=== PATIENT | female | born 1940 | race American Indian/Alaskan Native ===

== ENCOUNTER 2022-09-19 21:41 | Emergency (ER) | payer MEDICARE, OTHER, SELFPAY ==
[2022-09-19] VITALS (9 sets, daily range): BP systolic 105–130; BP diastolic 51–91; PULSE 83–100; RESP 26; O2SAT 94–99; BMI 24.4
--- NOTE | 2022-09-19 22:14 | ED_ITS ---
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 Patient notes that she was treated for pneumonia in July of 2022 well in [place] caring for family members. She has lost a son, a daughter and a son in law in the past year. She has now moved back to [facility]. She notes that she did have a drive from [facility] to [place] all the way through. She denies calf tenderness or history of DVT. Approximately 2 weeks ago she started coughing with minimal production. She states that has markedly worsened and now she coughs so hard that she vomits. She has not had fever or chills. She denies diarrhea. She has no past history of emphysema or COPD. She did try to of albuterol inhaler prior to coming here and it did not help. She notes that she cannot lay flat because when she does she starts coughing. She states that as a child she did have rheumatic fever and sometimes her heart has extra beats. She is not a smoker and has no history of emphysema or COPD. She does not think that she becomes more short of breath with activity. She states that she is only short of breath when she is coughing. Related Data Home Medications Medication Instructions Recorded Confirmed albuterol sulfate 2.5 mg/3 mL mg 09/19/22 (0.083 %) solution for nebulization omeprazole 40 mg capsule,delayed mg 09/19/22 release Previous Rx's Medication Instructions Recorded ipratropium 0.5 mg-albuterol 3 mg 3 ml inhalation QID #90 mL 09/20/22 (2.5 mg base)/3 mL nebulization soln potassium chloride 20 mEq 20 meq PO DAILY #7 tabs 09/20/22 tablet,extended release Allergies Allergy/AdvReac Type Severity Reaction Status Date / Time No Known Drug Allergies Allergy Verified 09/19/22 22:06 Review of Systems Status of ROS: Reports: 10 or more systems reviewed and unremarkable except as noted in History and below Const: Reports: fatigue (From difficulty sleeping.); Denies: fever or chills Eyes: Denies: change in vision ENMT: Denies: throat pain, neck pain, throat swelling or difficulty swallowing Cardio: Reports: shortness of breath with exertion (With coughing); Denies: chest pain, palpitations, edema or swelling of feet/ankles Resp: Reports: shortness of breath (With coughing) and cough; Denies: stridor, coughing up blood or chest congestion GI: Reports: vomiting; Denies: abdominal pain, nausea, diarrhea or difficulty swallowing : Denies: painful urination or urinary frequency Musculo: Denies: neck pain, extremity pain or extremity swelling Integ/Breast: Denies: rash or itching Neuro: Denies: headache or numbness in extremities Endo: Reports: fatigue (From difficulty sleeping.) Allergy/Immuno: Denies: throat swelling PFSH PFSH Social History Smoking Status: Never smoker Do you use any of these nicotine containing products: None Second hand tobacco smoke exposure: No How often do you have a drink containing alcohol: never AUDIT-C Alcohol total score: 0 Non-prescribed substance use: denies use Exam Narrative: Exam Narrative: Alert and oriented. Speaking clearly. Episodes of bronchospasm with coughing without production. Eyes are clear. Oral cavity with moist mucous membranes. Neck is supple. Heart with an irregular rhythm. Auscultatory findings sound like additional systole. Abdomen soft. Lungs are with wheezing expiratory with squeaks on especially on the right. Calves without tenderness. No edema of lower extremities. Negative Homans sign. Const: Vital Signs, click to edit/add: Vital Signs - 24 hr 09/19/22 21:55 09/20/22 00:06 09/19/22 22:37 Pulse Rate 93 Pulse Rate [Right Pulse Oximeter] 83 Respiratory Rate 26 H Blood Pressure Blood Pressure [Le ft Upper Arm] 130/91 H Pulse Oximetry 94 94 97 Oxygen Delivery Me thod Room Air Room Air 09/19/22 22:45 09/19/22 23:00 09/19/22 23:02 Pulse Rate 89 92 Pulse Rate [Right Pulse Oximeter] Respiratory Rate Blood Pressure 105/65 Blood Pressure [Le ft Upper Arm] Pulse Oximetry 99 95 97 Oxygen Delivery Me thod 09/19/22 23:15 09/19/22 23:30 09/19/22 23:32 Pulse Rate 93 94 93 Pulse Rate [Right Pulse Oximeter] Respiratory Rate Blood Pressure 130/51 L Blood Pressure [Le ft Upper Arm] Pulse Oximetry 97 94 94 Oxygen Delivery Me thod 09/19/22 23:45 09/20/22 00:00 09/20/22 00:02 Pulse Rate 100 87 Pulse Rate [Right Pulse Oximeter] Respiratory Rate Blood Pressure 141/76 H Blood Pressure [Le ft Upper Arm] Pulse Oximetry 98 94 95 Oxygen Delivery Me thod Documenting provider has reviewed patient's vital signs: yes Course Course Hospital Course: Patient has had 2 weeks of increasing cough without significant production or fever. Differential diagnosis does include PE secondary to recent travel, reactive airway, bronchitis, pneumonia, bronchospasm. In addition she has in ir regular heartbeat. She has agreed to chest x-ray, COVID swab and EKG to start with. If we do knots leak clear source of etiology on x-ray I do suggest CT of the chest and blood work. She is in agreement. We will also start with a DuoNeb. Reevaluation(s) Reevaluation #1: Patient noted to have a small pleural effusion on chest x-ray. Otherwise no large infiltrates. I have spoken with her about proceeding with blood work and CT given these findings. Patient requesting cough medicine and I written for Tessalon Perles. Reevaluation #2: Patient does not think she is markedly better with Tessalon Perles and therefore will use 5 mils Robitussin. After this patient feels much better. She states that she was almost even able to fall asleep. Vital Signs Vital signs: Initial Vital Signs Pulse Rate 83 09/19/22 21:55 Respiratory Rate 26 H 09/19/22 21:55 Blood Pressure 130/91 H 09/19/22 21:55 Blood Pressure Mean 104 09/19/22 21:55 Blood Pressure Position Supine 09/19/22 21:55 Pulse Oximetry 94 09/19/22 21:55 Oxygen Delivery Method 09/19/22 21:55 Vital Signs Pulse Rate 83 09/19/22 21:55 Respiratory Rate 26 H 09/19/22 21:55 Blood Pressure 130/91 H 09/19/22 21:55 Pulse Oximetry 94 09/19/22 21:55 Oxygen Delivery Method 09/19/22 21:55 Pulse Rate 87 09/20/22 00:02 Respiratory Rate 26 H 09/19/22 21:55 Blood Pressure 141/76 H 09/20/22 00:02 Pulse Oximetry 94 09/20/22 00:06 Oxygen Delivery Method 09/19/22 22:37 Medical Decision Making MDM Narrative Medical decision making narrative: 1. Bronchitis-fortunately no evidence of PE or other abnormality on CT. At this time recommend Zithromax his cough is been ongoing greater than 2 weeks. 500 mg today followed by 250 mg daily for 4 days. Will also do prednisone 20 mg p.o. b.i.d. x5 days. Patient does think that the DuoNeb here in the emergency room was superior to her albuterol at home and therefore I have sent DuoNeb prescription to [facility] pharmacy [facility] to be use q.i.d.. Patient may use Mucinex DM or Tessalon Perles as needed for cough at home. I did warn her that she may have continued cough tonight but she should have improvement over the next 24 hours. She should follow up with primary MD for recheck. 2. Irregular heart rate-I believe this is likely secondary to hypokalemia. Patient received 50 mEq of p.o. potassium and really the irritability and PVCs that were frequently noted have resolved. Magnesium within normal limits at 1.9. Potassium 20 mEq p.o. daily prescription for 7 days sent to [facility] pharmacy. 3. Hypokalemia-see above 4.. Disposition-patient is discharged home. During her time here she her sister seemed to be fairly frustrated with us and felt that things were not moving very fast. At patient has been calm cooperative and understanding. She certainly has been through significant heart break in the past year. She will follow-up with her primary MD Dr. Lara from the [facility]. She will return to the emergency room for worsening symptoms. During her time here we ruled out any possibility of PE, acute coronary disease, congestive heart failure. Medical Records Medical records reviewed: Yes I reviewed the patient's medical records Lab Data Lab results reviewed: Yes I reviewed the patient's lab results Labs: Lab Results 09/19/22 09/20/22 09/20/22 Range/Units 22:12 00:05 00:17 WBC 7.97 (4.50-11.00) K/uL RBC 4.20 (4.00-5.20) m/uL Hgb 11.5 L (12.0-16.0) gm/dL Hct 36.6 (33.0-51.0) % MCV 87 (80-100) fL MCH 27 (26-34) pg MCHC 31 L (32-36) gm/dL RDW Coeff of Blayne 13.5 (11.5-15.5) % Plt Count 291 (140-440) K/uL Neut % (Auto) 49.4 (42.0-72.0) % Lymph % (Auto) 24.2 (20-44) % [place] % (Auto) 11.7 H (0.0-11.0) % Eos % (Auto) 13.6 H (0.0-7.0) % Baso % (Auto) 0.8 (0.0-3.0) % Neut # (Auto) 3.95 (1.7-7.0) K/uL Lymph # (Auto) 1.93 (0.90-2.90) K/uL [place] # (Auto) 0.90 (0.00-0.90) K/UL Eos # (Auto) 1.10 H (0.00-0.50) K/uL Baso # (Auto) 0.06 (0.00-0.30) K/uL Sodium (135-149) mmol/L Potassium (3.6-5.1) mmol/L Chloride (96-114) mmol/L Carbon Dioxide (20-32) mmol/L BUN (7-30) mg/dL Creatinine (0.5-1.5) mg/dL Estimated Creat Clear Estimated GFR ml/min Glucose (60-115) mg/dL Calcium (8.4-10.6) mg/dL Magnesium (1.5-2.6) mg/dL Total Bilirubin (0.1-1.5) mg/dL AST (12-35) U/L ALT (4-35) U/L Alkaline Phosphatase (40-150) U/L C-Reactive Protein (0.5-1.0) mg/dL NT-Pro-B Natriuret Pep pg/mL Total Protein (6.0-8.3) g/dL Albumin (3.3-5.0) g/dL SARS-CoV-2 (PCR) Negative SARS-CoV-2 (Negative) Influenza Type A (PCR) Negative PCR FLU A (Negative) Influenza Type B (PCR) Negative PCR FLU B (Negative) RSV (PCR) Negative PCR RSV (Negative) POC Troponin I 0.01 (0.01-0.04) ng/ml 09/20/22 Range/Units 00:17 WBC (4.50-11.00) K/uL RBC (4.00-5.20) m/uL Hgb (12.0-16.0) gm/dL Hct (33.0-51.0) % MCV (80-100) fL MCH (26-34) pg MCHC (32-36) gm/dL RDW Coeff of Blayne (11.5-15.5) % Plt Count (140-440) K/uL Neut % (Auto) (42.0-72.0) % Lymph % (Auto) (20-44) % [place] % (Auto) (0.0-11.0) % Eos % (Auto) (0.0-7.0) % Baso % (Auto) (0.0-3.0) % Neut # (Auto) (1.7-7.0) K/uL Lymph # (Auto) (0.90-2.90) K/uL [place] # (Auto) (0.00-0.90) K/UL Eos # (Auto) (0.00-0.50) K/uL Baso # (Auto) (0.00-0.30) K/uL Sodium 143 (135-149) mmol/L Potassium 2.8 L* (3.6-5.1) mmol/L Chloride 112 (96-114) mmol/L Carbon Dioxide 26 (20-32) mmol/L BUN 15 (7-30) mg/dL Creatinine 1.0 (0.5-1.5) mg/dL Estimated Creat Clear 44.36 Estimated GFR 57 ml/min Glucose 112 (60-115) mg/dL Calcium 8.4 (8.4-10.6) mg/dL Magnesium 1.9 (1.5-2.6) mg/dL Total Bilirubin 0.4 (0.1-1.5) mg/dL AST 29 (12-35) U/L ALT 28 (4-35) U/L Alkaline Phosphatase 129 (40-150) U/L C-Reactive Protein 0.5 (0.5-1.0) mg/dL NT-Pro-B Natriuret Pep 888 pg/mL Total Protein 6.4 (6.0-8.3) g/dL Albumin 3.7 (3.3-5.0) g/dL SARS-CoV-2 (PCR) (Negative) Influenza Type A (PCR) (Negative) Influenza Type B (PCR) (Negative) RSV (PCR) (Negative) POC Troponin I (0.01-0.04) ng/ml Imaging Data Chest x-ray: Attestation: I have reviewed the pertinent imaging results. My impression: no infiltrate noted Radiologist's impression: Small left pleural effusion with left basilar atelectasis. The right lung is clear. No pneumothorax. Heart size upper limits of normal. Normal pulmonary vascularity. Mild elevation of the right hemidiaphragm. Degenerative changes of the acromioclavicular joints. IMPRESSION: Small left pleural effusion with left basilar atelectasis. CT scan - chest: Attestation: I have reviewed the pertinent imaging results. Radiologist's impression: No pulmonary embolism. Scattered areas of mucous plugging within the distal airways throughout the lung bases. Mild diffuse bronchial wall thickening. Findings can be seen in setting of bronchitis. Prominent, but not pathologically enlarged bihilar mediastinal lymph nodes, likely reactive. ECG Data Attestation: I personally reviewed and interpreted this ECG as follows: Interpretation: EKG 1. By my read shows sinus rhythm with frequent PVC. 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 No other acute ST or T-wave changes. 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 Prior to discharge however monitor shows consistent sinus rhythm. Discharge Plan Discharge Clinical Impression: Cough, Bronchitis, Hypokalemia Additional Instructions: Start Zithromax and prednisone tonight. I will send potassium prescription and DuoNeb prescription to your pharmacy. Robitussin may be used for cough. Return to the emergency room for worsening symptoms and as needed. Prescriptions: New ipratropium-albuterol 0.5 mg-3 mg(2.5 mg base)/3 mL solution for nebulization 3 ml inhalation QID Qty: 90 2RF potassium chloride 20 mEq tablet extended release 20 meq PO DAILY Qty: 7 0RF No Action albuterol sulfate 2.5 mg /3 mL (0.083 %) solution for nebulization Label Comments: INHALE 3ML PER NEBULIZER EVERY 4 HOURS omeprazole 40 mg capsule,delayed release(DR/EC) Label Comments: TAKE ONE CAPSULE BY MOUTH DAILY 30 MINUTES BEFORE MORNING MEAL Follow Up/Referrals: Virginia Lara MD [Primary Care Provider] -
--- NOTE | 2022-09-19 22:37 | CRLHL7_ITS ---
For Patients: As a result of the Century Cures Act, medical imaging exams and procedure reports are released immediately into your electronic medical record. You may view this report before your referring provider. If you have questions, please contact your health care provider. INDICATION: Persistent cough. TECHNIQUE: Chest 1 view. COMPARISON: Chest radiograph 08/16/2018. FINDINGS: Small left pleural effusion with left basilar atelectasis. The right lung is clear. No pneumothorax. Heart size upper limits of normal. Normal pulmonary vascularity. Mild elevation of the right hemidiaphragm. Degenerative changes of the acromioclavicular joints. IMPRESSION: Small left pleural effusion with left basilar atelectasis. Dictated by Madina Edmonds MD @ 09/19/2022 11:51:54 PM (Electronically Signed)
[2022-09-19] MEDS: IPRAT-ALBUT 0.5-2.5 MG/3 ML NEB 1 NEB IH (22:43)
[2022-09-19 23:03] LABS: PCR FLU A Negative PCR FLU A (Negative); PCR FLU B Negative PCR FLU B (Negative); PCR RSV Negative PCR RSV (Negative)
[2022-09-19 23:33] LABS: SARS PCR* Negative SARS-CoV-2 (Negative)
[2022-09-19] MEDS: BENZONATATE 100 MG CAPSULE 200 MG PO (23:37)
[2022-09-20] VITALS (8 sets, daily range): BP systolic 127–141; BP diastolic 62–91; PULSE 83–102; RESP 18–20; TEMP 36.8; O2SAT 93–95
--- NOTE | 2022-09-20 00:05 | CRLHL7_ITS ---
For Patients: As a result of the Century Cures Act, medical imaging exams and procedure reports are released immediately into your electronic medical record. You may view this report before your referring provider. If you have questions, please contact your health care provider. INDICATION: . TECHNIQUE: CT chest PE was acquired with 100 cc Omnipaque 350 IV contrast. COMPARISON: None. FINDINGS: Heart and vasculature: Contrast opacification of the pulmonary arterial tree is adequate. No sign of pulmonary embolism. Heart size is normal. Thoracic aorta and pulmonary artery are normal in caliber. Lungs and pleura: The central airways are clear; however, there are scattered areas of mucous plugging within the distal airways throughout the lung bases. Mild diffuse bronchial wall thickening. No consolidation, significant atelectasis, suspicious nodule, or pneumothorax. Calcified right middle lobe granuloma.1 Lymph nodes/mediastinum: Prominent, but not pathologically enlarged bihilar and mediastinal lymph nodes. No axillary lymphadenopathy. Chest wall: No masses. Upper abdomen: Status post cholecystectomy. No abnormal biliary ductal dilatation. Bones: Unremarkable for age. IMPRESSION: No pulmonary embolism. Scattered areas of mucous plugging within the distal airways throughout the lung bases. Mild diffuse bronchial wall thickening. Findings can be seen in setting of bronchitis. Prominent, but not pathologically enlarged bihilar mediastinal lymph nodes, likely reactive. Please note that all CT scans at this facility use dose modulation, iterative reconstruction, and/or weight-based dosing when appropriate to reduce radiation dose to as low as reasonably achievable. Dictated by Juan Duarte MD @ 09/20/2022 1:27:47 AM (Electronically Signed)
[2022-09-20] MEDS: guaiFENesin 100 MG/ML CUP PO ×2 (00:14→02:20)
[2022-09-20 00:23] LABS: Basophils Absolute Auto 0.06 K/uL (0.00-0.30); Basophils Percent Auto 0.8 % (0.0-3.0); Eosinophils Percent Auto 13.6 % (0.0-7.0); Hematocrit 36.6 % (33.0-51.0); Hemoglobin* 11.5 gm/dL (12.0-16.0); Immature Granulocytes Abs Auto 0.02 K/uL (0.00-0.30); Immature Granulocytes Pct Auto 0.3 %; Lymphocytes Absolute Auto 1.93 K/uL (0.90-2.90); Lymphocytes Percent Auto 24.2 % (20-44); Mean Corpuscular HGB Conc 31 gm/dL (32-36); Mean Corpuscular Hemoglobin 27 pg (26-34); Mean Corpuscular Volume 87 fL (80-100); Monocytes Percent Auto 11.7 % (0.0-11.0); Neutrophils Absolute Auto 3.95 K/uL (1.7-7.0); Neutrophils Percent Auto 49.4 % (42.0-72.0); Platelet Count* 291 K/uL (140-440); RDW Coefficient of Variation % 13.5 % (11.5-15.5); White Blood Count* 7.97 K/uL (4.50-11.00)
[2022-09-20 00:29] LABS: Slide Review Reflex No
[2022-09-20 00:35] LABS: Albumin* 3.7 g/dL (3.3-5.0); Chloride* 112 mmol/L (96-114); Sodium* 143 mmol/L (135-149)
[2022-09-20 00:37] LABS: Est. Creatinine Clearance* 44.36; Estimated Glomerular Filt Rate 57 ml/min
[2022-09-20 00:38] LABS: Alanine Aminotransferase* 28 U/L (4-35); Alkaline Phosphatase* 129 U/L (40-150); Aspartate Amino Transferase* 29 U/L (12-35); Bilirubin Total* 0.4 mg/dL (0.1-1.5); Blood Urea Nitrogen* 15 mg/dL (7-30); Carbon Dioxide* 26 mmol/L (20-32); Glucose* 112 mg/dL (60-115); Total Protein* 6.4 g/dL (6.0-8.3)
[2022-09-20 00:39] LABS: Calcium* 8.4 mg/dL (8.4-10.6); Potassium* 2.8 mmol/L (3.6-5.1)
[2022-09-20 00:41] LABS: C Reactive Protein* 0.5 mg/dL (0.5-1.0)
[2022-09-20 00:50] LABS: NT Pro B Type NatriureticPept* 888 pg/mL
[2022-09-20] MEDS: POTASSIUM BICARB 25 MEQ EFFERVESCENT TAB 50 MEQ PO (00:51)
[2022-09-20 00:52] LABS: Troponin, Point-of-Care* 0.01 ng/ml (0.01-0.04)
[2022-09-20 01:03] LABS: Magnesium* 1.9 mg/dL (1.5-2.6)
== END 2022-09-20 02:25 | disposition home or self-care (01) ==
LOC: ED 23:04
PROVIDERS: Emergency Provider Family Medicine; PCP Family Medicine
DX: J40 Bronchitis, not specified as acute or chronic (principal); R00.9 Unspecified abnormalities of heart beat; E87.6 Hypokalemia
CPT/HCPCS: 36415; 71045; 71260; 80053; 83735; 83880; 84484; 85025; 86140; 87502; 87634; 87635; 93005; 94640; 94761; 99284; 99285; A9270; Q9967

== ENCOUNTER 2022-11-06 22:19 | Emergency (ER) | payer MEDICARE, MEDICAID, SELFPAY ==
[2022-11-06 22:36] VITALS: BP 149/94; PULSE 83; RESP 22; TEMP 36.7; O2SAT 95; BMI 24.9
--- OUTSIDE RECORDS SUMMARY | 2022-11-06 23:19 | XMS_ITS | Continuity of Care Document ---
Author Name Unknown Organization Wilmarelli Rees [facility] Address [id number] [place] [address] Phone Care Team Providers Care Factory Engineer Name Role Phone Unavailable Unavailable Unavailable Procedures Procedure Date Extraction, Erupted Tooth Or Exposed Janeth t (Elevati Extraction, Erupted Tooth Or Exposed [facility]posed [facility], Erupted Tooth Or Exposed Janeth t (Elevati Extraction, Erupted Tooth Or Exposed Janeth t (Elevati Extraction, Erupted Tooth Or Exposed Janeth t (Elevati Extraction, Erupted Tooth Or Exposed Janeth t (Elevati Limited Oral Evaluation ??? Problem Focu sed Office[facility]outpatient visit,[facility] [place] Urinalysis, non-automated, w/scope Antibody, helicobacter pylori 8 Automated hemogram (CBC) Metabolic panel, comprehensive 08 Hepatic function panel Lipid profile Advance Directives Directive Yes / No Effective Date File Name No Information Encounters Encounter Description Practice Location Reason(s) For Visit Diagnoses Date Provider Providers Copied on Encounter [facility], [address] [place] [address] [id number] , [place], [place], [id number], [place] tel:[phone] [place] DENTAL EXAMINATION Nov- 3-201 5 No Information [facility], [address] [place] [address] [id number] , [place], [place], [id number], [place] tel:[phone] [place] DENTAL EXAMINATION 5 No Information Office/outpat ient visit,[facility] Wilmar Sen [facility], [id number] , [place], [place], [id number], [place] tel:[phone] [place] No Information 6200 8 No Information Family History Family Member Type Diagnosis Age At Onset No Information Payers Payer name Insurance type Covered alliance party ID Authorpana renard(s) D Z Slide Discount Schedule A CI Social History Type Description Quantity Date Captured Comments Sex Female Smoking Status No Information Chief Complaint And Reason For Visit No Information Reason For Referral Reason For Referral No Information Plan Of Treatment Date Type Action Status No Information History Of Present Illness Encounter Date Complaint History Of Prese nt Illness No Information Functional Status Date Functional Assessmen t No Information Instructions Date Instruction Additional Infor mation No Information Assessments Type Assessment Date No Information Patient Care Teams Name Effective Dates (start - stop) Status Members No Information
--- OUTSIDE RECORDS SUMMARY | 2022-11-06 23:20 | XMS_ITS | Continuity of Care Document ---
Author Name Unknown Organization [facility] Address [address] [facility] [id number] [place] [address] Phone Care Team Providers Care Clinical Abstractor Name Role Phone Unavailable Unavailable Unavailable Procedures Procedure Date Extraction, Erupted Tooth Or Exposed Janeth t (Elevati Extraction, Erupted Tooth Or Exposed Janeth t (Elevpsychiatric Extraction, Erupted Tooth Or Exposed Janeth t (Elevpsychiatric Extraction, Erupted Tooth Or Exposed Janeth t (Elevati Extraction, Erupted Tooth Or Exposed Janeth t (Elevati Extraction, Erupted Tooth Or Exposed Janeth t (Elevati Extraction, Erupted Tooth Or Exposed Janeth t (Elevati Limited Oral Evaluation ??? Problem Focu sed Office/outpatient visit,[facility], [facility] 2007 Urinalysis, non-automated, w/scope Antibody, helicobacter pylori 8 Automated hemogram (CBC) Metabolic panel, comprehensive 08 Hepatic function panel Lipid profile Advance Directives Directive Yes / No Effective Date File Name No Information Encounters Encounter Description Practice Location Reason(s) For Visit Diagnoses Date Provider Providers Copied on Encounter [facility], [address] [place] [address] [id number] , [place], [place], [id number], [place] tel:[phone] [place] DENTAL EXAMINATION Nov- 3-201 5 No Information [facility], [address] [place] [address] [id number] , [place], [place], [id number], [place] tel:[phone] [place] DENTAL EXAMINATION 5 No Information Office/outpat ient visit,[facility], [id number] , [place], [place], [id number], [place] tel:[phone] [place] No Information 6200 8 No Information Family History Family Member Type Diagnosis Age At Onset No Information Payers Payer name Insurance type Covered constitution party ID Authorpana renard(s) D Z Slide [...]
--- NOTE | 2022-11-06 23:39 | ED_ITS ---
HPI - General Adult General Date Seen: 11/06/22 Chief complaint: Cough Stated complaint: cough hasn't gotten better since last in Time Seen by Provider: 11/06/22 22:30 Source: patient Mode of arrival: ambulatory Limitations: no limitations History of Present Illness HPI narrative: Patient is an 82-year-old female presents here with a friend, she has had a cough now for the last 3 months, it has been worse in the last week or so. Denies any fevers chills or sweats associated with this, she is using nebulize treatments of albuterol every 4 hours at home, and also using Mucinex, she has recently moved here from [place] and has not yet established with a primary care physician as she does not have insurance yet. 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 No history of COPD, no history of reactive airway disease, denies a history of cardiac issues. Denies leg swelling, denies syncope, sometimes she coughs so hard she throws up she says. Does not smoke, Treatments prior to arrival: none Related Data Home Medications Medication Instructions Recorded Confirmed albuterol sulfate 2.5 mg/3 mL mg 09/19/22 (0.083 %) solution for nebulization omeprazole 40 mg capsule,delayed mg 09/19/22 release Previous Rx's Medication Instructions Recorded ipratropium 0.5 mg-albuterol 3 mg 3 ml inhalation QID #90 mL 09/20/22 (2.5 mg base)/3 mL nebulization soln potassium chloride 20 mEq 20 meq PO DAILY #7 tabs 09/20/22 tablet,extended release Allergies Allergy/AdvReac Type Severity Reaction Status Date / Time No Known Drug Allergies Allergy Verified 09/19/22 22:06 Review of Systems Status of ROS: Reports: 10 or more systems reviewed and unremarkable except as noted in History and below PFSH PFS Social History Smoking Status: Never smoker Do you use any of these nicotine containing products: None Second hand tobacco smoke exposure: No How often do you have a drink containing alcohol: never AUDIT-C Alcohol total score: 0 Non-prescribed substance use: denies use Exam Narrative: Exam Narrative: She is seen in room 4 she is in no apparent distress speaking to me in full se ntences, she did not cough once when she was in the room. Her pupils are equal round reactive to light there is no scleral icterus redness or TMs are normal oropharynx is normal, she has musical wheezes in her lungs on expiration bilaterally, no signs of respiratory distress, no crackles noted heart sounds no clicks murmurs or gallops her abdomen is soft, there is no guarding no tenderness, no organomegaly, no swelling or pitting edema of her legs. Const: Vital Signs, click to edit/add: Vital Signs - 24 hr 11/06/22 22:36 Temperature 98.1 F Pulse Rate [Left P ulse Oximeter] 83 Respiratory Rate 22 Blood Pressure [Ri ght Upper Arm] 149/94 H Pulse Oximetry 95 Oxygen Delivery Me thod Room Air Documenting provider has reviewed patient's vital signs: yes Course Course Hospital Course: I discussed with her that she needs to follow up with primary care, this seems to be more of a chronic cough than anything, use of Mucinex probably is worsening the cough at this point, not helping. She can use some Robitussin DM only at night time, I did give her MDI of albuterol she can use in between, and we will give her a tapering dose of prednisone, her friend asked me about antibiotics but in this setting I do not think antibiotics are helpful. I do think she will end up needing probably inhaled steroids, but she has an appointment with [facility] coming up here shortly A things to worry about including reflux causing her issue in going up on her omeprazole to 60 mg daily would also be advantageous. It least for the next couple weeks, I would also suggest if this does not work consider postnasal drip as a cause. Vital Signs Vital signs: Initial Vital Signs Temperature 98.1 F 11/06/22 22:36 Temperature Source Temporal Artery Scan 11/06/22 22:36 Pulse Rate 83 11/06/22 22:36 Respiratory Rate 22 11/06/22 22:36 Blood Pressure 149/94 H 11/06/22 22:36 Blood Pressure Mean 112 11/06/22 22:36 Blood Pressure Position Sitting 11/06/22 22:36 Pulse Oximetry 95 11/06/22 22:36 Oxygen Delivery Method Room Air 11/06/22 22:36 Vital Signs Temperature 98.1 F 11/06/22 22:36 Pulse Rate 83 11/06/22 22:36 Respiratory Rate 22 11/06/22 22:36 Blood Pressure 149/94 H 11/06/22 22:36 Pulse Oximetry 95 11/06/22 22:36 Oxygen Delivery Method Room Air 11/06/22 22:36 Temperature 98.1 F 11/06/22 22:36 Pulse Rate 83 11/06/22 22:36 Respiratory Rate 22 11/06/22 22:36 Blood Pressure 149/94 H 11/06/22 22:36 Pulse Oximetry 95 11/06/22 22:36 Oxygen Delivery Method Room Air 11/06/22 22:36 Medical Decision Making MDM Narrative Medical decision making narrative: Differential diagnosis include a viral upper respiratory illness, histoplas mosis, tuberculosis, pneumonia, COPD exacerbation, emphysema, strep throat illness, bronchitis, asthma, reactive airway disease, chronic cough, medication side effects, allergic rhinitis with postnasal drip, foreign body aspiration, aspiration pneumonia, bronchiolitis, and gastroesophageal reflux disease as well as multiple other considerations. Medical Records Medical records reviewed: Yes I reviewed the patient's medical records Medical records narrative: Reviewed the medical records from the previous ER visit. Discharge Plan Discharge Clinical Impression: Cough Patient Disposition: Home w/ Parent or Adult Condition: Stable Instructions: Syncope (ED), Wheezing (ED) Additional Instructions: Home rest medications as directed, use the tapering prednisone, you may use the Robitussin DM, follow-up with primary care, return as needed. Prescriptions: No Action albuterol sulfate 2.5 mg /3 mL (0.083 %) solution for nebulization Patient Comments: INHALE 3ML PER NEBULIZER EVERY 4 HOURS omeprazole 40 mg capsule,delayed release(DR/EC) Patient Comments: TAKE ONE CAPSULE BY MOUTH DAILY 30 MINUTES BEFORE MORNING MEAL ipratropium-albuterol 0.5 mg-3 mg(2.5 mg base)/3 mL solution for nebulization 3 ml inhalation QID Qty: 90 2RF potassium chloride 20 mEq tablet extended release 20 meq PO DAILY Qty: 7 0RF Follow Up/Referrals: Virginia Lara MD [Primary Care Provider] - Stand Alone Forms: [employer] Info Instructions
[2022-11-06 23:40] VITALS: BP 135/84; PULSE 79; RESP 20; TEMP 36.7; O2SAT 95
== END 2022-11-06 23:40 | disposition home or self-care (01) ==
PROVIDERS: Emergency Provider Family Medicine; PCP Family Medicine
DX: R05.9 Cough, unspecified (principal)
CPT/HCPCS: 99282; 99283

== ENCOUNTER 2023-09-28 16:33 | Emergency (ER) | payer MEDICARE, OTHER, BC, SELFPAY ==
[2023-09-28 16:42] VITALS: BP 152/77; PULSE 71; RESP 16; TEMP 37.4; O2SAT 99; BMI 25.1
[2023-09-28 17:17] LABS: Appearance Urine Clear (Clear); Bilirubin Urine Negative (Negative); Blood Urine Trace-intact (Negative); Color Urine Yellow (Yellow); Glucose Urine Negative (Negative); Ketones Urine Trace (Negative); Leukocyte Esterase Urine Negative (Negative); Nitrite Urine Negative (Negative); Protein Urine Trace (Negative); Specific Gravity Urine >= 1.030 (1.000-1.030); Urobilinogen Urine 0.2 (0.2-1.0); pH Urine 5.5 (5.0-8.5)
--- NOTE | 2023-09-28 18:13 | ED_ITS ---
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 She had endoscopy last Monday, she says some biopsies were taken at that time, and then she had it sounds like a barium swallow with small-bowel follow-through on Monday. She says she felt fine after her endoscopy and Monday. On Monday after coming home from her barium study, she did have diarrhea for about 24 hours. At some point in there she started to get she says sharp pains shooting in her left upper abdomen. She says it felt like a muscle cramp but she could not find a spot on the outside that seemed tender to push on. Over the past couple of days she has noticed a rash which she thinks is related to the patches she had on for her procedure. She has not had vomiting, fevers, appetite has been normal. Normal bowel movements after that 24 hours of diarrhea. Related Data Home Medications Medication Instructions Recorded Confirmed omeprazole 40 mg capsule,delayed mg 09/19/22 07/19/23 release cholecalciferol (vitamin D3) 25 25 mcg PO QDAY 07/19/23 07/19/23 mcg (1,000 unit) capsule clotrimazole 10 mg frankie mg PO 07/19/23 07/19/23 doxycycline monohydrate 100 mg 100 mg PO BID 07/19/23 07/19/23 capsule hydroxychloroquine 200 mg tablet 200 mg PO BID 07/19/23 07/19/23 sucralfate 1 gram tablet 1 g PO QID 07/19/23 07/19/23 vitamin B complex (B 1 tab PO QDAY 07/19/23 07/19/23 Complex-Vitamin B12 tablet) Previous Rx's Medication Instructions Recorded prednisone 20 mg tablet See Rx Instructions .Route 09/28/23 .COMPLEX #18 tabs valacyclovir 1 gram tablet 1,000 mg PO TID 7 days #21 tabs 09/28/23 Allergies Allergy/AdvReac Type Severity Reaction Status Date / Time codeine Allergy Unknown Verified 09/28/23 16:50 prednisone Allergy Unknown increase Verified 09/28/23 16:50 blood pressure ibuprofen AdvReac Intermediate abdominal Verified 09/28/23 16:50 discomfort Review of Systems Status of ROS: Reports: 10 or more systems reviewed and unremarkable except as noted in History and below 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, left shoulder (ICD-10) Knee fracture, left Vulvar pain ?R10.2 - Pelvic and perineal pain (ICD-10) History of duodenal ulcer ?Z87.19 - Personal history of other diseases of the digestive system (ICD-10) Headache ?R51.9 - Headache, unspecified (ICD-10) Elevated blood pressure reading ?R03.0 - Elevated blood-pressure reading, without diagnosis of hypertension (ICD-10) Back pain ?M54.9 - Dorsalgia, unspecified (ICD-10) Atopic dermatitis ?L20.9 - Atopic dermatitis, unspecified (ICD-10) Surgical History (Updated 07/18/23 @ 08:26 by Elizabeth Crump) Status post laparoscopic cholecystectomy ?Z90.49 - Acquired absence of other specified parts of digestive tract (ICD- 10) History of tonsillectomy and adenoidectomy ?Z90.89 - Acquired absence of other organs (ICD-10) History of surgery on left wrist (07/28/15) ?Z98.890 - Other specified postprocedural states (ICD-10) History of sinus surgery ?Z98.890 - Other specified postprocedural states (ICD-10) History of hysterectomy ?Z90.710 - Acquired absence of both cervix and uterus (ICD-10) History of hammer toe correction ?Z98.890 - Other specified postprocedural states (ICD-10) ?Z87.39 - Personal history of other diseases of the musculoskeletal system and connective tissue (ICD-10) History of elbow surgery (2018) ?Z98.890 - Other specified postprocedural states (ICD-10) History of carpal tunnel surgery of left wrist (2019) ?Z98.890 - Other specified postprocedural states (ICD-10) History of bilateral cataract extraction (2014) ?Z98.41 - Cataract extraction status, right eye (ICD-10) ?Z98.42 - Cataract extraction status, left eye (ICD-10) History of arthroscopy of knee (1989) ?Z98.890 - Other specified postprocedural states (ICD-10) History of appendectomy ?Z90.49 - Acquired absence of other specified parts of digestive tract (ICD- 10) Social History Smoking Status: Never smoker Do you use any of these nicotine containing products: None Second hand tobacco smoke exposure: No How often do you have a drink containing alcohol: never AUDIT-C Alcohol total score: 0 Non-prescribed substance use: denies use Exam Narrative: Exam Narrative: Vital signs as noted above. In general, an alert, well-appearing patient. Looks comfortable. Head: Normocephalic, atraumatic. Eyes: Pupils are equal reactive. Extraocular movements are full. Conjunctivae are normal. ENT: Mucous membranes are moist. Neck: Supple without lymphadenopathy. Heart: Regular rate and rhythm. No murmur or rub. Lungs: Clear bilaterally. No increased work of breathing, crackles or wheezes. Abdomen: Soft and nontender. No organomegaly. Extremities: Well perfused. No edema. No calf tenderness. Pulses intact. Neurologic: Patient is alert and oriented to person and place. Speech is fluent. Face is symmetric. Moves all extremities equally. Affect: Normal. Skin: Warm and dry. Well perfused. Over her lower torso/upper abdomen on the left there is a dermatomal rash consistent with shingles. She has a few scattered lesions on her left arm which he says are related to her pemphigoid. Const: Vital Signs, click to edit/add: Vital Signs - 24 hr 09/28/23 16:42 Temperature 99.3 F Pulse Rate [Right Pulse Oximeter] 71 Respiratory Rate 16 Blood Pressure [Ri ght Upper Arm] 152/77 H Pulse Oximetry 99 Oxygen Delivery Me thod Room Air Course Course ED Course: Her abdominal exam is benign, she has been having pain now for several days, intermittently, and now has a rash consistent with shingles. I do think this is the cause of her pain. I do not have any reason to suspect complications related to her procedure almost a week ago. I have recommended course of prednisone and valacyclovir, Tylenol as needed for pain. Primary care follow-up for persistent or other concerns. Discussed the natural course of shingles. Return for acute worsening, new symptoms such as vomiting, fevers, etc.. Vital Signs Vital signs: Initial Vital Signs Temperature 99.3 F 09/28/23 16:42 Temperature Source Temporal Artery Scan 09/28/23 16:42 Pulse Rate 71 09/28/23 16:42 Pulse Rhythm Regular 09/28/23 16:42 Pulse Strength 3+ Normal 09/28/23 16:42 Respiratory Rate 16 09/28/23 16:42 Blood Pressure 152/77 H 09/28/23 16:42 Blood Pressure Mean 102 09/28/23 16:42 Blood Pressure Position Sitting 09/28/23 16:42 Pulse Oximetry 99 09/28/23 16:42 Oxygen Delivery Method Room Air 09/28/23 16:42 Vital Signs Temperature 99.3 F 09/28/23 16:42 Pulse Rate 71 09/28/23 16:42 Respiratory Rate 16 09/28/23 16:42 Blood Pressure 152/77 H 09/28/23 16:42 Pulse Oximetry 99 09/28/23 16:42 Oxygen Delivery Method Room Air 09/28/23 16:42 Temperature 99.3 F 09/28/23 16:42 Pulse Rate 71 09/28/23 16:42 Respiratory Rate 16 09/28/23 16:42 Blood Pressure 152/77 H 09/28/23 16:42 Pulse Oximetry 99 09/28/23 16:42 Oxygen Delivery Method Room Air 09/28/23 16:42 Discharge Plan Discharge Clinical Impression: Shingles Patient Disposition: Home, Self-Care Condition: Stable Instructions: Shingles (ED) Additional Instructions: Medications as prescribed. Rash generally resolves over 2-4 weeks, but you may continue to have pain and or itching for a couple of months. See her primary doctor if you have ongoing concerns. Prescriptions: New prednisone 20 mg tablet See Rx Instructions .ROUTE .COMPLEX Qty: 18 0RF Rx Instructions: 3 tabs daily for 3 days, then 2 tabs daily for 3 days, then 1 tab daily for 3 days. valacyclovir 1 gram tablet 1,000 mg PO TID 7 Days Qty: 21 0RF No Action doxycycline monohydrate 100 mg capsule 100 mg PO BID clotrimazole 10 mg frankie PO hydroxychloroquine 200 mg tablet 200 mg PO BID sucralfate 1 gram tablet 1 g PO QID vitamin B complex [B Complex-Vitamin B12] Tablet 1 tab PO QDAY cholecalciferol (vitamin D3) 25 mcg (1,000 unit) capsule 25 mcg PO QDAY omeprazole 40 mg capsule,delayed release(DR/EC) Patient Comments: TAKE ONE CAPSULE BY MOUTH DAILY 30 MINUTES BEFORE MORNING MEAL Follow Up/Referrals: Virginia Lara MD [Primary Care Provider] - Stand Alone Forms: [facility] Info Instructions
[2023-09-28 18:25] LABS: Bacteria Urine Few; Mucus Urine Moderate; RBC Urine 0-2 (0-2); WBC Urine 0-2 (0-5)
== END 2023-09-28 18:26 | disposition home or self-care (01) ==
LOC: ED 18:04
PROVIDERS: Emergency Provider Emergency Medicine; PCP Family Medicine
DX: B02.9 Zoster without complications (principal)
CPT/HCPCS: 81001; 87086; 99283

== ENCOUNTER 2023-12-01 09:44 | Outpatient (CLI) | payer MEDICARE, BC, SELFPAY ==
--- OUTSIDE RECORDS SUMMARY | 2023-12-01 09:47 | XMS_ITS | Clinical Summary ---
Author Name Unknown Organization [facility] Address [address] [place] [address] Care Team Providers Care Division Toll Wire Chief Name Role Phone Elsewhere, Pcp Primary Care Provider Unavailabl e Source Comments Patient records contain information from all sites at [facility]. For routine questions regarding patient records, call [phone] during business hours, M-F 8:00 AM - 5:00 PM Central Time. Record requests for emergency care only can be directed to [phone] at any time.[facility] Allergies Active Allergy Reactions Criticality Noted Date Comments Codeine Nausea Only 09/09/2016 Can do injection, but not oral. Does not seem to have a problem now. Ibuprofen GI intolerance,Other (see comments) High 12/23/2020 Ulcer problems so does not take. Prednisone Hypertension,Other ( see comments) High 07/18/2018 High blood pressure Medications Medication Sig Dispensed Refills Start Date End Date Status acetaminophen (TYLENOL) 500 mg tablet Take 500 mg by mouth as needed for pain. 9 Active lidocaine viscous (XYLOCAINE) 2 % mucosal solution Take 5 mL by mouth as needed. 0 Active sucralfate (CARAFATE) 1 gram tablet Take 1 g by mouth 3 (three) times a day before meals. 0 Active hydrOXYchloroQUI NE (PLAQUENIL) 200 mg tablet Take 200 mg by mouth daily. 1 Active omeprazole (PriLOSEC) [address] capsule Take 40 mg by mouth every morning before breakfast. 1 Active clotrimazole (MYCELEX) 10 mg trocheIndication s:Pemphigoid Mucous Membrane (HCC) Dissolve 1 Sandi (10 mg total) in the mouth 2 (two) times a day. 60 Sandi 11 3 Active dexAMETHasone (DECADRON) 0.5 mg/5 mL solutionIndicati ons:Pemphigoid Mucous Membrane (HCC) Take 5 mL (0.5 mg total) by mouth every 12 (twelve) hours. Swish for 5 minutes and then spit out. Do not eat/drink for 30 minutes after. 500 mL 3 3 Active Additional Information Patient taking differently:0.5 mg oralAs needed, Swish for 5 minutes and then spit out. Do not eat/drink for 30 minutes after., Reported on 09/15/2023 betamethasone dipropionate, augmented, (DIPROLENE) 0.05 % ointmentIndicati ons:Lichen Sclerosus Apply 1 Application topically daily. Apply to vulva. 45 g 1 3 Active Additional Information Patient taking differently:1 Application topicalAs needed, Apply to vulva., Reported on 09/15/2023 Ventolin HFA 90 mcg/actuation inhaler Inhale as needed for shortness of breath or wheezing. Active predniSONE (DELTASONE) 20 mg tablet 3 TABLETS DAILY FOR 3 DAYS, THEN 2 TABLETS DAILY FOR 3 DAYS THEN 1 TABLET DAILY FOR 3 DAYS 4 Active valACYclovir (VALTREX) 1000 mg tablet TAKE 1 TABLET BY MOUTH 3 TIMES A DAY FOR 7 DAYS 4 Active triamcinolone (KENALOG) 0.1 % creamIndications :Stasis Dermatitis Lower Extremity Left Apply 1 Application topically 2 (two) times a day as needed (Rash). Apply to left lower leg. 454 g 3 4 Active doxycycline monohydrate (MONODOX) 100 mg capsuleIndicatio ns:Pemphigoid Mucous Membrane (HCC) take 1 capsule by mouth twice a day 60 capsule 11 4 Active doxycycline monohydrate (MONODOX) 100 mg capsuleIndicatio ns:Pemphigoid Mucous Membrane (HCC) take 1 capsule by mouth twice a day 60 capsule 3 4 11/27/19 24 Discontinued triamcinolone (KENALOG) 0.1 % creamIndications :Stasis Dermatitis Lower Extremity Left Apply 1 Application topically 2 (two) times a day as needed (Rash). Apply to left lower leg. 240 g 3 4 11/07/19 24 Discontinued(Reo rder) Hospital, Clinic, or Other Facility Administered Medication Ordered Dose Route Frequency Start Date End Date Status BUPivacaine 0.25 % (2.5 mg/mL) injection 20 mL (MARCAINE)Indications:Mass Abdominal Right Upper Quadrant 20 mL inj Once 05/25/2023 Active Active Problems Problem Noted Date Diagnosed Date Mass Abdominal Right Upper Quadrant 05/08/2023 Lesion Oral 01/19/2021 Overview: Added automatically from request for surgery [id number] Encounters Date Type Department Care Team Description 11/26/2023 Refill Department of Dermatology in [address] [phone] Vinita Salas M.D. Med Refill 11/07/2023 Clinical Communication Department of Dermatology in [address] [phone] Virginia Wallace R.N. 10/31/2023 10:40 AM CDT Office Visit Department of Dermatology in [address] [address] Vinita Salas M.D. Pemphigoid Mucous Membrane (HCC) (Primary Dx); Lichen Sclerosus; Lipoma; Stasis Dermatitis Lower Extremity Left; Lymphadenopathy Discharge Disposition: Home or Self Care 10/30/2023 1:30 PM CDT Clinical Communication Virtual Review in [address] [phone] Pre-visit Intake 09/25/2023 9:27 AM RN RESIDENTIAL - 09/25/2023 11:59 PM RN RESIDENTIAL Hospital Encounter Department of Radiology, [facility], in [address] [address] Manuelito Jacobs M.D. Obstruction Intestinal (HCC) Discharge Disposition: Home or Self Care 09/22/2023 10:45 AM RN RESIDENTIAL Ancillary Procedure Department of Gastroenterology 09/22/2023 9:34 AM RN RESIDENTIAL - 09/22/2023 11:59 PM RN RESIDENTIAL Hospital Encounter Division of Gastroenterology in [place], [place] [address] [place] [phone] Manuelito Jacobs M.D. Obstruction Intestinal (HCC); Dyspepsia Discharge Disposition: Home or Self Care 09/19/2023 11:07 AM RN RESIDENTIAL - 09/19/2023 11:59 PM RN RESIDENTIAL Hospital Encounter Department of Laboratory Medicine and Pathology, [place], [place] [address] [place] [phone] Manuelito Jacobs M.D. Obstruction Intestinal (HCC); Dyspepsia Discharge Disposition: Home or Self Care 09/19/2023 11:07 AM RN RESIDENTIAL - 09/19/2023 11:59 PM RN RESIDENTIAL Hospital Encounter Department of Laboratory Medicine and Pathology, [address] [phone] Manuelito Jacobs M.D. Obstruction Intestinal (HCC); Dyspepsia Discharge Disposition: Home or Self Care 09/19/2023 10:00 AM RN RESIDENTIAL Comprehensive Visit Division of Gastroenterology in [address] [phone] Manuelito Jacobs M.D. Obstruction Intestinal (HCC) (Primary Dx); Dyspepsia 09/15/2023 9:30 AM [facility] Clinical Communication Virtual Review in [address] [phone] from Last 3 Months Family History Medical History Relation Name Comments Other cancer Daughter Elissa Stack liver ca ncer Migraines Mother Trudy Osteoporosis Mother Trudy Stroke Mother Trudy Relation Name Status Comments Daughter Elissa Stack Mother Trudy Social History Tobacco Use Types Packs/Day Years Used Date Smoking Tobacco: Former Cigarettes 0.3 20 Smokeless Tobacco: Never Tobacco Cessation:Counseling Given: Not Answered Comments:started when I was around 19yrs old, Quit in 1996 Alcohol Use Standard Drinks/Week Comments Yes 2 (1 standard drink = 0.6 oz pur e alcohol) Very rarely Humiliation, Afraid, Rape, and Kick questionnair e Answer Date Recorded Within the last year, have y ou been afraid of your partner or ex-partner? No 01/25/2023 Within the last year, have y ou been humiliated or emotionally abused in other ways by your partner or ex-partner? No Within the last year, have y ou been kicked, hit, slapped, or otherwise physically hurt by your partner or ex-partner? No 01/25/2023 Within the last year, have y ou been raped or forced to have any kind of sexual activity by your partner or ex-partner? No 01/25/2023 Social Connection and Isolat ion Panel [NHANES] Answer Date Recorded In a typical week, how many times do you talk on the phone with family, friends, or neighbors? More than three times a week 07/06/2021 How often do you get togethe r with friends or relatives? More than three times a week 07/06/2021 How often do you attend chur ch or faith services? More than 4 times per year 07/06/2021 Do you belong to any clubs o r organizations such as hinduism groups, unions, fraternal or athletic groups, or school groups? No 07/06/2021 How often do you attend meet ings of the clubs or organizations you belong to? Never 07/06/2021 Are you , , di vorced, , never , or living with a partner? 07/06/2021 AUDIT-C Answer Date Recorded Q1: How often do you have a drink containing alc ohol? Never 07/06/2021 Average Number of Drinks Not on file 021 Frequency of Binge Drinking Not on file 06/15 Overall Financial Resource Strain (CARDIA) Answe r Date Recorded How hard is it for you to pa y for the very basics like food, housing, medical care, and heating? Not hard at all 01/25/2023 [facility] of Occupat ional Health - Occupational Stress Questionnaire Answer Date Recorded Do you feel stress - tense, restless, nervous, or anxious, or unable to sleep at night because your mind is troubled all the time - these days? Not at all 07/06/2021 Exercise Vital Sign Answer Date Recorde d On average, how many days pe r week do you engage in moderate to strenuous exercise (like a brisk walk)? 3 days 01/25/2023 On average, how many minutes do you engage in exercise at this level? 110 min 01/25/2023 Hunger Vital Sign Answer Date Recorded Within the past 12 months, y ou worried that your food would run out before you got the money to buy more. Never true 01/26/20 Within the past 12 months, t he food you bought just didn't last and you didn't have money to get more. Never true 01/25/2023 PRAPARE - Transportation Answer Date Re corded In the past 12 months, has l ack of transportation kept you from medical appointments or from getting medications? No 01/12 In the past 12 months, has l ack of transportation kept you from meetings, work, or from getting things needed for daily living? No 01/25/2023 Nutrition Answer Date Recorded Nutrition: EVOO Fat Source No 01/25 On average, how many serving s of fruits and vegetables do you eat per day (serving size is equal to 1 cup or approximately the size of a tennis ball)? 3-5 01/25/2023 Dental Answer Date Recorded Dental: Regular Dentist No 01/26/20 Employment Answer Date Recorded Employment status Retired 01/25/2023 Housing Stability Answer Date Recorded What is your living situation today? I have a [employer] [facility] to live 01/25/2023 Education Answer Date Recorded What is the highest level of school you have completed or the highest degree you have received? 11th grade 07/06/2021 Sex and Gender Information Value Date Recorded Sex Assigned at Female 04/18/2021 12:58 AM CDT Gender Identity Female 04/18/2021 12:58 AM CDT Sexual Orientation Straight 04/18/2021 12 :58 AM CDT Last Filed Vital Signs Vital Sign Reading Time Taken Comments Blood Pressure 126/67 09/22/2023 11:46 AM RN RESIDENTIAL Pulse 65 09/22/2023 11:46 AM RN RESIDENTIAL Temperature 36.6 ??C (97.9 ??F) 09/22/2023 11:[address] Respiratory Rate 17 09/22/2023 11:46 AM RN RESIDENTIAL Oxygen Saturation 93% 09/22/2023 11:46 AM RN RESIDENTIAL Inhaled Oxygen Concentration - - Weight 74.2 kg (163 lb 9.3 oz) 09/22/2023 10:14 AM RN RESIDENTIAL Height 169.6 cm (5' 6.77) 09/22/2023 10:14 AM [place] Body Mass Index 25.8 09/22/2023 10:14 AM RN RESIDENTIAL Plan of Treatment Upcoming Encounters Date Type Department Care Team (Latest Contact Info) Description 12/15/2023 12:45 PM CDT Clinical Communication Virtual Review in [place], [place] [address] [place] [phone] 12/18/2023 2:20 PM CDT Office Visit Division of Gastroenterology in [place], [place] [address] [place] [phone] Manuelito Jacobs M.D. [address] [place] [phone] Health Maintenance Due Date Last Done Comments Zoster Vaccines (1 of 2) 1959 COVID-19 Vaccine (3 - Pfizer risk series) 10/15/2021 09/17/2021, 08/04/2021 Depression Screening (Annual PHQ-2) 08/14/2023 DTaP,Tdap,and Td Vaccines (2 - Td or Tdap) 03/06/2029 03/06/2019 Influenza Vaccine Completed 06/13/2023, , 08/01/2018 Pneumococcal vaccine (65+ years) Completed 06/13/20 Fall Risk Screen (Annual) Completed 09/22/2023 Procedures Procedure Name Priority Date/Time Associated Diagnosis Comments CT ABDOMEN PELVIS ENTEROGRAPHY WITH IV CONTRAST RAD - Routine (most inpatients and all outpatients) 09/25/2023 11:22 AM RN RESIDENTIAL Obstruction Intestinal (HCC) SURGICAL PATHOLOGY Routine 09/22/2023 11:06 AM RN RESIDENTIAL GASTROENTEROLOGY IMAGE EXAM Routine 09/22/2023 10:45 AM RN RESIDENTIAL UPPER GI ENDOSCOPY Routine 09/22/2023 10:42 AM RN RESIDENTIAL Obstruction Intestinal (HCC) Dyspepsia EGD (ESOPHAGEALGASTRODUODE NOSCOPY) Routine 09/22/2023 10:42 AM RN RESIDENTIAL Obstruction Intestinal (HCC) Dyspepsia DIPSTICK, U Routine 09/19/2023 11:22 AM RN RESIDENTIAL PH, U Routine 09/19/2023 11:22 AM RN RESIDENTIAL OSMOLALITY, U Routine 09/19/2023 11:22 AM RN RESIDENTIAL MICROSCOPIC AUTOMATED Routine 09/19/2023 11:22 AM RN RESIDENTIAL URINALYSIS WITH MICROSCOPIC Routine 09/19/2023 11:22 AM RN RESIDENTIAL Obstruction Intestinal (HCC) Dyspepsia LIPASE, S/P Routine 09/19/2023 11:17 AM RN RESIDENTIAL Obstruction Intestinal (HCC) Dyspepsia ALKALINE PHOSPHATASE, TOT AND ISOENZYMES, S Routine 09/19/2023 11:17 AM RN RESIDENTIAL Obstruction Intestinal (HCC) Dyspepsia BILIRUBIN DIRECT, S/P Routine 09/19/2023 11:17 AM RN RESIDENTIAL Obstruction Intestinal (HCC) Dyspepsia COMPREHENSIVE METABOLIC PANEL, S/P Routine 09/19/2023 11:17 AM RN RESIDENTIAL Obstruction Intestinal (HCC) Dyspepsia CBC WITH DIFFERENTIAL, B Routine 09/19/2023 11:17 AM RN RESIDENTIAL Obstruction Intestinal (HCC) Dyspepsia from Last 3 Months Results * CT Abdomen Pelvis Enterography with IV Contrast (09/25/2023 11:22 AM RN RESIDENTIAL) Anatomical Region Laterality Modality Abdomen, Pelvis, Abdominal R ST LOS, Abdominal ARZ LOS, Abdominal FLA LOS N/A Computed Tomograp hy, Computed Tomography 09/25/2023 11:2 2 AM RN RESIDENTIAL Impressions 09/25/2023 2:30 PM RN RESIDENTIAL 1. Normal small bowel exam. No CT evidence of obstruction or findings to explain patient's abdominal pain. 2. Colonic diverticulosis. No evidence diverticulitis. Narrative 09/25/2023 2:30 PM RN RESIDENTIAL EXAM: ??CT ABDOMEN PELVIS ENTEROGRAPHY WITH IV CONTRAST COMPARISON: ??CT abdomen and pelvis with IV contrast 620 11/01/2019 FINDINGS: ?? Normal caliber, wall thickness and enhancement of the small bowel. Normal jejunal and ileal fold pattern. Mild colonic diverticulosis. Mesenteric vasculature is patent. Mild aortoiliac calcifications. No inflammatory findings, fluid collections, lymphadenopathy in abdomen or pelvis. Normal appearance of the liver. Cholecystectomy. Dilation of extrahepatic bile duct is unchanged. There is no visible obstructing stone or mass; in the absence of any clinical or laboratory evidence of biliary obstruction this finding may be related to the cholecystectomy. The spleen, pancreas, and bilateral adrenal glands are unremarkable. Small scattered bilateral renal cysts. Normal symmetric enhancement of the kidneys. Hysterectomy. The visualized lung bases are clear. Degenerative changes of the thoracic and lumbar spine with chronic wedging of the T12 vertebral body. No concerning osseous lesions. Procedure Note Juan Marie M.D. - 09/25/2023 EXAM: CT ABDOMEN PELVIS ENTEROGRAPHY WITH IV CONTRAST COMPARISON: CT abdomen and pelvis with IV contrast 620 11/01/2019 FINDINGS: Normal caliber, wall thickness and enhancement of the small bowel. Normaljejunal and ileal fold pattern. Mild colonic diverticulosis. Mesenteric vasculature is patent. Mild aortoiliac calcifications. No inflammatory findings, fluid collections, lymphadenopathy in abdomen orpelvis. Normal appearance of the liver. Cholecystectomy. Dilation of extrahepaticbile duct is unchanged. There is no visible obstructing stone or mass; inthe absence of any clinical or laboratory evidence of biliary obstructionthis finding may be related to the cholecystectomy. The spleen, pancreas, and bilateral adrenal glandsare unremarkable. Small scattered bilateral renal cysts. Normal symmetricenhancement of the kidneys. Hysterectomy. The visualized lung bases are clear. Degenerative changes of the thoracicand lumbar spine with chronic wedging of the T12 vertebral body. Noconcerning osseous lesions. IMPRESSION: 1. Normal small bowel exam. No CT evidence of obstruction or findings toexplain patient's abdominal pain. 2. Colonic diverticulosis. No evidence diverticulitis. Manuelito FELICIANO CT PROCEDURES * Surgical Pathology (09/22/2023 11:06 AM RN RESIDENTIAL) 09/25/2023 1:31 PM RN RESIDENTIAL DTL Report electronically signed by Kevin Lo M.D., Ph.D. I verify that I have examined all relevant slides/materials for the specimen(s) and rendered or confirmed the diagnosis. 09/25/2023 1:31 PM RN RESIDENTIAL DTL Gross Description A: Received in formalin labeled with the patient's name, medical record number, and duodenum, second part duodenum, duodenal bulbare five pale [id number] irregular soft tissues, admixed with minute tissue fragments that may not survive processing, the tissues rangingfrom 0.3-0.4 cm in greatest dimension. ??The specimens are submitted en toto in cassette A1. Grossed by JTW. B: Received in formalin labeled with the patient's name, medical record number, and stomach, antrum, body of stomach, incisura are sixpale to-pink irregular soft tissues, ranging from 0.2-0.6 cm in greatest dimension. The specimens are submitted en toto in cassette B1.Grossed by JTW. C: Received in formalin labeled with the patient's name, medical record number, and esophagus, lower third esophagus, middle thirdesophagus are six translucent-red irregular soft tissues, ranging from 0.3-0.5 cm in greatest dimension. The specimens are submitted entoto in cassette C1. ??Grossed by JTW. 09/25/2023 1:31 PM RN RESIDENTIAL DTL Interpretation FINAL DIAGNOSIS A. Duodenum, 2nd part, Duodenal bulb, endoscopic biopsy: Small bowel mucosa without diagnostic abnormality. Villi and plasma cells are present. No evidence of Whipple's disease, celiac sprue, or Giardia. B. Stomach, Antrum, Body, Incisura, endoscopic biopsy: Antral and fundic mucosa with focal mild reactive gastropathy. ??No H pylori organism identified. ??No intestinal metaplasia C. Esophagus, Lower third, Middle third, endoscopic biopsy: Mildly reactive squamous esophageal mucosa without increased intraepithelial eosinophils. Digital imaging was used in the diagnostic assessment of this case. 09/25/2023 1:31 PM RN RESIDENTIAL DTL Biopsy (Duodenum) 09/22/2023 11:06 AM RN RESIDENTIAL Biopsy (Stomach) 09/22/2023 11:07 AM RN RESIDENTIAL Biopsy (Esophagus) 09/22/2023 11:07 AM RN RESIDENTIAL Rusty White M.D. LAB SURG PATH ORD ERABLES Performing Organization Address City/[facility]/ZIP Co de Phone Number [facility] [address] [place] [address], [facility] DTL [address] [place] [address] * Upper GI endoscopy-Gastroenterology Image Exam (09/22/2023 10:45 AM RN RESIDENTIAL) 09/22/2023 10:4 2 AM RN RESIDENTIAL Narrative [facility] - 09/22/2023 11:30 AM RN RESIDENTIAL This order has been created and auto-finalized to support the import of images acquired without order. The clinical documentation to support these images can be found on the encounter that produced images. Provider Not In System IMG NON RAD IMAGI NG PROCEDURES Performing Organization Address [facility] Co de Phone Number [facility] NA * Upper GI Endoscopy (09/22/2023 10:42 AM RN RESIDENTIAL) 09/22/2023 10:4 2 AM RN RESIDENTIAL [facility]ressions [facility] 09/22/[facility]23 11:24 AM RN RESIDENTIAL Post-op Diagnoses: ? - Duodenal erosions without bleeding in the bulb, otherwise normal ? duodenum. Biopsied. ? - Non-bleeding gastric ulcers with no stigmata of bleeding in the ? antrum. Biopsied. ? - A few gastric polyps consistent with fundic gland polyps. ? - 2 cm hiatal hernia. ? - Normal esophagus. Biopsied. Narrative [facility] - 09/22/2023 11:24 AM RN RESIDENTIAL Gonda 9 GI GI Patient Name: Elizabeth Vazquez Date of : 1940 Age: 82 Procedure Date: 09/22/2023 Procedure: ? Upper GI endoscopy Providers: ? Yvan White MD, Porsha Renee MD (Fellow) Referring Provider: ?Manuelito Jacobs MD Pre-op Diagnoses: ?Dyspepsia Recommendation: ? - Await pathology results. ? - Return to referring physician as previously scheduled. ? - Avoidance of aspirin, ibuprofen, naproxen, or other non-steroidal ? anti-inflammatory drugs if possible. Findings: ? A few localized erosions without bleeding were found in the duodenal ? bulb with normal appearance of the second portion of the duodenum. ? Biopsies for histology were taken with a cold forceps for evaluation of ? celiac disease taken from both the second portion and bulb. ? Few non-bleeding superficial gastric ulcers with no stigmata of bleeding ? were found in the gastric antrum with background erythematous mucosa in ? the antrum, but otherwise normal appearing stomach proximally. The ? largest ulcer was 3 mm in largest dimension. Biopsies were taken with a ? cold forceps for Helicobacter pylori testing. ? A few small sessile polyps were found in the gastric body consistent ? with benign fundic gland polyps. ? A 2 cm hiatal hernia was present with diaphragmatic pinch at 38 cm and ? GE junction at 36 cm. ? The examined esophagus was normal. Biopsies were taken with a cold ? forceps for histology. Procedural Details: ? The patient was seen, evaluated, history reviewed, airway and heart-lung ? exams were performed by licensed provider and were satisfactory for ? planned level of sedation care. The risks, benefits and alternatives for ? the procedure and sedation were discussed and informed consent was ? obtained. A procedural pause was conducted in the presence of assisting ? personnel to verify the correct patient identity and procedure to be ? performed. Throughout the procedure, the patient's blood pressure, ? pulse, and oxygen saturations were monitored continuously. The ? Gastroscope was introduced under direct vision through the mouth, and ? advanced to the second part of duodenum. The upper GI endoscopy was ? accomplished without difficulty. The patient tolerated the procedure ? fairly well. Estimated Blood Loss: ?Estimated blood loss: none. Complications: ? No immediate complications. Sedation: ? Moderate (conscious) sedation was administered by the nurse and ? supervised by the endoscopist. The patient's oxygen saturation, heart ? rate, blood pressure and response to care were monitored. Total ? physician intraservice time was 13 minutes. Attending Participation: I was present and participated during the entire ? procedure, including non-brooks portions. Yvan White MD 09/22/2023 11:24:09 AM This report has been signed electronically. Number of Addenda: 0 Manuelito Jacobs M.D. GI PROCEDURE ORDE RABLES Performing Organization Address City/[facility]/ZIP Co de Phone Number [facility] NA * Dipstick, Urine (09/19/2023 11:22 AM RN RESIDENTIAL) Hemoglobin, QL, U Negative Negative 09/19/2023 1:41 PM RN RESIDENTIAL DTL Leukocyte Esterase, U Negative Negative 09/19/2023 1:41 PM RN RESIDENTIAL DTL Nitrite, U Negative Negative 09/19/2023 1:41 PM RN RESIDENTIAL DTL Ketone, U Negative Negative mg/dL 09/19/2023 1:41 PM RN RESIDENTIAL DTL Glucose, U Negative Negative mg/dL 09/19/2023 1:41 PM RN RESIDENTIAL DTL Urine 09/19/2023 11:2 2 AM RN RESIDENTIAL 09/19/2023 12:58 PM RN RESIDENTIAL Manuelito Jacobs M.D. LAB URINE ORDERAB LES Performing Organization Address City/[facility]/ZIP Co de Phone Number [facility] [address] [place] [address], [facility] DTL [facility] [address] [place] [address] * Microscopic Automated (09/19/2023 11:22 AM RN RESIDENTIAL) Microscopy Normal 09/19/2023 1:41 PM RN RESIDENTIAL DTL RBC <3 <3 /hpf 09/19/2023 1:41 PM RN RESIDENTIAL DTL WBC 1-3 /hpf 09/19/2023 1:41 PM RN RESIDENTIAL DTL Comment: ----REFERENCE VALUE---- <4 ??(Males) <11 (Females) Urine 09/19/2023 11:2 2 AM RN RESIDENTIAL 09/19/2023 12:58 PM RN RESIDENTIAL Manuelito Jacobs M.D. LAB URINE ORDERAB LES [facility] [address] [place] [address], [facility] [address] [place] [address] * pH, Urine (09/19/2023 11:22 AM RN RESIDENTIAL) pH, U 5.2 4.5 - 8.0 09/19/2023 1:3 4 PM RN RESIDENTIAL DTL Urine 09/19/2023 11:2 2 AM RN RESIDENTIAL 09/19/2023 12:58 PM RN RESIDENTIAL Manuelito Jacobs M.D. LAB URINE ORDERAB LES Performing Organization Address City/[facility] Co de Phone Number [facility] [address] [place] [address], [facility] [address] [place] [address] * Osmolality, Urine (09/19/2023 11:22 AM RN RESIDENTIAL) Osmolality, U 464 150 - 1150 mOsm/kg 09/19/2023 1:34 PM RN RESIDENTIAL DTL Urine 09/19/2023 11:2 2 AM RN RESIDENTIAL 09/19/2023 12:58 PM RN RESIDENTIAL Manuelito Jacobs M.D. LAB URINE ORDERAB LES Performing Organization Address City/[facility]/ZIP Co de Phone Number [facility] [address] [place] [address], [facility] [address] [place] [address] * Urinalysis, with Microscopic: Urine, Midstream (09/19/2023 11:22 AM RN RESIDENTIAL) Source Urine, Urine, Midstream 09/19/2023 12:58 PM RN RESIDENTIAL DTL Color, U Yellow 09/19/2023 12:58 PM RN RESIDENTIAL DTL Clarity, U Clear 09/19/2023 12:58 PM RN RESIDENTIAL DTL Protein, U 8 <26 mg/dL 09/19/2023 1:46 PM RN RESIDENTIAL DTL Protein/Osmol ality 0.17 <0.42 ratio 09/19/2023 1:46 PM RN RESIDENTIAL DTL Predicted 24 HR Protein, U 136 <229 mg/24 h 09/19/2023 1:46 PM RN RESIDENTIAL DTL Predicted Range 33-549 mg/24 h 09/19/2023 1:46 PM RN RESIDENTIAL DTL Urine (Urine, Midstream) 09/19/2023 11:22 AM RN RESIDENTIAL 09/19/2023 12:58 PM RN RESIDENTIAL Manuelito Jacobs M.D. 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 Because renal clearance of macroALP is hindered by its higher molecular weight compared to ALP, its presence leads to increased plasma ALP activity. No specific clinical significance of macroALP has been reported (Macho HASTINGS et al. Clin Lupis Acta. 2015; 440: 169-71; Symone Jean. Case Rep Hematol. 2020; 2020: 2735724. doi: 10.[facility]5/2020/5704190). If indicated, consider sending another sample to repeat the analysis in 6-10 weeks. Blood (Blood, Venous) 09/19/2023 11:17 AM RN RESIDENTIAL 09/19/2023 12:38 PM RN RESIDENTIAL Narrative [facility] - 09/20/2023 10:54 AM RN RESIDENTIAL Specimen Information: Specimen ID: [id number] Specimen Type: Blood Specimen Collection Start Date: 09/19/2023 11:17 AM Specimen Received Date: 09/19/2023 12:38 PM Specimen ID: [id number] Specimen Type: Blood Specimen Collection Start Date: 09/19/2023 11:17 AM Specimen Received Date: 09/19/2023 11:49 AM Manuelito Jacobs M.D. LAB BLOOD NON ADD -ON [facility] [address] [facility] [address] [place] [address] [place] [address] * (ABNORMAL) CBC with Differential, Blood (09/19/2023 11:17 AM RN RESIDENTIAL) Pathologist [facility] Hemoglobin 12.5 11.6 - 15.0 g/dL 09/19/2023 11:52 AM RN RESIDENTIAL DTL Hematocrit 39.1 35.5 - 44.9 % 09/19/2023 11:52 AM RN RESIDENTIAL DTL Erythrocytes 4.53 3.92 - 5.13 x10(12)/L 09/19/2023 11:52 AM RN RESIDENTIAL DTL MCV 86.3 78.2 - 97.9 fL 09/19/2023 11:52 AM RN RESIDENTIAL DTL RBC Distrib Width 14.0 12.2 - 16.1 % 09/19/2023 11:52 AM RN RESIDENTIAL DTL Platelet Count 365 157 - 371 x10(9)/L 09/19/2023 11:52 AM RN RESIDENTIAL DTL Leukocytes 7.8 3.4 - 9.6 x10(9)/L 09/19/2023 11:52 AM RN RESIDENTIAL DTL Neutrophils 4.20 1.56 - 6.45 x10(9)/L 09/19/2023 11:52 AM RN RESIDENTIAL [facility] Lymphocytes 2.02 0.95 - 3.07 x10(9)/L 09/19/2023 11:52 AM RN RESIDENTIAL DTL Monocytes 0.71 0.26 - 0.81 x10(9)/L 09/19/2023 11:52 AM RN RESIDENTIAL DTL Eosinophils 0.74(H) 0.03 - 0.48 x10(9)/L 09/19/2023 11:52 AM RN RESIDENTIAL DTL Basophils 0.09(H) 0.01 - 0.08 x10(9)/L 09/19/2023 11:52 AM RN RESIDENTIAL DTL Blood (Blood, Venous) 09/19/2023 11:17 AM RN RESIDENTIAL 09/19/2023 11:42 AM RN RESIDENTIAL Manuelito Jacobs M.D. LAB BLOOD ADD-ON [facility] [address] [place] [address] * Lipase (09/19/2023 11:17 AM RN RESIDENTIAL) Pathologist [facility] Lipase, S 25 13 - 60 U/L 09/19/2023 12:06 PM RN RESIDENTIAL DTL Blood (Blood, Venous) 09/19/2023 11:17 AM RN RESIDENTIAL 09/19/2023 11:49 AM RN RESIDENTIAL Manuelito Jacobs M.D. LAB BLOOD ADD-ON [facility] [address] [facility] [address] [place] [address] * Bilirubin, Direct (09/19/2023 11:17 AM RN RESIDENTIAL) Bilirubin, Direct, S <0.2 0.0 - 0.3 mg/dL 09/19/2023 12:06 PM RN RESIDENTIAL DTL Blood (Blood, Venous) 09/19/2023 11:17 AM RN RESIDENTIAL 09/19/2023 11:49 AM RN RESIDENTIAL Manuelito Jacobs M.D. LAB BLOOD ADD-ON [facility] [address] [place] [address], [facility] [address] [place] [address] * (ABNORMAL) Comprehensive Metabolic Panel (09/19/2023 11:17 AM RN RESIDENTIAL) Pathologist [facility] Potassium, S 4.5 3.6 - 5.2 mmol/L 09/19/2023 12:06 PM RN RESIDENTIAL DTL Sodium, S 141 135 - 145 mmol/L 09/19/2023 12:06 PM RN RESIDENTIAL DTL Chloride, S 105 98 - 107 mmol/L 09/19/2023 12:06 PM RN RESIDENTIAL DTL Bicarbonate, S 28 22 - 29 mmol/L 09/19/2023 12:06 PM RN RESIDENTIAL DTL Anion Gap 8 7 - 15 09/19/2023 12:06 PM RN RESIDENTIAL DTL BUN (Blood Urea Nitrogen), S 16 6 - 21 mg/dL 09/19/2023 12:06 PM RN RESIDENTIAL DTL Creatinine 1.01 0.59 - 1.04 mg/dL 09/19/2023 12:06 PM RN RESIDENTIAL DTL Estimated GFR (eGFR) 56(L) >=60 mL/min/BS A 09/19/2023 12:06 PM RN RESIDENTIAL DTL Comment: Estimated GFR calculated using the 2020 CKD_EPI creatinine equation. Calcium, Total, S 9.5 8.8 - 10.2 mg/dL 09/19/2023 12:06 PM RN RESIDENTIAL DTL Glucose, S 105 70 - 140 mg/dL 09/19/2023 12:06 PM RN RESIDENTIAL DTL Protein, Total, S 6.5 6.3 - 7.9 g/dL 09/19/2023 12:06 PM RN RESIDENTIAL DTL Albumin, S 4.0 3.5 - 5.0 g/dL 09/19/2023 12:06 PM RN RESIDENTIAL DTL Aspartate Aminotransferase (AST), S 20 8 - 43 U/L 09/19/2023 12:06 PM RN RESIDENTIAL DTL Alkaline Phosphatase, S 133(H) 35 - 104 U/L 09/19/2023 12:06 PM RN RESIDENTIAL DTL Alanine Aminotransferase (ALT), S 19 7 - 45 U/L 09/19/2023 12:06 PM RN RESIDENTIAL DTL Bilirubin, Total, S 0.3 0.0 - 1.2 mg/dL 09/19/2023 12:06 PM RN RESIDENTIAL DTL Blood (Blood, Venous) 09/19/2023 11:17 AM RN RESIDENTIAL 09/19/2023 11:49 AM RN RESIDENTIAL Manuelito Jacobs M.D. 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
--- OUTSIDE RECORDS SUMMARY | 2023-12-01 09:47 | XMS_ITS | Continuity of Care Document ---
Author Name Unknown Organization Wilmarelli Rees [facility] Address [address] [facility] [id number] [place] [address] Phone Care Team Providers Care Bin Cleaner Name Role Phone Unavailable Unavailable Unavailable Procedures Procedure Date Extraction, Erupted Tooth Or Exposed Janeth t (Elevati Extraction, Erupted Tooth Or Exposed [facility], [facility]ed To[facility] Or Exposed [facility] Extraction, Erupted Tooth Or Exposed Janeth t (Elevati Extraction, Erupted Tooth Or Exposed Janeth t (Elevati Extraction, Erupted Tooth Or Exposed Janeth t (Elevati Extraction, Erupted Tooth Or Exposed Janeth t (Elevati Limited Oral Evaluation ??? Problem Focu sed Office/outpatient visit,[facility] 2007 Urinalysis, non-automated, w/scope Antibody, helicobacter pylori 8 Automated hemogram (CBC) Metabolic panel, comprehensive 08 Hepatic function panel Lipid profile Advance Directives Directive Yes / No Effective Date File Name No Information Encounters Encounter Description Practice Location Reason(s) For Visit Diagnoses Date Provider Providers Copied on Encounter [facility], [address] [place] [address] [id number] , [place], [place], [id number], [place] tel:[phone] Adin DENTAL EXAMINATION Nov- 3-201 5 No Information [facility], [address] [place] [address] [id number] , [place], [place], [id number], [place] tel:[phone] Adin DENTAL EXAMINATION 5 No Information Office/outpat [facility] visit,[facility], [id number] , [place], [place], [id number], [place] tel:[phone] Adin No Information 6200 8 No Information Family History Family Member Type Diagnosis Age At Onset No Information Payers Payer name Insurance type Covered green party ID Authorpana renard(s) D Z Slide Discount Schedule A CI Social History Type Description Quantity Date Captured Comments Sex Female Smoking Status No Information Chief Complaint And Reason For Visit No Information Reason For Referral Reason For Referral No Information History Of Present Illness Encounter Date Complaint History Of Prese nt Illness No Information Functional Status Date Functional Assessmen t No Information Instructions Date Instruction Additional Infor mation No Information Assessments Type Assessment Date No Information Patient Care Teams Name Effective Dates (start - stop) Status Members No Information
--- OUTSIDE RECORDS SUMMARY | 2023-12-01 09:47 | XMS_ITS | Clinical Summary ---
Author Name Unknown [facility] Address [address] [place] [address] Care Team Providers Care Hospice Superintendent Name Role Phone Unavailable Primary Care Provider Unavailabl e Source Comments You are receiving this document as you are listed as the primary care provider,follow-up provider, or the patient has been referred to you for consultation.This is in compliance with the Medicare andHigh[facility] Hospitalcaid EHR Incentive Program,which states Providers who transition their patient to another setting of careor provider of care or refers their patient to another provider of care shouldprovide summary care record for each transition of care or referral. [facility] Allergies Active Allergy Reactions Criticality Noted Date Comments Prednisone Hypertension High 03/29/2019 Medications Medication Sig Dispensed Refills Start Date End Date Status omeprazole (PRILOSEC) 40 MG capsule Take 40 mg by mouth daily. 2 01/08/2019 Active fluticasone (FLONASE) 50 MCG/ACT nasal solution INSTILL 1 SPRAY IN THE NOSTRIL(S) 2 TIMES DAILY. 6 12/29/2018 Active pantoprazole (PROTONIX) 40 MG tablet TAKE 1 TABLET BY MOUTH ONCE DAILY. TAKE 30-60 MINUTES BEFORE A MEAL/FOOD ONCE A DAY. 11 01/29/2019 Active B Complex Vitamins (B COMPLEX-B12 TR OR) Active acetaminophen (TYLENOL) 500 MG tablet Take 1 Tablet by mouth every 4 hours as needed for Pain (Mild Pain). Maximum acetaminophen dose is 4000 mg in 24 hours 100 Tablet 11 03/29/2019 Active ibuprofen (MOTRIN) 200 MG tablet Take 2 Tablets by mouth every 6 hours as needed for Pain (Mild Pain). This may be safely mixed with the prescription pain medications (oxycodone, hydrocodone or tramadol.)?? This may also be safely mixed with acetaminophen. 100 Tablet 03/29/2019 Active oxyCODONE (ROXICODONE) 5 MG immediate release tablet Take 1-2 Tablets by mouth every 4 hours as needed for Pain (Severe Pain). 20 Tablet 03/29/2019 Active Active Problems No known active problems Social History Tobacco Use Types Packs/Day Years Used Date Smoking Tobacco: Unknown Smokeless Tobacco: Never Alcohol Use Standard Drinks/Week Comments Never 0 (1 standard drink = 0.6 oz pur e alcohol) AUDIT-C Answer Date Recorded Frequency of Alcohol Consumption Never 03/26/2019 Average Number of Drinks Not on file 019 Frequency of Binge Drinking Not on file 03/14 Sex and Gender Information Value Date Recorded Sex Assigned at Not on file Gender Identity Not on file Sexual Orientation Not on file Last Filed Vital Signs Vital Sign Reading Time Taken Comments Blood Pressure 107/81 03/29/2019 12:40 PM CDT Pulse 72 03/29/2019 12:40 PM CDT Temperature 36.7 ??C (98 ??F) 03/29/2019 1:30 PM CDT Respiratory Rate 16 03/29/2019 12:40 PM CDT Oxygen Saturation 96% 03/29/2019 12:40 PM CDT Inhaled Oxygen Concentration - - Weight 87.1 kg (192 lb) 03/29/2019 7:29 AM CDT Height 170.2 cm (5' 7) 03/29/2019 7:29 AM CDT Body Mass Index 30.07 03/29/2019 7:29 AM CDT Plan of Treatment Health Maintenance Due Date Last Done Comments Adult Preventive Visit 1960 Zoster/Shingles (1 of 2) 1992 Dexa 11/07/2007 Pneumococcal 65+ Yrs (1 - PCV) 11/07/2007 COVID-19 Vaccine ( - 2022-2 4 season) 2023 Influenza (#1) 2023 05/23/2019, 08/01/2018 DTaP/Tdap/Td (2 - Tdap) 03/06/2029 03/06/2019 HepA Aged Out No longer eligi ble based on patient's age to complete this topic HepB Aged Out No longer eligi ble based on patient's age to complete this topic Hib Aged Out No longer eligi ble based on patient's age to complete this topic IPV (Polio) Aged Out No longer eligi ble based on patient's age to complete this topic MCV4 Aged Out No longer eligi ble based on patient's age to complete this topic
--- OUTSIDE RECORDS SUMMARY | 2023-12-01 09:47 | XMS_ITS | Clinical Summary ---
Author Name Unknown Organization [facility] Address [place], [place] [address] Care Team Providers Care Assistant Tennis Coach Name Role Phone Virginia Lara MD Primary Care Provider Allergies Active Allergy Reactions Criticality Noted Date Comments Codeine Nausea Only 09/09/2016 Can do injection, but not oral. Medications Medication Sig Dispensed Refills Start Date End Date Status dexAMETHasone (DECADRON) 0.5 mg/5 mL solutionIndications :Pemphigoid of gingival mucosa,Recurrent oral ulcers Take 0.5 mg/5 mL orally swish and spit out. 100 mL 11/08/2021 Active doxycycline monohydrate (MONODOX) 100 mg capsuleIndications: Pemphigoid of gingival mucosa,Recurrent oral ulcers Take 1 Capsule (100 mg) by mouth 2 times daily. 180 Capsule 11/08/2021 Active clotrimazole (MYCELEX UMM) 10 mg trocheIndications:P emphigoid of gingival mucosa Take 1 tab twice daily after each doxycycline dose to prevent oral thrush. 180 Tablet 11/08/2021 Active albuterol (PROVENTIL) 0.083 % neb solutionIndications :COPD with chronic bronchitis (HC) Inhale 3 mL (2.5 mg) via a nebulizer every 4 hours if needed for Shortness Of Breath or Wheezing. 180 mL 5 04/06/2023 Active albuterol-ipratropi um (DUONEB) (2.5-0.5 mg) in 3 mL NEBULIZATION solutionIndications :Moderate persistent asthma with acute exacerbation Inhale 3 mL via a nebulizer 4 times daily. 90 mL 3 05/30/2023 Active albuterol HFA (PRO-AIR; VENTOLIN; PROVENTIL) 90 mcg/actuation inhalerIndications: Moderate persistent asthma with acute exacerbation Inhale 1-2 Puffs by mouth every 4 hours if needed for Shortness Of Breath or Wheezing. 36 g 11 05/30/2023 Active cholecalciferol (Vitamin D) 1,000 unit capsule Take 1 Capsule (1,000 units) by mouth once daily. 0 07/04/2023 Active cyanocobalamin (Vitamin B-12) 1,000 mcg tablet Take 1 Tablet (1,000 mcg) by mouth once daily. 90 Tablet 3 07/04/2023 Active beclomethasone dipropionate (QVAR REDIHALER) 40 mcg/actuation HFA inhalerIndications: Moderate persistent asthma with acute exacerbation Inhale 2 Puffs by mouth two times daily. Start at onset of cold virus. Doesn't need a spacer or shaking. 1 Each 07/04/2023 Active Lidocaine Viscous 2 % liquidIndications:R marcela,Recurrent oral ulcers SWISH AND SPIT 5ML BY MOUTH THREE TIMES DAILY NEEDED 100 mL 09/12/2023 Active omeprazole (PRILOSEC) 40 mg Delayed-Release capsuleIndications: Gastritis, presence of bleeding unspecified, unspecified chronicity, unspecified gastritis type TAKE 1 CAPSULE BY MOUTH EVERY DAY BEFORE A MEAL 90 Capsule 2 09/12/2023 Active hydroxychloroquine (PLAQUENIL) 200 mg tabletIndications:C onnective tissue disease (HC),Positive PRATEEK (antinuclear antibody) Take 1 Tablet (200 mg) by mouth two times daily. 180 Tablet 1 09/20/2023 Active sucralfate (CARAFATE) 1 gram tabletIndications:H istory of duodenal ulcer Take 1 Tablet (1 g) by mouth four times daily before meals and at bedtime. 120 Tablet 10/17/2023 Active triamcinolone (ARISTOCORT; KENALOG) 0.1 % cream Apply 1 Application topically to affected area(s) 2 times daily if needed. 10/31/2023 Active betamethasone dipropionate 0.05% (DIPROLENE) 0.05 % ointment APPLY 1 APPLICATION TOPICALLY DAILY. APPLY TO VULVA. 09/25/2023 Active gabapentin (NEURONTIN) 100 mg capsuleIndications: Left-sided chest wall pain,Chronic midline thoracic back pain 100 mg at bedtime x 3 days. If tolerating, increase to 100 mg twice daily. 60 Capsule 11/01/2023 Active Active Problems Problem Noted Date Diagnosed Date COPD exacerbation 10/17/2023 Moderate persistent asthma with acute exacerbati on 05/30/2023 Lichen sclerosus of female genitalia 11/18/2020 Recurrent oral ulcers 11/18/2020 Acute gastric ulcer without hemorrhage or perfor ation 06/12/2020 Overview: EGD 05/2020 acute superficial gastric ulcer, 3 cm hiatal hernia with reflux Anosmia 01/21/2019 Gastritis 10/20/2017 Overview: EGD 10/2017 gastritis History of duodenal ulcer 09/20/2016 Mucous membrane pemphigoid Resolved Problems Problem Noted Date Diagnosed Date Resolved Date 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 07/04/2023 Encounters Date Type Department Care Team Description 11/21/2023 9:45 AM CDT Ancillary Procedure [facility] [address] [place] [address] 11/21/2023 9:00 AM CDT Ancillary Procedure [address] [address] 11/21/2023 Telephone [facility] [address] [place] [address] Virginia Lara MD Results 11/21/2023 Travel 11/02/[address] [facility] [address] [place] [address] Vinita Salas MD 11/01/2023 3:00 PM CDT Ancillary Procedure [address] [address] 11/01/2023 1:30 PM CDT Ancillary Procedure [facility] [address] [place] [address] 11/01/2023 12:45 PM CDT Office Visit [facility] [address] [place] [address] Virginia Lara MD Follow Up (Left side pain); Concerns (Swollen lymph nodes. Orders from Dermatology ) 11/01/2023 Travel 10/23/2023 Telephone [facility] [address] [place] [address] Virginia Lara MD Referral 10/20/2023 Telephone [facility] [address] [place] [address] Virginia Lara MD Follow Up (PAIN IN BACK STILL AFTER CT) 10/17/2023 4:00 PM WARDROBE MANAGER Ancillary Procedure [facility] [address] [place] [address] 10/17/2023 2:25 PM WARDROBE MANAGER Office Visit [address] [address] Virginia Lara MD Abdominal Pain (Left lower and around to back, 3 weeks) 10/17/2023 Travel 09/28/2023 Nurse Triage [facility] [address] [place] [address] Virginia Lara MD Abdominal Pain 09/20/2023 1:30 PM WARDROBE MANAGER Office Visit [facility] [address] [place] [address] Rob Garcia MBBS Follow Up (Follow up on her arthritis./She has a lot of things going on now./New rash on left arm, left leg rash and swelling/Joints are killing her. Rash on chest. /Pain level up to a 10/10 down to a 5/10. Fatty tumors all over and big ones.) 09/20/2023 Travel 09/12/2023 Refill [facility] [address] [place] [address] Virginia Lara MD Refill Request (Omeprazole) 09/11/2023 Refill [facility] [address] [place] [address] Virginia Lara MD Refill Request (Lidocaine Viscous) from Last 3 Months Immunizations Name Administration Dates Next Due COVID-19 vaccine ([employer] 30mcg/0.3mL) P F, MDV 09/17/2021,08/04/2021 Influenza, Inactivated AIIV4 (Age 65+ Years) Preserv Free 06/13/2023 Influenza, Inactivated IIV3 (Age 65+ Years) Preserv Free 05/23/2019,08/01/2018 Pneumococcal Conj 20-valent (Prevnar 20) 023 Tdap 03/06/2019 Family History Medical History Relation Name Comments Pneumonia Son Relation Name Status Comments Father Mother Son (Age 59) Social History Tobacco Use Types Packs/Day Years Used Date Smoking Tobacco: Former Cigarettes 0.5 20 0 08/14/1968 - 08/14/1988 Passive Smoke Exposure: Current Smokeless Tobacco: Never Tobacco Cessation:Counseling Given: No Alcohol Use Standard Drinks/Week Comments Not Currently 0 (1 standard drink = 0.6 oz pur e alcohol) occassionally PHQ-2 Answer Date Recorded PHQ-2 TOTAL SCORE 0 05/10/2023 Social Connections Answer Date Recorded Frequency of Communication with Friends and Fami ly 0 05/10/2023 Financial Resource Strain Answer Date R ecorded Difficulty of Paying Living Expenses 2 05/10/2023 Difficulty of Paying Living Expenses 1 05/10/2023 Food Insecurity Answer Date Recorded Worried About Running Out of Food in the Last Ye ar 1 05/10/2023 Transportation Needs Answer Date Record ed Lack of Transportation (Medical) 1 05/10/2023 Housing Stability Answer Date Recorded Unable to Pay for Housing in the Last Year 1 05/10/2023 Sex and Gender Information Value Date Recorded Sex Assigned at Not on file Gender Identity Not on file Sexual Orientation Not on file Obstetrics History Last Filed Vital Signs Vital Sign Reading Time Taken Comments Blood Pressure 130/79 11/01/2023 12:39 PM CDT Pulse 74 11/01/2023 12:39 PM CDT Temperature 36.7 ??C (98.1 ??F) 04/06/2023 2:53 PM CD T Respiratory Rate 8 12/06/2018 10:38 AM CDT Oxygen Saturation 98% 11/01/2023 12:39 PM CDT Inhaled Oxygen Concentration - - Weight 78.1 kg (172 lb 3.2 oz) 11/01/2023 12:39 PM CDT Height 168.5 cm (5' 6.34) 05/10/2023 2:15 PM CD T Body Mass Index 27.51 05/10/2023 2:15 PM CDT Plan of Treatment Upcoming Encounters Date Type Department Care Team (Late st Contact Info) Description 03/20/2024 1:00 PM CDT Office Visit [place] [id number] [place] [address] Rob Garcia MBBS [facility] [place] [address] Health Maintenance Due Date Last Done Comments Zoster (shingles) series for age 50+ (1 of 2) 1992 COVID-19 vaccine series (3 - season) 2023 09/17/2021, 08/04/2021 Influenza for age 65+ 04/14/2024 06/13/2023 , 05/23/2019, 08/01/2018 BMI (ht and wt on same day) for age 18+ 05/10/2024 05/10/2023, 04/06/2023, 12/17/2020, Additional history exists Medicare Wellness for age 65+ 05/10/2024 05/10/2023, 04/17/2018 Depression screening for age 12+ 09/20/2024 09/20/2023, 05/22/2023, 05/10/2023, Additional history exists Tetanus booster 03/06/2029 03/06/2019 DEXA/DXA scan for age 65+ Completed 04/19/2018 Tdap Completed 03/06/2019 Pneumococcal series for age 65+ Completed 3 Procedures Procedure Name Priority Date/Time Associated Diagnosis Comments US THYROID/PARATHYROID Routine 9:33 AM CDT Thyroid nodule US NECK OR HEAD SOFT TISSUE Routine 11/21/2023 9:[address] CHEST WO STAT 11/01/2023 2:08 PM CDT Left-sided chest wall pain Chronic midline thoracic back pain XR CHEST 2 VIEWS PA AND LATERAL Routine 11/01/2023 1:29 PM CDT Left-sided chest wall pain Chronic midline thoracic back pain CT ABDOMEN PELVIS W STAT 10/17/2023 3 :46 PM WARDROBE MANAGER Left sided abdominal pain CREATININE,ISTAT Routine 10/17/2023 3:23 PM WARDROBE MANAGER Left sided abdominal pain CBC WITH AUTO DIFFERENTIAL Routine 10/17/2023 3:17 PM WARDROBE MANAGER Left sided abdominal pain LIPASE Routine 10/17/2023 3:17 PM WARDROBE MANAGER Left sided abdominal pain COMP METABOLIC PANEL Routine 10/17/2023 3:17 PM WARDROBE MANAGER Left sided abdominal pain CBC WITH AUTO DIFFERENTIAL Routine 10/17/2023 3:17 PM WARDROBE MANAGER Left sided abdominal pain RA QUANTITATIVE Routine 09/20/2023 2:54 PM WARDROBE MANAGER Arthralgia, unspecified joint CYCLIC CITRULLINE PEPTIDE Routine 09/20/2023 2:54 PM WARDROBE MANAGER Arthralgia, unspecified joint SEDIMENTATION RATE Routine 09/20/2023 2: 54 PM WARDROBE MANAGER Connective tissue disease (HC) C-REACTIVE PROTEIN Routine 09/20/2023 2: 54 PM WARDROBE MANAGER Connective tissue disease (HC) XR DXA BONE DENSITY 2 SITES AXIAL Routine 04/19/2018 10:08 AM CDT Menopause from Last 3 Months or Most Recently Relevant to Health Maintenance Results * US THYROID/PARATHYROID (11/21/2023 9:33 AM CDT) Anatomical Region Laterality Modality THYROID Ultrasound 11/21/2023 1:53 PM CDT Impressions 11/21/2023 1:53 PM CDT 1.8 cm TR 4 nodule right thyroid lobe lower pole. FNA recommended. Dictated by Brien Bojorquez MD @ 11/21/2023 1:53:45 PM (Electronically Signed) Narrative 11/21/2023 1:53 PM CDT For Patients: ??As a result of the Cures Act, medical imaging exams and procedure reports are released immediately into your electronic medical record. ??You may view this report before your referring provider. ??If you have questions, please contact your health care provider. INDICATION: Thyroid nodule COMPARISON: none TECHNIQUE: Bagley scale and color Doppler images were acquired of the thyroid gland. FINDINGS: Isthmus measures 3 millimeters. Spongiform nodule upper pole right thyroid lobe measures 5 x 4 x 6 millimeters. Similar nodule midportion right thyroid lobe measuring 7 x 6 x 7 millimeters. Solid hypoechoic/hyperechoic nodule lower pole right thyroid lobe measuring 1.8 x 1.3 x 1.4 cm. The right lobe measures 4.7 x 1.7 x 1.4 cm and the left lobe measures 3.6 x 1.2 x 1.2 cm in size. The color Doppler images demonstrate normal vascularity. There is no evidence of cervical lymphadenopathy or parathyroid mass. Procedure Note Brien Bojorquez MD - 11/21/2023 For Patients: As a result of the Cures Act, medical imagingexams and procedure reports are released immediately into your electronicmedical record. You may view this report before your referring provider.If you have questions, please contact your health care provider. INDICATION: Thyroid nodule COMPARISON: none TECHNIQUE: Bagley scale and color Doppler images were acquired of the thyroid gland. FINDINGS: Isthmus measures 3 millimeters. Spongiform nodule upper pole right thyroidlobe measures 5 x 4 x 6 millimeters. Similar nodule midportion rightthyroid lobe measuring 7 x 6 x 7 millimeters. Solid hypoechoic/hyperechoicnodule lower pole right thyroid lobe measuring 1.8 x 1.3 x 1.4 cm. Theright lobe measures 4.7 x 1.7 x 1.4 cm and the left lobe measures 3.6 x1.2 x 1.2 cm in size. The color Doppler images demonstrate normalvascularity. There is no evidence of cervical lymphadenopathy orparathyroid mass. IMPRESSION: 1.8 cm TR 4 nodule right thyroid lobe lower pole. FNA recommended. Dictated by Brien Bojorquez MD @ 11/21/2023 1:53:45 PM (Electronically Signed) Virginia Lara MD US * US NECK OR HEAD SOFT TISSUE (11/21/2023 9:28 AM CDT) Anatomical Region Laterality Modality NECK Ultrasound 11/21/2023 1:51 PM CDT Narrative 11/21/2023 1:51 PM CDT For Patients: ??As a result of the Cures Act, medical imaging exams and procedure reports are released immediately into your electronic medical record. ??You may view this report before your referring provider. ??If you have questions, please contact your health care provider. Indication: Lymphadenopathy Technique: Grayscale and color Doppler ultrasound of the left side of the neck performed. Comparison: None Findings: Targeted sonogram to the left side of the neck in the area of concern performed. In this location, there is a lymph node within the subcutaneous fat measuring 8 x 3 x 6 millimeters. Normal central fatty hilum and normal internal vascularity. Impression: 8 x 3 x 6 millimeter left cervical lymph node. Dictated by Brien Bojorquez MD @ 11/21/2023 1:51:35 PM (Electronically Signed) Procedure Note Brien Bojorquez MD - 11/21/2023 For Patients: As a result of the Cures Act, medical imagingexams and procedure reports are released immediately into your electronicmedical record. You may view this report before your referring provider.If you have questions, please contact your health care provider. Indication: Lymphadenopathy Technique: Grayscale and color Doppler ultrasound of the left side of the neckperformed. Comparison: None Findings: Targeted sonogram to the left side of the neck in the area of concernperformed. In this location, there is a lymph node within the subcutaneousfat measuring 8 x 3 x 6 millimeters. Normal central fatty hilum and normalinternal vascularity. Impression: 8 x 3 x 6 millimeter left cervical lymph node. Dictated by Brien Bojorquez MD @ 11/21/2023 1:51:35 PM (Electronically Signed) Vinita Salas MD US * CT CHEST WO (11/01/2023 2:08 PM CDT) Anatomical Region Laterality Modality CHEST, THORAX, HEART Computed To mography 11/01/2023 2:46 PM CDT Impressions 11/01/2023 2:46 PM CDT 1. No acute intrathoracic abnormality. 2. Redemonstration of mild T12 superior endplate compression deformity. Please note that all CT scans at this facility use dose modulation, iterative reconstruction, and/or weight-based dosing when appropriate to reduce radiation dose to as low as reasonably achievable. Dictated by Americo Saunders MD @ 11/01/2023 2:46:01 PM (Electronically Signed) Narrative 11/01/2023 2:46 PM CDT For Patients: ??As a result of the Cures Act, medical imaging exams and procedure reports are released immediately into your electronic medical record. ??You may view this report before your referring provider. ??If you have questions, please contact your health care provider. INDICATION: Left-sided chest wall pain Chest wall pain, nontraumatic, infection or inflammation suspected, xray done TECHNIQUE: CT of the chest was performed without intravenous contrast. Please note that all CT scans at this facility use dose modulation, iterative reconstruction, and/or weight-based dosing when appropriate to reduce radiation dose to as low as reasonably achievable. COMPARISON: 04/19/2018 FINDINGS: Medical devices: None. Thyroid: 1.1 centimeter hypoattenuating right thyroid nodule (3/9). Lymph nodes: Limited evaluation without IV contrast. No supraclavicular, axillary, mediastinal, or hilar lymphadenopathy. Vasculature: Limited evaluation without IV contrast. Aorta and main pulmonary artery diameters are within normal range. Heart: No coronary artery calcification. No pericardial effusion. Other mediastinal structures: Small hiatal hernia. Lung parenchyma: Mild biapical pleural-parenchymal scarring. Scattered calcified granulomata. Airways: No significant abnormality. Pleura: No significant abnormality. Chest wall: No significant abnormality. Upper abdomen: Status post cholecystectomy. Musculoskeletal: Moderate multilevel degenerative changes of the visualized spine. Redemonstration of mild T12 superior endplate compression deformity. Osteopenia. Procedure Note Cristiano Saunders MD - 11/01/2023 For Patients: As a result of the 21st Century Cures Act, medical imagingexams and procedure reports are released immediately into your electronicmedical record. You may view this report before your referring provider.If you have questions, please contact your health care provider. INDICATION: Left-sided chest wall pain Chest wall pain, nontraumatic, infection or inflammation suspected, xraydone TECHNIQUE: CT of the chest was performed without intravenous contrast. Please note that all CT scans at this facility use dose modulation,iterative reconstruction, and/or weight-based dosing when appropriate toreduce radiation dose to as low as reasonably achievable. COMPARISON: 04/19/2018 FINDINGS: Medical devices: None. Thyroid: 1.1 centimeter hypoattenuating right thyroid nodule (/). Lymph nodes: Limited evaluation without IV contrast. No supraclavicular,axillary, mediastinal, or hilar lymphadenopathy. Vasculature: Limited evaluation without IV contrast. Aorta and mainpulmonary artery diameters are within normal range. Heart: No coronary artery calcification. No pericardial effusion. Other mediastinal structures: Small hiatal hernia. Lung parenchyma: Mild biapical pleural-parenchymal scarring. Scattered calcified granulomata. Airways: No significant abnormality. Pleura: No significant abnormality. Chest wall: No significant abnormality. Upper abdomen: Status post cholecystectomy. Musculoskeletal: Moderate multilevel degenerative changes of thevisualized spine. Redemonstration of mild T12 superior endplatecompression deformity. Osteopenia. IMPRESSION: 1. No acute intrathoracic abnormality. 2. Redemonstration of mild T12 superior endplate compression deformity. Please note that all CT scans at this facility use dose modulation,iterative reconstruction, and/or weight-based dosing when appropriate toreduce radiation dose to as low as reasonably achievable. Dictated by Americo Saunders MD @ 11/01/2023 2:46:01 PM (Electronically Signed) Virginia Lara MD CT * XR CHEST 2 VIEWS PA AND LATERAL (11/01/2023 1:29 PM CDT) Anatomical Region Laterality Modality CHEST, THORAX, Lung, HEART Compu jaime Radiography 11/01/2023 4:12 PM CDT Impressions 11/01/2023 4:12 PM CDT No acute findings. Dictated by Brien Bojorquez MD @ 11/01/2023 4:12:59 PM (Electronically Signed) Narrative 11/01/2023 4:12 PM CDT For Patients: ??As a result of the Cures Act, medical imaging exams and procedure reports are released immediately into your electronic medical record. ??You may view this report before your referring provider. ??If you have questions, please contact your health care provider. INDICATION: Chest wall pain TECHNIQUE: Chest 2 views COMPARISON: 12/17/2020 FINDINGS: Tortuosity of the descending thoracic aorta. Degenerative changes at the right acromioclavicular joint. No vertebral body compression fracture. Postop changes upper abdomen. No infiltrate or edema. No effusion or pneumothorax. Procedure Note Brien Bojorquez MD - 11/01/2023 For Patients: As a result of the Cures Act, medical imagingexams and procedure reports are released immediately into your electronicmedical record. You may view this report before your referring provider.If you have questions, please contact your health care provider. INDICATION: Chest wall pain TECHNIQUE: Chest 2 views COMPARISON: 12/17/2020 FINDINGS: Tortuosity of the descending thoracic aorta. Degenerative changes at theright acromioclavicular joint. No vertebral body compression fracture.Postop changes upper abdomen. No infiltrate or edema. No effusion orpneumothorax. IMPRESSION: No acute findings. Dictated by Brien Bojorquez MD @ 11/01/2023 4:12:59 PM (Electronically Signed) Virginia Lara MD GENERAL IMAGING * CT ABDOMEN PELVIS W (10/17/2023 3:46 PM WARDROBE MANAGER) Anatomical Region Laterality Modality Abdomen, Pelvis, AORTA, LIVER, SPLEEN Computed Tomography 10/17/2023 4:02 PM WARDROBE MANAGER Impressions 10/17/2023 4:02 PM WARDROBE MANAGER No acute intra-abdominal/pelvic abnormality, including obstructive uropathy as questioned. Mild colonic stool burden. Please note that all CT scans at this facility use dose modulation, iterative reconstruction, and/or weight-based dosing when appropriate to reduce radiation dose to as low as reasonably achievable. Dictated by Grayson De Oliveira MD @ 10/17/2023 4:02:37 PM (Electronically Signed) Narrative 10/17/2023 4:02 PM WARDROBE MANAGER For Patients: ??As a result of the Cures Act, medical imaging exams and procedure reports are released immediately into your electronic medical record. ??You may view this report before your referring provider. ??If you have questions, please contact your health care provider. INDICATION: Left-sided abdominal pain. TECHNIQUE: CT abdomen and pelvis acquired with 100 cc Omnipaque 350 IV contrast. COMPARISON: June 03, 2019. FINDINGS: Lower chest: Scattered atelectasis. Tiny hiatal hernia. Liver: Unremarkable. Normal in size and attenuation. No suspicious masses. Gallbladder and bile ducts: Cholecystectomy with reservoir effect. Pancreas: Unremarkable. No mass or inflammation. Spleen: Unremarkable. Normal in size. No masses. Adrenal glands: Unremarkable. No nodules. Kidneys: Tiny hypodensities in both kidneys, too small to characterize. No suspicious masses, stones, or hydronephrosis. GI tract: Colonic diverticulosis. Mild colonic stool burden. Mildly distended fluid-filled stomach. Normal in caliber. No sign of mass or inflammation. Normal appendix. Vasculature: Mild aortoiliac arterial calcifications. Abdominal aorta is normal in caliber. Mesenteric arteries are patent. Lymph nodes: No lymphadenopathy. Peritoneum/Abdominal Wall: Unremarkable. No sign of mass or infiltration. No free air or significant free fluid. Pelvis: Hysterectomy. Mildly distended bladder. Bones: Unremarkable for age. Procedure Note Grayson De Oliveira MD - 10/17/2023 For Patients: As a result of the Cures Act, medical imagingexams and procedure reports are released immediately into your electronicmedical record. You may view this report before your referring provider.If you have questions, please contact your health care provider. INDICATION: Left-sided abdominal pain. TECHNIQUE: CT abdomen and pelvis acquired with 100 cc Omnipaque 350 IV contrast. COMPARISON: June 03, 2019. FINDINGS: Lower chest: Scattered atelectasis. Tiny hiatal hernia. Liver: Unremarkable. Normal in size and attenuation. No suspicious masses. Gallbladder and bile ducts: Cholecystectomy with reservoir effect. Pancreas: Unremarkable. No mass or inflammation. Spleen: Unremarkable. Normal in size. No masses. Adrenal glands: Unremarkable. No nodules. Kidneys: Tiny hypodensities in both kidneys, too small to characterize. Nosuspicious masses, stones, or hydronephrosis. GI tract: Colonic diverticulosis. Mild colonic stool burden. Mildlydistended fluid-filled stomach. Normal in caliber. No sign of mass orinflammation. Normal appendix. Vasculature: Mild aortoiliac arterial calcifications. Abdominal aorta isnormal in caliber. Mesenteric arteries are patent. Lymph nodes: No lymphadenopathy. Peritoneum/Abdominal Wall: Unremarkable. No sign of mass or infiltration.No free air or significant free fluid. Pelvis: Hysterectomy. Mildly distended bladder. Bones: Unremarkable for age. IMPRESSION: No acute intra-abdominal/pelvic abnormality, including obstructiveuropathy as questioned. Mild colonic stool burden. Please note that all CT scans at this facility use dose modulation,iterative reconstruction, and/or weight-based dosing when appropriate toreduce radiation dose to as low as reasonably achievable. Dictated by Grayson De Oliveira MD @ 10/17/2023 4:02:37 PM (Electronically Signed) Virginia Lara MD CT * (ABNORMAL) CREATININE,ISTAT (10/17/2023 3:23 PM WARDROBE MANAGER) CREATININE, POCT 0.90 0.57 - 1.11 mg/dL 10/17/2023 3:25 PM WARDROBE MANAGER [facility] Comment:Caution: Patients ta carlitos Hydroxyurea have falsely increased iStat Creatinine results. Verify creatinine results ordering a Creatinine (02654.2) eGFR 65(L) >90 mL/min/1.7 3m2 10/17/2023 3:25 PM WARDROBE MANAGER [facility] Comment:As of 2021, eG FR is calculated by the CKD-EPI creatinine equation without race adjustment. eGFR can be influenced by muscle mass, exercise, and diet. The reported eGFR is an estimation only and is only applicable if the renal function is stable. Blood BLOOD SPECIMEN / Unknown 10/17/2023 3:23 PM WARDROBE MANAGER 10/17/2023 3:25 PM WARDROBE MANAGER Virginia Lara MD CHEMISTRY [facility] [address] [place] [address], [place] [phone] * (ABNORMAL) CBC WITH AUTO DIFFERENTIAL (10/17/2023 3:17 PM WARDROBE MANAGER) [facility] WHITE BLOOD COUNT 6.2 4.5 - 11.0 thou/cu mm 10/17/2023 3:26 PM WARDROBE MANAGER [facility] RED BLOOD COUNT 4.16 4.00 - 5.20 mil/cu mm 10/17/2023 3:26 PM [facility] HEMOGLOBIN 11.8(L) 12.0 - 16.0 g/dL 10/17/2023 3:26 PM [facility] HEMATOCRIT 37.1 33.0 - 51.0 % 10/17/2023 3:26 PM [facility] MCV 89 80 - 100 fL 10/17/2023 3:26 PM [facility] MCH 28.4 26.0 - 34.0 pg 10/17/2023 3:26 PM [facility] MCHC 31.8(L) 32.0 - 36.0 g/dL 10/17/2023 3:26 PM [facility] RDW 15.4 11.5 - 15.5 % 10/17/2023 3:26 PM [facility] PLATELET COUNT 286 140 - 440 thou/cu mm 10/17/2023 3:26 PM [facility] MPV 10.0 6.5 - 11.0 fL 10/17/2023 3:26 PM [facility] % NEUT 54.3 % 10/17/2023 3:26 PM [facility] % LYMPH 27.1 % 10/17/2023 3:26 PM [facility] % MONO 10.2 % 10/17/2023 3:26 PM [facility] % EOS 7.6 % 10/17/2023 3:26 PM [facility] % BASO 0.8 % 10/17/2023 3:26 PM [facility] ABSOLUTE NEUTROPHILS 3.4 1.7 - 7.0 thou/cu mm 10/17/2023 3:26 PM WARDROBE MANAGER [facility] ABSOLUTE LYMPHOCYTES 1.7 0.9 - 2.9 thou/cu mm 10/17/2023 3:26 PM WARDROBE MANAGER [facility] ABSOLUTE MONOCYTES 0.6 <0.9 thou/cu mm 10/17/2023 3:26 PM WARDROBE MANAGER [facility] ABSOLUTE EOSINOPHILS 0.5(H) <0.5 thou/cu mm 10/17/2023 3:26 PM WARDROBE MANAGER [facility] ABSOLUTE BASOPHILS 0.1 <0.3 thou/cu mm 10/17/2023 3:26 PM WARDROBE MANAGER [facility] Blood BLOOD SPECIMEN / Unknown Venipuncture / Unknown 10/17/2023 3:17 PM WARDROBE MANAGER 10/17/2023 3:19 PM WARDROBE MANAGER Virginia Lara MD HEMATOLOGY [facility] [address] [place] [address], * LIPASE (10/17/2023 3:17 PM WARDROBE MANAGER) LIPASE 32.7 13.0 - 60.0 IU/L 10/17/2023 10:34 PM WARDROBE MANAGER [facility] Blood BLOOD SPECIMEN / Unknown Venipuncture / Unknown 10/17/2023 3:17 PM WARDROBE MANAGER 10/17/2023 3:19 PM WARDROBE MANAGER Virginia Lara MD CHEMISTRY [facility] [address] [place] [address], * (ABNORMAL) COMP METABOLIC PANEL (10/17/2023 3:17 PM WARDROBE MANAGER) SODIUM 142 136 - 145 mmol/L 10/17/2023 10:34 PM WARDROBE MANAGER [facility] POTASSIUM 4.1 3.5 - 5.1 mmol/L 10/17/2023 10:34 PM [facility] CHLORIDE 107 98 - 107 mmol/L 10/17/2023 10:34 PM [facility] CO2,TOTAL 28 22 - 29 mmol/L 10/17/2023 10:34 PM [facility] ANION GAP 7 5 - 18 10/17/2023 10:34 PM [facility] GLUCOSE 85 70 - 99 mg/dL 10/17/2023 10:34 PM [facility] CALCIUM 9.5 8.8 - 10.2 mg/dL 10/17/2023 10:34 PM [facility] BUN 22 8 - 23 mg/dL 10/17/2023 10:34 PM [facility] CREATININE 0.87 0.50 - 0.90 mg/dL 10/17/2023 10:34 PM [facility] BUN/CREAT RATIO 25(H) 10 - 20 10:34 PM [facility] eGFR 67(L) >90 mL/min/1.7 3m2 10/17/2023 10:34 PM [facility] Comment:As of 2021, eG FR is calculated by the CKD-EPI creatinine equation without race adjustment. ??eGFR can be influenced by muscle mass, exercise, and diet. ??The reported eGFR is an estimation only and is only applicable if the renal function is stable. ALBUMIN 4.0 4.0 - 4.9 g/dL 10/17/2023 10:34 PM [facility] PROTEIN,TOTAL 5.9(L) 6.0 - 8.0 g/dL 10/17/2023 10:34 PM [facility] BILIRUBIN,TOTAL 0.2 0.0 - 1.2 mg/dL 10/17/2023 10:34 PM [facility] ALK PHOSPHATASE 105(H) 35 - 104 IU/L 10/17/2023 10:34 PM [facility] ALT (SGPT) 15 10 - 35 IU/L 10/17/2023 10:34 PM WARDROBE MANAGER [facility] AST (SGOT) 22 10 - 35 IU/L 10/17/2023 10:34 PM WARDROBE MANAGER [facility] Blood BLOOD SPECIMEN / Unknown Venipuncture / Unknown 10/17/2023 3:17 PM WARDROBE MANAGER 10/17/2023 3:19 PM WARDROBE MANAGER Virginia Lara MD CHEMISTRY Performing Organization Address [facility] Co de Phone Number [facility] [address] [place] [address], * SEDIMENTATION RATE (09/20/2023 2:54 PM WARDROBE MANAGER) Pathologist [facility] SEDIMENTATION RATE 6 <30 mm/hr 2023 4:06 PM WARDROBE MANAGER [facility] Blood BLOOD SPECIMEN / Unknown Venipuncture / Unknown 09/20/2023 2:54 PM WARDROBE MANAGER 09/20/2023 2:54 PM WARDROBE MANAGER Rob CONNER HEMATOLOGY Performing Organization Address [facility] Phone Number [facility] [address] * CYCLIC CITRULLINE PEPTIDE (09/20/2023 2:54 PM WARDROBE MANAGER) Pathologist [facility] CCP Antibody,IgG/I gA <4.6 <=19.9 CU 09/21/2023 2:15 PM WARDROBE MANAGER [facility] Blood BLOOD SPECIMEN / Unknown Venipuncture / Unknown 09/20/2023 2:54 PM WARDROBE MANAGER 09/20/2023 2:54 PM WARDROBE MANAGER Narrative [facility] - 09/21/2023 2:15 PM WARDROBE MANAGER Negative <20 Positive >=20 The following results were obtained with the [employer] QUANTA Flash CCP3 chemiluminescent immunoassay. Values obtained with different manufacturers' assay methods may not be used interchangeably. Rob SALAZAR SEND OUTS Performing Organization Address [facility] Co de Phone Number [facility] [address] [place] [phone], * RA QUANTITATIVE (09/20/2023 2:54 PM WARDROBE MANAGER) RHEUMATOID FACTOR,QUANT <10.00 <14.00 IU/mL 09/20/2023 7:53 PM WARDROBE MANAGER [facility] Blood BLOOD SPECIMEN / Unknown Venipuncture / Unknown 09/20/2023 2:54 PM WARDROBE MANAGER 09/20/2023 2:54 PM WARDROBE MANAGER Semi Radha MBBS SEND OUTS [facility] [address] [place] [address] * C-REACTIVE PROTEIN (09/20/2023 2:54 PM WARDROBE MANAGER) C-REACTIVE PROTEIN <0.3 <0.5 mg/dL 09/20/2023 5:46 PM WARDROBE MANAGER [facility] Blood BLOOD SPECIMEN / Unknown Venipuncture / Unknown 09/20/2023 2:54 PM WARDROBE MANAGER 09/20/2023 2:54 PM WARDROBE MANAGER Semi Radha MBBS CHEMISTRY [facility] [address] [place] [address] * (ABNORMAL) XR DXA BONE DENSITY 2 SITES AXIAL [55783.1] (04/19/2018 10:08 AM CDT) Anatomical Region Laterality Modality Spine, HIPS, HIPL, HIPR Other Narrative 05/01/2018 7:56 AM CDT Please see scanned document for results of this study. Virginia Lara MD DEXA from Last 3 Months or Most Recently Relevant to Health Maintenance Care Teams Assistant Tennis Coach Relationship Specialty Start Date End Date Virginia Lara MD [address] [place] [address] PCP - General Family Practice 12/21/16
--- OUTSIDE RECORDS SUMMARY | 2023-12-01 09:48 | XMS_ITS ---
Author Name Unknown Organization [facility] Address [address] [place] [address] Care Team Providers Care Cutter Apprentice Hand Name Role Phone Unavailable Unavailable Unavailable Surgery Details Not on file Complications Check Surgery Details section. Procedure Estimated Blood Loss Check Surgery Details section. Procedure Findings Check Surgery Details section. Procedure Specimens Taken Check Surgery Details section.
--- OUTSIDE RECORDS SUMMARY | 2023-12-01 09:48 | XMS_ITS | Encounter Summary ---
Author Name Unknown Organization [facility] Address [address] [place] [address] Care Team Providers Care Supervisor Process Testing Name Role Phone Elsewhere, Pcp Primary Care Provider Unavailabl e Reason for Referral * MRI/CAT/PET Scan (Routine) - Closed Specialty Diagnoses / Procedures Referred By Contac t Referred To Contact Radiology Diagnoses Obstruction Intestinal (HCC) Procedures CT Abdomen Pelvis Enterography with IV Contrast Manuelito Jacobs M.D. [address] [place] [phone] [facility] Referral ID Status Reason Start Date Expiration Date Visits Re quested Visits Authorized [id number] Closed 09/19/2023 09/18/2024 1 1 NDER GRINDER Reason for Visit * MRI/CAT/PET Scan (Routine) - Closed Specialty Diagnoses / Procedures Referred By Contac t Referred To Contact Radiology Diagnoses Obstruction Intestinal (HCC) Procedures CT Abdomen Pelvis Enterography with IV Contrast Manuelito Jacobs M.D. [address] [place] [phone] [facility] Referral ID Status Reason Start Date Expiration Date Visits Re quested Visits Authorized [id number] Closed 09/19/2023 09/18/2024 1 1 Encounter Details Date Type Department Care Team (Latest Contact Info) Description 09/25/2023 9:27 AM CYLINDER GRINDER - 09/25/2023 11:59 PM CYLINDER GRINDER Hospital Encounter Department of Radiology, [facility], in [place], [place] [address] [place] [phone] Manuelito Jacobs M.D. [address] [place] [phone] Obstruction Intestinal (HCC) Discharge Disposition: Home or Self Care Social History Tobacco Use Types Packs/Day Years Used Date Smoking Tobacco: Former Cigarettes 0.3 20 Smokeless Tobacco: Never Comments:started when I was around 19yrs old, [...] 07/06/2021 How often do you attend chur or sabianist services? More than 4 times per year 07/06/2021 Do you belong to any clubs o r organizations such as restorationism groups, unions, fraternal or athletic groups, or [...] and heating? Not hard at all 01/25/2023 [facility] Occupational Stress Questionnaire Answer Date Recorded [...] your living situation today? [facility] 01/25/2023 Education Answer Date Recorded What is the highest level of school you have completed or the highest degree you have received? 11th grade 07/06/2021 Sex and Gender Information Value Date Recorded Sex Assigned at Female 04/18/2021 12:58 AM CDT Gender Identity Female 04/18/2021 12:58 AM CDT Sexual Orientation Straight 04/18/2021 12 :58 AM CDT documented as of this encounter Medications at Time of Discharge Medication Sig Dispensed Refills Start Date End Date acetaminophen (TYLENOL) 500 mg tablet Take 500 mg by mouth as needed for pain. 03/29/2019 betamethasone dipropionate, augmented, (DIPROLENE) 0.05 % ointmentIndications:L ichen Sclerosus Apply 1 Application topically daily. Apply to vulva. 45 g 1 02/17/2023 clotrimazole (MYCELEX) 10 mg trocheIndications:Pem phigoid Mucous Membrane (HCC) Dissolve 1 Sandi (10 mg total) in the mouth 2 (two) times a day. 60 Sandi 11 02/01/2023 dexAMETHasone (DECADRON) 0.5 mg/5 mL solutionIndications:P emphigoid Mucous Membrane (HCC) Take 5 mL (0.5 mg total) by mouth every 12 (twelve) hours. Swish for 5 minutes and then spit out. Do not eat/drink for 30 minutes after. 500 mL 3 02/01/2023 hydrOXYchloroQUINE (PLAQUENIL) 200 mg tablet Take 200 mg by mouth daily. 07/06/2021 lidocaine viscous (XYLOCAINE) 2 % mucosal solution Take 5 mL by mouth as needed. 05/26/2020 omeprazole (PriLOSEC) [address] capsule Take 40 mg by mouth every morning before breakfast. 05/05/2021 sucralfate (CARAFATE) 1 gram tablet Take 1 g by mouth 3 (three) times a day before meals. 05/26/2020 Ventolin HFA 90 mcg/actuation inhaler Inhale as needed for shortness of breath or wheezing. doxycycline monohydrate (MONODOX) 100 mg capsuleIndications:Pe mphigoid Mucous Membrane (HCC) take 1 capsule by mouth twice a day 60 capsule 3 08/15/2023 11/27/2023 documented as of this encounter Nursing Notes * Brett Duvall R.N. - 09/25/2023 11:15 AM CST Enterography Screening Does patient have a confirmed or suspected gastrointestinal perforation or peritonitis? NO If no, continue. Does patient have an allergy to citrus fruit? NO If no, continue. Does patient have an allergy to any of the ingredients in Breeza: Filtered water, Sorbitol, Mannitol, Citric Acid, Sodium Hexametaphosphate (preservative), Xanthan Gum, Sodium Citrate, Sodium Benzoate, Potassium Sorbate (preservative), Sucralose, Malic Acid, Acesulfame Potassium, or Calcium Disodium EDTA? NO If no, continue. Does patient have an allergy to Benzocaine if patient requires a nasogastric tube inserted? NO If no, continue. Does patient have current issues with aspiration? NO If no, continue. For CT: Has patient had barium in last 72 hours? NO If no, continue. Does patient have an ileostomy or total colectomy? NO If yes, use appropriate section of medicationreference document. NOTE: Notify technologist as scan timing may need to be altered. Ask patient to notify nursing whenoral contrast starts coming through the ostomy as scan timing may need to be altered. Is patient scheduled for a MREN/perianal fistula study? NO if yes, use appropriate section of medication reference document. NOTE: Notify technologist as scan timing may need to be altered. Ask patient to notify nursing whenoral contrast starts coming through the ostomy as scan timing may need to be altered. Does patient currently have an NG tube or requests one to be inserted for contrast administration? NO If yes, use appropriate section of medication reference document. If yes, If one needs to be placed, submit an order for the NG tube (per protocol) and insert. For CT: Is the patient scheduled for a Puetz-Jeghers Enterography? NO If yes, continue. Does patient have an allergy to Barium sulfate? NO If yes, notify Radiologist. For MR: Initiate Glucagon screening as well. *Administer medications as ordered and as specified in medication reference document. NDER GRINDER documented in this encounter Miscellaneous Notes * Result Encounter Note - Manuelito Jacobs M.D. - 09/25/2023 2:51 PM CYLINDER GRINDER GI MOT NURSE: Please share that her CT enterography study shows postoperative changes of cholecystectomy and hysterectomy, and incidental findings of mild diverticulosis and mild vascular calcifications, but is otherwise normal. Overall, it is very reassuring. EXAM: CT ABDOMEN PELVIS ENTEROGRAPHY WITH IV [...] T12 vertebral body. No concerning osseous lesions. IMPRESSION: 1. Normal small bowel exam. No CT evidence of obstruction or findings to explain patient's abdominal pain. 2. Colonic diverticulosis. No evidence diverticulitis. NDER GRINDER documented in this encounter Plan of Treatment Upcoming Encounters Date Type Department Care Team (Latest Contact Info) Description 12/15/2023 12:45 PM CDT Clinical Communication Virtual Review in [place], [place] [address] [place] [phone] 12/18/2023 2:20 PM CDT Office Visit Division of Gastroenterology in [place], [place] [address] [place] [phone] Manuelito Jacobs M.D. [address] [place] [phone] documented as of this encounter Procedures Procedure Name Priority Date/Time Associated Diagnosis Comments CT ABDOMEN PELVIS ENTEROGRAPHY WITH IV CONTRAST RAD - Routine (most inpatients and all outpatients) 09/25/2023 11:22 AM CYLINDER GRINDER Obstruction Intestinal (HCC) documented in this encounter Results * CT Abdomen Pelvis Enterography with IV Contrast (09/25/2023 11:22 AM CYLINDER GRINDER) Anatomical Region Laterality Modality Abdomen, Pelvis, Abdominal R ST LOS, Abdominal ARZ LOS, Abdominal FLA LOS N/A Computed Tomograp hy, Computed Tomography 09/25/2023 11:2 2 AM CYLINDER GRINDER Impressions 09/25/2023 2:30 PM CYLINDER GRINDER 1. Normal small bowel exam. No CT evidence of obstruction or findings to explain patient's abdominal pain. 2. Colonic diverticulosis. No evidence diverticulitis. Narrative 09/25/2023 2:30 PM CYLINDER GRINDER EXAM: ??CT ABDOMEN PELVIS ENTEROGRAPHY WITH IV [...] No evidence diverticulitis. Manuelito FELICIANO CT PROCEDURES documented in this encounter Visit Diagnoses Diagnosis Obstruction Intestinal (HCC) documented in this encounter Administered Medications Inactive Administered Medications - up to 3 most recent administrations Medication Order MAR Action Action Date Dose Rate Site iohexoL 300 mg iodine/mL solution 1-200 mL (OMNIPAQUE) 1-200 mL, intravenous, Once in imaging, contrast, Starting on Mon09/25/23 at 1000, For 1 dose, Imaging Protocol Orders, Dose per Radiant Medication Guidelines Given 09/25/2023 11:14 AM CYLINDER GRINDER 140 mL sodium chloride (PF) 0.9 % injection 1-100 mL 1-100 mL, intravenous, Once, On Mon09/25/23 at 1030, For 1 dose, Imaging Protocol Orders, Dose per Radiant Medication Guidelines Given 09/25/2023 11:14 AM CYLINDER GRINDER 50 mL documented in this encounter Care Teams Supervisor Process Testing Relationship Specialty Start Date End Date Elsewhere, Pcp PCP - General Internal Medicine 01/27/23 documented as of this encounter
--- OUTSIDE RECORDS SUMMARY | 2023-12-01 09:48 | XMS_ITS | Encounter Summary ---
Author Name Unknown Organization [facility] Address [address] [place] [address] Care Team Providers Care Warehouse Puller Name Role Phone Elsewhere, Pcp Primary Care Provider Unavailabl e Encounter Details Date Type Department Care Team (Late st Contact Info) Description 11/07/2023 Clinical Communication Department of Dermatology in [place], [place] [address] [place] [phone] Virginia Wallace, R.N. Social History Tobacco Use Types Packs/Day Years [...] often do you attend chur ch or pentecostalism services? More than 4 times per year 07/06/2021 Do you belong to any clubs o r organizations such as nondenominational groups, unions, fraternal or athletic groups, or [...] Average Number of Drinks Not on file Frequency of Binge Drinking Not on file 06/15 Overall Financial Resource Strain (CARDIA) Answe r Date Recorded How hard is it for you to pa y for the very basics like food, housing, medical care, and heating? Not hard at all 01/25/2023 [facility] [place] [facility] ional [facility] - Occupational Stress [...] your living situation today? I have a [facility] place to live 01/25/2023 Education Answer Date Recorded What is the highest level of school you have completed or the highest degree you have received? 11th grade 07/06/2021 Sex and Gender Information Value Date Recorded Sex Assigned at Female 04/18/2021 12:58 AM CDT Gender Identity Female 04/18/2021 12:58 AM CDT Sexual Orientation Straight 04/18/2021 12 :58 AM CDT documented as of this encounter Miscellaneous Notes * Telephone Encounter - Virginia Wallace R.N. - 11/07/2023 3:16 PM CDT Harjinder calls from [facility] pharmacy. He states he prescription for Triamcinolone was sent on 10/31/23. There computer system has been down. He is requesting the prescription be re-sent. Triamcinolone prescription resent. documented in this encounter Plan of Treatment Upcoming Encounters Date Type Department Care Team (Latest Contact Info) Description 12/15/2023 12:45 PM CDT Clinical Communication Virtual Review in [place], [place] [address] [place] [phone] 12/18/2023 2:20 PM CDT Office Visit Division of Gastroenterology in [place], [place] [address] [place] [phone] Manuelito Jacobs M.D. 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
--- OUTSIDE RECORDS SUMMARY | 2023-12-01 09:48 | XMS_ITS | Referral Summary ---
Author Name Unknown Organization [facility] Address [address] [place] [id number] Care Team Providers Care Make Up Operator Helper Name Role Phone Elsewhere, Pcp Primary Care Provider Unavailabl e Source Comments Patient records contain information from all sites at [facility]. For routine questions regarding patient records, call [phone] during business hours, M-F 8:00 AM - 5:00 PM Central Time. Record requests for emergency care only can be directed to [phone] at any time.[facility] Encounters Date Type Department Care Team Description 11/26/2023 Refill Department of Dermatology in [place], [place] [address] [place] [phone] Vinita Salas M.D. Med Refill 11/07/2023 Clinical Communication Department of Dermatology in [address] [phone] Virginia Wallace, RNeil 10/31/2023 10:40 AM CDT Office Visit Department of Dermatology in [address] [phone] Vinita Salas M.D. Pemphigoid Mucous Membrane (HCC) (Primary Dx); Lichen Sclerosus; Lipoma; Stasis Dermatitis Lower Extremity Left; Lymphadenopathy Discharge Disposition: Home or Self Care 10/30/2023 1:30 PM CDT Clinical Communication Virtual Review in [place], [place] 200 [place] [address] Pre-visit Intake 09/25/2023 9:27 AM PROCESS AUTOMATION ENGINEER - 09/25/2023 11:59 PM PROCESS AUTOMATION ENGINEER Hospital Encounter Department of Radiology, [facility], in [place], [place] [address] [place] [phone] Manuelito Jacobs M.D. Obstruction Intestinal (HCC) Discharge Disposition: Home or Self Care 09/22/2023 10:45 AM PROCESS AUTOMATION ENGINEER Ancillary Procedure Department of Gastroenterology 09/22/2023 9:34 AM PROCESS AUTOMATION ENGINEER - 09/22/2023 11:59 PM PROCESS AUTOMATION ENGINEER Hospital Encounter Division of Gastroenterology in [place], [place] [address] [place] [phone] Manuelito Jacobs M.D. Obstruction Intestinal (HCC); Dyspepsia Discharge Disposition: Home or Self Care 09/19/2023 11:07 AM PROCESS AUTOMATION ENGINEER - 09/19/2023 11:59 PM PROCESS AUTOMATION ENGINEER Hospital Encounter Department of Laboratory Medicine and Pathology, [facility] in [address] [phone] Manuelito Jacobs M.D. Obstruction Intestinal (HCC); Dyspepsia Discharge Disposition: Home or Self Care 09/19/2023 11:07 AM PROCESS AUTOMATION ENGINEER - 09/19/2023 11:59 PM PROCESS AUTOMATION ENGINEER Hospital Encounter Department of Laboratory Medicine and Pathology, [facility] in [address] [phone] Manuelito Jacobs M.D. Obstruction Intestinal (HCC); Dyspepsia Discharge Disposition: Home or Self Care 09/19/2023 10:00 AM PROCESS AUTOMATION ENGINEER Comprehensive Visit Division of Gastroenterology in [address] [phone] Manuelito Jacobs M.D. Obstruction Intestinal (HCC) (Primary Dx); Dyspepsia 09/15/2023 9:30 AM PROCESS AUTOMATION ENGINEER Clinical Communication Virtual Review in [address] [phone] from Last 3 Months Allergies Active Allergy Reactions Criticality Noted Date [...] leg. 240 g 3 4 11/07/19 24 Discontinued(Norberto staley) Hospital, Clinic, or Other Facility Administered Medication Ordered Dose Route Frequency Start Date End Date Status BUPivacaine 0.25 % (2.5 mg/mL) injection 20 mL (MARCAINE)Indications:Mass Abdominal Right Upper Quadrant 20 mL inj Once 05/25/2023 Active Active Problems Problem Noted Date Diagnosed Date Mass Abdominal Right Upper Quadrant 05/08/2023 Lesion Oral 01/19/2021 Overview: Added automatically from request for surgery [id number] Social History Tobacco Use Types Packs/Day Years [...] often do you attend chur ch or orthodox services? More than 4 times per year 07/06/2021 Do you belong to any clubs o r organizations such as adventist groups, unions, fraternal or athletic groups, or [...] and heating? Not hard at all 01/25/2023 [facility] - Occupational Stress Questionnaire Answer Date [...] your living situation today? I [facility] a [facility] to live 01/25/2023 Education Answer Date [...] Comments Blood Pressure 126/67 09/22/2023 11:46 AM PROCESS AUTOMATION ENGINEER Pulse 65 09/22/2023 11:46 AM PROCESS AUTOMATION ENGINEER Temperature 36.6 ??C (97.9 ??F) 09/22/2023 11:[address] Respiratory Rate 17 09/22/2023 11:46 AM PROCESS AUTOMATION ENGINEER Oxygen Saturation 93% 09/22/2023 11:46 AM PROCESS AUTOMATION ENGINEER Inhaled Oxygen Concentration - - Weight 74.2 kg (163 lb 9.3 oz) 09/22/2023 10:14 AM PROCESS AUTOMATION ENGINEER Height 169.6 cm (5' 6.77) 09/22/2023 10:[address] Body Mass Index 25.8 09/22/2023 10:14 AM PROCESS AUTOMATION ENGINEER Plan of Treatment Upcoming Encounters Date Type Department Care Team (Latest Contact Info) Description 12/15/2023 12:45 PM CDT Clinical Communication Virtual Review in [place], [place] 200 [place] [phone] 12/18/2023 2:20 PM CDT Office Visit Division of Gastroenterology in [place], [place] [address] [place] [phone] Manuelito Jacobs M.D. [address] [place] [phone] Procedures Procedure Name Priority Date/Time Associated Diagnosis Comments CT ABDOMEN PELVIS ENTEROGRAPHY WITH IV CONTRAST RAD - Routine (most inpatients and all outpatients) 09/25/2023 11:22 AM PROCESS AUTOMATION ENGINEER Obstruction Intestinal (HCC) SURGICAL PATHOLOGY Routine 09/22/2023 11:06 AM PROCESS AUTOMATION ENGINEER GASTROENTEROLOGY IMAGE EXAM Routine 09/22/2023 10:45 AM PROCESS AUTOMATION ENGINEER UPPER GI ENDOSCOPY Routine 09/22/2023 10:42 AM PROCESS AUTOMATION ENGINEER Obstruction Intestinal (HCC) Dyspepsia EGD (ESOPHAGEALGASTRODUODE NOSCOPY) Routine 09/22/2023 10:42 AM PROCESS AUTOMATION ENGINEER Obstruction Intestinal (HCC) Dyspepsia DIPSTICK, U Routine 09/19/2023 11:22 AM PROCESS AUTOMATION ENGINEER PH, U Routine 09/19/2023 11:22 AM PROCESS AUTOMATION ENGINEER OSMOLALITY, U Routine 09/19/2023 11:22 AM PROCESS AUTOMATION ENGINEER MICROSCOPIC AUTOMATED Routine 09/19/2023 11:22 AM PROCESS AUTOMATION ENGINEER URINALYSIS WITH MICROSCOPIC Routine 09/19/2023 11:22 AM PROCESS AUTOMATION ENGINEER Obstruction Intestinal (HCC) Dyspepsia LIPASE, S/P Routine 09/19/2023 11:17 AM PROCESS AUTOMATION ENGINEER Obstruction Intestinal (HCC) Dyspepsia ALKALINE PHOSPHATASE, TOT AND ISOENZYMES, S Routine 09/19/2023 11:17 AM PROCESS AUTOMATION ENGINEER Obstruction Intestinal (HCC) Dyspepsia BILIRUBIN DIRECT, S/P Routine 09/19/2023 11:17 AM PROCESS AUTOMATION ENGINEER Obstruction Intestinal (HCC) Dyspepsia COMPREHENSIVE METABOLIC PANEL, S/P Routine 09/19/2023 11:17 AM PROCESS AUTOMATION ENGINEER Obstruction Intestinal (HCC) Dyspepsia CBC WITH DIFFERENTIAL, B Routine 09/19/2023 11:17 AM PROCESS AUTOMATION ENGINEER Obstruction Intestinal (HCC) Dyspepsia from Last 3 Months Results * CT Abdomen Pelvis Enterography with IV Contrast (09/25/2023 11:22 AM PROCESS AUTOMATION ENGINEER) Anatomical Region Laterality Modality Abdomen, Pelvis, Abdominal R ST LOS, Abdominal ARZ LOS, Abdominal FLA LOS N/A Computed Tomograp hy, Computed Tomography 09/25/2023 11:2 2 AM PROCESS AUTOMATION ENGINEER Impressions 09/25/2023 2:30 PM PROCESS AUTOMATION ENGINEER 1. Normal small bowel exam. No CT evidence of obstruction or findings to explain patient's abdominal pain. 2. Colonic diverticulosis. No evidence diverticulitis. Narrative 09/25/2023 2:30 PM PROCESS AUTOMATION ENGINEER EXAM: ??CT ABDOMEN PELVIS ENTEROGRAPHY WITH IV [...] 2. Colonic diverticulosis. No evidence diverticulitis. Manuelito Jacobs M.D. [facility] [place] PROCEDURES * Surgical Pathology (09/22/2023 11:06 AM PROCESS AUTOMATION ENGINEER) 09/25/2023 1:31 PM PROCESS AUTOMATION ENGINEER DTL Report electronically signed by Kevin Lo M.D., Ph.D. I verify that I have examined all relevant slides/materials for the specimen(s) and rendered or confirmed the diagnosis. 09/25/2023 1:31 PM PROCESS AUTOMATION ENGINEER DTL Gross Description A: Received in formalin labeled with the patient's name, medical record number, and duodenum, second part duodenum, duodenal bulbare five pale [id number] irregular soft tissues, admixed with minute tissue fragments that may not survive processing, the tissues rangingfrom 0.3-0.4 cm in greatest dimension. ??The specimens are submitted en toto in cassette A1. Grossed by JKarloW. B: Received in formalin labeled with the patient's name, medical record number, and stomach, antrum, body of stomach, incisura are sixpale to-pink irregular soft tissues, ranging from 0.2-0.6 cm in greatest dimension. The specimens are submitted en toto in cassette B1.Grossed by DEBORAH. C: Received in formalin labeled with the patient's name, medical record number, and esophagus, lower third esophagus, middle thirdesophagus are six translucent-red irregular soft tissues, ranging from 0.3-0.5 cm in greatest dimension. The specimens are submitted entoto in cassette C1. ??Grossed by DEBORAH. 09/25/2023 1:31 PM PROCESS AUTOMATION ENGINEER DTL Interpretation FINAL DIAGNOSIS A. Duodenum, 2nd [...] assessment of this case. 09/25/2023 1:31 PM PROCESS AUTOMATION ENGINEER DTL Biopsy (Duodenum) 09/22/2023 11:06 AM PROCESS AUTOMATION ENGINEER Biopsy (Stomach) 09/22/2023 11:07 AM PROCESS AUTOMATION ENGINEER Biopsy (Esophagus) 09/22/2023 11:07 AM PROCESS AUTOMATION ENGINEER Rusty White M.D. LAB SURG PATH ORD ERABLES [facility] [address] [place] [address], [facility] DT [address] [place] [address] * Upper GI endoscopy-Gastroenterology Image Exam (09/22/2023 10:45 AM PROCESS AUTOMATION ENGINEER) 09/22/2023 10:4 2 AM PROCESS AUTOMATION ENGINEER Narrative [facility] - 09/22/2023 11:30 AM PROCESS AUTOMATION ENGINEER This order has been created and auto-finalized to support the import of images acquired without order. The clinical documentation to support these images can be found on the encounter that produced images. Provider Not In System IMG NON RAD IMAGI NG PROCEDURES [facility] NA * Upper GI Endoscopy (09/22/2023 10:42 AM PROCESS AUTOMATION ENGINEER) 09/22/2023 10:4 2 AM PROCESS AUTOMATION ENGINEER Impressions [facility] - 09/22/2023 11:24 AM PROCESS AUTOMATION ENGINEER Post-op Diagnoses: ? - Duodenal erosions without bleeding in the bulb, otherwise normal ? duodenum. Biopsied. ? - Non-bleeding gastric ulcers with no stigmata of bleeding in the ? antrum. Biopsied. ? - A few gastric polyps consistent with fundic gland polyps. ? - 2 cm hiatal hernia. ? - Normal esophagus. Biopsied. Narrative [facility] - 09/22/2023 11:24 AM PROCESS AUTOMATION ENGINEER Gonda 9 GI GI Patient Name: Elizabeth [...] Addenda: 0 Manuelito Jacobs M.D. GI PROCEDURE JITENDRA RABLES Performing Organization Address City/[facility] Co de Phone Number BINGHAM ROLO NA * Dipstick, Urine (09/19/2023 11:22 AM PROCESS AUTOMATION ENGINEER) Hemoglobin, QL, U Negative Negative 09/19/2023 1:41 PM PROCESS AUTOMATION ENGINEER DTL Leukocyte Esterase, U Negative Negative 09/19/2023 1:41 PM PROCESS AUTOMATION ENGINEER DTL Nitrite, U Negative Negative 09/19/2023 1:41 PM PROCESS AUTOMATION ENGINEER DTL Ketone, U Negative Negative mg/dL 09/19/2023 1:41 PM PROCESS AUTOMATION ENGINEER DTL Glucose, U Negative Negative mg/dL 09/19/2023 1:41 PM PROCESS AUTOMATION ENGINEER DTL Urine 09/19/2023 11:2 2 AM PROCESS AUTOMATION ENGINEER 09/19/2023 12:58 PM PROCESS AUTOMATION ENGINEER Manuelito Jacobs M.D. LAB URINE ORDERAB LES Performing Organization Address [facility] Co de Phone Number [facility] [address] [facility] 200 [place] [address] * Microscopic Automated (09/19/2023 11:22 AM PROCESS AUTOMATION ENGINEER) Pathologist [facility] Microscopy Normal 09/19/2023 1:41 PM PROCESS AUTOMATION ENGINEER DTL RBC <3 <3 /hpf 09/19/2023 1:41 PM PROCESS AUTOMATION ENGINEER DTL WBC 1-3 /hpf 09/19/2023 1:41 PM PROCESS AUTOMATION ENGINEER DTL Comment: ----REFERENCE VALUE---- <4 ??(Males) <11 (Females) Urine 09/19/2023 11:2 2 AM PROCESS AUTOMATION ENGINEER 09/19/2023 12:58 PM PROCESS AUTOMATION ENGINEER Manuelito Jacobs M.D. LAB URINE ORDERAB LES Performing Organization Address City/[facility] Co de Phone Number [facility] [address] [facility] 200 [place] [address] * pH, Urine (09/19/2023 11:22 AM PROCESS AUTOMATION ENGINEER) Pathologist [facility] pH, U 5.2 4.5 - 8.0 09/19/2023 1:3 4 PM PROCESS AUTOMATION ENGINEER DTL Urine 09/19/2023 11:2 2 AM PROCESS AUTOMATION ENGINEER 09/19/2023 12:58 PM PROCESS AUTOMATION ENGINEER Manuelito Jacobs M.D. LAB URINE ORDERAB LES Performing Organization Address City/[facility]/ZIP Co de Phone Number [facility] 200 [place] [address], [facility] 200 [place] [address] * Osmolality, Urine (09/19/2023 11:22 AM PROCESS AUTOMATION ENGINEER) Pathologist [facility] Osmolality, U 464 150 - 1150 mOsm/kg 09/19/2023 1:34 PM PROCESS AUTOMATION ENGINEER DTL Urine 09/19/2023 11:2 2 AM PROCESS AUTOMATION ENGINEER 09/19/2023 12:58 PM PROCESS AUTOMATION ENGINEER Manuelito Jacobs M.D. LAB URINE ORDERAB LES Performing Organization Address City/[facility] Co de Phone Number [facility] 200 [place] [address], [facility] 200 [place] [address] * Urinalysis, with Microscopic: Urine, Midstream (09/19/2023 11:22 AM PROCESS AUTOMATION ENGINEER) Source Urine, Urine, Midstream 09/19/2023 12:58 PM PROCESS AUTOMATION ENGINEER DTL Color, U Yellow 09/19/2023 12:58 PM PROCESS AUTOMATION ENGINEER DTL Clarity, U Clear 09/19/2023 12:58 PM PROCESS AUTOMATION ENGINEER DTL Protein, U 8 <26 mg/dL 09/19/2023 1:46 PM PROCESS AUTOMATION ENGINEER DTL Protein/Osmol ality 0.17 <0.42 ratio 09/19/2023 1:46 PM PROCESS AUTOMATION ENGINEER DTL Predicted 24 HR Protein, U 136 <229 mg/24 h 09/19/2023 1:46 PM PROCESS AUTOMATION ENGINEER DTL Predicted Range 33-549 mg/24 h 09/19/2023 1:46 PM PROCESS AUTOMATION ENGINEER DTL Urine (Urine, Midstream) 09/19/2023 11:22 AM PROCESS AUTOMATION ENGINEER 09/19/2023 12:58 PM PROCESS AUTOMATION ENGINEER Manuelito Jacobs M.D. LAB URINE ORDERAB LES [facility] [address] [place] [address], [facility] [address] [place] [address] * (ABNORMAL) Alkaline Phosphatase, Total and Isoenzymes (09/19/2023 11:17 AM PROCESS AUTOMATION ENGINEER) Alkaline Phosphatase, S 133(H) 35 - 104 U/L 09/19/2023 12:06 PM PROCESS AUTOMATION ENGINEER DTL Alkaline Phosphatase Isoenzymes, S see below 09/20/2023 10:54 AM PROCESS AUTOMATION ENGINEER DTL Comment: In this sample, an unusual electrophoretic pattern was observed which may be due to the presence of a possible immunoglobulin-bound form of alkaline phosphatase (ALP), known as macroALP. Because renal clearance of macroALP is hindered by its higher molecular weight compared to ALP, its presence leads to increased plasma ALP activity. No specific clinical significance of macroALP has been reported (Macho MA et al. Clin Lupis Acta. 2015; 440: 169-71; Symone Jean. Case Rep Hematol. 2020; 2020: 9767078. doi: 10.1155/2020/8009772). If indicated, consider sending another sample to repeat the analysis in 6-10 weeks. Blood (Blood, Venous) 09/19/2023 11:17 AM PROCESS AUTOMATION ENGINEER 09/19/2023 12:38 PM PROCESS AUTOMATION ENGINEER Narrative [facility] - 09/20/2023 10:54 AM PROCESS AUTOMATION ENGINEER Specimen Information: Specimen ID: [id number] Specimen Type: Blood Specimen Collection Start Date: 09/19/2023 11:17 AM Specimen Received Date: 09/19/2023 12:38 PM Specimen ID: [id number] Specimen Type: Blood Specimen Collection Start Date: 09/19/2023 11:17 AM Specimen Received Date: 09/19/2023 11:49 AM Manuelito Jacobs M.D. LAB BLOOD NON ADD -ON [facility] 200 [place] [address], [facility] DTL [facility] 200 [place] [address] DTL 200 [facility] 200 [place] [address] * (ABNORMAL) CBC with Differential, Blood (09/19/2023 11:17 AM PROCESS AUTOMATION ENGINEER) Pathologist [facility] Hemoglobin 12.5 11.6 - 15.0 g/dL 09/19/2023 11:52 AM PROCESS AUTOMATION ENGINEER DTL Hematocrit 39.1 35.5 - 44.9 % 09/19/2023 11:52 AM PROCESS AUTOMATION ENGINEER DTL Erythrocytes 4.53 3.92 - 5.13 x10(12)/L 09/19/2023 11:52 AM PROCESS AUTOMATION ENGINEER DTL MCV 86.3 78.2 - 97.9 fL 09/19/2023 11:52 AM PROCESS AUTOMATION ENGINEER DTL RBC Distrib Width 14.0 12.2 - 16.1 % 09/19/2023 11:52 AM PROCESS AUTOMATION ENGINEER DTL Platelet Count 365 157 - 371 x10(9)/L 09/19/2023 11:52 AM PROCESS AUTOMATION ENGINEER DTL Leukocytes 7.8 3.4 - 9.6 x10(9)/L 09/19/2023 11:52 AM PROCESS AUTOMATION ENGINEER DTL Neutrophils 4.20 1.56 - 6.45 x10(9)/L 09/19/2023 11:52 AM PROCESS AUTOMATION ENGINEER DHPM Lymphocytes 2.02 0.95 - 3.07 x10(9)/L 09/19/2023 11:52 AM PROCESS AUTOMATION ENGINEER DTL Monocytes 0.71 0.26 - 0.81 x10(9)/L 09/19/2023 11:52 AM PROCESS AUTOMATION ENGINEER DTL Eosinophils 0.74(H) 0.03 - 0.48 x10(9)/L 09/19/2023 11:52 AM PROCESS AUTOMATION ENGINEER DTL Basophils 0.09(H) 0.01 - 0.08 x10(9)/L 09/19/2023 11:52 AM PROCESS AUTOMATION ENGINEER DTL Blood (Blood, Venous) 09/19/2023 11:17 AM PROCESS AUTOMATION ENGINEER 09/19/2023 11:42 AM PROCESS AUTOMATION ENGINEER Manuelito Jacobs M.D. LAB BLOOD ADD-ON [facility] ([facility] 200 [place], [place] [phone] [place] [address] 200 [place], [place] [phone] [place] [address] 200 [place] [address] * Lipase (09/19/2023 11:17 AM PROCESS AUTOMATION ENGINEER) Lipase, S 25 13 - 60 U/L 09/19/2023 12:06 PM PROCESS AUTOMATION ENGINEER DT Blood (Blood, Venous) 09/19/2023 11:17 AM PROCESS AUTOMATION ENGINEER 09/19/2023 11:49 AM PROCESS AUTOMATION ENGINEER Manuelito Jacobs M.D. LAB BLOOD ADD-ON Performing Organization Address City/[facility]/ZIP Co de Phone Number [facility] ([facility] 200 [place], [place] [phone] [place] [address] 200 [place] [address] * Bilirubin, Direct (09/19/2023 11:17 AM PROCESS AUTOMATION ENGINEER) Bilirubin, Direct, S <0.2 0.0 - 0.3 mg/dL 09/19/2023 12:06 PM PROCESS AUTOMATION ENGINEER DT Blood (Blood, Venous) 09/19/2023 11:17 AM PROCESS AUTOMATION ENGINEER 09/19/2023 11:49 AM PROCESS AUTOMATION ENGINEER Manuelito Jacobs M.D. LAB BLOOD ADD-ON [facility] [address] 200 [place] [address] * (ABNORMAL) Comprehensive Metabolic Panel (09/19/2023 11:17 AM PROCESS AUTOMATION ENGINEER) Potassium, S 4.5 3.6 - 5.2 mmol/L 09/19/2023 12:06 PM PROCESS AUTOMATION ENGINEER DTL Sodium, S 141 135 - 145 mmol/L 09/19/2023 12:06 PM PROCESS AUTOMATION ENGINEER DTL Chloride, S 105 98 - 107 mmol/L 09/19/2023 12:06 PM PROCESS AUTOMATION ENGINEER DTL Bicarbonate, S 28 22 - 29 mmol/L 09/19/2023 12:06 PM PROCESS AUTOMATION ENGINEER DTL Anion Gap 8 7 - 15 09/19/2023 12:06 PM PROCESS AUTOMATION ENGINEER DTL BUN (Blood Urea Nitrogen), S 16 6 - 21 mg/dL 09/19/2023 12:06 PM PROCESS AUTOMATION ENGINEER DTL Creatinine 1.01 0.59 - 1.04 mg/dL 09/19/2023 12:06 PM PROCESS AUTOMATION ENGINEER DTL Estimated GFR (eGFR) 56(L) >=60 mL/min/BS A 09/19/2023 12:06 PM PROCESS AUTOMATION ENGINEER DTL Comment: Estimated GFR calculated using the 2020 CKD_EPI creatinine equation. Calcium, Total, S 9.5 8.8 - 10.2 mg/dL 09/19/2023 12:06 PM PROCESS AUTOMATION ENGINEER DTL Glucose, S 105 70 - 140 mg/dL 09/19/2023 12:06 PM PROCESS AUTOMATION ENGINEER DTL Protein, Total, S 6.5 6.3 - 7.9 g/dL 09/19/2023 12:06 PM PROCESS AUTOMATION ENGINEER DTL Albumin, S 4.0 3.5 - 5.0 g/dL 09/19/2023 12:06 PM PROCESS AUTOMATION ENGINEER DTL Aspartate Aminotransferase (AST), S 20 8 - 43 U/L 09/19/2023 12:06 PM PROCESS AUTOMATION ENGINEER DTL Alkaline Phosphatase, S 133(H) 35 - 104 U/L 09/19/2023 12:06 PM PROCESS AUTOMATION ENGINEER DTL Alanine Aminotransferase (ALT), S 19 7 - 45 U/L 09/19/2023 12:06 PM PROCESS AUTOMATION ENGINEER DTL Bilirubin, Total, S 0.3 0.0 - 1.2 mg/dL 09/19/2023 12:06 PM PROCESS AUTOMATION ENGINEER DTL Blood (Blood, Venous) 09/19/2023 11:17 AM PROCESS AUTOMATION ENGINEER 09/19/2023 11:49 AM PROCESS AUTOMATION ENGINEER Manuelito Jacobs M.D. LAB BLOOD ADD-ON [facility] [address] [place] [address], [place] DTL [facility] [address] [place] [address] from Last 3 Months Advance Directives For more information, please contact: [phone] Documents on File Type Date Recorded Patient Lining Feller Expl anation Advance Directives 09/15/2021 6:54 PM BODY/ ORGAN DONATION Care Teams Make Up Operator Helper Relationship Specialty Start Date End Date Elsewhere, Pcp PCP - General Internal Medicine 01/27/23
--- OUTSIDE RECORDS SUMMARY | 2023-12-01 09:48 | XMS_ITS | Encounter Summary ---
Author Name Unknown Organization [facility] Address [address] [place] [address] Care Team Providers Care Director Of Public Health Name Role Phone Elsewhere, Pcp Primary Care Provider Unavailabl e Reason for Referral * Outpatient (Routine) - Closed Specialty Diagnoses / Procedures Referred By Kimberleyac t Referred To Contact Diagnoses Obstruction Intestinal (HCC) Dyspepsia Procedures EGD (EsophagealGastroDuodenoscopy ) Manuelito Jacobs M.D. 200 [place] [address] [facility] Referral ID Status Reason Start Date Expiration Date Visits Re quested Visits Authorized [id number] Closed 09/19/2023 09/18/2024 1 1 [employer] [place] Reason for Visit * Outpatient (Routine) - Closed Specialty Diagnoses / Procedures Referred By Contac t Referred To Contact Diagnoses Obstruction Intestinal (HCC) Dyspepsia Procedures EGD (EsophagealGastroDuodenoscopy ) Manuelito Jacobs M.D. 200 [place] [address] [facility] Referral ID Status Reason Start Date Expiration Date Visits Re quested Visits Authorized [id number] Closed 09/19/2023 09/18/2024 1 1 Encounter Details Date Type Department Care Team (Latest Contact Info) Description 09/22/2023 9:34 AM [employer] [place] - 09/22/2023 11:59 PM [employer] [place] Hospital Encounter Division of Gastroenterology in [place], [place] 200 [place] [phone] Manuelito Jacobs M.D. [address] [place] [address] Obstruction Intestinal (HCC); Dyspepsia Discharge Disposition: Home or Self Care Social [...] How often do you attend chur or buddhism services? More than 4 times per year 07/06/2021 Do you belong to any clubs o r organizations such as sikh groups, unions, fraternal or athletic groups, or [...] and heating? Not hard at all 01/25/2023 [facility] - Occupational Stress Questionnaire Answer [...] your living situation today? I have a [facility] place to live 01/25/2023 Education Answer [...] AM CDT documented as of this encounter Last Filed Vital Signs Vital Sign Reading Time Taken Comments Blood Pressure 126/67 09/22/2023 11:46 AM [employer] [place] Pulse 65 09/22/2023 11:46 AM [employer] [place] Temperature 36.6 ??C (97.9 ??F) 09/22/2023 11:[address] Respiratory Rate 17 09/22/2023 11:46 AM [employer] [place] Oxygen Saturation 93% 09/22/2023 11:46 AM [employer] [place] Inhaled Oxygen Concentration - - Weight 74.2 kg (163 lb 9.3 oz) 09/22/2023 10:14 AM [employer] [place] Height 169.6 cm (5' 6.77) 09/22/2023 10:[address] Body Mass Index 25.8 09/22/2023 10:14 AM [employer] [place] documented in this encounter Medications at Time of Discharge [...] 08/15/2023 11/27/2023 documented as of this encounter H&P Notes * Rusty White M.D. - 09/22/2023 10:30 AM CST ASSESSMENT / PLAN Patient Name: Elizabeth Vazquez Upper Endoscopy Procedure Department : DIVISION OF GASTROENTEROLOGY IN [place], [place] SUBJECTIVE Past Medical History: Diagnosis Date Asthma NOS Blood Transfusion No Diagnosis when i was 59 with ulser problem Cataract Had surgery 5 years ago Dysphagia Gallbladder Disorder removed last year Gastroesophageal Reflux Disease NOS at 59 yrs old Headache Unspecified Migraine Headache Have a lot of headaches Other Injury Of Unspecified Body Region wrist age 15 ankle age 61 Pneumonia Past Surgical History: Procedure Laterality Date APPENDECTOMY at age 15 BLADDER SURGERY 1974 DIRECT LARYNGOSCOPY BIOPSY N/A 01/28/2021 Procedure: DIRECT LARYNGOSCOPY BIOPSY.; Surgeon: Abrahan Bronson M.D.; Location: [facility] EXCISION SOFT TISSUE N/A 05/25/2023 Procedure: EXCISION MASS, X3, MIDLINE UPPER ABDOMEN, MIDLINE LOWER ABDOMEN, RIGHT FLANK.; Surgeon: Mellissa Chester M.D., D.D.S.; Location: [facility] GALLBLADDER SURGERY 2019 OOPHORECTOMY, PARTIAL OR TOTAL, UNILATERAL OR BILATERAL;.. one OTHER SURGICAL HISTORY hammer toe rt foot/left elbo/rt hand/rt knee SALPINGECTOMY both SINUS SURGERY 5 yrs ago TONSILLECTOMY once when I was 7/ then when I was 17 TOTAL HYSTERECTOMY TUBAL LIGATION age 33 Social History Socioeconomic History Marital status: Highest education level: 11th grade Tobacco Use Smoking status: Former Packs/day: 0.25 Years: 20.00 Additional pack years: 0.00 Total pack years: 5.00 Types: Cigarettes Smokeless tobacco: Never Tobacco comments: started when I was around 19yrs old, Quit in 1996 Vaping Use Vaping Use: never used Substance and Sexual Activity Alcohol use: Yes Alcohol/week: 2.0 standard drinks of alcohol Types: 2 Standard drinks or equivalent per week Comment: Very rarely Drug use: Never Sexual activity: Not Currently Partners: Male control/protection: None Comment: Not sexually acctive since 1999 OBJECTIVE Weight: 74.2 kg Pain Score: 3 Pain Location: Abdomen Pain Orientation: Mid, Upper Consents Obtained: written The benefits, risks and alternatives of sedation or anesthesia, as well as the names, roles, and responsibilities of the healthcare team members, were discussed with the patient and/or decision maker: yes Procedure / Reason for visit: Dyspepsia (verified with the patient and/or decision maker) The following portions of the patient's history were reviewed and updated as appropriate: allergies, current medications, family history, medical history, surgical history, social history and problemlist. yes Review of systems: pertinent ROS negative Mallampati: II - soft palate, uvula, fauces visible Heart: normal Lung: normal General / Constitutional: normal ASA physical exam: Class 2 - patient with mild systemic disease Patient seen, evaluated and approved for sedation Sedation plan: moderate sedation Baseline Behavior: Psychosocial (WDL): Within Defined Limits Abdominal Exam: Gastrointestinal (WDL): Within Defined Limits Abdomen Inspection: Soft, Nondistended [employer] [place] documented in this encounter Miscellaneous Notes * Result Encounter Note - Manuelito Jacobs M.D. - 09/25/2023 1:41 PM [employer] [place] [facility] MOT NURSE: Please share that biopsies from her duodenal were normal; and biopsies from her stomach and esophagus showed only mild reactive changes. No additional evaluation is indicated. Management recommendations are as per my Result Encounter Note dated September 22, 2023. She will return to the care of her usual physicians, but she can contact me through the patient portal if I could be of any further assistance from the gastrointestinal perspective. FINAL DIAGNOSIS A. Duodenum, 2nd part, Duodenal bulb, endoscopic biopsy: Small bowel mucosa without diagnostic abnormality. Villi and plasma cells are present. No evidence of Whipple's disease, celiac sprue, or Giardia. B. Stomach, Antrum, Body, Incisura, endoscopic biopsy: Antral and fundic mucosa with focal mild reactive gastropathy. No H pylori organism identified. No intestinal metaplasia C. Esophagus, Lower third, Middle third, endoscopic biopsy: Mildly reactive squamous esophageal mucosa without increased intraepithelial eosinophils. [employer] [place] * Result Encounter Note - Manuelito Jacobs M.D. - 09/22/2023 12:13 PM [employer] [place] [facility] MOT NURSE: Please share that her upper gastrointestinal endoscopy showed erosions and tiny superficial ulceration in her stomach and duodenal. Biopsies from all these areas are pending. In the interim, I recommend: 1) complete avoidance of nonsteroidal anti- inflammatory drugs, such asAleve; and 2) for the next month, she may increase the dose of omeprazole to 40 mg twice daily. Provide new Rx if needed. Patient Name: Elizabeth Vazquez Date of : 1940 Age: 82 Procedure Date: 09/22/2023 Procedure: Upper GI endoscopy Providers: Yvan White MD, Porsha Renee MD (Fellow) Referring Provider: Manuelito Jacobs MD Pre-op Diagnoses: Dyspepsia Recommendation: - Await pathology results. - Return to referring physician as previously scheduled. - Avoidance of aspirin, ibuprofen, naproxen, or other non-steroidal anti-inflammatory drugs if possible. Findings: A few localized erosions without bleeding were found in the duodenal bulb with normal appearance of the second portion of the duodenum. Biopsies for histology were taken with a cold forceps for evaluation of celiac disease taken from both the second portion and bulb. Few non-bleeding superficial gastric ulcers with no stigmata of bleeding were found in the gastric antrum with background erythematous mucosa in the antrum, but otherwise normal appearing stomach proximally. The largest ulcer was 3 mm in largest dimension. Biopsies were taken with a cold forceps for Helicobacter pylori testing. A few small sessile polyps were found in the gastric body consistent with benign fundic gland polyps. A 2 cm hiatal hernia was present with diaphragmatic pinch at 38 cm and GE junction at 36 cm. The examined esophagus was normal. Biopsies were taken with a cold forceps for histology. Procedural Details: The patient was seen, evaluated, history reviewed, airway and heart-lung exams were performed by licensed provider and were satisfactory for planned level of sedation care. The risks, benefits and alternatives for the procedure and sedation were discussed and informed consent was obtained. A procedural pause was conducted in the presence of assisting personnel to verify the correct patient identity and procedure to be performed. Throughout the procedure, the patient's blood pressure, pulse, and oxygen saturations were monitored continuously. The Gastroscope was introduced under direct vision through the mouth, and advanced to the second part of duodenum. The upper GI endoscopy was accomplished without difficulty. The patient tolerated the procedure fairly well. Estimated Blood Loss: Estimated blood loss: none. Complications: No immediate complications. Sedation: Moderate (conscious) sedation was administered by the nurse and supervised by the endoscopist. The patient's oxygen saturation, heart rate, blood pressure and response to care were monitored. Total physician intraservice time was 13 minutes. Attending Participation: I was present and participated during the entire procedure, including non-brooks portions. Yvan White MD 09/22/2023 11:24:09 AM This report has been signed electronically. Number of Addenda: 0 Impression Performed by: [employer] Post-op Diagnoses: - Duodenal erosions without bleeding in the bulb, otherwise normal duodenum. Biopsied. - Non-bleeding gastric ulcers with no stigmata of bleeding in the antrum. Biopsied. - A few gastric polyps consistent with fundic gland polyps. - 2 cm hiatal hernia. - Normal esophagus. Biopsied. [employer] [place] documented in this encounter Plan of Treatment Upcoming Encounters Date Type Department Care Team (Latest Contact Info) Description 12/15/2023 12:45 PM CDT Clinical Communication Virtual Review in [place], [place] 200 [place] [address] 12/18/2023 2:20 PM CDT Office Visit Division of Gastroenterology in [address] [phone] Manuelito Jacobs M.D. [address] [place] [phone] documented as of this encounter Procedures Procedure Name Priority Date/Time Associated Diagnosis Comments SURGICAL PATHOLOGY Routine 09/22/2023 11 :06 AM [employer] [place] UPPER GI ENDOSCOPY Routine 09/22/2023 10 :42 AM [employer] [place] Obstruction Intestinal (HCC) Dyspepsia EGD (ESOPHAGEALGASTRODU ODENOSCOPY) Routine 09/22/2023 10:42 AM [employer] [place] Obstruction Intestinal (HCC) Dyspepsia documented in this encounter Results * Surgical Pathology (09/22/2023 11:06 AM [employer] [place]) 09/25/2023 1:31 PM [employer] [place] DTL Report electronically signed by Kevin Lo M.D., Ph.D. I verify that I have examined all relevant slides/materials for the specimen(s) and rendered or confirmed the diagnosis. 09/25/2023 1:31 PM [employer] [place] DTL Gross Description A: Received in formalin labeled with the patient's name, medical record number, and duodenum, second part duodenum, duodenal bulbare five pale [id number] irregular soft tissues, admixed with minute tissue [...] C1. ??Grossed by JTW. 09/25/2023 1:31 PM [employer] [place] DTL Interpretation FINAL DIAGNOSIS A. Duodenum, 2nd [...] assessment of this case. 09/25/2023 1:31 PM [employer] [place] DTL Biopsy (Duodenum) 09/22/2023 11:06 AM [employer] [place] Biopsy (Stomach) 09/22/2023 11:07 AM [employer] [place] Biopsy (Esophagus) 09/22/2023 11:07 AM [employer] [place] Rusty White M.D. LAB SURG PATH ORD ERABLES Performing Organization Address City/State/[facility] Co de Phone Number [facility] [address] [place] [address], [facility] DTL [address] [place] [address] * Upper GI Endoscopy (09/22/2023 10:42 AM [employer] [place]) 09/22/2023 10:4 2 AM [employer] [place] Impressions [facility] - 09/22/2023 11:24 AM [employer] [place] Post-op Diagnoses: ? - Duodenal erosions without bleeding in the bulb, otherwise normal ? duodenum. Biopsied. ? - Non-bleeding gastric ulcers with no stigmata of bleeding in the ? antrum. Biopsied. ? - A few gastric polyps consistent with fundic gland polyps. ? - 2 cm hiatal hernia. ? - Normal esophagus. Biopsied. Narrative [facility] - 09/22/2023 11:24 AM [employer] [place] Gonda 9 GI GI Patient Name: Elizabeth [...] Addenda: 0 Manuelito Jacobs M.D. GI PROCEDURE STELLAE CORNE[facility] Organization Address City/State/[facility] Co ms Phone Number [facility] documented in this encounter Visit Diagnoses Diagnosis Obstruction Intestinal (HCC) Dyspepsia documented in this encounter Administered Medications Inactive Administered Medications - up to 3 most recent administrations Medication Order MAR Action Action Date Dose Rate Site fentaNYL injection (SUBLIMAZE) intravenous, As needed, Starting on Mon09/22/23 at 1058, Intra-Op Given 09/22/2023 10:58 AM [employer] [place] 25 mcg fentaNYL injection (SUBLIMAZE) intravenous, As needed, Starting on Mon09/22/23 at 1100, Intra-Op Given 09/22/2023 11:00 AM [employer] [place] 25 mcg fentaNYL injection (SUBLIMAZE) intravenous, As needed, Starting on Mon09/22/23 at 1103, Intra-Op Given 09/22/2023 11:03 AM [employer] [place] 25 mcg midazolam (PF) injection (VERSED) As needed, Starting on Mon09/22/23 at 1058, Intra-Op Given 09/22/2023 10:58 AM [employer] [place] 2 mg midazolam (PF) injection (VERSED) As needed, Starting on Mon09/22/23 at 1100, Intra-Op Given 09/22/2023 11:00 AM [employer] [place] 1 mg midazolam (PF) injection (VERSED) As needed, Starting on Mon09/22/23 at 1103, Intra-Op Given 09/22/2023 11:03 AM [employer] [place] 1 mg documented in this encounter Care Teams Director Of Public Health Relationship Specialty Start Date End Date Elsewhere, Pcp PCP - General Internal Medicine 01/27/23 documented as of this encounter
--- OUTSIDE RECORDS SUMMARY | 2023-12-01 09:48 | XMS_ITS | Encounter Summary ---
Author Name Unknown Organization [facility] Address [address] [place] [address] Care Team Providers Care Environmental Control Administrator Name Role Phone Elsewhere, Pcp Primary Care Provider Unavailabl e Encounter Details Date Type Department Care Team (Latest Contact Info) Description 09/19/2023 11:07 AM [facility] - 09/19/2023 11:59 PM [facility] Hospital Encounter Department of Laboratory Medicine and Pathology, [facility], in [place], [place] [address] [place] [address] Manuelito Jacobs M.D. [address] [place] [address] Obstruction Intestinal (HCC); Dyspepsia Discharge Disposition: Home [...] How often do you attend chur or uatsdin services? More than 4 times per year 07/06/2021 Do you belong to any clubs o r organizations such as cheondoism groups, unions, fraternal or athletic groups, or [...] and heating? Not hard at all 01/25/2023 [facility] - Occupational Stress [...] your living situation today? I have a [facility] place to live 01/25/2023 Education Answer [...] 08/15/2023 11/27/2023 documented as of this encounter Miscellaneous Notes * Result Encounter Note - Manuelito Jacobs M.D. - 09/19/2023 2:14 PM [facility] NURSE: Please share that her complete blood count, and her urine analysis are normal. Her comprehensive metabolic profile is remarkable only for mild elevation in alkaline phosphatase at 133 units/liter (was 140 units/liter previously). Alkaline phosphatase isoenzyme test is pending. Overall her lab tests look pretty good. [facility] documented in this encounter Plan of Treatment Upcoming Encounters Date Type Department Care Team (Latest Contact Info) Description 12/15/2023 12:45 PM CDT Clinical Communication Virtual Review in [place], [place] 200 [place] [phone] 12/18/2023 2:20 PM CDT Office Visit Division of Gastroenterology in [address] [phone] Manuelito Jacobs M.D. [address] [place] [phone] documented as of this encounter Procedures Procedure Name Priority Date/Time Associated Diagnosis Comments DIPSTICK, U Routine 09/19/2023 11:22 AM [facility] MICROSCOPIC AUTOMATED Routine 09/19/2023 11:22 AM [facility] PH, U Routine 09/19/2023 11:22 AM [facility] OSMOLALITY, U Routine 09/19/2023 11:22 AM [facility] URINALYSIS WITH MICROSCOPIC Routine 09/19/2023 11:22 AM [facility] Obstruction Intestinal (HCC) Dyspepsia documented in this encounter Results * Dipstick, Urine (09/19/2023 11:22 AM [facility]) Hemoglobin, QL, U Negative Negative 09/19/2023 1:41 PM [facility] DTL Leukocyte Esterase, U Negative Negative 09/19/2023 1:41 PM [facility] DTL Nitrite, U Negative Negative 09/19/2023 1:41 PM [facility] DTL Ketone, U Negative Negative mg/dL 09/19/2023 1:41 PM [facility] DTL Glucose, U Negative Negative mg/dL 09/19/2023 1:41 PM [facility] DTL Urine 09/19/2023 11:2 2 AM [facility] 09/19/2023 12:58 PM [facility] Manuelito Jacobs M.D. LAB URINE ORDERAB LES [facility] [address] [place] [address], [facility] [address] [place] [address] * pH, Urine (09/19/2023 11:22 AM [facility]) pH, U 5.2 4.5 - 8.0 09/19/2023 1:3 4 PM [facility] DTL Urine 09/19/2023 11:2 2 AM [facility] 09/19/2023 12:58 PM [facility] Manuelito Jacobs M.D. LAB URINE ORDERAB LES Performing Organization Address City/[facility] Co de Phone Number [facility] [address] [place] [address] * Osmolality, Urine (09/19/2023 11:22 AM [facility]) Osmolality, U 464 150 - 1150 mOsm/kg 09/19/2023 1:34 PM [facility] DTL Urine 09/19/2023 11:2 2 AM [facility] 09/19/2023 12:58 PM [facility] Manuelito Jacobs M.D. LAB URINE ORDERAB LES Performing Organization Address [facility] Co de Phone Number [facility] 200 [place], [place] [address] [place] [address] 200 [place] [address] * Microscopic Automated (09/19/2023 11:22 AM [facility]) Microscopy Normal 09/19/2023 1:41 PM [facility] DTL RBC <3 <3 /hpf 09/19/2023 1:41 PM [facility] DTL WBC 1-3 /hpf 09/19/2023 1:41 PM [facility] DTL Comment: ----REFERENCE VALUE---- <4 ??(Males) <11 (Females) Urine 09/19/2023 11:2 2 AM [facility] 09/19/2023 12:58 PM [facility] Manuelito Jacobs M.D. LAB URINE ORDERAB LES Performing Organization Address [facility] Co de Phone Number [facility] 200 [place] [address], [facility] 200 [place] [address] * Urinalysis, with Microscopic: Urine, Midstream (09/19/2023 11:22 AM [facility]) Source Urine, Urine, Midstream 09/19/2023 12:58 PM [facility] DTL Color, U Yellow 09/19/2023 12:58 PM [facility] DTL Clarity, U Clear 09/19/2023 12:58 PM [facility] DTL Protein, U 8 <26 mg/dL 09/19/2023 1:46 PM [facility] DTL Protein/Osmol ality 0.17 <0.42 ratio 09/19/2023 1:46 PM [facility] DTL Predicted 24 HR Protein, U 136 <229 mg/24 h 09/19/2023 1:46 PM [facility] DTL Predicted Range 33-549 mg/24 h 09/19/2023 1:46 PM [facility] DTL Urine (Urine, Midstream) 09/19/2023 11:22 AM [facility] 09/19/2023 12:58 PM [facility] Manuelito Jacobs M.D. LAB URINE ORDERAB LES [place] [address] [place] [address], [facility] DTL [facility] [address] [place] [address] documented in this encounter Visit Diagnoses Diagnosis Obstruction Intestinal (HCC) Dyspepsia documented in this encounter Care Teams Environmental Control Administrator Relationship Specialty Start Date End Date Elsewhere, Pcp PCP - General Internal Medicine 01/27/23 documented as of this encounter
--- OUTSIDE RECORDS SUMMARY | 2023-12-01 09:48 | XMS_ITS | Encounter Summary ---
Author Name Unknown Organization [facility] Address [address] [place] [phone] Care Team Providers Care Aeronautical Engineer Name Role Phone Elsewhere, Pcp Primary Care Provider Unavailabl e Reason for Visit * Reason Onset Date Comments Pre-visit Intake 10/30/2023 Encounter Details Date Type Department Care Team (Latest Contact Info) Description 10/30/2023 1:30 PM CDT Clinical Communication Virtual Review in [place], [place] [address] [place] [phone] Pre-visit Intake Social History Tobacco Use Types Packs/Day Years [...] often do you attend chur ch or amish services? More than 4 times per year 07/06/2021 Do you belong to any clubs o r organizations such as episcopalian groups, unions, fraternal or athletic groups, or [...] and heating? Not hard at all 01/25/2023 [facility] - Occupational Stress [...] living situation today? I have a [facility] place to live 01/25/2023 Education Answer Date Recorded What is the highest level of school you have completed or the highest degree you have received? 11th grade 07/06/2021 Sex and Gender Information Value Date Recorded Sex Assigned at Female 04/18/2021 12:58 AM CDT Gender Identity Female 04/18/2021 12:58 AM CDT Sexual Orientation Straight 04/18/2021 12 :58 AM CDT documented as of this encounter Plan of Treatment Upcoming Encounters Date Type Department Care Team (Latest Contact Info) Description 12/15/2023 12:45 PM CDT Clinical Communication Virtual Review in [place], [place] [address] [place] [phone] 12/18/2023 2:20 PM CDT Office Visit Division of Gastroenterology in [place], [place] [address] [place] [phone] Manuelito Jacobs M.D. [address] [place] [phone] documented as of this encounter Visit Diagnoses Not on filedocumented in this encounter Care Teams Aeronautical Engineer Relationship Specialty Start Date End Date Elsewhere, Pcp PCP - General Internal Medicine 01/27/23 documented as of this encounter
--- OUTSIDE RECORDS SUMMARY | 2023-12-01 09:48 | XMS_ITS | Encounter Summary ---
Author Name Unknown Organization [facility] Address [address] [place] [address] Care Team Providers Care Livestock Speculator Name Role Phone Elsewhere, Pcp Primary Care Provider Unavailabl e Reason for Visit * Reason Comments Med Refill Encounter Details Date Type Department Care Team ([facility] st Contact Info) Description 11/26/2023 Refill Department of Dermatology in [place], [place] [address] [place] [phone] Vinita Salas M.D. [address] [place] [address] Med Refill Social History Tobacco Use Types Packs/Day Years [...] often do you attend chur ch or yarsani services? More than 4 times per year 07/06/2021 Do you belong to any clubs o r organizations such as baptism groups, unions, fraternal or athletic groups, or [...] and heating? Not hard at all 01/25/2023 [facility] of Occupat ional Health - Occupational [...] your living situation today? I have a [facility] place to live 01/25/2023 Education Answer Date [...] PM CDT Clinical Communication Virtual Review in [place], [place] [address] [place] [phone] 12/18/2023 2:20 PM CDT Office Visit Division of Gastroenterology in [place], [place] [address] [place] [phone] Manuelito Jacobs M.D. 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
--- OUTSIDE RECORDS SUMMARY | 2023-12-01 09:48 | XMS_ITS | Encounter Summary ---
Author Name Unknown Organization [facility] Address [address] [place] [address] Care Team Providers Care Starch Crab Name Role Phone Elsewhere, Pcp Primary Care Provider Unavailabl e Encounter Details Date Type Department Care Team (Latest Contact Info) Description 09/22/2023 10:45 AM SCHOOL NURSE Ancillary Procedure Department of Gastroenterology Social History Tobacco Use Types Packs/Day Years [...] often do you attend chur ch or jewish services? More than 4 times per year 07/06/2021 Do you belong to any clubs o r organizations such as mu-ism groups, unions, fraternal or athletic groups, or [...] hard at all 01/25/[address]23 [facility] - Occupational Stress Questionnaire Answer Date [...] your living situation today? I have a [facility] place to live 01/25/2023 Education Answer [...] PM CDT Clinical Communication Virtual Review in [place], [place] [address] [place] [address] 12/18/2023 2:20 PM CDT Office Visit Division of Gastroenterology in [address] [phone] Manuelito Jacobs M.D. [address] [place] [phone] documented as of this encounter Procedures Procedure Name Priority Date/Time Associated Diagnosis Comments GASTROENTEROLOGY IMAGE EXAM Routine 09/22/2023 10:45 AM SCHOOL NURSE documented in this encounter Results * Upper GI endoscopy-Gastroenterology Image Exam (09/22/2023 10:45 AM SCHOOL NURSE) 09/22/2023 10:4 2 AM SCHOOL NURSE Narrative IIMS - 09/22/2023 11:30 AM SCHOOL NURSE This order has been created and auto-finalized to support the import of images acquired without order. The clinical documentation to support these images can be found on the encounter that produced images. Provider Not In System IMG NON RAD IMAGI NG PROCEDURES [facility] NA documented in this encounter Visit Diagnoses Not on filedocumented in this encounter Care Teams Starch Crab Relationship Specialty Start Date End Date Elsewhere, Pcp PCP - General Internal Medicine 01/27/23 documented as of this encounter
--- OUTSIDE RECORDS SUMMARY | 2023-12-01 09:48 | XMS_ITS | Encounter Summary ---
Author Name Unknown Organization [facility] Address [address] [place] [address] Care Team Providers Care Cellular Tower Climber Name Role Phone Elsewhere, Pcp Primary Care Provider Unavailabl e Reason for Referral * Outpatient (Routine) - Authorized Specialty Diagnoses / Procedures Referred By Contac t Referred To Contact Dermatology Diagnoses Pemphigoid Mucous Membrane (HCC) Vinita Salas M.D. 200 [place] [phone] [place] [facility] Referral ID Status Reason Start Date Expiration Date V isits Requested Visits Authorized [id number] Authorized 10/31/2023 05/01/2025 1 1 * Outpatient (Routine) - Authorized Specialty Diagnoses / Procedures Referred By Contac t Referred To Contact Diagnoses Lymphadenopathy Procedures US Head Neck Soft [place] [phone] [place] [facility] Referral ID Status Reason Start Date Expiration Date V isits Requested Visits Authorized [id number] Authorized 10/31/2023 10/30/2024 1 1 * Outpatient (Routine) - Authorized Specialty Diagnoses / Procedures Referred By Contac t Referred To Contact Dermatology Diagnoses Lichen Sclerosus [place] [phone] [place] [facility] Referral ID Status Reason Start Date Expiration Date V isits Requested Visits Authorized [id number] Authorized 10/31/2023 05/01/2025 1 1 * Outpatient (Routine) - Authorized Specialty Diagnoses / Procedures Referred By Contac t Referred To Contact Plastic Surgery Diagnoses Lipoma Vinita Salas M.D. [address] [place] [phone] Mellissa Chseter M.D., D.D.S. [address] [place] [phone] Referral ID Status Reason Start Date Expiration Date V isits Requested Visits Authorized [id number] Authorized 10/31/2023 05/01/2025 1 1 Reason for Visit * Outpatient (Routine) - Closed Specialty Diagnoses / Procedures Referred By Contac t Referred To Contact Dermatology Diagnoses Pemphigoid Mucous Membrane (HCC) Vinita Salas M.D. [address] [place] [phone] [place] [facility] Referral ID Status Reason Start Date Expiration Date Visits Re quested Visits Authorized [id number] Closed 02/01/2023 01/31/2026 1 1 Encounter Details Date Type Department Care Team (Late st Contact Info) Description 10/31/2023 10:40 AM CDT Office Visit Department of Dermatology in [place], [place] [address] [place] [phone] Vinita Salas M.D. [address] [place] [phone] Pemphigoid Mucous Membrane (HCC) (Primary Dx); Lichen Sclerosus; Lipoma; Stasis Dermatitis Lower Extremity Left; Lymphadenopathy Discharge Disposition: Home or Self Care Social [...] How often do you attend chur or jew services? More than 4 times per year 07/06/2021 Do you belong to any clubs o r organizations such as rastafarian groups, unions, fraternal or athletic groups, or [...] and heating? Not hard at all 01/25/2023 [facility] of Occupat ional Health - Occupational Stress [...] your living situation today? I have a [facility] place to live 01/25/2023 Education Answer [...] AM CDT documented as of this encounter Patient Instructions * Patient Instructions* Vinita Salas M.D. - 10/31/2023 10:40 AM CDT I felt a lymph node on the left posterior cervical area. I would recommend ultrasound. Start triamcinolone cream twice daily for left lower leg. 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 I referred you to [facility] at [facility]. documented in this encounter Progress Notes * Vinita Salas M.D. - 10/31/2023 10:40 AM CDT CHIEF COMPLAINT / REASON FOR VISIT Follow-up mucous membrane pemphigoid HISTORY OF PRESENT ILLNESS Ms. Elizabeth Vazquez is a 82 y.o. 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 My last visit with her was 02/01/23. At that time, there was significant erosive change on the palate. We restarted oral doxycycline 100 mg BID (she did not tolerate niacinamide due to side effects). She continued dexamethasone swish BID and clotrimazole troches BID for thrush prophylaxis. 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 she notes that her most recent eye examination was May 2023, and there was no evidence of Plaquenil toxicity. Today she reports that her mouth continues to wax and wane in severity. She notes worsening with spicy foods. She has upper dentures which tend to aggravate the upper palate and gingiva. She notes a rash on the left lower leg which is pruritic. She wonders if this is related to the mucous membrane pemphigoid. She also has a history of vulvar lichen sclerosus for which she uses augmented betamethasone ointment BID. She notes that this condition is longstanding. She is not sexually active. Since our last visit, she saw ENT and flexible laryngoscopy was performed. There was no evidence ofany pemphigoid. She was noted to have sinusitis and inflammation of the nasal passage and advised to use saline irrigations followed by Flonase. In the interim, she also had three angiolipomas on the abdomen and flank removed by Plastic surgeryin May 2023. Those areas have improved, but she notes pain on the left side where a lipoma seems to be situated. It is painful in this area after she is laying. She also notes tender lipomas on the left lateral abdomen and right lateral thigh as well as midline abdomen. She was also evaluated by Gastroenterology. She was found to have erosions and a tiny superficial ulceration in her stomach and duodenum, for which they recommended avoidance of NSAIDs and increasingomeprazole for a month. There were mild reactive changes of the stomach and esophagus on biopsy, and duodenum was normal. CT enterography was reassuring. Dermatologic History: She had a biopsy performed in April 2021 that was consistent with the diagnosis of mucous membrane pemphigoid. Indirect immunofluorescence was negative, but BP 180 was elevated at 66. We started topical clobetasol gel 3 times daily, as well as prophylactic clotrimazole troches. The patient alsohad an elevated PRATEEK, with negative SHELIA. I recommended following with her local [facility]. She was diagnosed with Connective Tissue Disease NOS and started on hydroxychloroquine 200 mg BID. The following portions of the patient's history were reviewed and updated as appropriate: problem list, medications, allergies. REVIEW OF SYSTEMS No additional skin concerns. PHYSICAL EXAM General: Awake, alert, in no acute distress. Eyes: No scleral injection or icterus. Skin: I have examined the oral mucosa, vulva, abdomen. Upper gingiva/palate note visualized as dentures in place and patient preferred not to remove them. Lower gingiva, buccal mucosa, and tongue areunremarkable. Involving the vulva, she has adhesion of the clitoral malagon and labia minora. There issubstantial sclerosis of the introitus with narrowing and erythema. Mucosal skin is thin and tears easily. On the left flank, there is a subcutaneous nodule. Also subcutaneous nodules palpable on theleft lateral abdomen, right lateral thigh, midline abdomen. Bilateral lower extremity edema, left greater than right, with pink plaques on the left lower leg. Lymph: Palpable left-sided cervical lymph node. ASSESSMENT / PLAN #1 Mucous Membrane Pemphigoid Today her oral mucosa looks very good, although I was not able to see the upper gingiva and palate due to dentures in place (patient preferred not to remove them). She does feel that the oral doxycycline 100 mg BID is helpful, so we will continue. She will also continue with dexamethasone swish BIDand clotrimazole troches BID. She is also on Plaquenil due to connective tissue disease NOS. She saw a local [employer] locally in May 2023, no concern for ocular involvement or Plaquenil toxicity. #2 Tender lipomas The patient previously saw Plastic surgery in May 2023, and had three angiolipomas on the abdomen and flank removed. She notes a tender lipoma on the left flank which is painful when she lies on her left side. She notes a few other lipomas as well (midline abdomen, right lateral thigh, left lateral abdomen). We will request follow-up with Plastic surgery to consider additional excisions. #3 Vulvar lichen sclerosis The patient had a prior outside biopsy in the past which was supportive of this diagnosis. Mucous membrane pemphigoid can involve the genital area, but the genital symptoms date back many years and do seem more consistent with vulvar lichen sclerosis. Her symptoms are relatively controlled but she has to apply augmented betamethasone topically BID on a regular basis. I am concerned with the degree of sclerosis with narrowing of the introitus, and the tissue tears very easily, so I would like her to see [facility]Gynecology clinic for a one time visit. #4 Stasis dermatitis, left lower leg This is a new-onset rash with the patient. Discussed association with swelling of the lower legs and interventions to mitigate edema. Prescribed triamcinolone 0.1% cream for use twice daily as needed. #5 Palpable left posterior cervical lymph node I palpated potentially enlarged posterior cervical lymph node on the left side. Recommended ultrasound of this lymph node. The patient notes that she has an upcoming appointment with her primary careprovider and will discuss. All questions answered. PATIENT EDUCATION Ready to learn. No apparent learning barriers were identified. Learning preferences include listening. Explained diagnosis and treatment plan; patient/guardian of patient expressed understanding of the content. documented in this encounter Plan of Treatment Upcoming Encounters Date Type Department Care Team (Latest Contact Info) Description 12/15/2023 12:45 PM CDT Clinical Communication Virtual Review in [place] [address] [place] [phone] 12/18/2023 2:20 PM CDT Office Visit Division of Gastroenterology in [place], [place] [address] [place] [phone] Manuelito Jacobs M.D. [address] [place] [phone] Scheduled Orders Name Type Priority Associated Diagnoses Orde r Schedule US Head Neck Soft Tissue Imaging RAD - Routine (most inpatients and all outpatients) Lymphadenopathy Expected: 10/31/2023, Expires: 01/30/2025 Scheduled Referrals Name Type Priority Associated Diagnoses Order Schedule Return to provider in another specialty Outpatient Referral Routine Lipoma Expected: 10/31/2023, Expires: 01/30/2025 Dermatology - [facility] gynecologic by [facility] consult (clinic) Outpatient Referral Routine Lichen Sclerosus Expected: 10/31/2023, Expires: 01/30/2025 Dermatology office visit (clinic) Outpatient Referral Routine Pemphigoid Mucous Membrane (HCC) Expected: 05/02/2024 (Approximate), Expires: 01/30/2025 documented as of this encounter Visit Diagnoses Diagnosis Pemphigoid Mucous Membrane (HCC)- Primary Lichen Sclerosus Lipoma Stasis Dermatitis Lower Extremity Left Lymphadenopathy documented in this encounter Care Teams Cellular Tower Climber Relationship Specialty Start Date End Date Elsewhere, Pcp PCP - General Internal Medicine 01/27/23 documented as of this encounter
--- OUTSIDE RECORDS SUMMARY | 2023-12-01 09:48 | XMS_ITS | Encounter Summary ---
Author Name Unknown Organization [facility] Address [address] [place] [id number] Care Team Providers Care Heel Cementer Name Role Phone Elsewhere, Pcp Primary Care Provider Unavailabl e Encounter Details Date Type Department Care Team (Latest Contact Info) Description 09/19/2023 11:07 AM CHILD AND ADOLESCENT THERAPIST - 09/19/2023 11:59 PM CHILD AND ADOLESCENT THERAPIST Hospital Encounter Department of Laboratory Medicine and Pathology, [facility], in [place], [place] [address] [place] [address] Manuelito Jacobs M.D. [address] [place] [address] Obstruction Intestinal (HCC); Dyspepsia Discharge Disposition: Home [...] How often do you attend chur or confucianism services? More than 4 times per year 07/06/2021 Do you belong to any clubs o r organizations such as restoration groups, unions, fraternal or athletic groups, or [...] and heating? Not hard at all 01/25/2023 [facility] - Occupational [...] your living situation today? I have a [facility] place to live 01/25/2023 Education Answer [...] Encounter Note - Manuelito Jacobs M.D. - 09/20/2023 12:56 PM CHILD AND ADOLESCENT THERAPIST [facility] NURSE: Please share the comment below regarding the additional testing I ordered for her mildly elevated alkaline phosphatase level. It seems that there is an entirely benign explanation for this finding and nothing further needs jolly done about this. Component Ref Range & Units1 d ago (09/19/23)1 d ago (09/19/23) Alkaline Phosphatase, S 35 - 104 U/L133 High 133 High Alkaline Phosphatase Isoenzymes, Ssee below Comment: In this sample, an unusual electrophoretic [...] Symone Jean. Case Rep Hematol. 2020; 2020: [id number]. doi: 10.1155/2020/8851034). If indicated, consider sending another sample to repeat the analysis in 6-10 weeks. D AND ADOLESCENT THERAPIST documented in this encounter Plan of Treatment Upcoming Encounters Date Type Department Care Team (Latest Contact Info) Description 12/15/2023 12:45 PM CDT Clinical Communication Virtual Review in [place], [place] [address] [place] [address] 12/18/2023 2:20 PM CDT Office Visit Division of Gastroenterology in [place], [place] [address] [place] [phone] Manuelito Jacobs M.D. [address] [place] [address] documented as of this encounter Procedures Procedure Name Priority Date/Time Associated Diagnosis Comments ALKALINE PHOSPHATASE, TOT AND ISOENZYMES, S Routine 09/19/2023 11:17 AM CHILD AND ADOLESCENT THERAPIST Obstruction Intestinal (HCC) Dyspepsia CBC WITH DIFFERENTIAL, B Routine 09/19/2023 11:17 AM CHILD AND ADOLESCENT THERAPIST Obstruction Intestinal (HCC) Dyspepsia LIPASE, S/P Routine 09/19/2023 11:17 AM CHILD AND ADOLESCENT THERAPIST Obstruction Intestinal (HCC) Dyspepsia BILIRUBIN DIRECT, S/P Routine 09/19/2023 11:17 AM CHILD AND ADOLESCENT THERAPIST Obstruction Intestinal (HCC) Dyspepsia COMPREHENSIVE METABOLIC PANEL, S/P Routine 09/19/2023 11:17 AM CHILD AND ADOLESCENT THERAPIST Obstruction Intestinal (HCC) Dyspepsia documented in this encounter Results * Lipase (09/19/2023 11:17 AM CHILD AND ADOLESCENT THERAPIST) Lipase, S 25 13 - 60 U/L 09/19/2023 12:06 PM CHILD AND ADOLESCENT THERAPIST DTL Blood (Blood, Venous) 09/19/2023 11:17 AM CHILD AND ADOLESCENT THERAPIST 09/19/2023 11:49 AM CHILD AND ADOLESCENT THERAPIST Manuelito Jacobs M.D. LAB BLOOD ADD-ON [facility] [address] [place] [address], [facility] [address] [place] [address] * (ABNORMAL) Alkaline Phosphatase, Total and Isoenzymes (09/19/2023 11:17 AM CHILD AND ADOLESCENT THERAPIST) Alkaline Phosphatase, S 133(H) 35 - 104 U/L 09/19/2023 12:06 PM CHILD AND ADOLESCENT THERAPIST DTL Alkaline Phosphatase Isoenzymes, S see below 09/20/2023 10:54 AM CHILD AND ADOLESCENT THERAPIST DTL Comment: In this sample, an unusual [...] Symone Jean. Case Rep Hematol. 2020; 2020: [id number]. doi: 10.1155/2020/7893626). If indicated, consider sending another sample to repeat the analysis in 6-10 weeks. Blood (Blood, Venous) 09/19/2023 11:17 AM CHILD AND ADOLESCENT THERAPIST 09/19/2023 12:38 PM CHILD AND ADOLESCENT THERAPIST Narrative [facility] - 09/20/2023 10:54 AM CHILD AND ADOLESCENT THERAPIST Specimen Information: Specimen ID: [id number] Specimen Type: Blood Specimen Collection Start Date: 09/19/2023 11:17 AM Specimen Received Date: 09/19/2023 12:38 PM Specimen ID: [id number] Specimen Type: Blood Specimen Collection Start Date: 09/19/2023 11:17 AM Specimen Received Date: 09/19/2023 11:49 AM Manuelito Jacobs M.D. LAB BLOOD NON ADD -ON [facility] [address] [place] [address], [facility] [address] [place] [address] [address] * Bilirubin, Direct (09/19/2023 11:17 AM CHILD AND ADOLESCENT THERAPIST) Pathologist [facility] Bilirubin, Direct, S <0.2 0.0 - 0.3 mg/dL 09/19/2023 12:06 PM CHILD AND ADOLESCENT THERAPIST DTL Blood (Blood, Venous) 09/19/2023 11:17 AM CHILD AND ADOLESCENT THERAPIST 09/19/2023 11:49 AM CHILD AND ADOLESCENT THERAPIST Manuelito Jacobs M.D. LAB BLOOD ADD-ON [address] [address], [facility] [address] [address] * (ABNORMAL) Comprehensive Metabolic Panel (09/19/2023 11:17 AM CHILD AND ADOLESCENT THERAPIST) [facility] Potassium, S 4.5 3.6 - 5.2 mmol/L 09/19/2023 12:06 PM CHILD AND ADOLESCENT THERAPIST DTL Sodium, S 141 135 - 145 mmol/L 09/19/2023 12:06 PM CHILD AND ADOLESCENT THERAPIST DTL Chloride, S 105 98 - 107 mmol/L 09/19/2023 12:06 PM CHILD AND ADOLESCENT THERAPIST DTL Bicarbonate, S 28 22 - 29 mmol/L 09/19/2023 12:06 PM CHILD AND ADOLESCENT THERAPIST DTL Anion Gap 8 7 - 15 09/19/2023 12:06 PM CHILD AND ADOLESCENT THERAPIST DTL BUN (Blood Urea Nitrogen), S 16 6 - 21 mg/dL 09/19/2023 12:06 PM CHILD AND ADOLESCENT THERAPIST DTL Creatinine 1.01 0.59 - 1.04 mg/dL 09/19/2023 12:06 PM CHILD AND ADOLESCENT THERAPIST DTL Estimated GFR (eGFR) 56(L) >=60 mL/min/BS A 09/19/2023 12:06 PM CHILD AND ADOLESCENT THERAPIST DTL Comment: Estimated GFR calculated using the 2020 CKD_EPI creatinine equation. Calcium, Total, S 9.5 8.8 - 10.2 mg/dL 09/19/2023 12:06 PM CHILD AND ADOLESCENT THERAPIST DTL Glucose, S 105 70 - 140 mg/dL 09/19/2023 12:06 PM CHILD AND ADOLESCENT THERAPIST DTL Protein, Total, S 6.5 6.3 - 7.9 g/dL 09/19/2023 12:06 PM CHILD AND ADOLESCENT THERAPIST DTL Albumin, S 4.0 3.5 - 5.0 g/dL 09/19/2023 12:06 PM CHILD AND ADOLESCENT THERAPIST DTL Aspartate Aminotransferase (AST), S 20 8 - 43 U/L 09/19/2023 12:06 PM CHILD AND ADOLESCENT THERAPIST DTL Alkaline Phosphatase, S 133(H) 35 - 104 U/L 09/19/2023 12:06 PM CHILD AND ADOLESCENT THERAPIST DTL Alanine Aminotransferase (ALT), S 19 7 - 45 U/L 09/19/2023 12:06 PM CHILD AND ADOLESCENT THERAPIST DTL Bilirubin, Total, S 0.3 0.0 - 1.2 mg/dL 09/19/2023 12:06 PM CHILD AND ADOLESCENT THERAPIST DTL Blood (Blood, Venous) 09/19/2023 11:17 AM CHILD AND ADOLESCENT THERAPIST 09/19/2023 11:49 AM CHILD AND ADOLESCENT THERAPIST Manuelito Jacobs M.D. LAB BLOOD ADD-ON [facility] [address] [place] [address], [facility] [address] [place] [address] * (ABNORMAL) CBC with Differential, Blood (09/19/2023 11:17 AM CHILD AND ADOLESCENT THERAPIST) Hemoglobin 12.5 11.6 - 15.0 g/dL 09/19/2023 11:52 AM CHILD AND ADOLESCENT THERAPIST DTL Hematocrit 39.1 35.5 - 44.9 % 09/19/2023 11:52 AM CHILD AND ADOLESCENT THERAPIST DTL Erythrocytes 4.53 3.92 - 5.13 x10(12)/L 09/19/2023 11:52 AM CHILD AND ADOLESCENT THERAPIST DTL MCV 86.3 78.2 - 97.9 fL 09/19/2023 11:52 AM CHILD AND ADOLESCENT THERAPIST DTL RBC Distrib Width 14.0 12.2 - 16.1 % 09/19/2023 11:52 AM CHILD AND ADOLESCENT THERAPIST DTL Platelet Count 365 157 - 371 x10(9)/L 09/19/2023 11:52 AM CHILD AND ADOLESCENT THERAPIST DTL Leukocytes 7.8 3.4 - 9.6 x10(9)/L 09/19/2023 11:52 AM CHILD AND ADOLESCENT THERAPIST DTL Neutrophils 4.20 1.56 - 6.45 x10(9)/L 09/19/2023 11:52 AM CHILD AND ADOLESCENT THERAPIST DHPM Lymphocytes 2.02 0.95 - 3.07 x10(9)/L 09/19/2023 11:52 AM CHILD AND ADOLESCENT THERAPIST DTL Monocytes 0.71 0.26 - 0.81 x10(9)/L 09/19/2023 11:52 AM CHILD AND ADOLESCENT THERAPIST DTL Eosinophils 0.74(H) 0.03 - 0.48 x10(9)/L 09/19/2023 11:52 AM CHILD AND ADOLESCENT THERAPIST DTL Basophils 0.09(H) 0.01 - 0.08 x10(9)/L 09/19/2023 11:52 AM CHILD AND ADOLESCENT THERAPIST DTL Blood (Blood, Venous) 09/19/2023 11:17 AM CHILD AND ADOLESCENT THERAPIST 09/19/2023 11:42 AM CHILD AND ADOLESCENT THERAPIST Manuelito Jacobs M.D. LAB BLOOD ADD-ON [facility] [address] [place] [address], [facility] DTL [facility] [address] [place] [address] DHPM [facility] [address] [place] [address] documented in this encounter Visit Diagnoses Diagnosis Obstruction Intestinal (HCC) Dyspepsia documented in this encounter Care Teams Heel Cementer Relationship Specialty Start Date End Date Elsewhere, Pcp PCP - General Internal Medicine 01/27/23 documented as of this encounter
--- OUTSIDE RECORDS SUMMARY | 2023-12-01 09:49 | XMS_ITS | Encounter Summary ---
Author Name Unknown Organization [facility] Address [address] [place] [address] Care Team Providers Care Glue Mounter Operator Name Role Phone Elsewhere, Pcp Primary Care Provider Unavailabl e Encounter Details Date Type Department Care Team (Latest Contact Info) Description 09/15/2023 9:30 AM DOOR HANGER Clinical Communication Virtual Review in [place], [place] [address] [place] [address] Social History Tobacco Use Types Packs/Day Years [...] often do you attend chur ch or moravian services? More than 4 times per year [...] and heating? Not hard at all 01/25/2023 [facility] [place] [facility] - [...] your living situation today? I have a [facility] place to live 01/25/2023 Education Answer [...] PM CDT Clinical Communication Virtual Review in [place], [place] [address] [place] [address] 12/18/2023 2:20 PM CDT Office Visit Division of Gastroenterology in [place], [place] [address] [place] [phone] Manuelito Jacobs M.D. [address] [place] [phone] documented as of this encounter Visit Diagnoses Not on filedocumented in this encounter Care Teams Glue Mounter Operator Relationship Specialty Start Date End Date Elsewhere, Pcp PCP - General Internal Medicine 01/27/23 documented as of this encounter
--- OUTSIDE RECORDS SUMMARY | 2023-12-01 09:49 | XMS_ITS | Encounter Summary ---
Author Name Unknown Organization [facility] Address [address] [place] [address] Care Team Providers Care Call Center Nurse Name Role Phone Elsewhere, Pcp Primary Care Provider Unavailabl e Reason for Referral * MRI/CAT/PET Scan (Routine) - Closed Specialty Diagnoses / Procedures Referred By Contac t Referred To Contact Radiology Diagnoses Obstruction Intestinal (HCC) Procedures CT Abdomen Pelvis Enterography with IV Contrast Manuelito Jacobs M.D. [address] [place] [address] [facility] Referral ID Status Reason Start Date Expiration Date Visits Re quested Visits Authorized [id number] Closed 09/19/2023 09/18/2024 1 1 [employer] * Outpatient (Routine) - Closed Specialty Diagnoses / Procedures Referred By Contac t Referred To Contact Diagnoses Obstruction Intestinal (HCC) Dyspepsia Procedures EGD (EsophagealGastroDuodenoscopy ) Manuelito Jacobs M.D. [address] [place] [address] [facility] Referral ID Status Reason Start Date Expiration Date Visits Re quested Visits Authorized [id number] Closed 09/19/2023 09/18/2024 1 1 [employer] Reason for Visit * Appointment Request (Routine) - Closed Specialty Diagnoses / Procedures Referred By Contact Referred To Contact Gastroenterology and Hepatology Diagnoses Pain Epigastric Chronic Cough Virginia Lara M.D. [address] [place] [address] Referral ID Status Reason Start Date Expiration Date Visits Re quested Visits Authorized [id number] Closed 05/12/2023 05/11/2024 1 1 Encounter Details Date Type Department Care Team (Latest Contact Info) Description 09/19/2023 10:00 AM [employer] Comprehensive Visit Division of Gastroenterology in [place], [place] [address] [place] [phone] Manuelito Jacobs M.D. [address] [place] [phone] Obstruction Intestinal (HCC) (Primary Dx); Dyspepsia Social History Tobacco Use Types Packs/Day Years [...] week 07/06/2021 How often do you attend [facility] or synagogue services? More than 4 times per year 07/06/2021 Do you belong to any clubs o r organizations such as adventism groups, unions, fraternal or athletic groups, or [...] and heating? Not hard at all 01/25/2023 [facility] - Occupational [...] Sign Reading Time Taken Comments Blood Pressure 161/74 09/19/2023 9:51 AM [employer] Pulse 84 09/19/2023 9:51 AM [employer] Temperature 36.6 ??C (97.9 ??F) 09/19/2023 9:51 AM CS T Respiratory Rate - - Oxygen Saturation - - Inhaled Oxygen Concentration - - Weight 74.2 kg (163 lb 9.3 oz) 09/19/2023 9:51 A M [employer] Height 169.6 cm (5' 6.77) 09/19/2023 9:51 AM CS T Body Mass Index 25.8 09/19/2023 9:51 AM [employer] documented in this encounter Consult Notes * Manuelito Jacobs M.D. - 09/19/2023 10:00 AM CST SUBJECTIVE REASON FOR CONSULT Stomach hurts. REFERRAL SOURCE Dr. 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 She also has personal history of peptic ulcer disease that was complicated by gastrointestinal bleeding attributed [facility] She also has known hiatal hernia and reflux disease with regurgitation, intermittent emesis of bile-stained fluid, burning discomfort in the upper abdomen and chest, and epigastric pain. Her current use of nonsteroidal anti-inflammatory drugs is limited to occasional use of Aleve that she takes for headaches and musculoskeletal pains. She does not report any signs or symptoms of gastrointest inal bleeding. She has had investigations in the past including a limited gastric emptying scan in 2018 that reported 73% emptying by 90 minutes and a calculated T-half of 41 minutes. Upper endoscopyperformed elsewhere in 2019 was remarkable for a 3 cm hiatal hernia and a 3 mm superficial gastric ulcer that was not bleeding. Biopsies from the stomach at that time demonstrated reactive gastropathy negative for Helicobacter pylori and normal esophageal squamous mucosa. She has been taking omeprazole 40 mg daily with some benefit. She has also been prescribed Carafate. She denies unintended weight loss. She says that her stools are relatively loose. Additional testing included CT scan of the a bdomen and pelvis with IV contrast in January 2023 for indication of abdominal pain. Postoperative changes of cholecystectomy and hysterectomy were noted, and the hiatal hernia was characterized as small. She also had a video swallow study with esophagram that was remarkable for a small axial hiatal hernia with moderate volume of radiographic reflux. Indication for that exam was dysphagia. She is now referred for additional evaluation and management. The following portions of the patient's history were reviewed and updated as appropriate: allergies, current medication, family history, medical history, surgical history, social history, problem list. SOCIAL HISTORY She has experienced substantial family loss with the of 2 children within the last year. OBJECTIVE PHYSICAL EXAMINATION General : An 82-year-old woman who is not in any acute distress. Her affect is pleasant. She is able to arise to and alight from the examining table without assistance. Body mass index is 25.8 kg/m2. Eyes: Sclerae anicteric. Conjunctivae clear. ENT: She is edentulous with upper dentures. Pharynx is remarkable for status post tonsillectomy. I do not appreciate any active oral lesions. Lungs: Clear to auscultation. Heart: Regular rate. Abdomen: Abdomen is remarkable for epigastric tenderness and right upper quadrant tenderness. I do not appreciate any organomegaly or masses. Bowel sounds are present. There are no vascular bruits. Musculoskeletal: She has some right CVA tenderness. Extremities: No digital clubbing, cyanosis, or edema. ASSESSMENT / PLAN #1 Unexplained upper gastrointestinal symptoms including abdominal pain, nausea, vomiting, and dysphagia #2 Personal history of mucous membrane pemphigoid I have recommended additional evaluation with basic laboratory tests, upper GI endoscopy with biopsy of esophagus, stomach, and small bowel, CT enterography study, and urinalysis (because of her costovertebral angle tenderness), while noting that esophageal involvement with mucus membrane pemphigoid is rare, and previous upper GI endoscopies have not shown her esophagus to be involved. I will contact Elizabeth Vazquez through the patient portal to share findings and management recommendations as indicated. Manuelito Jacobs M.D. CT CT Job ID: [id number] [employer] documented in this encounter Plan of Treatment Upcoming Encounters Date Type Department Care Team (Latest Contact Info) Description 12/15/2023 12:45 PM CDT Clinical Communication Virtual Review in [address] [phone] 12/18/2023 2:20 PM CDT Office Visit Division of Gastroenterology in [address] [phone] Manuelito Jacobs M.D. [address] [place] [phone] documented as of this encounter Results * CT Abdomen Pelvis Enterography with IV Contrast (09/25/2023 11:22 AM [employer]) Anatomical Region Laterality Modality Abdomen, Pelvis, Abdominal R ST LOS, Abdominal ARZ LOS, Abdominal FLA LOS N/A Computed Tomograp hy, Computed Tomography 09/25/2023 11:2 2 AM [employer] Impressions 09/25/2023 2:30 PM [employer] 1. Normal small bowel exam. No CT evidence of obstruction or findings to explain patient's abdominal pain. 2. Colonic diverticulosis. No evidence diverticulitis. Narrative 09/25/2023 2:30 PM [employer] EXAM: ??CT ABDOMEN PELVIS ENTEROGRAPHY WITH IV [...] diverticulosis. No evidence diverticulitis. Manuelito Jacobs M.D. [facility] [place] PROCEDURES * Urinalysis, with Microscopic: Urine, Midstream (09/19/2023 11:22 AM [employer]) Source Urine, Urine, Midstream 09/19/2023 12:58 PM [employer] [facility] Color, U Yellow 09/19/2023 12:58 PM [employer] [facility] Clarity, U Clear 09/19/2023 12:58 PM [employer] [facility] Protein, U 8 <26 mg/dL 09/19/2023 1:46 PM [employer] [facility] Protein/Osmol ality 0.17 <0.42 ratio 09/19/2023 1:46 PM [employer] [facility] Predicted 24 HR Protein, U 136 <229 mg/24 h 09/19/2023 1:46 PM [employer] [facility] Predicted Range 33-549 mg/24 h 09/19/2023 1:46 PM [employer] [facility] Urine (Urine, Midstream) 09/19/2023 11:22 AM [employer] 09/19/2023 12:58 PM [employer] Manuelito Jacobs M.D. LAB URINE ORDERAB LES Performing Organization Address City/[facility]/ZIP Co de Phone Number [facility] [address] [facility] [address] [place] [address] * Lipase (09/19/2023 11:17 AM [employer]) Lipase, S 25 13 - 60 U/L 09/19/2023 12:06 PM [employer] [facility] Blood (Blood, Venous) 09/19/2023 11:17 AM [employer] 09/19/2023 11:49 AM [employer] Manuelito Jacobs M.D. LAB BLOOD ADD-ON [facility] [address] DTL [facility] [address] [place] [address] * (ABNORMAL) Alkaline Phosphatase, Total and Isoenzymes (09/19/2023 11:17 AM [employer]) Alkaline Phosphatase, S 133(H) 35 - 104 U/L 09/19/2023 12:06 PM [employer] [facility] Alkaline Phosphatase Isoenzymes, S see below 09/20/2023 10:54 AM [employer] [facility] Comment: In this sample, an unusual [...] Symone Jean. Case Rep Hematol. 2020; 2020: [id number]. doi: 10.1155/2020/2787473). If indicated, consider sending another sample to repeat the analysis in 6-10 weeks. Blood (Blood, Venous) 09/19/2023 11:17 AM [employer] 09/19/2023 12:38 PM [employer] Narrative [facility] - 09/20/2023 10:54 AM [employer] Specimen Information: Specimen ID: [id number] Specimen Type: Blood Specimen Collection Start Date: 09/19/2023 11:17 AM Specimen Received Date: 09/19/2023 12:38 PM Specimen ID: [id number] Specimen Type: Blood Specimen Collection Start Date: 09/19/2023 11:17 AM Specimen Received Date: 09/19/2023 11:49 AM Manuelito Jacobs M.D. LAB BLOOD NON ADD -ON [facility] [address] [place] [address], [facility] [address] [place] [address] [place] [address] * Bilirubin, Direct (09/19/2023 11:17 AM [employer]) Bilirubin, Direct, S <0.2 0.0 - 0.3 mg/dL 09/19/2023 12:06 PM [employer] [facility] Blood (Blood, Venous) 09/19/2023 11:17 AM [employer] 09/19/2023 11:49 AM [employer] Manuelito Jacobs M.D. LAB BLOOD ADD-ON [facility] [address] [place] [address], [facility] DTL [facility] [address] [place] [address] * (ABNORMAL) Comprehensive Metabolic Panel (09/19/2023 11:17 AM [employer]) Pathologist [facility] Potassium, S 4.5 3.6 - 5.2 mmol/L 09/19/2023 12:06 PM [employer] [facility] Sodium, S 141 135 - 145 mmol/L 09/19/2023 12:06 PM [employer] [facility] Chloride, S 105 98 - 107 mmol/L 09/19/2023 12:06 PM [employer] [facility] Bicarbonate, S 28 22 - 29 mmol/L 09/19/2023 12:06 PM [employer] [facility] Anion Gap 8 7 - 15 09/19/2023 12:06 PM [employer] [facility] BUN (Blood Urea Nitrogen), S 16 6 - 21 mg/dL 09/19/2023 12:06 PM [employer] [facility] Creatinine 1.01 0.59 - 1.04 mg/dL 09/19/2023 12:06 PM [employer] [facility] Estimated GFR (eGFR) 56(L) >=60 mL/min/BS A 09/19/2023 12:06 PM [employer] [facility] Comment: Estimated GFR calculated using the 2020 CKD_EPI creatinine equation. Calcium, Total, S 9.5 8.8 - 10.2 mg/dL 09/19/2023 12:06 PM [employer] [facility] Glucose, S 105 70 - 140 mg/dL 09/19/2023 12:06 PM [employer] [facility] Protein, Total, S 6.5 6.3 - 7.9 g/dL 09/19/2023 12:06 PM [employer] [facility] Albumin, S 4.0 3.5 - 5.0 g/dL 09/19/2023 12:06 PM [employer] D[facility] Aspartate Aminotransferase (AST), S 20 8 - 43 U/L 09/19/2023 12:06 PM [employer] D[facility] Alkaline Phosphatase, S 133(H) 35 - 104 U/L 09/19/2023 12:06 PM [employer] [facility] Alanine Aminotransferase (ALT), S 19 7 - 45 U/L 09/19/2023 12:06 PM [employer] [facility] Bilirubin, Total, S 0.3 0.0 - 1.2 mg/dL 09/19/2023 12:06 PM [employer] D[facility] Blood (Blood, Venous) 09/19/2023 11:17 AM [employer] 09/19/2023 11:49 AM [employer] Manuelito Jacobs M.D. LAB BLOOD ADD-ON [facility] [address] [place] [address], [facility] DTL [facility] [address] [place] [address] * (ABNORMAL) CBC with Differential, Blood (09/19/2023 11:17 AM [employer]) Hemoglobin 12.5 11.6 - 15.0 g/dL 09/19/2023 11:52 AM [employer] DTL Hematocrit 39.1 35.5 - 44.9 % 09/19/2023 11:52 AM [employer] [facility] Erythrocytes 4.53 3.92 - 5.13 x10(12)/L 09/19/2023 11:52 AM [employer] [facility] MCV 86.3 78.2 - 97.9 fL 09/19/2023 11:52 AM [employer] [facility] RBC Distrib Width 14.0 12.2 - 16.1 % 09/19/2023 11:52 AM [employer] [facility] Platelet Count 365 157 - 371 x10(9)/L 09/19/2023 11:52 AM [employer] [facility] Leukocytes 7.8 3.4 - 9.6 x10(9)/L 09/19/2023 11:52 AM [employer] [facility] Neutrophils 4.20 1.56 - 6.45 x10(9)/L 09/19/2023 11:52 AM [employer] [facility] Lymphocytes 2.02 0.95 - 3.07 x10(9)/L 09/19/2023 11:52 AM [employer] D[facility] Monocytes 0.71 0.26 - 0.81 x10(9)/L 09/19/2023 11:52 AM [employer] D[facility] Eosinophils 0.74(H) 0.03 - 0.48 x10(9)/L 09/19/2023 11:52 AM [employer] D[facility] Basophils 0.09(H) 0.01 - 0.08 x10(9)/L 09/19/2023 11:52 AM [employer] D[facility] Blood (Blood, Venous) 09/19/2023 11:17 AM [employer] 09/19/2023 11:42 AM [employer] Manuelito Jacobs M.D. LAB BLOOD ADD-ON [facility] [address] [place] [address], [facility] DTL [facility] [address] [place] [address] [facility] [address] [place] [address] documented in this encounter Visit Diagnoses Diagnosis Obstruction Intestinal (HCC)- Primary Dyspepsia Obstruction Intestinal (HCC) Dyspepsia Obstruction Intestinal (HCC) documented in this encounter Care Teams Call Center Nurse Relationship Specialty Start Date End Date Elsewhere, Pcp PCP - General Internal Medicine 01/27/23 documented as of this encounter
--- NOTE | 2023-12-01 10:15 | US_ITS ---
Patient: MAKAYLA OLIVER Facility:?[facility] Patient ID:?[id number] Site Patient ID:?[id number]. Site :?[id number] Study:?US-Thyroid Procedure DR CELIS TO READ-12/01/2023 10:45:18 AM Ordering Physician:?DELISA MANUEL Final Report: INDICATION : Right thyroid lobe nodule TECHNIQUE : Ultrasound-guided fine needle aspiration of thyroid nodule. Comparison : 11/21/2023 FINDINGS : PROCEDURE: After the informed consent and time-out, multiple fine needle aspirations were obtained from the thyroid nodule. Fine needle performed. 25 gauge needles were used. Lidocaine was used for local anesthesia. The preliminary cytology was adequate for interpretation. Real-time imaging was used for guidance and needle placement. Post imaging ultrasound demonstrates no immediate complication. IMPRESSION : Successful fine needle aspiration of right thyroid nodule. Dictated by Brien Celis MD @ 12/01/2023 11:56:46 AM Signed by:?Brien Celis MD @12/01/2023 11:56:46 AM (Electronic Signature)
== END 2023-12-01 09:45 | disposition home or self-care (01) ==
PROVIDERS: PCP Family Medicine; Visit Provider Family Medicine
DX: E04.1 Nontoxic single thyroid nodule (principal)
CPT/HCPCS: 10005; 88173

== ENCOUNTER 2024-03-31 17:48 | Emergency (ER) | payer MEDICARE, BC, SELFPAY ==
[2024-03-31 17:55] VITALS: BP 126/70; PULSE 80; RESP 18; TEMP 36.4; O2SAT 94; BMI 25.1
--- NOTE | 2024-03-31 18:07 | CRLHL7_ITS ---
For Patients: As a result of the Cures Act, medical imaging exams and procedure reports are released immediately into your electronic medical record. You may view this report before your referring provider. If you have questions, please contact your health care provider. INDICATION: Cough. TECHNIQUE: Chest 2 views. COMPARISON: 09/19/2022. FINDINGS: No pneumothorax or pleural effusion. Lungs are clear. Cardiac and mediastinal contours are within normal limits. Upper abdomen and osseous structures as imaged show no acute abnormality. IMPRESSION: No evidence of acute cardiopulmonary disease. Dictated by Pancho Carvalho MD @ 03/31/2024 6:35:25 PM (Electronically Signed)
--- NOTE | 2024-03-31 18:12 | ED.GENADULT ---
HPI - General Adult General Chief complaint: Cough Stated complaint: bad cough, can't sleep, doesn't think cough covid Time Seen by Provider: 03/31/24 17:49 History of Present Illness HPI narrative: Patient is 83-year-old woman who comes in today with 10 days of nonproductive cough. He has had no COVID exposures. No fevers no chills no night sweats no orthopnea no PND no chest pain. Cough is nonproductive. She otherwise been in her usual state of health. Patient has asthma and has been using her albuterol inhaler more often than normal. Related Data Home Medications ?Medication ?Instructions ?Recorded ?Confirmed omeprazole 40 mg capsule,delayed 40 mg PO DAILY 09/19/22 03/31/24 release cholecalciferol (vitamin D3) 25 25 mcg PO QDAY 07/19/23 03/31/24 mcg (1,000 unit) capsule clotrimazole 10 mg frankie 10 mg PO BID 07/19/23 03/31/24 doxycycline monohydrate 100 mg 100 mg PO BID 07/19/23 03/31/24 capsule hydroxychloroquine 200 mg tablet 200 mg PO BID 07/19/23 03/31/24 albuterol sulfate 90 mcg/actuation 1 - 2 puff inhalation Q4H PRN 03/31/24 03/31/24 aerosol inhaler (Ventolin HFA) wheezing Allergies Allergy/AdvReac Type Severity Reaction Status Date / Time ibuprofen AdvReac Intermediate abdominal Verified 09/28/23 16:50 discomfort codeine AdvReac Unknown Gastrointestinal Verified 03/31/24 17:55 Upset Review of Systems Status of ROS: Reports: 10 or more systems reviewed and unremarkable except as noted in History and below [facility] Medical History Stomach ulcer ?K25.9 - Gastric ulcer, unspecified as acute or chronic, without hemorrhage or perforation (ICD-10) 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, left shoulder (ICD-10) Knee fracture, left Vulvar pain ?R10.2 - Pelvic and perineal pain (ICD-10) History of duodenal ulcer ?Z87.19 - Personal history of other diseases of the digestive system (ICD-10) Headache ?R51.9 - Headache, unspecified (ICD-10) Elevated blood pressure reading ?R03.0 - Elevated blood-pressure reading, without diagnosis of hypertension (ICD-10) Back pain ?M54.9 - Dorsalgia, unspecified (ICD-10) Atopic dermatitis ?L20.9 - Atopic dermatitis, unspecified (ICD-10) Surgical History Status post laparoscopic cholecystectomy ?Z90.49 - Acquired absence of other specified parts of digestive tract (ICD-10) History of tonsillectomy and adenoidectomy ?Z90.89 - Acquired absence of other organs (ICD-10) History of surgery on left wrist (07/28/15) ?Z98.890 - Other specified postprocedural states (ICD-10) History of sinus surgery ?Z98.890 - Other specified postprocedural states (ICD-10) History of hysterectomy ?Z90.710 - Acquired absence of both cervix and uterus (ICD-10) History of hammer toe correction ?Z98.890 - Other specified postprocedural states (ICD-10) ?Z87.39 - Personal history of other diseases of the musculoskeletal system and connective tissue (ICD-10) History of elbow surgery (2018) ?Z98.890 - Other specified postprocedural states (ICD-10) History of carpal tunnel surgery of left wrist (2018) ?Z98.890 - Other specified postprocedural states (ICD-10) History of bilateral cataract extraction (2014) ?Z98.41 - Cataract extraction status, right eye (ICD-10) ?Z98.42 - Cataract extraction status, left eye (ICD-10) History of arthroscopy of knee (1989) ?Z98.890 - Other specified postprocedural states (ICD-10) History of appendectomy ?Z90.49 - Acquired absence of other specified parts of digestive tract (ICD-10) Social History Smoking Status: Never smoker Do you use any of these nicotine containing products: None Second hand tobacco smoke exposure: No How often do you have a drink containing alcohol: never AUDIT-C Alcohol total score: 0 Non-prescribed substance use: denies use Exam Narrative: Exam Narrative: EXAM GENERAL: Patient appears comfortable and well. EYES: No scleral icterus. ENT: Tympanic membranes and oropharynx normal. THYROID: no thyroid nodules or thyromegaly. LYMPH: No supraclavicular or cervical lymphadenopathy. SKIN: Visible skin seen during exam normal or with benign process only. EXT: No dependent lower extremity pedal edema. HEART: Regular rate and rhythm with no murmurs, rubs, or gallops. LUNGS: Clear to auscultation bilaterally with no crackles or wheezes. ABD: Soft, non tender, non distended. PSYCH: Good eye contact, speech is not pressured. Const: Vital Signs, click to edit/add: Vital Signs - 24 hr 03/31/24 17:55 Temperature 97.5 F L Pulse Rate [Pulse Oximeter] 80 Respiratory Rate 18 Blood Pressure [Ri ght Upper Arm] 126/70 Pulse Oximetry 94 Oxygen Delivery Me thod Room Air Course Course ED Course: Patient seen and examined. Chest x-ray pending. Vital Signs Vital signs: Initial Vital Signs Temperature 97.5 F L 03/31/24 17:55 Temperature Source Temporal Artery Scan 03/31/24 17:55 Pulse Rate 80 03/31/24 17:55 Pulse Rhythm Regular 03/31/24 17:55 Respiratory Rate 18 03/31/24 17:55 Blood Pressure 126/70 03/31/24 17:55 Blood Pressure Mean 88 03/31/24 17:55 Blood Pressure Position Sitting 03/31/24 17:55 Pulse Oximetry 94 03/31/24 17:55 Oxygen Delivery Method Room Air 03/31/24 17:55 Vital Signs Temperature 97.5 F L 03/31/24 17:55 Pulse Rate 80 03/31/24 17:55 Respiratory Rate 18 03/31/24 17:55 Blood Pressure 126/70 03/31/24 17:55 Pulse Oximetry 94 03/31/24 17:55 Oxygen Delivery Method Room Air 03/31/24 17:55 Temperature 97.5 F L 03/31/24 17:55 Pulse Rate 80 03/31/24 17:55 Respiratory Rate 18 03/31/24 17:55 Blood Pressure 126/70 03/31/24 17:55 Pulse Oximetry 94 03/31/24 17:55 Oxygen Delivery Method Room Air 03/31/24 17:55 Medical Decision Making MDM Narrative Medical decision making narrative: Patient is 83-year-old woman with history of asthma comes in today with nonproductive cough. She is not smoking but is on chronic doxycycline for pemphigoid. Chest x-ray upon my review is unremarkable. She has no COVID exposures and has been sick for 10 days. I do think this is bronchitis exacerbating her asthma all differential diagnosis would include pneumonia congestive heart failure viral syndrome pleural effusion angina. I did place her on a 5 day course of prednisone after to continue doxycycline and albuterol and follow-up with her primary physician as needed. Discharge Plan Discharge Clinical Impression: Bronchitis Patient Disposition: Home, Self-Care Condition: Stable Instructions: Acute Bronchitis (ED) Additional Instructions: Prednisone as directed Continue current medications Follow-up with your doctor as needed. Activity Level: No Restrictions Discharge Diet: Regular Prescriptions: No Action doxycycline monohydrate 100 mg capsule 100 mg PO BID clotrimazole 10 mg frankie 10 mg PO BID hydroxychloroquine 200 mg tablet 200 mg PO BID cholecalciferol (vitamin D3) 25 mcg (1,000 unit) capsule 25 mcg PO QDAY albuterol sulfate [Ventolin HFA] 90 mcg/actuation HFA aerosol inhaler 1 - 2 puff INHALATION Q4H PRN (Reason: wheezing) omeprazole 40 mg capsule,delayed release(DR/EC) 40 mg PO DAILY Patient Comments: TAKE ONE CAPSULE BY MOUTH DAILY 30 MINUTES BEFORE MORNING MEAL Follow Up/Referrals: Virginia Lara MD [Primary Care Provider] - Stand Alone Forms: [employer] Info Instructions
--- OUTSIDE RECORDS SUMMARY | 2024-03-31 18:16 | XMS_ITS | Clinical Summary ---
Author Organization [facility] Address [address] [place] [address] Care Team Providers Care Tobacco Feeder Catcher Name Role Phone Elsewhere, Pcp Primary Care Provider Unavailabl e Source Comments Patient records contain information from all sites at [facility]. For routine questions regarding patient records, call [phone] during business hours, M-F 8:00 AM - 5:00 PM Central Time. Record requests for emergency care only can be directed to [phone] at any time.[facility] Allergies Active Allergy Reactions Criticality Noted Date [...] by mouth as needed for pain. 03/29/2019 Active lidocaine viscous (XYLOCAINE) 2 % mucosal solution Take 5 mL by mouth as needed. 05/26/2020 Active sucralfate (CARAFATE) 1 gram tablet Take 1 g by mouth 3 (three) times a day as needed. 05/26/2020 Active hydrOXYchloroQUINE (PLAQUENIL) 200 mg tablet Take 200 mg by mouth daily. 07/06/2021 Active omeprazole (PriLOSEC) [address] capsule Take 40 mg by mouth every morning before breakfast. 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 Swish for 5 minutes and then spit out. Do not eat/drink for 30 minutes after. 500 mL 3 02/01/2023 Active Additional Information Patient taking differently:0.5 mg oralAs needed, Swish for 5 minutes and then spit out. Do not eat/drink for 30 minutes after., Reported on 09/15/2023 Ventolin HFA 90 mcg/actuation inhaler Inhale 1 puff as needed for shortness of breath or wheezing. Active triamcinolone (KENALOG) 0.1 % creamIndications:St asis Dermatitis Lower Extremity Left Apply 1 Application topically 2 (two) times a day as needed (Rash). Apply to left lower leg. 454 g 3 11/07/2023 Active doxycycline monohydrate (MONODOX) 100 mg capsuleIndications: Pemphigoid Mucous Membrane (HCC) take 1 capsule by mouth twice a day 60 capsule 11 11/27/2023 Active betamethasone dipropionate, augmented, (DIPROLENE) 0.05 % ointmentIndications :Lichen Sclerosus Apply 1 Application topically as needed (pain/inflammation vulva). Apply to vulva. 45 g 1 12/11/2023 Active clotrimazole (Mycelex) 10 mg trocheIndications:P emphigoid Mucous Membrane (HCC) DISSOLVE 1 UMM (10 MG TOTAL) IN THE MOUTH 2 (TWO) TIMES A DAY. 60 Umm 11 02/27/2024 Active Hospital, Clinic, or Other Facility Administered Medication Ordered Dose Route Frequency Start Date End Date Status BUPivacaine 0.25 % (2.5 mg/mL) injection 20 mL (MARCAINE)Indications:Mass Abdominal Right Upper Quadrant 20 mL inj Once 05/25/2023 Active Active Problems Problem Noted Date Diagnosed Date Mass Abdominal Right Upper Quadrant 05/08/2023 Lesion Oral 01/19/2021 Overview (01/19/2021): Added automatically from request for surgery [id number] Encounters Date Type Department Care Team Description 02/27/2024 Refill Department of Dermatology in [place], [place] [address] [place] [address] Vinita Salas M.D. Med Refill 01/02/2024 Documentation Department of Dermatology in [place], [place] [address] [place] [address] Vinita Salas M.D. from Last 3 Months Immunizations Name Administration Dates Next Due Influenza TIV (IM) 05/23/2019,08/01/2018 Influenza, Quadrivalent, Adjuvanted, Preservativ e Free 06/13/2023 PCV20 06/13/2023 Tdap 03/06/2019 Family History Medical History Relation Name Comments Other cancer Daughter Elissa Stack liver ca ncer Migraines Mother Trudy Osteoporosis Mother Trudy Stroke Mother Trudy Relation Name Status Comments Daughter Elissa Stack Mother Trudy Social History Tobacco Use Types Packs/Day Years Used Date Smoking Tobacco: Former Cigarettes 0.3 20 Q uit: 1989 Passive Smoke Exposure: Past Smokeless Tobacco: Never Tobacco Cessation:Counseling Given: Yes Comments:started when I was around 19yrs old, Quit in 1996 Passive Exposure Comments:A long time ago Alcohol Use Standard Drinks/Week Comments Yes 0 (1 standard drink = 0.6 oz [...] week 07/06/2021 [facility]? More than 4 times per year 07/06/2021 Do you belong to any clubs o r organizations such as islam groups, unions, fraternal or athletic groups, or [...] and heating? Not hard at all 01/25/2023 [facility] - Occupational [...] living? No 01/25/2023 Nutrition Answer Date Recorded On average, how many serving s of [...] Comments Blood Pressure 126/67 09/22/2023 11:46 AM DOGGER Pulse 65 09/22/2023 11:46 AM DOGGER Temperature 36.6 ??C (97.9 ??F) 09/22/2023 11:[address] Respiratory Rate 17 09/22/2023 11:46 AM DOGGER Oxygen Saturation 93% 09/22/2023 11:46 AM DOGGER Inhaled Oxygen Concentration - - Weight 74.2 kg (163 lb 9.3 oz) 09/22/2023 10:14 AM DOGGER Height 169.6 cm (5' 6.77) 09/22/2023 10:[address] Body Mass Index 25.8 09/22/2023 10:14 AM DOGGER Plan of Treatment Health Maintenance Due Date Last Done Comments Zoster Vaccines (1 of 2) 1959 COVID-19 Vaccine (3 - Pfizer risk series) 10/15/2021 09/17/2021, 08/04/2021 Depression Screening (Annual PHQ-2) 08/14/2023 Influenza Vaccine (#1) 2024 , 05/23/2019, 08/01/2018 DTaP,Tdap,and Td Vaccines (2 - Td or Tdap) 03/06/2029 03/06/2019 Pneumococcal vaccine (65+ years) Completed 06/13/20 Fall Risk Screen (Annual) Completed 09/22/2023 Advance Directives For more information, please contact: [phone] Documents on File Type Date Recorded Patient Lay Up Operator Expl anation Advance Directives 09/15/2021 6:54 PM BODY/ ORGAN DONATION Care Teams Tobacco Feeder Catcher Relationship Specialty Start Date End Date Elsewhere, Pcp PCP - General Internal Medicine 01/27/23
--- OUTSIDE RECORDS SUMMARY | 2024-03-31 18:16 | XMS_ITS | Continuity of Care Document ---
Author Organization [facility] Address [address] [facility] [id number] [place] [address] Phone Care Team Providers Care Cold Strip Roller Name Role Phone Unavailable Unavailable Unavailable Procedures Procedure Date Extraction, Erupted Tooth Or Exposed Janeth t (Elevati Extraction, Erupted Tooth Or Exposed Janeth t (Elevati Extraction, Erupted Tooth Or Exposed [facility] ([facility] Ext[facility], Erupted Tooth Or Exposed Janeth t (Elevati Extraction, Erupted Tooth Or Exposed Janeth t (Elevati Extraction, Erupted Tooth Or Exposed Janeth t (Elevati Extraction, Erupted Tooth Or Exposed Janeth t (Elevati Limited Oral Evaluation ??? Problem Focu sed Office/outpatient visit,[place], [facility] [place] Urinalysis, non-automated, w/scope Antibody, helicobacter pylori 8 Automated hemogram (CBC) Metabolic panel, comprehensive 08 Hepatic function panel Lipid profile Advance Directives Directive Yes / No Effective Date File Name No Information Encounters Encounter Description Practice Location Reason(s) For Visit Diagnoses Date Provider Providers Copied on Encounter [facility], [address] [place] [address] [id number], [id number], [place] tel:[phone] [facility] DENTAL EXAMINATION Nov-2 3-201 5 No Information [facility], [address] [place] [address] [id number] , [place], [place], [id number], [place] tel:[phone] [place] DENTAL EXAMINATION 5 No Information Office/[facility]pat ient visit,[facility], [id number] , [place], [place], [id number], [place] tel:[phone] [place] No Information 200 8 No Information Family History Family Member Type Diagnosis Age At Onset No Information Payers Payer name Insurance type Covered green party ID Matthias glynn(s) D Z Slide Discount [...]
--- OUTSIDE RECORDS SUMMARY | 2024-03-31 18:16 | XMS_ITS | Clinical Summary ---
Author Organization [facility] Address [place], [place] [address] Care Team Providers Care Edge Stripper Name Role Phone Virginia Lara MD Primary Care Provider [phone] RadhaRob denise MBBS Unavailable Allergies Active Allergy Reactions Criticality Noted Date [...] times daily. 180 Tablet 1 09/20/2023 Active triamcinolone (ARISTOCORT; KENALOG) 0.1 % cream [...] mg twice daily. 60 Capsule 11/01/2023 Active sucralfate (CARAFATE) 1 gram tabletIndications:H istory of duodenal ulcer TAKE 1 TABLET (1 G) BY MOUTH FOUR TIMES DAILY BEFORE MEALS AND AT BEDTIME. 360 Tablet 12/09/2023 Active Active Problems Problem Noted Date Diagnosed [...] Encounters Date Type Department Care Team Description 03/19/[address] [address] Virginia Lara MD Liver Problem 03/15/2024 1:10 PM CDT Office Visit [facility] [address] [place] [address] Virginia Lara MD Dizziness (Off and on for 1 year); Derm Problem (Dry skin); Urinary Problem (Lower abdominal pressure, no pain or burning with urination) 03/15/2024 Travel 03/15/[address] [address] Virginia Lara MD Appointment 02/20/2024 Nurse Triage [facility] [address] [place] [address] Virginia Lara MD Vertigo from Last 3 Months Immunizations Name Administration Dates Next Due COVID-19 vaccine (Ziptr 30mcg/0.3mL) SHELDON Benítez 09/17/2021,08/04/2021 Influenza, Inactivated AIIV4 (Age 65+ Years) [...] Given: No Alcohol Use Standard Drinks/Week Comments Yes 0 [...] Sign Reading Time Taken Comments Blood Pressure 124/75 03/15/2024 1:11 PM CDT Pulse 73 03/15/2024 1:11 PM CDT Temperature 36.7 ??C (98.1 ??F) 04/06/2023 2:53 PM CD T Respiratory Rate 8 12/06/2018 10:3 8 AM CDT Oxygen Saturation 97% 03/15/2024 1:11 PM CDT Inhaled Oxygen Concentration - - Weight 76.1 kg (167 lb 12.8 oz) 03/15/2024 1:11 PM CDT Height 168.5 cm (5' 6.34) 05/10/2023 2:15 PM CD T Body Mass Index 26.81 05/10/2023 2:15 PM CDT Plan of Treatment Upcoming Encounters Date Type Department Care Team (Late st Contact Info) Description 05/30/2024 1:30 PM CDT Office Visit [facility] [address] [place] [address] Sergey Olea MD [address] [place] [address] 06/13/2024 2:00 PM CDT Office Visit [place] [id number] [place] [address] Rob Garcia MBBS [address] [place] [address] Health Maintenance Due Date Last Done Comments Zoster (shingles) series for age 50+ (1 of 2) 1992 COVID-19 vaccine series ( season) 2023 09/17/2021, 08/04/2021 Influenza for age [...] Procedure Name Priority Date/Time Associated Diagnosis Comments CBC WITH AUTO DIFFERENTIAL Routine 03/15/2024 2:08 PM CDT Vertigo CBC WITH AUTO DIFFERENTIAL Routine 03/15/2024 2:08 PM CDT Vertigo COMP METABOLIC PANEL Routine 03/15/2024 2:08 PM CDT Vertigo VITAMIN B12 Routine 03/15/2024 2:08 PM CDT Dry skin dermatitis VITAMIN D 25 (DEFICIENCY) Routine 03/15/2024 2:08 PM CDT Dry skin dermatitis [employer]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 TSH WITH REFLEX Routine 03/15/2024 2:08 PM CDT Thyroid nodule URINALYSIS MICROSCOPIC Routine 03/15/2024 1:48 PM CDT Urinary tract infection symptoms URINE CULTURE Routine 03/15/2024 1:48 PM CDT Urinary tract infection symptoms UA W/ SEDIMENT EXAM REFLEXED PER CRITERIA Routine 03/15/2024 1:48 PM CDT Urinary tract infection symptoms WA DIANA POST-VOIDING RESIDUAL URINE&/BLADDER CAP Routine 03/15/2024 12:00 AM CDT Urinary tract infection symptoms XR DXA BONE DENSITY 2 SITES AXIAL Routine 04/19/2018 10:08 AM CDT Menopause from Last 3 Months or Most Recently Relevant to Health Maintenance Results * (ABNORMAL) CBC WITH AUTO DIFFERENTIAL (03/15/2024 2:08 PM CDT) Pathologist [facility] WHITE BLOOD COUNT 7.9 4.5 - 11.0 thou/cu mm 03/15/2024 2:23 PM CDT [facility] RED BLOOD COUNT 4.27 4.00 - 5.20 mil/cu mm 03/15/2024 2:23 PM CDT [facility] HEMOGLOBIN 11.9(L) 12.0 - 16.0 g/dL 03/15/2024 2:23 PM CDT [facility] HEMATOCRIT 37.5 33.0 - 51.0 % 03/15/2024 2:23 PM CDT [facility] MCV 88 80 - 100 fL 03/15/2024 2:23 PM CDT [facility] MCH 27.9 26.0 - 34.0 pg 03/15/2024 2:23 PM CDT [facility] MCHC 31.7(L) 32.0 - 36.0 g/dL 03/15/2024 2:23 PM CDT [facility] RDW 15.0 11.5 - 15.5 % 03/15/2024 2:23 PM CDT [facility] PLATELET COUNT 352 140 - 440 thou/cu mm 03/15/2024 2:23 PM CDT [facility] MPV 9.7 6.5 - 11.0 fL 03/15/2024 2:23 PM CDT [facility] % NEUT 56.9 % 03/15/2024 2:23 PM CDT [facility] % LYMPH 24.3 % 03/15/2024 2:23 PM CDT [facility] % MONO 11.6 % 03/15/2024 2:23 PM CDT [facility] % EOS 6.4 % 03/15/2024 2:23 PM CDT [facility] % BASO 0.8 % 03/15/2024 2:23 PM CDT [facility] ABSOLUTE NEUTROPHILS 4.5 1.7 - 7.0 thou/cu mm 03/15/2024 2:23 PM CDT [facility] ABSOLUTE LYMPHOCYTES 1.9 0.9 - 2.9 thou/cu mm 03/15/2024 2:23 PM CDT [facility] ABSOLUTE MONOCYTES 0.9(H) <0.9 thou/cu mm 03/15/2024 2:23 PM CDT [facility] ABSOLUTE EOSINOPHILS 0.5(H) <0.5 thou/cu mm 03/15/2024 2:23 PM CDT [facility] ABSOLUTE BASOPHILS 0.1 <0.3 thou/cu mm 03/15/2024 2:23 PM CDT [facility] Blood BLOOD SPECIMEN / Unknown Venipuncture / Unknown 03/15/2024 2:08 PM CDT 03/15/2024 2:09 PM CDT Virginia Lara MD HEMATOLOGY [facility] [address] [place] [address], * TSH WITH REFLEX (03/15/2024 2:08 PM CDT) TSH 1.68 0.27 - 4.20 uIU/mL 03/16/2024 1:36 AM CDT [facility] Blood BLOOD SPECIMEN / Unknown Venipuncture / Unknown 03/15/2024 2:08 PM CDT 03/15/2024 2:09 PM CDT Narrative [facility] - 03/16/2024 1:36 AM CDT In Adults, TSH values between 5.00 and 10.00 uIU/ml do not necessarily indicate the presence of Hypothyroidism. Correlation with clinical findings such as presence of goiter and/or Thyroperoxidase (TPO) Antibody may be helpful. For more information please refer to MARCUS 2004; 291: 228-238. Virginia Lara MD CHEMISTRY [facility] [address] [place] [id number], * VITAMIN D 25 (DEFICIENCY) (03/15/2024 2:08 PM CDT) VITAMIN D TOTAL 23.0 20.0 - 80.0 ng/mL 03/16/2024 1:36 AM CDT [facility] Blood BLOOD SPECIMEN / Unknown Venipuncture / Unknown 03/15/2024 2:08 PM CDT 03/15/2024 2:09 PM CDT Narrative [facility] - 03/16/2024 1:36 AM CDT ? Vitamin D Status Deficiency: ? <20 ng/mL Insufficiency: ?20-29 ng/mL Sufficiency: ?30-80 ng/mL Possible Toxicity: ??>80 ng/mL Based on [place] of Medicine recommendations Biotin supplements may cause clinically significant interference for this test assay. ??If interference is suspected, it is strongly recommended that biotin is discontinued for at least one week prior to retesting. Virginia Lara MD SEND OUTS Performing Organization Address [facility] Co de Phone Number [facility] [address] [place] [address], * VITAMIN B12 (03/15/2024 2:08 PM CDT) VITAMIN B12 706 232 - 1,245 pg/mL 03/16/2024 1:36 AM CDT [facility] Blood BLOOD SPECIMEN / Unknown Venipuncture / Unknown 03/15/2024 2:08 PM CDT 03/15/2024 2:09 PM CDT [facility] - 03/16/2024 1:36 AM CDT Biotin supplements may cause clinically significant interference for this test assay. ??If interference is suspected, it is strongly recommended that biotin is discontinued for at least one week prior to retesting. Virginia Lara MD CHEMISTRY Performing Organization Address [facility] de Phone Number [facility] [address] [place] [address], * (ABNORMAL) COMP METABOLIC PANEL (03/15/2024 2:08 PM CDT) SODIUM 144 136 - 145 mmol/L 03/16/2024 1:36 AM CDT [facility] POTASSIUM 4.3 3.5 - 5.1 mmol/L 03/16/2024 1:36 AM CDT [facility] CHLORIDE 107 98 - 107 mmol/L 03/16/2024 1:36 AM CDT [facility] CO2,TOTAL 27 22 - 29 mmol/L 03/16/2024 1:36 AM CDT [facility] ANION GAP 10 5 - 18 03/16/2024 1:36 AM CDT [facility] GLUCOSE 98 70 - 99 mg/dL 03/16/2024 1:36 AM [facility] CALCIUM 9.3 8.8 - 10.2 mg/dL 03/16/2024 1:36 AM [facility] BUN 21 8 - 23 mg/dL 03/16/2024 1:36 AM [facility] CREATININE 0.96(H) 0.50 - 0.90 mg/dL 03/16/2024 1:36 AM [facility] BUN/CREAT RATIO 22(H) 10 - 20 1:36 AM [facility] eGFR 60(L) >90 mL/min/1.7 3m2 03/16/2024 1:36 AM [facility] Comment:As of 2021, eG FR is calculated by the CKD-EPI creatinine equation without race adjustment. ??eGFR can be influenced by muscle mass, exercise, and diet. ??The reported eGFR is an estimation only and is only applicable if the renal function is stable. ALBUMIN 4.0 4.0 - 4.9 g/dL 03/16/2024 1:36 AM [facility] PROTEIN,TOTAL 6.4 6.0 - 8.0 g/dL 03/16/2024 1:36 AM [facility] BILIRUBIN,TOTAL 0.2 0.0 - 1.2 mg/dL 03/16/2024 1:36 AM [facility] ALK PHOSPHATASE 119(H) 35 - 104 IU/L 03/16/2024 1:36 AM [facility] ALT (SGPT) 15 10 - 35 IU/L 03/16/2024 1:36 AM [facility] AST (SGOT) 22 10 - 35 IU/L 03/16/2024 1:36 AM [facility] Blood BLOOD SPECIMEN / Unknown Venipuncture / Unknown 03/15/2024 2:08 PM CDT 03/15/2024 2:09 PM CDT Vigrinia Lara MD CHEMISTRY Performing Organization Address City/[facility]/ZIP Co de Phone Number [facility] [address] [place] [address], [place] * URINALYSIS MICROSCOPIC (03/15/2024 1:48 PM CDT) RBC 0-2 0-2, None Seen /HPF 03/15/2024 2:16 PM CDT [facility] WBC 3-5 0-2, 3-5, None Seen /HPF 03/15/2024 2:16 PM CDT [facility] BACTERIA Few None Seen, Rare, Few Bacteria/H PF 03/15/2024 2:16 PM CDT [facility] EPITHELIAL CELLS Few None Seen, Few Epi/HPF 03/15/2024 2:16 PM CDT [facility] Mucus Present 03/15/2024 2:16 PM CDT [facility] Urine URINE SPECIMEN / Unknown Non-Blood / Unknown 03/15/2024 1:48 PM CDT 03/15/2024 2:07 PM CDT Virginia Lara MD URINE Performing Organization Address [facility] Co de Phone Number [facility] [address] [place] [address], [place] [phone] * URINE CULTURE (03/15/2024 1:48 PM CDT) CULTURE No growth (<1,000 CFU/mL) 03/17/2024 1:16 PM CDT [facility] Urine URINE SPECIMEN / Unknown Non-Blood / Unknown 03/15/2024 1:48 PM CDT 03/15/2024 2:07 PM CDT Virginia Lara MD MICROBIOLOGY Performing Organization Address City/[facility]/ZIP Co de Phone Number [facility] [address] [place] [address], [place] * (ABNORMAL) UA W/ SEDIMENT EXAM REFLEXED PER CRITERIA (03/15/2024 1:48 PM CDT) COLOR Yellow Yellow Color 03/15/2024 2:11 PM CDT [facility] CLARITY Clear Clear Clarity 03/15/2024 2:11 PM CDT [facility] SPECIFIC GRAVITY,URINE >=1.030(A) 1.010, 1.015, 1.020, 1.025 03/15/2024 2:11 PM CDT [facility] PH,URINE 5.0(A) 6.0, 7.0, 8.0, 5.5, 6.5, 7.5, 8.5 03/15/2024 2:11 PM CDT [facility] UROBILINOGEN, QUALITATIVE Normal Normal EU/dl 03/15/2024 2:11 PM CDT [facility] PROTEIN, URINE 30(A) Negative mg/dL 03/15/2024 2:11 PM CDT [facility] GLUCOSE, URINE Negative Negative mg/dL 03/15/2024 2:11 PM CDT [facility] KETONES,URINE Trace(A) Negative mg/dL 03/15/2024 2:11 PM CDT [facility] BILIRUBIN,URI NE Negative Negative 03/15/2024 2:11 PM CDT [facility] OCCULT BLOOD,URINE Trace(A) Negative 03/15/2024 2:11 PM CDT [facility] NITRITE Negative Negative 03/15/2024 2:11 PM CDT [facility] LEUKOCYTE ESTERASE Negative Negative 03/15/2024 2:11 PM CDT [facility] Urine URINE SPECIMEN / Unknown Non-Blood / Unknown 03/15/2024 1:48 PM CDT 03/15/2024 2:07 PM CDT Virginia Lara MD URINE [facility] [address] [place] [address], * [place] DIANA POST-VOIDING RESIDUAL URINE&/BLADDER CAP (03/15/2024 12:00 AM CDT) Virginia Lara MD [facility] - URINARY SYSTEM SERVICES * (ABNORMAL) XR DXA BONE DENSITY 2 SITES AXIAL [85486.1] (04/19/2018 10:08 AM CDT) Anatomical Region Laterality Modality Spine, HIPS, HIPL, HIPR Other Narrative 05/01/2018 7:56 AM CDT Please see scanned document for results of this study. Virginia Lara MD DEXA from Last 3 Months or Most Recently Relevant to Health Maintenance Care Teams Edge Stripper Relationship Specialty Start Date End Date Virginia Lara MD [address] [place] [address] PCP - General Family Practice 12/21/16 Rob Garcia MBBS [facility] [place] [address] Consulting Physician Rheumatology 03/12/24
--- OUTSIDE RECORDS SUMMARY | 2024-03-31 18:16 | XMS_ITS | Clinical Summary ---
Author Organization [employer] Address [address], [place] [address] Care Team Providers Care Clinical Appeals Specialist Name Role Phone Unavailable Primary Care Provider Unavailabl e Source Comments You are receiving this document as you are listed as the primary care provider,follow-up provider, or the patient has been referred to you for consultation.This is in compliance with the Medicare and[facility] EHR Incentive Program,which states Providers who transition their patient to another setting of careor provider of care or refers their patient to another provider of care shouldprovide summary care record for each transition of care or referral. [employer] Allergies Active Allergy Reactions Criticality Noted Date [...] - 2022-2 4 season) 2023 Influenza (#1) 2024 05/23/2019, 08/01/2018 DTaP/Tdap/Td (2 - Tdap) 03/06/2029 [...]
--- OUTSIDE RECORDS SUMMARY | 2024-03-31 18:17 | XMS_ITS ---
Author Organization [facility] Address [address] [place] [address] Care Team Providers Care Truck Packer Name Role Phone Unavailable Unavailable Unavailable Surgery Details Not on file Complications Check Surgery Details section. Procedure Estimated Blood Loss Check Surgery Details section. Procedure Findings Check Surgery Details section. Procedure Specimens Taken Check Surgery Details section.
--- OUTSIDE RECORDS SUMMARY | 2024-03-31 18:17 | XMS_ITS | Encounter Summary ---
Author Organization [facility] Address [address] [place] [address] Care Team Providers Care Licensed Mortician Name Role Phone Elsewhere, Pcp Primary Care Provider Unavailabl e Encounter Details Date Type Department Care Team (Late st Contact Info) Description 01/02/2024 Documentation Department of Dermatology in [place], [place] [address] [place] [phone] Vinita Salas M.D. [address] [place] [address] Social History Tobacco Use Types Packs/Day Years Used Date Smoking Tobacco: Former Cigarettes 0.3 20 Q uit: 1989 Passive Smoke Exposure: Past Smokeless Tobacco: Never Comments:started when I was [...] often do you attend chur ch or bahai services? More than 4 times per year 07/06/2021 Do you belong to any clubs o r organizations such as shinto groups, unions, fraternal or athletic groups, or [...] and heating? Not hard at all 01/25/2023 [facility] - Occupational [...] your living situation today? I have a [facility] place to live 01/25/2023 Education Answer [...] AM CDT documented as of this encounter Progress Notes * Vinita Salas M.D. - 01/02/2024 9:12 AM CDT The outside records indicating that the patient had a cervical ultrasound on 11/21/23 showing an 8mm x 3mm x 6 mm left cervical lymph node with normal features (normal central fatty hilum and normal internal vascularity). documented in this encounter Plan of Treatment Not on file documented as of this encounter Visit Diagnoses Not on filedocumented in this encounter Care Teams Licensed Mortician Relationship Specialty Start Date End Date Elsewhere, Pcp PCP - General Internal Medicine 01/27/23 documented as of this encounter
--- OUTSIDE RECORDS SUMMARY | 2024-03-31 18:17 | XMS_ITS | Referral Summary ---
Author Organization [facility] Address [address] [place] [address] Care Team Providers Care Loom Overhauler Name Role Phone Elsewhere, Pcp Primary Care Provider Unavailabl e Source Comments Patient records contain information from all sites at [facility]. For routine questions regarding patient records, call [phone] during business hours, M-F 8:00 AM - 5:00 PM Central Time. Record requests for emergency care only can be directed to [phone] at any time.[facility] Encounters Date Type Department Care Team Description 02/27/2024 Refill Department of Dermatology in [place], [place] [address] [place] [address] Vinita Salas M.D. Med Refill 01/02/2024 Documentation Department of Dermatology in [place], [place] [address] [place] [address] Vinita Salas M.D. from Last 3 Months Allergies Active Allergy [...] trocheIndications:P emphigoid Mucous Membrane (HCC) DISSOLVE 1 SANDI (10 MG TOTAL) IN THE MOUTH 2 (TWO) TIMES A DAY. 60 Sandi 11 02/27/2024 Active Hospital, Clinic, or Other Facility Administered Medication Ordered Dose Route Frequency Start Date End Date Status BUPivacaine 0.25 % (2.5 mg/mL) injection 20 mL (MARCAINE)Indications:Mass Abdominal Right Upper Quadrant 20 mL inj Once 05/25/2023 Active Active Problems Problem Noted Date Diagnosed Date Mass Abdominal Right Upper Quadrant 05/08/2023 Lesion Oral 01/19/2021 Overview (01/19/2021): Added automatically from request for surgery [id number] Immunizations Name Administration Dates Next Due Influenza TIV (IM) 05/23/2019,08/01/2018 Influenza, Quadrivalent, Adjuvanted, Preservativ e Free 06/13/2023 PCV20 06/13/2023 Tdap 03/06/2019 Social History Tobacco Use Types Packs/Day Years [...] How often do you attend chur or jehovah's witness services? More than 4 times per year 07/06/2021 Do you belong to any clubs o r organizations such as scientology groups, unions, fraternal or athletic groups, or [...] and heating? Not hard at all 01/25/2023 [facility] - [...] living situation today? I have a [facility] place to live 01/25/2023 Education Answer Date [...] Comments Blood Pressure 126/67 09/22/2023 11:46 AM SUPERVISORY LIFEGUARD Pulse 65 09/22/2023 11:46 AM SUPERVISORY LIFEGUARD Temperature 36.6 ??C (97.9 ??F) 09/22/2023 11:[address] Respiratory Rate 17 09/22/2023 11:46 AM SUPERVISORY LIFEGUARD Oxygen Saturation 93% 09/22/2023 11:46 AM SUPERVISORY LIFEGUARD Inhaled Oxygen Concentration - - Weight 74.2 kg (163 lb 9.3 oz) 09/22/2023 10:14 AM SUPERVISORY LIFEGUARD Height 169.6 cm (5' 6.77) 09/22/2023 10:[address] Body Mass Index 25.8 09/22/2023 10:14 AM SUPERVISORY LIFEGUARD Plan of Treatment Not on file Advance Directives For more information, please contact: [phone] Documents on File Type Date Recorded Patient Solutions Development Analyst Expl anation Advance Directives 09/15/2021 6:54 PM BODY/ ORGAN DONATION Care Teams Loom Overhauler Relationship Specialty Start Date End Date Elsewhere, Pcp PCP - General Internal Medicine 01/27/23
--- OUTSIDE RECORDS SUMMARY | 2024-03-31 18:17 | XMS_ITS | Encounter Summary ---
Author Organization [facility] Address [address] [place] [id number] Care Team Providers Care Staff Development Nurse Name Role Phone Elsewhere, Pcp Primary Care Provider Unavailabl e Reason for Visit * Reason Comments Med Refill Encounter Details Date Type Department Care Team (Late st Contact Info) Description 02/27/2024 Refill Department of Dermatology in [place], [place] [address] [place] [phone] Vinita Salas M.D. [address] [place] [address] Med Refill Social History Tobacco Use Types [...] How often do you attend chur or yarsani services? More than 4 times per year 07/06/2021 Do you belong to any clubs o r organizations such as anabaptism groups, unions, fraternal or athletic groups, or [...] your living situation today? I have a [facility] place to live 01/25/2023 Education Answer [...] as of this encounter Plan of Treatment Not on file documented as of this encounter Visit Diagnoses Diagnosis Pemphigoid Mucous Membrane (HCC) documented in this encounter Care Teams Staff Development Nurse Relationship Specialty Start Date End Date Elsewhere, Pcp PCP - General Internal Medicine 01/27/23 documented as of this encounter
== END 2024-03-31 18:30 | disposition home or self-care (01) ==
PROVIDERS: Emergency Provider Internal Medicine; PCP Family Medicine
DX: J40 Bronchitis, not specified as acute or chronic (principal)
CPT/HCPCS: 71046; 99283; 99284

== ENCOUNTER 2024-04-03 19:25 | Emergency (ER) | payer MEDICARE, BC, SELFPAY ==
[2024-04-03 19:30] VITALS: BP 153/72; PULSE 84; RESP 18; TEMP 36.4; O2SAT 96; BMI 24.7
--- NOTE | 2024-04-03 19:56 | ED.WOUNDLAC ---
HPI - Wound/Laceration General Time Seen by Provider: 19:56 Date Seen: 04/03/24 Chief Complaint: Laceration/Wound Stated Complaint: Mauri nail thru R index finger Time Seen by Provider: 04/03/24 19:51 Source: patient and RN notes reviewed Mode of arrival: ambulatory Limitations: no limitations History of Present Illness HPI narrative: This 83-year-old female was helping her brother fix a fence in the backyard. He went to grab a board and did not realize there was a resting nail protruding, when he pulled the board back the nail went through the pad of her right index finger. She stated the finger bled a lot initially, she is not on any blood thinners. She washed the finger and put Neosporin and a bandage on it, bleeding was controlled. Her last tetanus was in 2019. 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 Related Data Home Medications ?Medication ?Instructions ?Recorded ?Confirmed omeprazole 40 mg capsule,delayed 40 mg PO DAILY 09/19/22 03/31/24 release cholecalciferol (vitamin D3) 25 25 mcg PO QDAY 07/19/23 03/31/24 mcg (1,000 unit) capsule clotrimazole 10 mg frankie 10 mg PO BID 07/19/23 03/31/24 doxycycline monohydrate 100 mg 100 mg PO BID 07/19/23 03/31/24 capsule hydroxychloroquine 200 mg tablet 200 mg PO BID 07/19/23 03/31/24 albuterol sulfate 90 mcg/actuation 1 - 2 puff inhalation Q4H PRN 03/31/24 03/31/24 aerosol inhaler (Ventolin HFA) wheezing Allergies Allergy/AdvReac Type Severity Reaction Status Date / Time ibuprofen AdvReac Intermediate abdominal Verified 09/28/23 16:50 discomfort codeine AdvReac Unknown Gastrointestinal Verified 03/31/24 17:55 Upset Review of Systems Narrative: As per HPI. 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) Knee fracture, left Vulvar pain ?R10.2 - Pelvic and perineal pain (ICD-10) History of duodenal ulcer ?Z87.19 - Personal history of other diseases of the digestive system (ICD-10) Headache ?R51.9 - Headache, unspecified (ICD-10) Elevated blood pressure reading ?R03.0 - Elevated blood-pressure reading, without diagnosis of hypertension (ICD-10) Back pain ?M54.9 - Dorsalgia, unspecified (ICD-10) Atopic dermatitis ?L20.9 - Atopic dermatitis, unspecified (ICD-10) Surgical History Status post laparoscopic cholecystectomy ?Z90.49 - Acquired absence of other specified parts of digestive tract (ICD-10) History of tonsillectomy and adenoidectomy ?Z90.89 - Acquired absence of other organs (ICD-10) History of surgery on left wrist (07/28/15) ?Z98.890 - Other specified postprocedural states (ICD-10) History of sinus surgery ?Z98.890 - Other specified postprocedural states (ICD-10) History of hysterectomy ?Z90.710 - Acquired absence of both cervix and uterus (ICD-10) History of hammer toe correction ?Z98.890 - Other specified postprocedural states (ICD-10) ?Z87.39 - Personal history of other diseases of the musculoskeletal system and connective tissue (ICD-10) History of elbow surgery (2018) ?Z98.890 - Other specified postprocedural states (ICD-10) History of carpal tunnel surgery of left wrist (2019) ?Z98.890 - Other specified postprocedural states (ICD-10) History of bilateral cataract extraction (2014) ?Z98.41 - Cataract extraction status, right eye (ICD-10) ?Z98.42 - Cataract extraction status, left eye (ICD-10) History of arthroscopy of knee (1989) ?Z98.890 - Other specified postprocedural states (ICD-10) History of appendectomy ?Z90.49 - Acquired absence of other specified parts of digestive tract (ICD-10) Social History Smoking Status: Never smoker Do you use any of these nicotine containing products: None Second hand tobacco smoke exposure: No How often do you have a drink containing alcohol: never AUDIT-C Alcohol total score: 0 Non-prescribed substance use: denies use Exam Const: Vital Signs, click to edit/add: Vital Signs - 24 hr 04/03/24 19:30 Temperature 97.5 F L Pulse Rate [Right Pulse Oximeter] 84 Respiratory Rate 18 Blood Pressure [Ri ght Upper Arm] 153/72 H Pulse Oximetry 96 Oxygen Delivery Me thod Room Air Patient's right index finger was bandage, this is removed. She has a little swelling in the pad of the right index finger, can see an entrance and exit wound where the nail was in the pad of the finger. The wound edges are sealed, maybe just slight oozing along her lateral wound and the pad of the finger, no significant bleeding. There is full range of motion of the finger, the nail bed appears normal. There is some dried blood of the skin under the Band-Aid but no active bleeding. This is obviously through the superficial tissues, she has retain sensation in full strength and range of motion in this digit distally. No apparent underlying injury, nail came out at the scene easily per report. Documenting provider has reviewed patient's vital signs: yes Course Course ED Course: This 83yo female has a puncture wound, reviewed increased risk of infection and rationale for no primary closure. Would recommend updating tetanus as it is at a five year interval. She is already on antibiotics and this was not an injury through rubber (pseudomonas risk). Vital Signs Vital signs: Initial Vital Signs Temperature 97.5 F L 04/03/24 19:30 Temperature Source Temporal Artery Scan 04/03/24 19:30 Pulse Rate 84 04/03/24 19:30 Respiratory Rate 18 04/03/24 19:30 Blood Pressure 153/72 H 04/03/24 19:30 Blood Pressure Mean 99 04/03/24 19:30 Blood Pressure Position Sitting 04/03/24 19:30 Pulse Oximetry 96 04/03/24 19:30 Oxygen Delivery Method Room Air 04/03/24 19:30 Vital Signs Temperature 97.5 F L 04/03/24 19:30 Pulse Rate 84 04/03/24 19:30 Respiratory Rate 18 04/03/24 19:30 Blood Pressure 153/72 H 04/03/24 19:30 Pulse Oximetry 96 04/03/24 19:30 Oxygen Delivery Method Room Air 04/03/24 19:30 Temperature 97.5 F L 04/03/24 19:30 Pulse Rate 84 04/03/24 19:30 Respiratory Rate 18 04/03/24 19:30 Blood Pressure 153/72 H 04/03/24 19:30 Pulse Oximetry 96 04/03/24 19:30 Oxygen Delivery Method Room Air 04/03/24 19:30 Discharge Plan Discharge Clinical Impression: Puncture wound of finger of right hand Qualifiers: Encounter type: initial encounter Qualified Code(s): S61.239A - Puncture wound without foreign body of unspecified finger without damage to nail, initial encounter Patient Disposition: Home, Self-Care Condition: Stable Instructions: Puncture Wound (ED) Additional Instructions: Tetanus with a Tdap was updated today. Continue on your current medications which does include an antibiotic in the form of doxycycline. If you notice that this finger is becoming increasingly swollen, red, purulent drainage or associated fever, do need to seek re-evaluation. Use bacitracin and bandages to keep this finger clean and dry. You may shower and wash her hands but do not put this finger in any summer urged water and tell the wound is healed. We typically do not close puncture wounds, can increase the risk of infection. For the next couple days, ice and elevation can help decrease pain and swelling. Activity Level: Activity as Tolerated Prescriptions: No Action doxycycline monohydrate 100 mg capsule 100 mg PO BID clotrimazole 10 mg frankie 10 mg PO BID hydroxychloroquine 200 mg tablet 200 mg PO BID cholecalciferol (vitamin D3) 25 mcg (1,000 unit) capsule 25 mcg PO QDAY albuterol sulfate [Ventolin HFA] 90 mcg/actuation HFA aerosol inhaler 1 - 2 puff INHALATION Q4H PRN (Reason: wheezing) omeprazole 40 mg capsule,delayed release(DR/EC) 40 mg PO DAILY Patient Comments: TAKE ONE CAPSULE BY MOUTH DAILY 30 MINUTES BEFORE MORNING MEAL Follow Up/Referrals: Virginia Lara MD [Primary Care Provider] - Stand Alone Forms: [email or web address] Info Instructions
--- OUTSIDE RECORDS SUMMARY | 2024-04-03 20:15 | XMS_ITS | Referral Summary ---
Author Organization [facility] Address [address] [place] [address] Care Team Providers Care Optical Goods Drill Operator Name Role Phone Elsewhere, Pcp Primary Care Provider Unavailabl e Source Comments Patient records contain information from all sites at [facility]. For routine questions regarding patient records, call [phone] during business hours, M-F 8:00 AM - 5:00 PM Central Time. Record requests for emergency care only can be directed to [phone] at any time.[facility] Encounters Date Type Department Care Team Description 02/27/2024 Refill Department of Dermatology in [place], [place] [address] [place] [address] Vinita Salas M.D. Med Refill 01/02/2024 Documentation Department of Dermatology in [place], [place] [address] [place] [address] Vinita Salas M.D. from Last 3 Months [...] (01/19/2021): Added automatically from request for surgery [id number] Immunizations Name Administration Dates Next Due Influenza [...] How often do you attend chur or synagogue services? More than 4 times per year 07/06/2021 Do you belong to any clubs o r organizations such as pentecostal groups, unions, fraternal or athletic groups, or [...] and heating? Not hard at all 01/25/2023 [facility] - [...] Comments Blood Pressure 126/67 09/22/2023 11:46 AM MOTEL MANAGER Pulse 65 09/22/2023 11:46 AM MOTEL MANAGER Temperature 36.6 ??C (97.9 ??F) 09/22/2023 11:[address] Respiratory Rate 17 09/22/2023 11:46 AM MOTEL MANAGER Oxygen Saturation 93% 09/22/2023 11:46 AM MOTEL MANAGER Inhaled Oxygen Concentration - - Weight 74.2 kg (163 lb 9.3 oz) 09/22/2023 10:14 AM MOTEL MANAGER Height 169.6 cm (5' 6.77) 09/22/2023 10:[address] Body Mass Index 25.8 09/22/2023 10:14 AM MOTEL MANAGER Plan of Treatment Not on file Advance Directives For more information, please contact: [phone] Documents on File Type Date Recorded Patient Lead Section Supervisor Expl anation Advance Directives 09/15/2021 6:54 PM BODY/ ORGAN DONATION Care Teams Optical Goods Drill Operator Relationship Specialty Start Date End Date Elsewhere, Pcp PCP - General Internal Medicine 01/27/23
--- OUTSIDE RECORDS SUMMARY | 2024-04-03 20:15 | XMS_ITS | Clinical Summary ---
Author Organization [facility] Address [address] [place] [address] Care Team Providers Care Director Water And Waste Services Name Role Phone Elsewhere, Pcp Primary Care Provider Unavailabl e Source Comments Patient records contain information from all sites at [facility]. For routine questions regarding patient records, call [phone] during business hours, M-F 8:00 AM - 5:00 PM Central Time. Record requests for emergency care only can be directed to [phone] at any time.[facility] Allergies Active Allergy Reactions Criticality Noted Date [...] (01/19/2021): Added automatically from request for surgery [id number] Encounters Date Type Department Care Team Description 02/27/2024 Refill Department of Dermatology in [place], [place] [address] [place] [address] Vinita Salas M.D. Med Refill 01/02/2024 Documentation Department of Dermatology in [place], [place] [address] [place] [address] Vinita Salas M.D. from Last 3 Months [...] week 07/06/2021 How often do you attend [facility] or [facility] services? More than 4 times per year 07/06/2021 Do you belong to any clubs o r organizations such as jainism groups, unions, fraternal or athletic groups, or [...] and heating? Not hard at all 01/25/2023 [facility] - Occupational [...] Comments Blood Pressure 126/67 09/22/2023 11:46 AM SOFTWARE BUSINESS ANALYST Pulse 65 09/22/2023 11:46 AM SOFTWARE BUSINESS ANALYST Temperature 36.6 ??C (97.9 ??F) 09/22/2023 11:[address] Respiratory Rate 17 09/22/2023 11:46 AM SOFTWARE BUSINESS ANALYST Oxygen Saturation 93% 09/22/2023 11:46 AM SOFTWARE BUSINESS ANALYST Inhaled Oxygen Concentration - - Weight 74.2 kg (163 lb 9.3 oz) 09/22/2023 10:14 AM SOFTWARE BUSINESS ANALYST Height 169.6 cm (5' 6.77) 09/22/2023 10:[address] Body Mass Index 25.8 09/22/2023 10:14 AM SOFTWARE BUSINESS ANALYST Plan of Treatment Health Maintenance Due Date [...] Advance Directives For more information, please contact: [phone] Documents on File Type Date Recorded Patient Gag Writer Expl anation Advance Directives 09/15/2021 6:54 PM BODY/ ORGAN DONATION Care Teams Director Water And Waste Services Relationship Specialty Start Date End Date Elsewhere, Pcp PCP - General Internal Medicine 01/27/23
--- OUTSIDE RECORDS SUMMARY | 2024-04-03 20:15 | XMS_ITS | Clinical Summary ---
Author Organization [facility] Address [place], [place] [address] Care Team Providers Care Educational Psychologist Name Role Phone Virginia Lara MD Primary Care Provider [phone] RadhaRob denise MBBS Unavailable Allergies Active Allergy [...] Encounters Date Type Department Care Team Description 03/31/2024 Orders Only [facility] Scanner 1 scan: (1-Ord) [facility], CHEST 2V, 03/31/2024 03/19/2024 Telephone [facility] [address] [place] [address] Virginia Lara MD Liver Problem 03/15/2024 1:10 PM CDT Office Visit [facility] [address] [place] [address] Virginia Lara MD Dizziness (Off and on for 1 year); Derm Problem (Dry skin); Urinary Problem (Lower abdominal pressure, no pain or burning with urination) 03/15/2024 Travel 03/15/2024 Telephone [facility] [address] [facility] [place] [address] Virginia Lara MD Appointment 02/20/2024 Nurse Triage [facility] [address] [place] [address] Virginia Lara MD Vertigo from Last 3 Months Immunizations Name Administration Dates Next Due COVID-19 vaccine (Tacatì 30mcg/0.3mL) P F, MDV 09/17/2021,08/04/2021 Influenza, Inactivated [...] Description 05/30/2024 1:30 PM CDT Office Visit [facility] [address] [place] [address] Sergey Olea MD [address] [place] [address] 06/13/2024 2:00 PM CDT Office Visit [address] [place] [address] Rob Garcia MBBS [facility] [place], [place] [address] Health Maintenance Due Date Last Done Comments [...] Procedure Name Priority Date/Time Associated Diagnosis Comments SCAN-RADIOLOGY REPORT 03/31/2024 12:00 AM CDT CBC WITH AUTO DIFFERENTIAL Routine 03/15/2024 2:08 PM CDT Vertigo CBC WITH AUTO DIFFERENTIAL Routine 03/15/2024 2:08 PM CDT Vertigo COMP METABOLIC PANEL Routine 03/15/2024 2:08 PM CDT Vertigo VITAMIN B12 Routine 03/15/2024 2:08 PM CDT Dry skin dermatitis VITAMIN D 25 (DEFICIENCY) Routine 03/15/2024 2:08 PM CDT Dry skin dermatitis USP (current) use of inhaled steroids TSH WITH REFLEX Routine 03/15/2024 2:08 PM CDT Thyroid nodule URINALYSIS MICROSCOPIC Routine 03/15/2024 1:48 PM CDT Urinary tract infection symptoms URINE CULTURE Routine 03/15/2024 1:48 PM CDT Urinary tract infection symptoms UA W/ SEDIMENT EXAM REFLEXED PER CRITERIA Routine 03/15/2024 1:48 PM CDT Urinary tract infection symptoms ND DIANA POST-VOIDING RESIDUAL URINE&/BLADDER CAP Routine 03/15/2024 12:00 AM CDT Urinary tract infection symptoms XR DXA BONE DENSITY 2 SITES AXIAL Routine 04/19/2018 10:08 AM CDT Menopause from Last 3 Months or Most Recently Relevant to Health Maintenance Results * SCAN-RADIOLOGY REPORT (03/31/2024 12:00 AM CDT) Anatomical Region Laterality Modality Other Scanner OTHER * (ABNORMAL) CBC WITH AUTO DIFFERENTIAL (03/15/2024 2:08 PM CDT) [facility] WHITE BLOOD COUNT 7.9 4.5 - 11.0 thou/cu mm 03/15/2024 2:23 PM CDT [facility] RED BLOOD COUNT 4.27 4.00 - 5.20 mil/cu mm 03/15/2024 2:23 PM CDT [facility] HEMOGLOBIN 11.9(L) 12.0 - 16.0 g/dL 03/15/2024 2:23 PM CDT [facility] HEMATOCRIT 37.5 33.0 - 51.0 % 03/15/2024 2:23 PM CDT [facility] MCV 88 80 - 100 fL 03/15/2024 2:23 PM CDT [facility] MCH 27.9 26.0 - 34.0 pg 03/15/2024 2:23 PM CDT [facility] MCHC 31.7(L) 32.0 - 36.0 g/dL 03/15/2024 2:23 PM CDT [facility] RDW 15.0 11.5 - 15.5 % 03/15/2024 2:23 PM CDT [facility] PLATELET COUNT 352 140 - 440 thou/cu mm 03/15/2024 2:23 PM CDT [facility] MPV 9.7 6.5 - 11.0 fL 03/15/2024 2:23 PM CDT [facility] % NEUT 56.9 % 03/15/2024 2:23 PM CDT [facility] % LYMPH 24.3 % 03/15/2024 2:23 PM CDT [facility] % MONO 11.6 % 03/15/2024 2:23 PM CDT [facility] % EOS 6.4 % 03/15/2024 2:23 PM CDT [facility] % BASO 0.8 % 03/15/2024 2:23 PM CDT [facility] ABSOLUTE NEUTROPHILS 4.5 1.7 - 7.0 thou/cu mm 03/15/2024 2:23 PM CDT [facility] ABSOLUTE LYMPHOCYTES 1.9 0.9 - 2.9 thou/cu mm 03/15/2024 2:23 PM CDT [facility] ABSOLUTE MONOCYTES 0.9(H) <0.9 thou/cu mm 03/15/2024 2:23 PM CDT [facility] ABSOLUTE EOSINOPHILS 0.5(H) <0.5 thou/cu mm 03/15/2024 2:23 PM CDT [facility] ABSOLUTE BASOPHILS 0.1 <0.3 thou/cu mm 03/15/2024 2:23 PM CDT [facility] Blood BLOOD SPECIMEN / Unknown Venipuncture / Unknown 03/15/2024 2:08 PM CDT 03/15/2024 2:09 PM CDT Virginia Lara MD HEMATOLOGY [facility] [address] [place] [address], * TSH WITH REFLEX (03/15/2024 2:08 PM CDT) TSH 1.68 0.27 - 4.20 uIU/mL 03/16/2024 1:36 AM CDT [facility] Blood BLOOD SPECIMEN / Unknown Venipuncture / Unknown 03/15/2024 2:08 PM CDT 03/15/2024 2:09 PM CDT Narrative [facility] - 03/16/2024 1:36 AM CDT In Adults, TSH values between 5.00 and 10.00 uIU/ml do not necessarily indicate the presence of Hypothyroidism. Correlation with clinical findings such as presence of goiter and/or Thyroperoxidase (TPO) Antibody may be helpful. For more information please refer to MARCUS 2004; 291: 228-238. Virginia Lara MD CHEMISTRY [facility] [address] [place] [address], * VITAMIN D 25 (DEFICIENCY) (03/15/2024 2:08 PM CDT) VITAMIN D TOTAL 23.0 20.0 - 80.0 ng/mL 03/16/2024 1:36 AM CDT [facility] Blood BLOOD SPECIMEN / Unknown Venipuncture / Unknown 03/15/2024 2:08 PM CDT 03/15/2024 2:09 PM CDT Narrative [facility] - 03/16/2024 1:36 AM CDT ? Vitamin D Status Deficiency: ? <20 ng/mL Insufficiency: ?20-29 ng/mL Sufficiency: ?30-80 ng/mL Possible Toxicity: ??>80 ng/mL Based on Grahn of Medicine recommendations Biotin supplements may cause clinically significant interference for this test assay. ??If interference is suspected, it is strongly recommended that biotin is discontinued for at least one week prior to retesting. Virginia Lara MD SEND OUTS Performing Organization Address City/[facility]/ZIP Co de Phone Number [facility] [address] [place] [address], * VITAMIN B12 (03/15/2024 2:08 PM CDT) VITAMIN B12 706 232 - 1,245 pg/mL 03/16/2024 1:36 AM CDT [facility] Blood BLOOD SPECIMEN / Unknown Venipuncture / Unknown 03/15/2024 2:08 PM CDT 03/15/2024 2:09 PM CDT Narrative [facility] - 03/16/2024 1:36 AM CDT Biotin supplements may cause clinically significant interference for this test assay. ??If interference is suspected, it is strongly recommended that biotin is discontinued for at least one week prior to retesting. Virginia Lara MD CHEMISTRY Performing Organization Address City/[facility]/ZIP Co de Phone Number [facility] [address] [place] [address], * (ABNORMAL) COMP METABOLIC PANEL (03/15/2024 2:08 PM CDT) SODIUM 144 136 - 145 mmol/L 03/16/2024 1:36 AM CDT [facility] POTASSIUM 4.3 3.5 - 5.1 mmol/L 03/16/2024 1:36 AM [facility] CHLORIDE 107 98 - 107 mmol/L 03/16/2024 1:36 AM [facility] CO2,TOTAL 27 22 - 29 mmol/L 03/16/2024 1:36 AM [facility] ANION GAP 10 5 - 18 03/16/2024 1:36 AM [facility] GLUCOSE 98 70 - 99 mg/dL 03/16/2024 1:36 AM [facility] CALCIUM 9.3 8.8 - 10.2 mg/dL 03/16/2024 1:36 AM [facility] BUN 21 8 - 23 mg/dL 03/16/2024 1:36 AM [facility] CREATININE 0.96(H) 0.50 - 0.90 mg/dL 03/16/2024 1:36 AM [facility] BUN/CREAT RATIO 22(H) 10 - 20 1:36 AM [facility] eGFR 60(L) >90 mL/min/1.7 3m2 03/16/2024 1:36 AM [facility] Comment:As of 2021, eG FR is calculated by the CKD-EPI creatinine equation without race adjustment. ??eGFR can be influenced by muscle mass, exercise, and diet. ??The reported eGFR is an estimation only and is only applicable if the renal function is stable. ALBUMIN 4.0 4.0 - 4.9 g/dL 03/16/2024 1:36 AM [facility] PROTEIN,TOTAL 6.4 6.0 - 8.0 g/dL 03/16/2024 1:36 AM [facility] BILIRUBIN,TOTAL 0.2 0.0 - 1.2 mg/dL 03/16/2024 1:36 AM [facility] ALK PHOSPHATASE 119(H) 35 - 104 IU/L 03/16/2024 1:36 AM CDT [facility] ALT (SGPT) 15 10 - 35 IU/L 03/16/2024 1:36 AM CDT [facility] AST (SGOT) 22 10 - 35 IU/L 03/16/2024 1:36 AM CDT [facility] Blood BLOOD SPECIMEN / Unknown Venipuncture / Unknown 03/15/2024 2:08 PM CDT 03/15/2024 2:09 PM CDT Virginia Lara MD CHEMISTRY [facility] [address] [place] [address], * URINALYSIS MICROSCOPIC (03/15/2024 1:48 PM CDT) RBC 0-2 0-2, None Seen /HPF 03/15/2024 2:16 PM CDT [facility] WBC 3-5 0-2, 3-5, None Seen /HPF 03/15/2024 2:16 PM CDT [facility] BACTERIA Few None Seen, Rare, Few Bacteria/H PF 03/15/2024 2:16 PM CDT [facility] EPITHELIAL CELLS Few None Seen, Few Epi/HPF 03/15/2024 2:16 PM CDT [facility] Mucus Present 03/15/2024 2:16 PM CDT [facility] Urine URINE SPECIMEN / Unknown Non-Blood / Unknown 03/15/2024 1:48 PM CDT 03/15/2024 2:07 PM CDT Virginia Lara MD URINE [facility] [address] [place] [address], [place] [phone] * URINE CULTURE (03/15/2024 1:48 PM CDT) CULTURE No growth (<1,000 CFU/mL) 03/17/2024 1:16 PM CDT [facility] Urine URINE SPECIMEN / Unknown Non-Blood / Unknown 03/15/2024 1:48 PM CDT 03/15/2024 2:07 PM CDT Virginia Lara MD MICROBIOLOGY [facility] [address] [place] [address], [place] * (ABNORMAL) UA W/ SEDIMENT EXAM REFLEXED PER CRITERIA (03/15/2024 1:48 PM CDT) COLOR Yellow Yellow Color 03/15/2024 2:11 PM CDT [facility] CLARITY Clear Clear Clarity 03/15/2024 2:11 PM CDT [facility] SPECIFIC GRAVITY,URINE >=1.030(A) 1.010, 1.015, 1.020, 1.025 03/15/2024 2:11 PM CDT [facility] PH,URINE 5.0(A) 6.0, 7.0, 8.0, 5.5, 6.5, 7.5, 8.5 03/15/2024 2:11 PM CDT [facility] UROBILINOGEN, QUALITATIVE Normal Normal EU/dl 03/15/2024 2:11 PM CDT [facility] PROTEIN, URINE 30(A) Negative mg/dL 03/15/2024 2:11 PM CDT [facility] GLUCOSE, URINE Negative Negative mg/dL 03/15/2024 2:11 PM CDT [facility] KETONES,URINE Trace(A) Negative mg/dL 03/15/2024 2:11 PM CDT [facility] BILIRUBIN,URI NE Negative Negative 03/15/2024 2:11 PM CDT [facility] OCCULT BLOOD,URINE Trace(A) Negative 03/15/2024 2:11 PM CDT [facility] NITRITE Negative Negative 03/15/2024 2:11 PM CDT [facility] LEUKOCYTE ESTERASE Negative Negative 03/15/2024 2:11 PM CDT [facility] Urine URINE SPECIMEN / Unknown Non-Blood / Unknown 03/15/2024 1:48 PM CDT 03/15/2024 2:07 PM CDT Virginia Lara MD URINE [facility] [address] [place] [address], * ND DIANA POST-VOIDING RESIDUAL URINE&/BLADDER CAP (03/15/2024 12:00 AM CDT) Virginia Lara MD [facility] * (ABNORMAL) XR DXA BONE DENSITY 2 SITES AXIAL [46589.1] (04/19/2018 10:08 AM CDT) Anatomical Region Laterality Modality Spine, HIPS, HIPL, HIPR Other Narrative 05/01/2018 7:56 AM CDT Please see scanned document for results of this study. Virginia Lara MD DEXA from Last 3 Months or Most Recently Relevant to Health Maintenance Care Teams Educational Psychologist Relationship Specialty Start Date End Date Virginia Lara MD [address] [place] [address] PCP - General Family Practice 12/21/16 Rob Garcia MBBS [facility] [place] [address] Consulting Physician Rheumatology 03/12/24
--- OUTSIDE RECORDS SUMMARY | 2024-04-03 20:15 | XMS_ITS | Clinical Summary ---
Author Organization [email or web address] Address [address], [place] [address] Care Team Providers Care Complex Care Nurse Name Role Phone Unavailable Primary Care Provider Unavailabl e Source Comments You are receiving this document as you are listed as the primary care provider,follow-up provider, or the patient has been referred to you for consultation.This is in compliance with the Medicare and[employer] Health[employer] EHR Incentive Program,which states Providers who transition their patient to another setting of careor provider of care or refers their patient to another provider of care shouldprovide summary care record for each transition of care or referral. [employer] Allergies Active Allergy Reactions Criticality Noted Date [...]
--- OUTSIDE RECORDS SUMMARY | 2024-04-03 20:15 | XMS_ITS | Continuity of Care Document ---
Author Organization [facility] Address [address] [facility] [id number] [place] [address] Phone Care Team Providers Care Submarine Operator Name Role Phone Unavailable Unavailable Unavailable Procedures Procedure Date Extraction, Erupted Tooth Or Exposed Janeth t (Elevati Extraction, Erupted Tooth Or Exposed Janeth t (Elevati Extraction, Erupted Tooth Or Exposed [facility] ([facility], Erupted Tooth Or Exposed Janeth t (Elevati Extraction, Erupted Tooth Or Exposed Janeth t (Elevati Extraction, Erupted Tooth Or Exposed Janeth t (Elevati Extraction, Erupted Tooth Or Exposed Janeth t (Elevati Limited Oral Evaluation ??? Problem Focu sed Office/outpatient visit,[place] 2007 Urinalysis, non-automated, w/scope Antibody, helicobacter pylori 8 Automated hemogram (CBC) Metabolic panel, comprehensive 08 Hepatic function panel Lipid profile Advance Directives Directive Yes / No Effective Date File Name No Information Encounters Encounter Description Practice Location Reason(s) For Visit Diagnoses Date Provider Providers Copied on Encounter [facility], [address] [place] [address] [id number] [id number], [place] tel:[phone] [facility] DENTAL EXAMINATION Nov-2 3-201 5 No Information [facility], [address] [place] [address] [id number] , [place], [place], [id number], [place] tel:[phone] [place] DENTAL EXAMINATION 5 No Information Office/outpat ient visit,[facility], [id number] , [place], [place], [id number], [place] tel:[phone] [place] No Information 200 8 No Information Family History Family Member Type Diagnosis Age At Onset No Information Payers Payer name Insurance type Covered constitution party ID Matthias glynn(s) D Z Slide [...]
--- OUTSIDE RECORDS SUMMARY | 2024-04-03 20:16 | XMS_ITS ---
Author Organization [facility] Address [address] [place] [address] Care Team Providers Care Supervisor Spinning Name Role Phone Unavailable Unavailable Unavailable Surgery Details Not on file Complications Check Surgery Details section. Procedure Estimated Blood Loss Check Surgery Details section. Procedure Findings Check Surgery Details section. Procedure Specimens Taken Check Surgery Details section.
--- OUTSIDE RECORDS SUMMARY | 2024-04-03 20:16 | XMS_ITS | Encounter Summary ---
Author Organization [facility] Address [address] [place] [address] Care Team Providers Care Board Certified Family Physician Name Role Phone Elsewhere, Pcp Primary Care Provider Unavailabl e Encounter Details Date Type Department Care Team (Late st Contact Info) Description 01/02/2024 Documentation Department of Dermatology in [place], [place] [address] [place] [phone] Vinita Salas M.D. [address] [place] [address] Social History Tobacco Use Types Packs/Day Years [...] any clubs o r organizations such as christian groups, unions, fraternal or athletic groups, or [...] heating? Not hard at all 01/25/2023 [facility] - Occupational [...] your living situation today? I have a [facility] place to live 01/25/2023 Education Answer [...] on filedocumented in this encounter Care Teams Board Certified Family Physician Relationship Specialty Start Date End Date Elsewhere, Pcp PCP - General Internal Medicine 01/27/23 documented as of this encounter
--- OUTSIDE RECORDS SUMMARY | 2024-04-03 20:16 | XMS_ITS | Encounter Summary ---
Author Organization [facility] Address [address] [place] [address] Care Team Providers Care Automobile Designer Name Role Phone Elsewhere, Pcp Primary Care Provider Unavailabl e Reason for Visit * Reason Comments Med Refill Encounter Details Date Type Department Care Team (Late st Contact Info) Description 02/27/2024 Refill Department of Dermatology in [place], [place] [address] [place] [phone] Vinita Salas M.D. [address] [place] [address] Med Refill Social History Tobacco Use Types [...] How often do you attend chur or hindu services? More than 4 times per year 07/06/2021 Do you belong to any clubs o r organizations such as yazdanism groups, unions, fraternal or athletic groups, or [...] and heating? Not hard at all 01/25/2023 [facility] - Occupational [...] your living situation today? I have a [facility] place to live 01/25/2023 Education Answer Date [...] (HCC) documented in this encounter Care Teams Automobile Designer Relationship Specialty Start Date End Date Elsewhere, Pcp PCP - General Internal Medicine 01/27/23 documented as of this encounter
[2024-04-03] MEDS: TETANUS/DIPHTH/PERTUSSIS 0.5 ML SYRINGE IM (20:18)
[2024-04-03 20:44] VITALS: BP 150/74; PULSE 80; RESP 16; O2SAT 98
== END 2024-04-03 20:45 | disposition home or self-care (01) ==
PROVIDERS: Emergency Provider Family Medicine; PCP Family Medicine
DX: S61.240A Puncture wound with foreign body of right index finger without damage to nail, initial encounter (principal); W45.0XXA Nail entering through skin, initial encounter
CPT/HCPCS: 90471; 90715; 99282; 99283

== ENCOUNTER 2024-04-27 06:54 | Emergency (ER) | payer MEDICARE, BC, SELFPAY ==
[2024-04-27 07:13] VITALS: BP 152/67; PULSE 80; RESP 18; TEMP 36.9; BMI 25.1
--- NOTE | 2024-04-27 07:51 | CRLHL7_ITS ---
For Patients: As a result of the Cures Act, medical imaging exams and procedure reports are released immediately into your electronic medical record. You may view this report before your referring provider. If you have questions, please contact your health care provider. INDICATION: Cough. TECHNIQUE: PA and lateral chest x-ray. COMPARISON: March 31, 2024. FINDINGS: Clear lungs. Normal heart size and pulmonary vascularity. Degenerative change of the AC joints. Surgical clips in the right upper quadrant. IMPRESSION: No acute cardiopulmonary process identified. No significant change. Dictated by Rohit Aguilar MD @ 04/27/2024 8:39:29 AM (Electronically Signed)
--- NOTE | 2024-04-27 07:52 | ED_ITS ---
HPI - General Adult General Date Seen: 04/27/24 Chief complaint: Cough Stated complaint: coughing Time Seen by Provider: 04/27/24 07:52 History of Present Illness HPI narrative: 83-year-old female with a past medical history of asthma, GERD, stomach ulcers, back pain, presenting to the ER this morning with cough. She recalls that she has a history of asthma but she is not sure if it is flaring up lately or not. She started having a cough about a month ago. She recalls that she was here in the ER within the 1st week or to her cough. She was diagnosed with bronchitis and put on a 5 day course of prednisone. While on the prednisone her cough did improve quite a bit for couple of days but it has been flaring up since then. She has had a cough for the past couple of weeks. It is mostly nonproductive, but occasionally is productive of productive of cl ear phlegm. She is not having any fevers or chills. No headache. No body aches. She has a history of COVID (in 2019) with loss of sense of taste and smell but has not had that problem lately. No vomiting. No chest pain. Her cough gotten worse for the past couple of days. In particular her cough is worse when she tries to lay down. She has been using her Ventolin inhaler but feels like it does not help. She also has a nebulizer. She says when she uses the neb her cough gets better for about an hour or so. She is not sure she can use her nebulizer that off and so her pattern lately is that she will turn her neb on and use about half of of [place]. When her cough gets better she stops the neb. She will then use the other half of the vial later, when her cough comes back. She has no known sick exposures or exposure to anyone with COVID. Related Data Home Medications ?Medication ?Instructions ?Recorded ?Confirmed omeprazole 40 mg capsule,delayed 40 mg PO DAILY 09/19/22 04/27/24 release cholecalciferol (vitamin D3) 25 25 mcg PO QDAY 07/19/23 04/27/24 mcg (1,000 unit) capsule clotrimazole 10 mg frankie 10 mg PO BID 07/19/23 04/27/24 doxycycline monohydrate 100 mg 100 mg PO BID 07/19/23 04/27/24 capsule hydroxychloroquine 200 mg tablet 200 mg PO BID 07/19/23 04/27/24 albuterol sulfate 90 mcg/actuation 1 - 2 puff inhalation Q4H PRN 03/31/24 04/27/24 aerosol inhaler (Ventolin HFA) wheezing Previous Rx's ?Medication ?Instructions ?Recorded doxycycline hyclate 100 mg capsule 100 mg PO BID #14 caps 04/27/24 ipratropium 0.5 mg-albuterol 3 mg 3 ml inhalation Q4H PRN #90 mL 04/27/24 (2.5 mg base)/3 mL nebulization soln prednisone 10 mg tablet See Rx Instructions .Route 04/27/24 .COMPLEX #42 tabs Allergies Allergy/AdvReac Type Severity Reaction Status Date / Time ibuprofen AdvReac Intermediate abdominal Verified 09/28/23 16:50 discomfort codeine AdvReac Unknown Gastrointestinal Verified 03/31/24 17:55 Upset [facility] Medical History Stomach ulcer ?K25.9 - Gastric ulcer, unspecified as acute or chronic, without hemorrhage or perforation (ICD-10) 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, left shoulder (ICD-10) Knee fracture, left Vulvar pain ?R10.2 - Pelvic and perineal pain (ICD-10) History of duodenal ulcer ?Z87.19 - Personal history of other diseases of the digestive system (ICD-10) Headache ?R51.9 - Headache, unspecified (ICD-10) Elevated blood pressure reading ?R03.0 - Elevated blood-pressure reading, without diagnosis of hypertension (ICD-10) Back pain ?M54.9 - Dorsalgia, unspecified (ICD-10) Atopic dermatitis ?L20.9 - Atopic dermatitis, unspecified (ICD-10) Surgical History Status post laparoscopic cholecystectomy ?Z90.49 - Acquired absence of other specified parts of digestive tract (ICD- 10) History of tonsillectomy and adenoidectomy ?Z90.89 - Acquired absence of other organs (ICD-10) History of surgery on left wrist (07/28/15) ?Z98.890 - Other specified postprocedural states (ICD-10) History of sinus surgery ?Z98.890 - Other specified postprocedural states (ICD-10) History of hysterectomy ?Z90.710 - Acquired absence of both cervix and uterus (ICD-10) History of hammer toe correction ?Z98.890 - Other specified postprocedural states (ICD-10) ?Z87.39 - Personal history of other diseases of the musculoskeletal system and connective tissue (ICD-10) History of elbow surgery (2019) ?Z98.890 - Other specified postprocedural states (ICD-10) History of carpal tunnel surgery of left wrist (2018) ?Z98.890 - Other specified postprocedural states (ICD-10) History of bilateral cataract extraction (2014) ?Z98.41 - Cataract extraction status, right eye (ICD-10) ?Z98.42 - Cataract extraction status, left eye (ICD-10) History of arthroscopy of knee (1989) ?Z98.890 - Other specified postprocedural states (ICD-10) History of appendectomy ?Z90.49 - Acquired absence of other specified parts of digestive tract (ICD- 10) Social History Smoking Status: Former smoker Do you use any of these nicotine containing products: None Second hand tobacco smoke exposure: No How often do you have a drink containing alcohol: never AUDIT-C Alcohol total score: 0 Non-prescribed substance use: denies use Exam Narrative: Exam Narrative: Constitutional: Appears well-developed and well-nourished. Alert. Conversant and able to speak full sentences but has quite a few jags of coughing that are difficult for her to control. Non toxic. HENT: Head: Atraumatic. Nose: Nose normal. Mouth/Throat: Oral mucosa is clear and moist. no trismus. Pharynx normal. Tonsils symmetric. No tonsillar enlargement, erythema, or exudate. Eyes: Conjunctivae normal. EOM normal. Pupils equal, round, and reactive to l ight. No scleral icterus. Neck: Normal range of motion. Neck supple. No tracheal deviation present. No JVD Cardiovascular: Normal rate, regular rhythm. No gallop. No friction rub. No murmur heard. Symmetric radial artery pulses Pulmonary/Chest: Effort normal. Very frequent dry, hacking cough. No stridor. No respiratory distress. Fairly good aeration. No wheezes when she is breathing and now but definitely wheezy when she is coughing. No rales. No rhonchi . No chest wall tenderness. RUE: Normal range of motion. No tenderness. No deformity LUE: Normal range of motion. No tenderness. No deformity RLE: Normal range of motion. No edema. No tenderness. No deformity LLE: Normal range of motion. No edema. No tenderness. No deformity Neurological: Alert and oriented to person, place, and time. Normal strength. CN II-VII intact. No sensory deficit. GCS eye subscore is 4. GCS verbal subscore is 5. GCS motor subscore is 6. Normal coordination Skin: Skin is warm and dry. No rash noted. No pallor. Normal capillary refill. Psychiatric: Normal mood. Normal affect. Const: Vital Signs, click to edit/add: Vital Signs - 24 hr 04/27/24 07:13 Temperature 98.4 F Pulse Rate [Pulse Oximeter] 80 Respiratory Rate 18 Blood Pressure [Ri t Upper Arm] 152/67 H Course Vital Signs Vital signs: Initial Vital Signs Temperature 98.4 F 04/27/24 07:13 Temperature Source Temporal Artery Scan 04/27/24 07:13 Pulse Rate 80 04/27/24 07:13 Respiratory Rate 18 04/27/24 07:13 Blood Pressure 152/67 H 04/27/24 07:13 Blood Pressure Mean 95 04/27/24 07:13 Blood Pressure Position Sitting 04/27/24 07:13 Vital Signs Temperature 98.4 F 04/27/24 07:13 Pulse Rate 80 04/27/24 07:13 Respiratory Rate 18 04/27/24 07:13 Blood Pressure 152/67 H 04/27/24 07:13 Temperature 98.4 F 04/27/24 07:13 Pulse Rate 80 04/27/24 07:13 Respiratory Rate 18 04/27/24 07:13 Blood Pressure 152/67 H 04/27/24 07:13 Medications Administered Medications: Discontinued Medications Generic Name Dose Route Start Last Admin Trade Name Freq PRN Reason Stop Dose Admin Albuterol/Ipratropium 1 neb 04/27/24 07:51 04/27/24 07:58 Iprat-Albut 0.5-2.5 Mg/3 Ml Neb 04/27/24 07:52 1 neb ONCE ONE Administration Prednisone 40 mg 04/27/24 07:51 04/27/24 07:58 Prednisone 20 Mg Tablet PO 04/27/24 07:52 40 mg ONCE ONE Administration Medical Decision Making MDM Narrative Medical decision making narrative: This patient presents for evaluation of coughing. She has had a cough for the past couple of weeks that it has been getting worse, especially over nights, it is very difficult for her to control. She has a history of asthma. On her exam she is not having a lot of wheezing with shallow inspiration but is definitely wheezing when she breathes deep or when she coughs. Signs and symptoms are consistent with asthma exacerbation. A broad differential was considered including asthma, pneumonia, bronchitis, pneumothorax, viral induced wheezing, allergic phenomena, among others. Chest x-ray is negative for pneumonia by my read. . COVID/influenza/RSV PCR is negative. Patient feels much better after receiving DuoNeb here in the ER. Cough is almost completely resolved. She is comfortable discharging to home. Will put her on a longer tapering dose of prednisone this time because the 5 day burst was not very effective for her a few weeks ago. Refill for her DuoNebs. She will use them every 4 hours as needed. She will follow-up with her regular doctor for recheck. There are no signs at this point of any serious etiologies including those mentioned above. The patient feels and sounds improved after interventions here in ED. No indication for hospitalization at this time including no hypoxia, no marked increase in respiratory rate, and there are minimal to no retractions. Supportive outpatient management is indicated, medications for discharge noted above. Close followup with primary care physician. Return if increased wheezing, progressive shortness of breath, develops fever greater than 102. Questions answered and patient comfortable with plan. Lab Data Labs: Lab Results 04/27/24 Range/Units 07:21 SARS-CoV-2 (PCR) Negative SARS-CoV-2 (Negative) Influenza Type A (PCR) Negative PCR FLU A (Negative) Influenza Type B (PCR) Negative PCR FLU B (Negative) RSV (PCR) Negative PCR RSV (Negative) Imaging Data Chest x-ray: Attestation: I have reviewed the pertinent imaging results. My impression: No acute infiltrate. No pulmonary edema. No pneumothorax. Dr. Flood Discharge Plan Discharge Clinical Impression: Asthma attack, Cough Patient Disposition: Home, Self-Care Condition: Stable Instructions: Asthma (DC), Acute Bronchitis (ED) Additional Instructions: To help treat your cough we will you back on prednisone. Will do a longer course with a tapering dose of prednisone to try to keep your cough from coming back again this time. To help treat your cough use your nebulizer. It is safe to use her neb every 4 hours if needed. If your finding that you need to use her nebs more often than that, please see your doctor or come back to the ER to be rechecked. Your chest x-ray looks good, we do not see any sign of pneumonia today. You should continue on your chronic doxycycline for your skin. If you get worse, especially if you have worsening trouble breathing, high fever, weakness, please come back to the ER right away. Prescriptions: New prednisone 10 mg tablet See Rx Instructions .ROUTE .COMPLEX Qty: 42 0RF Rx Instructions: 60mg PO daily for 2 days, then 50mg PO daily for 2 days, then 40mg PO daily for 2 days, then 30mg PO daily for 2 days, then 20 mg PO daily for 2 days, then 10mg PO daily for 2 days, then stop. ipratropium-albuterol 0.5 mg-3 mg(2.5 mg base)/3 mL solution for nebulization 3 ml inhalation Q4H PRNQty: 90 0RF Rx Instructions: until breathing returns to target peak flow/parameters doxycycline hyclate 100 mg capsule 100 mg PO BID Qty: 14 0RF No Action doxycycline monohydrate 100 mg capsule 100 mg PO BID clotrimazole 10 mg frankie 10 mg PO BID hydroxychloroquine 200 mg tablet 200 mg PO BID cholecalciferol (vitamin D3) 25 mcg (1,000 unit) capsule 25 mcg PO QDAY albuterol sulfate [Ventolin HFA] 90 mcg/actuation HFA aerosol inhaler 1 - 2 puff INHALATION Q4H PRN (Reason: wheezing) omeprazole 40 mg capsule,delayed release(DR/EC) 40 mg PO DAILY Patient Comments: TAKE ONE CAPSULE BY MOUTH DAILY 30 MINUTES BEFORE MORNING MEAL Follow Up/Referrals: Virginia Lara MD [Primary Care Provider] - Stand Alone Forms: [employer] [facility] Info Instructions
[2024-04-27] MEDS: predniSONE 20 MG TABLET 40 MG PO (07:58)
[2024-04-27] MEDS: IPRAT-ALBUT 0.5-2.5 MG/3 ML NEB 1 NEB IH (07:58)
[2024-04-27 08:04] LABS: PCR FLU A Negative PCR FLU A (Negative); PCR FLU B Negative PCR FLU B (Negative); PCR RSV Negative PCR RSV (Negative); SARS PCR* Negative SARS-CoV-2 (Negative)
--- OUTSIDE RECORDS SUMMARY | 2024-04-27 08:21 | XMS_ITS | Continuity of Care Document ---
Author Organization [facility] Address [address] [id number] [place] [address] Phone Care Team Providers Care Ore Tester Name Role Phone Unavailable Unavailable Unavailable Procedures Procedure Date Extraction, Erupted Tooth Or Exposed Janeth t (Elevati Extraction, Erupted Tooth Or Exposed Jaenth t (Elev Extraction, Erupted Tooth Or Exposed Janeth t (Elev Extraction, Erupted Tooth Or Exposed Janeth t (Elev Extraction, Erupted Tooth Or Exposed Janeth t (Elevati Extraction, Erupted Tooth Or Exposed Janeth t (Elevati Extraction, Erupted Tooth Or Exposed Janeth t (Elevati Limited Oral Evaluation ??? Problem Focu sed Office/outpatient visit,new, [facility] [place] 2007 Urinalysis, non-automated, w/scope Antibody, helicobacter pylori 8 Automated hemogram (CBC) Metabolic panel, comprehensive 08 Hepatic function panel Lipid profile Advance Directives Directive Yes / No Effective Date File Name No Information Encounters Encounter Description Practice Location Reason(s) For Visit Diagnoses Date Provider Providers Copied on Encounter [facility], [address] [place] [address] [id number], [id number], [place] tel:[phone] [facility] DENTAL EXAMINATION Nov-2 3-201 5 No Information [facility], [address] [place] [address] [id number] , [place], [place], [id number], [place] tel:[phone] Page DENTAL EXAMINATION 5 No Information Office/outpat ient visit,[facility], [id number] , [place], [place], [id number], [place] tel:[phone] Page No Information 200 8 No Information Family History Family Member Type Diagnosis Age At Onset No Information Payers Payer name Insurance type Covered libertarian ID Matthias glynn(s) D [id number] Slide Discount [...]
--- OUTSIDE RECORDS SUMMARY | 2024-04-27 08:21 | XMS_ITS | Referral Summary ---
Author Organization [facility] Address [address] [place] [address] Care Team Providers Care Field Map Technician Name Role Phone Elsewhere, Pcp Primary Care Provider Unavailabl e Source Comments Patient records contain information from all sites at [facility]. For routine questions regarding patient records, call [phone] during business hours, M-F 8:00 AM - 5:00 PM Central Time. Record requests for emergency care only can be directed to [phone] at any time.[facility] Encounters Date Type Department Care Team Description 02/27/2024 Refill Department of Dermatology in [place], [place] [address] [place] [address] Vinita Salas M.D. Med Refill from Last 3 Months Allergies Active Allergy [...] (01/19/2021): Added automatically from request for surgery [id number] Immunizations Name Administration Dates Next Due Influenza [...] and heating? Not hard at all 01/25/2023 [facility] - Occupational Stress Questionnaire Answer Date Recorded [...] Comments Blood Pressure 126/67 09/22/2023 11:46 AM CLAIMS AUDITOR Pulse 65 09/22/2023 11:46 AM CLAIMS AUDITOR Temperature 36.6 ??C (97.9 ??F) 09/22/2023 11:[address] Respiratory Rate 17 09/22/2023 11:46 AM CLAIMS AUDITOR Oxygen Saturation 93% 09/22/2023 11:46 AM CLAIMS AUDITOR Inhaled Oxygen Concentration - - Weight 74.2 kg (163 lb 9.3 oz) 09/22/2023 10:14 AM CLAIMS AUDITOR Height 169.6 cm (5' 6.77) 09/22/2023 10:[address] Body Mass Index 25.8 09/22/2023 10:14 AM CLAIMS AUDITOR Plan of Treatment Not on file Advance Directives For more information, please contact: [phone] Documents on File Type Date Recorded Patient Nitrocellulose Maker Expl anation Advance Directives 09/15/2021 6:54 PM BODY/ ORGAN DONATION Care Teams Field Map Technician Relationship Specialty Start Date End Date Elsewhere, Pcp PCP - General Internal Medicine 01/27/23
--- OUTSIDE RECORDS SUMMARY | 2024-04-27 08:21 | XMS_ITS | Clinical Summary ---
Author Organization [facility] Address [place], [place] [address] Care Team Providers Care Store Mgr Name Role Phone Virginia Lara MD Primary Care Provider RadhaRob denise MBBS Unavailable Allergies Active Allergy [...] ulcer without hemorrhage or perfor ation 06/12/2020 Overview (06/12/2020): EGD 05/2020 acute superficial gastric ulcer, 3 cm hiatal hernia with reflux Anosmia 01/21/2019 Gastritis 10/20/2017 Overview (10/20/2017): EGD 10/2017 gastritis History of duodenal ulcer 09/20/2016 Mucous membrane pemphigoid Resolved Problems Problem Noted Date Diagnosed Date Resolved Date 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 07/04/2023 Encounters Date Type Department Care Team Description 03/31/2024 Orders Only [facility] Scanner 1 scan: (1-Ord) [facility], CHEST 2V, 03/31/2024 03/19/2024 Telephone [facility] [place] [address] Virginia Lara MD Liver Problem 03/15/2024 1:10 PM CDT Office Visit [facility] [address] [place] [address] Virginia Lara MD Dizziness (Off and on for 1 year); Derm Problem (Dry skin); Urinary Problem (Lower abdominal pressure, no pain or burning with urination) 03/15/2024 Travel 03/15/2024 Telephone [facility] [address] [place] [address] Virginia Lara MD Appointment 02/20/2024 Nurse Triage [facility] [address] [place] [address] Virginia Lara MD Vertigo from Last 3 Months Immunizations Name Administration Dates Next Due COVID-19 vaccine ([employer] 30mcg/0.3mL) P F, MDV 09/17/2021,08/04/2021 Influenza, Inactivated [...] Description 05/30/2024 1:30 PM CDT Office Visit [facility] [address] [place] [address] Sergey Olea MD [address] [place] [address] 06/13/2024 2:00 PM CDT Office Visit [address] [place] [address] Rob Gracia MBBS [address] [place], [place] [address] Health Maintenance Due Date Last Done Comments Zoster (shingles) series for age 50+ (1 of 2) 1961 RSV vaccine for adults or (1 - 1-dose 60+ series) 2002 COVID-19 vaccine series (3 - Pfizer risk series) 10/15/2021 09/17/2021, 08/04/2021 Influenza for age 65+ 04/14/2024 [...] 03/15/2024 2:08 PM CDT Dry skin dermatitis [facility] (current) use of inhaled steroids TSH WITH [...] WITH AUTO DIFFERENTIAL (03/15/2024 2:08 PM CDT) WHITE BLOOD COUNT 7.9 4.5 - 11.0 thou/cu mm 03/15/2024 2:23 PM CDT [facility] RED BLOOD COUNT 4.27 4.00 - 5.20 mil/cu mm 03/15/2024 2:23 PM CDT [facility] HEMOGLOBIN 11.9(L) 12.0 - 16.0 g/dL 03/15/2024 2:23 PM CDT [facility] HEMATOCRIT 37.5 33.0 - 51.0 % 03/15/2024 2:23 PM CDT [facility] MCV 88 80 - 100 fL 03/15/2024 2:23 PM CDT [facility] MCH 27.9 26.0 - 34.0 pg 03/15/2024 2:23 PM CDT [facility] MCHC 31.7(L) 32.0 - 36.0 g/dL 03/15/2024 2:23 PM CDT [facility] RDW 15.0 11.5 - 15.5 % 03/15/2024 2:23 PM CDT [facility] PLATELET COUNT 352 140 - 440 thou/cu mm 03/15/2024 2:23 PM CDT [facility] MPV 9.7 6.5 - 11.0 fL 03/15/2024 2:23 PM CDT [facility] % NEUT 56.9 % 03/15/2024 2:23 PM CDT [facility] % LYMPH 24.3 % 03/15/2024 2:23 PM CDT [facility] % MONO 11.6 % 03/15/2024 2:23 PM CDT [facility] % EOS 6.4 % 03/15/2024 2:23 PM CDT [facility] % BASO 0.8 % 03/15/2024 2:23 PM CDT [facility] ABSOLUTE NEUTROPHILS 4.5 1.7 - 7.0 thou/cu mm 03/15/2024 2:23 PM CDT [facility] ABSOLUTE LYMPHOCYTES 1.9 0.9 - 2.9 thou/cu mm 03/15/2024 2:23 PM CDT [facility] ABSOLUTE MONOCYTES 0.9(H) <0.9 thou/cu mm 03/15/2024 2:23 PM CDT [facility] ABSOLUTE EOSINOPHILS 0.5(H) <0.5 thou/cu mm 03/15/2024 2:23 PM CDT [facility] ABSOLUTE BASOPHILS 0.1 <0.3 thou/cu mm 03/15/2024 2:23 PM CDT [facility] Blood BLOOD SPECIMEN / Unknown Venipuncture / Unknown 03/15/2024 2:08 PM CDT 03/15/2024 2:09 PM CDT Virginia Lara MD HEMATOLOGY [facility] [address] [place] [address], * TSH WITH REFLEX (03/15/2024 2:08 PM CDT) TSH 1.68 0.27 - 4.20 uIU/mL 03/16/2024 1:36 AM CDT [facility] Blood BLOOD SPECIMEN / Unknown Venipuncture / Unknown 03/15/2024 2:08 PM CDT 03/15/2024 2:09 PM CDT Narrative [facility] - 03/16/2024 1:36 AM CDT In Adults, TSH values between 5.00 and 10.00 uIU/ml do not necessarily indicate the presence of Hypothyroidism. Correlation with clinical findings such as presence of goiter and/or Thyroperoxidase (TPO) Antibody may be helpful. For more information please refer to MARCUS 2004; 291: 228-238. Virginia Lara MD CHEMISTRY [facility] [address] [place] [address], * VITAMIN D 25 (DEFICIENCY) (03/15/2024 2:08 PM CDT) VITAMIN D TOTAL 23.0 20.0 - 80.0 ng/mL 03/16/2024 1:36 AM CDT [facility] Blood BLOOD SPECIMEN / Unknown Venipuncture / Unknown 03/15/2024 2:08 PM CDT 03/15/2024 2:09 PM CDT [facility] - 03/16/2024 1:36 AM CDT ? Vitamin D Status Deficiency: ? <20 ng/mL Insufficiency: ?20-29 ng/mL Sufficiency: ?30-80 ng/mL Possible Toxicity: ??>80 ng/mL Based on [place] [employer] recommendations Biotin supplements may cause clinically significant interference for this test assay. ??If interference is suspected, it is strongly recommended that biotin is discontinued for at least one week prior to retesting. Virginia Lara MD SEND OUTS Performing Organization Address [facility] Co de Phone Number [facility] [address] [place] [address], * VITAMIN B12 (03/15/2024 2:08 PM CDT) VITAMIN B12 706 232 - 1,245 pg/mL 03/16/2024 1:36 AM CDT [facility] Blood BLOOD SPECIMEN / Unknown Venipuncture / Unknown 03/15/2024 2:08 PM CDT 03/15/2024 2:09 PM CDT Narrative [facility] - 03/16/2024 1:36 AM CDT Biotin supplements may cause clinically significant interference for this test assay. ??If interference is suspected, it is strongly recommended that biotin is discontinued for at least one week prior to retesting. Virginia Lara MD CHEMISTRY Performing Organization Address [facility] Co de Phone Number [facility] [address] [place] [id number], * (ABNORMAL) COMP METABOLIC PANEL (03/15/2024 2:08 PM CDT) SODIUM 144 136 - 145 mmol/L 03/16/2024 1:36 AM [facility] POTASSIUM 4.3 3.5 - 5.1 mmol/L 03/16/2024 1:36 AM [facility] CHLORIDE 107 98 - 107 mmol/L 03/16/2024 1:36 AM [facility] CO2,TOTAL 27 22 - 29 mmol/L 03/16/2024 1:36 AM [facility] ANION GAP 10 5 - 18 03/16/2024 1:36 AM [facility] GLUCOSE 98 70 - 99 mg/dL 03/16/2024 1:36 AM [facility] CALCIUM 9.3 8.8 - 10.2 mg/dL 03/16/2024 1:36 AM [facility] BUN 21 8 - 23 mg/dL 03/16/2024 1:36 AM [facility] CREATININE 0.96(H) 0.50 - 0.90 mg/dL 03/16/2024 1:36 AM [facility] BUN/CREAT RATIO 22(H) 10 - 20 1:36 AM [facility] eGFR 60(L) >90 mL/min/1.7 3m2 03/16/2024 1:36 AM [facility] Comment:As of 2021, eG FR is calculated by the CKD-EPI creatinine equation without race adjustment. ??eGFR can be influenced by muscle mass, exercise, and diet. ??The reported eGFR is an estimation only and is only applicable if the renal function is stable. ALBUMIN 4.0 4.0 - 4.9 g/dL 03/16/2024 1:36 AM [facility] PROTEIN,TOTAL 6.4 6.0 - 8.0 g/dL 03/16/2024 1:36 AM [facility] BILIRUBIN,TOTAL 0.2 0.0 - 1.2 mg/dL 03/16/2024 1:36 AM CDT [facility] ALK PHOSPHATASE 119(H) 35 - 104 IU/L 03/16/2024 1:36 AM CDT [facility] ALT (SGPT) 15 10 - 35 IU/L 03/16/2024 1:36 AM CDT [facility] AST (SGOT) 22 10 - 35 IU/L 03/16/2024 1:36 AM CDT [facility] Blood BLOOD SPECIMEN / Unknown Venipuncture / Unknown 03/15/2024 2:08 PM CDT 03/15/2024 2:09 PM CDT Virginia Lara MD CHEMISTRY Performing Organization Address City/[facility]/ZIP Co de Phone Number [facility] [address] [place] [address], [place] * URINALYSIS MICROSCOPIC (03/15/2024 1:48 PM CDT) RBC 0-2 0-2, None Seen /HPF 03/15/2024 2:16 PM CDT [facility] WBC 3-5 0-2, 3-5, None Seen /HPF 03/15/2024 2:16 PM CDT [facility] BACTERIA Few None Seen, Rare, Few Bacteria/H PF 03/15/2024 2:16 PM CDT [facility] EPITHELIAL CELLS Few None Seen, Few Epi/HPF 03/15/2024 2:16 PM CDT [facility] Mucus Present 03/15/2024 2:16 PM CDT [facility] Urine URINE SPECIMEN / Unknown Non-Blood / Unknown 03/15/2024 1:48 PM CDT 03/15/2024 2:07 PM CDT Virginia Lara MD URINE [facility] [address] [place] [address], [place] [phone] * URINE CULTURE (03/15/2024 1:48 PM CDT) CULTURE No growth (<1,000 CFU/mL) 03/17/2024 1:16 PM CDT [facility] Urine URINE SPECIMEN / Unknown Non-Blood / Unknown 03/15/2024 1:48 PM CDT 03/15/2024 2:07 PM CDT Virginia Lara MD MICROBIOLOGY [facility] [address] [place] [address], [place] * (ABNORMAL) UA W/ SEDIMENT EXAM REFLEXED PER CRITERIA (03/15/2024 1:48 PM CDT) COLOR Yellow Yellow Color 03/15/2024 2:11 PM CDT [facility] CLARITY Clear Clear Clarity 03/15/2024 2:11 PM CDT [facility] SPECIFIC GRAVITY,URINE >=1.030(A) 1.010, 1.015, 1.020, 1.025 03/15/2024 2:11 PM CDT [facility] PH,URINE 5.0(A) 6.0, 7.0, 8.0, 5.5, 6.5, 7.5, 8.5 03/15/2024 2:11 PM CDT [facility] UROBILINOGEN, QUALITATIVE Normal Normal EU/dl 03/15/2024 2:11 PM CDT [facility] PROTEIN, URINE 30(A) Negative mg/dL 03/15/2024 2:11 PM CDT [facility] GLUCOSE, URINE Negative Negative mg/dL 03/15/2024 2:11 PM CDT [facility] KETONES,URINE Trace(A) Negative mg/dL 03/15/2024 2:11 PM CDT [facility] BILIRUBIN,URI NE Negative Negative 03/15/2024 2:11 PM CDT [facility] OCCULT BLOOD,URINE Trace(A) Negative 03/15/2024 2:11 PM CDT [facility] NITRITE Negative Negative 03/15/2024 2:11 PM CDT [facility] LEUKOCYTE ESTERASE Negative Negative 03/15/2024 2:11 PM CDT [facility] Urine URINE SPECIMEN / Unknown Non-Blood / Unknown 03/15/2024 1:48 PM CDT 03/15/2024 2:07 PM CDT Virginia Lara MD URINE [facility] [address] [place] [address], * [place] DIANA POST-VOIDING RESIDUAL URINE&/BLADDER CAP (03/15/2024 12:00 AM CDT) Virginia Lara MD [facility] - URINARY SYSTEM SERVICES * (ABNORMAL) XR DXA BONE DENSITY 2 SITES AXIAL [91733.1] (04/19/2018 10:08 AM CDT) Anatomical Region Laterality Modality Spine, HIPS, HIPL, HIPR Other Narrative 05/01/2018 7:56 AM CDT Please see scanned document for results of this study. Virginia Lara MD DEXA from Last 3 Months or Most Recently Relevant to Health Maintenance Care Teams Store Mgr Relationship Specialty Start Date End Date Virginia Lara MD [address] [place] [address] PCP - General Family Practice 12/21/16 Rob Garcia MBBS [facility] [place] [address] Consulting Physician Rheumatology 03/12/24
--- OUTSIDE RECORDS SUMMARY | 2024-04-27 08:21 | XMS_ITS | Encounter Summary ---
Author Organization [facility] Address [address] [place] [address] Care Team Providers Care Asphalt Spreader Name Role Phone Elsewhere, Pcp Primary Care Provider Unavailabl e Reason for Visit * Reason Comments Med Refill Encounter Details Date Type Department Care Team (Late st Contact Info) Description 02/27/2024 Refill Department of Dermatology in [place], [place] [address] [place] [phone] Vinita Salas M.D. [address] [place] [address] Med Refill Social History Tobacco Use Types [...] How often do you attend chur or latter-day services? More than 4 times per year 07/06/2021 Do you belong to any clubs o r organizations such as denominational groups, unions, fraternal or athletic groups, or [...] heating? Not hard at all 01/25/2023 [facility] - [...] your living situation today? I have a [facility] place to live 01/25/2023 Education [...] (HCC) documented in this encounter Care Teams Asphalt Spreader Relationship Specialty Start Date End Date Elsewhere, Pcp PCP - General Internal Medicine 01/27/23 documented as of this encounter
--- OUTSIDE RECORDS SUMMARY | 2024-04-27 08:21 | XMS_ITS ---
Author Organization [facility] Address [address] [place] [address] Care Team Providers Care Screed Operator Name Role Phone Unavailable Unavailable Unavailable Surgery Details Not on file Complications Check Surgery Details section. Procedure Estimated Blood Loss Check Surgery Details section. Procedure Findings Check Surgery Details section. Procedure Specimens Taken Check Surgery Details section.
--- OUTSIDE RECORDS SUMMARY | 2024-04-27 08:21 | XMS_ITS | Clinical Summary ---
Author Organization [employer] Address [address], [place] [address] Care Team Providers Care Area Sales Manager Name Role Phone Unavailable Primary Care Provider Unavailabl e Source Comments You are receiving this document as you are listed as the primary care provider,follow-up provider, or the patient has been referred to you for consultation.This is in compliance with the Medicare and[facility] EHR Incentive Program,which states Providers who transition their patient to another setting of careor provider of care or refers their patient to another provider of care shouldprovide summary care record for each transition of care or referral. [employer] Allergies Active Allergy Reactions Criticality Noted Date [...] COVID-19 Vaccine ( - 2022-2 4 season) 2024 Influenza (#1) 2024 05/23/2019, 08/01/2018 DTaP/Tdap/Td (2 [...]
--- OUTSIDE RECORDS SUMMARY | 2024-04-27 08:21 | XMS_ITS | Clinical Summary ---
Author Organization [facility] Address [address] [place] [address] Care Team Providers Care Online Project Manager Name Role Phone Elsewhere, Pcp Primary Care Provider Unavailabl e Source Comments Patient records contain information from all sites at [facility]. For routine questions regarding patient records, call [phone] during business hours, M-F 8:00 AM - 5:00 PM Central Time. Record requests for emergency care only can be directed to [phone] at any time.[facility] Allergies Active Allergy Reactions Criticality Noted Date [...] (01/19/2021): Added automatically from request for surgery [id number] Encounters Date Type Department Care Team Description 02/27/2024 Refill Department of Dermatology in [place], [place] [address] [place] [address] Vinita Salas M.D. Med Refill from Last 3 Months Immunizations Name Administration [...] often do you attend chur ch or hoahaoism services? More than 4 times per year 07/06/2021 Do you belong to any clubs o r organizations such as alevism groups, unions, fraternal or athletic groups, or [...] and heating? Not hard at all 01/25/2023 [facility] Answer Date [...] Comments Blood Pressure 126/67 09/22/2023 11:46 AM LIVE SOURCE OPERATOR Pulse 65 09/22/2023 11:46 AM LIVE SOURCE OPERATOR Temperature 36.6 ??C (97.9 ??F) 09/22/2023 11:[address] Respiratory Rate 17 09/22/2023 11:46 AM LIVE SOURCE OPERATOR Oxygen Saturation 93% 09/22/2023 11:46 AM LIVE SOURCE OPERATOR Inhaled Oxygen Concentration - - Weight 74.2 kg (163 lb 9.3 oz) 09/22/2023 10:14 AM LIVE SOURCE OPERATOR Height 169.6 cm (5' 6.77) 09/22/2023 10:[address] Body Mass Index 25.8 09/22/2023 10:14 AM LIVE SOURCE OPERATOR Plan of Treatment Health Maintenance Due Date Last Done Comments Zoster Vaccines (1 of 2) 1959 COVID-19 Vaccine (3 - Pfizer risk series) 10/15/2021 09/17/2021, 08/04/2021 Depression Screening (Annual PHQ-2) 08/14/2023 Influenza Vaccine (#1) 2024 , 05/23/2019, 08/01/2018 DTaP,Tdap,and Td Vaccines (3 - Td or Tdap) 04/03/2034 04/03/2024, 03/06/2019 Pneumococcal vaccine (65+ years) Completed 06/13/20 Fall Risk Screen (Annual) Completed 09/22/2023 Advance Directives For more information, please contact: [phone] Documents on File Type Date Recorded Patient Show Host/Hostess Expl anation Advance Directives 09/15/2021 6:54 PM BODY/ ORGAN DONATION Care Teams Online Project Manager Relationship Specialty Start Date End Date Elsewhere, Pcp PCP - General Internal Medicine 01/27/23
== END 2024-04-27 08:49 | disposition home or self-care (01) ==
PROVIDERS: Emergency Provider Emergency Medicine; PCP Family Medicine
DX: J45.901 Unspecified asthma with (acute) exacerbation (principal); R05.9 Cough, unspecified
CPT/HCPCS: 71046; 87631; 99283; 99284; J7512

== ENCOUNTER 2024-06-01 17:30 | Emergency (ER) | payer MEDICARE, BC, SELFPAY ==
[2024-06-01 17:50] VITALS: BP 155/87; PULSE 82; RESP 18; TEMP 37.5; O2SAT 95; BMI 25.8
--- NOTE | 2024-06-01 17:58 | CRLHL7_ITS ---
For Patients: As a result of the Cures Act, medical imaging exams and procedure reports are released immediately into your electronic medical record. You may view this report before your referring provider. If you have questions, please contact your health care provider. INDICATION: Injury TECHNIQUE: Three views right foot FINDINGS/IMPRESSION: Normal alignment. No acute fracture or acute osseous abnormalities are visualized. Plantar calcifications calcaneal spur. No radiopaque foreign body degenerative change of the 1st MTP joint. Dictated by Ansley Fung MD @ 06/01/2024 7:19:33 PM (Electronically Signed)
--- NOTE | 2024-06-01 20:03 | ED_ITS ---
HPI - General Adult General Chief complaint: Extremity Pain/Injury, Lower Stated complaint: R foot laceration Time Seen by Provider: 06/01/24 19:20 Source: patient Mode of arrival: ambulatory Limitations: no limitations History of Present Illness HPI narrative: 83-year-old female coming in today complaining of a laceration to her foot. Patient dropped a candle on her foot just prior coming to the ER. She denies any other complaints. Tetanus shot was updated the summer. Related Data Home Medications ?Medication ?Instructions ?Recorded ?Confirmed omeprazole 40 mg capsule,delayed 40 mg PO DAILY 09/19/22 04/27/24 release cholecalciferol (vitamin D3) 25 25 mcg PO QDAY 07/19/23 04/27/24 mcg (1,000 unit) capsule clotrimazole 10 mg frankie 10 mg PO BID 07/19/23 04/27/24 doxycycline monohydrate 100 mg 100 mg PO BID 07/19/23 04/27/24 capsule hydroxychloroquine 200 mg tablet 200 mg PO BID 07/19/23 04/27/24 albuterol sulfate 90 mcg/actuation 1 - 2 puff inhalation Q4H PRN 03/31/24 04/27/24 aerosol inhaler (Ventolin HFA) wheezing Previous Rx's ?Medication ?Instructions ?Recorded doxycycline hyclate 100 mg capsule 100 mg PO BID #14 caps 04/27/24 ipratropium 0.5 mg-albuterol 3 mg 3 ml inhalation Q4H PRN #90 mL 04/27/24 (2.5 mg base)/3 mL nebulization soln prednisone 10 mg tablet See Rx Instructions .Route 04/27/24 .COMPLEX #42 tabs Allergies Allergy/AdvReac Type Severity Reaction Status Date / Time ibuprofen AdvReac Intermediate abdominal Verified 09/28/23 16:50 discomfort codeine AdvReac Unknown Gastrointestinal Verified 03/31/24 17:55 Upset Review of Systems Status of ROS: Reports: 6 or more systems reviewed and unremarkable except as noted in History and below [facility] Medical History Stomach ulcer ?K25.9 - Gastric ulcer, unspecified as acute or chronic, without hemorrhage or perforation (ICD-10) 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, left shoulder (ICD-10) Knee fracture, left Vulvar pain ?R10.2 - Pelvic and perineal pain (ICD-10) History of duodenal ulcer ?Z87.19 - Personal history of other diseases of the digestive system (ICD-10) Headache ?R51.9 - Headache, unspecified (ICD-10) Elevated blood pressure reading ?R03.0 - Elevated blood-pressure reading, without diagnosis of hypertension (ICD-10) Back pain ?M54.9 - Dorsalgia, unspecified (ICD-10) Atopic dermatitis ?L20.9 - Atopic dermatitis, unspecified (ICD-10) Surgical History Status post laparoscopic cholecystectomy ?Z90.49 - Acquired absence of other specified parts of digestive tract (ICD- 10) History of tonsillectomy and adenoidectomy ?Z90.89 - Acquired absence of other organs (ICD-10) History of surgery on left wrist (07/28/15) ?Z98.890 - Other specified postprocedural states (ICD-10) History of sinus surgery ?Z98.890 - Other specified postprocedural states (ICD-10) History of hysterectomy ?Z90.710 - Acquired absence of both cervix and uterus (ICD-10) History of hammer toe correction ?Z98.890 - Other specified postprocedural states (ICD-10) ?Z87.39 - Personal history of other diseases of the musculoskeletal system and connective tissue (ICD-10) History of elbow surgery (2018) ?Z98.890 - Other specified postprocedural states (ICD-10) History of carpal tunnel surgery of left wrist (2019) ?Z98.890 - Other specified postprocedural states (ICD-10) History of bilateral cataract extraction (2014) ?Z98.41 - Cataract extraction status, right eye (ICD-10) ?Z98.42 - Cataract extraction status, left eye (ICD-10) History of arthroscopy of knee (1989) ?Z98.890 - Other specified postprocedural states (ICD-10) History of appendectomy ?Z90.49 - Acquired absence of other specified parts of digestive tract (ICD- 10) Social History Smoking Status: Former smoker Do you use any of these nicotine containing products: None Second hand tobacco smoke exposure: No How often do you have a drink containing alcohol: never AUDIT-C Alcohol total score: 0 Non-prescribed substance use: denies use service: No Exam Narrative: Exam Narrative: Well-nourished well-developed patient in no acute distress. Alert and oriented. Answers questions appropriately. Mood and affect are appropriate. Thoughts are goal oriented and rational. No tangential or magical thinking noted. Patient speaks in full sentences without needing to catch her breath. HEENT: Normocephalic atraumatic. Extraocular muscles are intact. Conjunctivae are moist without any icterus noted. Moist mucous membranes. Extremities: Patient has a 1/2 inch laceration at the base of the big toe on the right. Laceration cuts through the skin and into the subcutaneous tissue, does not penetrate through the subcutaneous tissue. She has some surrounding ecchymosis. Const: Vital Signs, click to edit/add: Vital Signs - 24 hr 06/01/24 17:50 Temperature 99.5 F Pulse Rate [Pulse Oximeter] 82 Respiratory Rate 18 Blood Pressure [Ri t Upper Arm] 155/87 H Pulse Oximetry 95 Oxygen Delivery Me thod Room Air Course Course ED Course: X-ray of the foot was done, read by me, does not show any acute fractures. Laceration was clean and anesthetized with 2% lidocaine. Four sutures with 4-0 Ethilon were placed. Vital Signs Vital signs: Initial Vital Signs Temperature 99.5 F 06/01/24 17:50 Temperature Source Temporal Artery Scan 06/01/24 17:50 Pulse Rate 82 06/01/24 17:50 Pulse Rhythm Regular 06/01/24 17:50 Respiratory Rate 18 06/01/24 17:50 Blood Pressure 155/87 H 06/01/24 17:50 Blood Pressure Mean 109 H 06/01/24 17:50 Blood Pressure Position Sitting 06/01/24 17:50 Pulse Oximetry 95 06/01/24 17:50 Oxygen Delivery Method Room Air 06/01/24 17:50 Vital Signs Temperature 99.5 F 06/01/24 17:50 Pulse Rate 82 06/01/24 17:50 Respiratory Rate 18 06/01/24 17:50 Blood Pressure 155/87 H 06/01/24 17:50 Pulse Oximetry 95 06/01/24 17:50 Oxygen Delivery Method Room Air 06/01/24 17:50 Temperature 99.5 F 06/01/24 17:50 Pulse Rate 82 06/01/24 17:50 Respiratory Rate 18 06/01/24 17:50 Blood Pressure 155/87 H 06/01/24 17:50 Pulse Oximetry 95 06/01/24 17:50 Oxygen Delivery Method Room Air 06/01/24 17:50 Medical Decision Making MDM Narrative Medical decision making narrative: Trauma to the foot with resulting laceration. Treated per above. Imaging Data Foot x-ray: Attestation: I have reviewed the pertinent imaging results. Radiologist's impression: INDICATION: Injury TECHNIQUE: Three views right foot FINDINGS/IMPRESSION: Normal alignment. No acute fracture or acute osseous abnormalities are visualized. Plantar calcifications calcaneal spur. No radiopaque foreign body degenerative change of the 1st MTP joint. Discharge Plan Discharge Clinical Impression: Laceration, Contusion Patient Disposition: Home, Self-Care Condition: Stable Additional Instructions: Keep wound clean and dry. Do not soak such as taking baths, swimming. Follow- up in approximately 7-10 days for suture removal with your primary care provider. Watch for signs and symptoms of infection including increasing redness of the area, purulent drainage, or fever. If this occurs follow-up right away with your doctor or return to the ER. Okay to take Tylenol as needed/as prescribed for pain. Elevate foot as much as possible. Okay to ice if it begins to swell. Do not ice more than 20 minutes at a time, 4 times per day. Do not apply ice directly to the skin. Prescriptions: No Action doxycycline monohydrate 100 mg capsule 100 mg PO BID clotrimazole 10 mg frankie 10 mg PO BID hydroxychloroquine 200 mg tablet 200 mg PO BID cholecalciferol (vitamin D3) 25 mcg (1,000 unit) capsule 25 mcg PO QDAY albuterol sulfate [Ventolin HFA] 90 mcg/actuation HFA aerosol inhaler 1 - 2 puff INHALATION Q4H PRN (Reason: wheezing) omeprazole 40 mg capsule,delayed release(DR/EC) 40 mg PO DAILY Patient Comments: TAKE ONE CAPSULE BY MOUTH DAILY 30 MINUTES BEFORE MORNING MEAL prednisone 10 mg tablet See Rx Instructions .ROUTE .COMPLEX Qty: 42 0RF Rx Instructions: 60mg PO daily for 2 days, then 50mg PO daily for 2 days, then 40mg PO daily for 2 days, then 30mg PO daily for 2 days, then 20 mg PO daily for 2 days, then 10mg PO daily for 2 days, then stop. ipratropium-albuterol 0.5 mg-3 mg(2.5 mg base)/3 mL solution for nebulization 3 ml inhalation Q4H PRNQty: 90 0RF Rx Instructions: until breathing returns to target peak flow/parameters doxycycline hyclate 100 mg capsule 100 mg PO BID Qty: 14 0RF Follow Up/Referrals: Virginia Lara MD [Primary Care Provider] - Stand Alone Forms: [employer] Info Instructions
--- OUTSIDE RECORDS SUMMARY | 2024-06-01 20:07 | XMS_ITS | Continuity of Care Document ---
Author Organization Wilmar Rees [facility] Address [id number] [place] [address] Phone Care Team Providers Care Automatic Pattern Edger Name Role Phone Unavailable Unavailable Unavailable Procedures [...] Evaluation ??? Problem Focu sed [place] [facility] [place]inalysis, non-automated, w/scope Antibody, helicobacter pylori 8 Automated hemogram (CBC) Metabolic panel, comprehensive 08 Hepatic function panel Lipid profile Advance Directives Directive Yes / No Effective Date File Name No Information Encounters Encounter Description Practice Location Reason(s) For Visit Diagnoses Date Provider Providers Copied on Encounter [facility], [address] [place] [address] [id number], [id number], [place] tel:[phone] [facility] DENTAL EXAMINATION Nov-2 3-201 5 No Information [facility], [address] [place] [id number] , [place], [place], [id number], [place] tel:[phone] [place] DENTAL EXAMINATION 5 No Information Office[facility] Wilmar Sen [facility], [id number] , [place], [place], [id number], [place] tel:[phone] [place] No Information 200 8 No Information Family [...]
--- OUTSIDE RECORDS SUMMARY | 2024-06-01 20:07 | XMS_ITS | Clinical Summary ---
Author Organization [facility] Address [address] [address] Care Team Providers Care Licensed Mental Health Professional Name Role Phone Unavailable Primary Care Provider Unavailabl e Source Comments You are receiving this document as you are listed as the primary care provider,follow-up provider, or the patient has been referred to you for consultation.This is in compliance with the Medicare and[facility] E[facility] Incentive Program,which states Providers who transition their patient to another setting of careor provider of care or refers their patient to another provider of care shouldprovide summary care record for each transition of care or referral. [employer] Allergies Active Allergy Reactions Criticality Noted Date [...] Pneumococcal 65+ Yrs (1 - PCV) 11/07/2007 RSV (1 - 1-dose 75+ series) 2017 COVID-19 Vaccine ( - 2023-2 5 season) 2024 Influenza (#1) 2024 05/23/2019, 08/01/2018 [...] on patient's age to complete this topic Infant RSV Aged Out No longer eligi ble based on patient's age to complete this topic MCV4 Aged Out No longer eligi ble based on patient's age to complete this topic
--- OUTSIDE RECORDS SUMMARY | 2024-06-01 20:08 | XMS_ITS | Referral Summary ---
Author Organization [facility] Address [address] [place] [address] Care Team Providers Care Studio Coordinator Name Role Phone Elsewhere, Pcp Primary Care Provider Unavailabl e Source Comments Patient records contain information from all sites at [facility]. For routine questions regarding patient records, call [phone] during business hours, M-F 8:00 AM - 5:00 PM Central Time. Record requests for emergency care only can be directed to [phone] at any time.[facility] Allergies Active Allergy Reactions Criticality Noted Date Comments Codeine Nausea Only 09/09/2016 Can do injection, but not oral. Does not seem to have a problem now. Ibuprofen GI intolerance,Other (see comments) High 12/23/2020 Ulcer problems so does not take. Prednisone Hypertension,Other ( see comments) High 07/18/2018 High blood pressure Medications * This document contains information received from the source organization and may not represent a complete record from that organization. acetaminophen (TYLENOL) 500 mg tablet Take 500 mg by mouth as needed for pain. 9 Active lidocaine viscous (XYLOCAINE) 2 % mucosal solution Take 5 mL by mouth as needed. 0 Active sucralfate (CARAFATE) 1 gram tablet Take 1 g by mouth 3 (three) times a day as needed. 0 Active hydrOXYchloroQUI NE (PLAQUENIL) 200 mg tablet Take 200 mg by mouth daily. 1 Active omeprazole (PriLOSEC) [address] capsule Take 40 mg by mouth every morning before breakfast. 1 Active dexAMETHasone (DECADRON) 0.5 mg/5 mL solutionIndicati [...] or wheezing. Active triamcinolone (KENALOG) 0.1 % creamIndications :Stasis Dermatitis Lower Extremity Left Apply 1 Application topically 2 (two) times a day as needed (Rash). Apply to left lower leg. 454 g 3 4 Active doxycycline monohydrate (MONODOX) 100 mg capsuleIndicatio ns:Pemphigoid Mucous Membrane (HCC) take 1 capsule by mouth twice a day 60 capsule 11 4 Active betamethasone dipropionate, augmented, (DIPROLENE) 0.05 % ointmentIndicati ons:Lichen Sclerosus Apply 1 Application topically as needed (pain/inflammat ion vulva). Apply to vulva. 45 g 1 4 Active clotrimazole (Mycelex) 10 mg trocheIndication s:Pemphigoid Mucous Membrane (HCC) DISSOLVE 1 UMM (10 MG TOTAL) IN THE MOUTH 2 (TWO) TIMES A DAY. 60 Umm 11 4 Active Hospital, Clinic, or Other Facility Administered Medication Ordered Dose Route Frequency Start Date End Date Status BUPivacaine 0.25 % (2.5 mg/mL) injection 20 mL (MARCAINE)Indications:Mass Abdominal Right Upper Quadrant 20 mL inj Once 05/25/2023 Active Active Problems Problem Noted Date Diagnosed Date Mass Abdominal Right Upper Quadrant 05/08/2023 Lesion Oral 01/19/2021 Overview (01/19/2021): Added automatically from request for surgery [id number] Immunizations Name Administration Dates Next Due Influenza [...] week 07/06/2021 How often do you attend up health system or baptist services? More than 4 times per year [...] and heating? Not hard at all 01/25/2023 [facility] - Occupational Stress [...] degree you have received? 11th grade 07/06/2021 Comments No Sex and Gender Information Value Date Recorded Sex Assigned at Female 04/18/2021 12:58 AM CDT Legal Sex Female 12:30 PM SUPERVISOR WEAVING Gender Identity Female 04/18/2021 12:58 AM CDT Sexual Orientation Straight 04/18/2021 12 :58 AM CDT Last Filed Vital Signs Vital Sign Reading Time Taken Comments Blood Pressure 126/67 09/22/2023 11:46 AM SUPERVISOR WEAVING Pulse 65 09/22/2023 11:46 AM SUPERVISOR WEAVING Temperature 36.6 ??C (97.9 ??F) 09/22/2023 11:[address] Respiratory Rate 17 09/22/2023 11:46 AM SUPERVISOR WEAVING Oxygen Saturation 93% 09/22/2023 11:46 AM SUPERVISOR WEAVING Inhaled Oxygen Concentration - - Weight 74.2 kg (163 lb 9.3 oz) 09/22/2023 10:14 AM SUPERVISOR WEAVING Height 169.6 cm (5' 6.77) 09/22/2023 10:[address] Body Mass Index 25.8 09/22/2023 10:14 AM SUPERVISOR WEAVING Plan of Treatment Not on file Insurance MEDICARE [facility] Advance Directives For more information, please contact: [phone] Documents on File Type Date Recorded Patient Residence Counselor Expl anation Advance Directives 09/15/2021 6:54 PM BODY/ ORGAN DONATION Care Teams Studio Coordinator Relationship Specialty Start Date End Date Elsewhere, Pcp PCP - General Internal Medicine 01/27/23
--- OUTSIDE RECORDS SUMMARY | 2024-06-01 20:08 | XMS_ITS ---
Author Organization [facility] Address [address] [place] [address] Care Team Providers Care Cupola Repairer Name Role Phone Unavailable Unavailable Unavailable Surgery Details Not on file Complications Check Surgery Details section. Procedure Estimated Blood Loss Check Surgery Details section. Procedure Findings Check Surgery Details section. Procedure Specimens Taken Check Surgery Details section.
--- OUTSIDE RECORDS SUMMARY | 2024-06-01 20:08 | XMS_ITS | Clinical Summary ---
Author Organization [facility] Address [address] [place] [address] Care Team Providers Care Casting Tester Name Role Phone Elsewhere, Pcp Primary Care Provider Unavailabl e Source Comments Patient records contain information from all sites at [facility]. For routine questions regarding patient records, call [phone] during business hours, M-F 8:00 AM - 5:00 PM Central Time. Record requests for emergency care only can be directed to [phone] at any time.[facility] Allergies Active Allergy Reactions Criticality Noted Date [...] (01/19/2021): Added automatically from request for surgery [id number] Immunizations Name Administration Dates Next Due Influenza [...] often do you attend chur ch or latter day services? More than 4 times per year 07/06/2021 Do you belong to any clubs o r organizations such as jain groups, unions, fraternal or athletic groups, or [...] and heating? Not hard at all 01/25/2023 [facility] ional Health - Occupational [...] your living situation today? I have a [facility] place to live 01/25/2023 Education Answer Date Recorded What is the highest level of school you have completed or the highest degree you have received? 11th grade 07/06/2021 Comments No Sex and Gender Information Value Date Recorded Sex Assigned at Female 04/18/2021 12:58 AM CDT Legal Sex Female 12:30 PM FORENSIC PSYCHOLOGIST Gender Identity Female 04/18/2021 12:58 AM CDT Sexual Orientation Straight 04/18/2021 12 :58 AM CDT Last Filed Vital Signs Vital Sign Reading Time Taken Comments Blood Pressure 126/67 09/22/2023 11:46 AM FORENSIC PSYCHOLOGIST Pulse 65 09/22/2023 11:46 AM FORENSIC PSYCHOLOGIST Temperature 36.6 ??C (97.9 ??F) 09/22/2023 11:[address] Respiratory Rate 17 09/22/2023 11:46 AM FORENSIC PSYCHOLOGIST Oxygen Saturation 93% 09/22/2023 11:46 AM FORENSIC PSYCHOLOGIST Inhaled Oxygen Concentration - - Weight 74.2 kg (163 lb 9.3 oz) 09/22/2023 10:14 AM FORENSIC PSYCHOLOGIST Height 169.6 cm (5' 6.77) 09/22/2023 10:[address] Body Mass Index 25.8 09/22/2023 10:14 AM FORENSIC PSYCHOLOGIST Plan of Treatment Health Maintenance Due Date Last Done Comments Zoster Vaccines (1 of 2) 1961 RSV vaccine - (32-3 6 weeks) or 60+ years (1 - 1-dose 75+ series) 2017 COVID-19 Vaccine (3 - Pfizer risk series) 10/15/2021 09/17/2021, 08/04/2021 Depression Screening (Annual PHQ-2) 08/14/2023 Influenza Vaccine (#1) 2024 , 05/23/2019, 08/01/2018 DTaP,Tdap,and Td Vaccines (3 - Td or Tdap) 04/03/2034 04/03/2024, 03/06/2019 Pneumococcal vaccine (65+ years) Completed 06/13/20 Fall Risk Screen (Annual) Completed 09/22/2023 Insurance MEDICARE [facility] Advance Directives For more information, please contact: [phone] Documents on File Type Date Recorded Patient Bench Worker Helper Expl anation Advance Directives 09/15/2021 6:54 PM BODY/ ORGAN DONATION Care Teams Casting Tester Relationship Specialty Start Date End Date Elsewhere, Pcp PCP - General Internal Medicine 01/27/23
--- OUTSIDE RECORDS SUMMARY | 2024-06-01 20:08 | XMS_ITS | Encounter Summary ---
Author Organization [facility] Address [address] [place] [id number] Care Team Providers Care Hide Salter Name Role Phone Elsewhere, Pcp Primary Care Provider Unavailabl e Reason for Visit * Reason Comments Med Refill Encounter Details Date Type Department Care Team (Late st Contact Info) Description 02/27/2024 Refill Department of Dermatology in [place], [place] [address] [place] [phone] Vinita Salas M.D. [address] [place] [address] Med Refill Social History Tobacco Use Types [...] How often do you attend chur or shinto services? More than 4 times per year 07/06/2021 Do you belong to any clubs o r organizations such as buddhism groups, unions, fraternal or athletic groups, or [...] hard at all 01/25/2023 [facility] of Occupat ional Health - Occupational [...] your living situation today? I have a [facility] place to live 01/25/2023 Education Answer Date Recorded What is the highest level of school you have completed or the highest degree you have received? 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
--- OUTSIDE RECORDS SUMMARY | 2024-06-01 20:08 | XMS_ITS | Clinical Summary ---
Author Organization [employer] [facility] Address [place], [place] [address] Care Team Providers Care Equipment Processer Storage Name Role Phone Virginia Lara MD Primary Care Provider Rob Garcia Unavailable Allergies Active Allergy Reactions Criticality Noted Date Comments Codeine Nausea Only 09/09/2016 Can do injection, but not oral. Medications Medication Sig Dispensed Refills Start Date End Date Status dexAMETHasone (DECADRON) 0.5 mg/5 mL solutionIndicatio ns:Pemphigoid of gingival mucosa,Recurrent oral ulcers Take 0.5 mg/5 mL orally swish and spit out. 100 mL 2 Active doxycycline monohydrate (MONODOX) 100 mg capsuleIndication s:Pemphigoid of gingival mucosa,Recurrent oral ulcers Take 1 Capsule (100 mg) by mouth 2 times daily. 180 Capsule 2 Active clotrimazole (MYCELEX UMM) 10 mg trocheIndications :Pemphigoid of gingival mucosa Take 1 tab twice daily after each doxycycline dose to prevent oral thrush. 180 Tablet 2 Active albuterol (PROVENTIL) 0.083 % neb solutionIndicatio ns:COPD with chronic bronchitis (HC) Inhale 3 mL (2.5 mg) via a nebulizer every 4 hours if needed for Shortness Of Breath or Wheezing. 180 mL 5 3 Active albuterol-ipratro pium (DUONEB) (2.5-0.5 mg) in 3 mL NEBULIZATION solutionIndicatio ns:Moderate persistent asthma with acute exacerbation Inhale 3 mL via a nebulizer 4 times daily. 90 mL 3 3 Active albuterol HFA (PRO-AIR; VENTOLIN; PROVENTIL) 90 mcg/actuation inhalerIndication s:Moderate persistent asthma with acute exacerbation Inhale 1-2 Puffs by mouth every 4 hours if needed for Shortness Of Breath or Wheezing. 36 g 11 3 Active cholecalciferol (Vitamin D) 1,000 unit capsule Take 1 Capsule (1,000 units) by mouth once daily. 0 3 Active cyanocobalamin (Vitamin B-12) 1,000 mcg tablet Take 1 Tablet (1,000 mcg) by mouth once daily. 90 Tablet 3 3 Active beclomethasone dipropionate (QVAR REDIHALER) 40 mcg/actuation HFA inhalerIndication s:Moderate persistent asthma with acute exacerbation Inhale 2 Puffs by mouth two times daily. Start at onset of cold virus. Doesn't need a spacer or shaking. 1 Each 3 Active Lidocaine Viscous 2 % liquidIndications :Rash,Recurrent oral ulcers SWISH AND SPIT 5ML BY MOUTH THREE TIMES DAILY NEEDED 100 mL 4 Active omeprazole (PRILOSEC) 40 mg Delayed-Release capsuleIndication s:Gastritis, presence of bleeding unspecified, unspecified chronicity, unspecified gastritis type TAKE 1 CAPSULE BY MOUTH EVERY DAY BEFORE A MEAL 90 Capsule 2 4 Active triamcinolone (ARISTOCORT; KENALOG) 0.1 % cream Apply 1 Application topically to affected area(s) 2 times daily if needed. 4 Active betamethasone dipropionate 0.05% (DIPROLENE) 0.05 % ointment APPLY 1 APPLICATION TOPICALLY DAILY. APPLY TO VULVA. 4 Active gabapentin (NEURONTIN) 100 mg capsuleIndication s:Left-sided chest wall pain,Chronic midline thoracic back pain 100 mg at bedtime x 3 days. If tolerating, increase to 100 mg twice daily. 60 Capsule 4 Active sucralfate (CARAFATE) 1 gram tabletIndications :History of duodenal ulcer TAKE 1 TABLET (1 G) BY MOUTH FOUR TIMES DAILY BEFORE MEALS AND AT BEDTIME. 360 Tablet 2 4 Active hydroxychloroquin e (PLAQUENIL) 200 mg tabletIndications :Connective tissue disease (HC),Positive PRATEEK (antinuclear antibody) TAKE 1 TABLET BY MOUTH TWO TIMES DAILY. 60 Tablet 4 Active hydroxychloroquin e (PLAQUENIL) 200 mg tabletIndications :Connective tissue disease (HC),Positive PRATEEK (antinuclear antibody) Take 1 Tablet (200 mg) by mouth two times daily. 180 Tablet 1 4 05/07/20 24 Discontinued sucralfate (CARAFATE) 1 gram tabletIndications :History of duodenal ulcer TAKE 1 TABLET (1 G) BY MOUTH FOUR TIMES DAILY BEFORE MEALS AND AT BEDTIME. 360 Tablet 4 05/08/20 24 Discontinued Active Problems Problem Noted Date Diagnosed Date [...] Encounters Date Type Department Care Team Description 05/30/2024 1:30 PM CDT Office Visit [facility] [address] [facility] [address] Sergey Olea MD Consult (Referred by Dr. Lara, elevated alkaline phos) 05/30/2024 Travel 05/26/2024 Travel 05/07/2024 Refill [facility] [address] [place] [id number] Rob Garcia MBBS Refill Request (Hydroxychloroquine) 05/05/2024 Refill [facility] [address] [place] [address] Virginia Lara MD Refill Request (Sucralfate) 04/27/2024 Orders Only [facility] Scanner 1 scan: (1-Ord) [place], CHEST 2V, 04/27/2024 03/31/2024 Orders Only [facility] Scanner 1 scan: (1-Ord) [facility], CHEST 2V, 03/31/2024 03/19/2024 Telephone [facility] [address] [place] [address] Virginia Lara MD Liver Problem 03/15/2024 1:10 PM CDT Office Visit [facility] [address] [place] [address] Virginia Lara MD Dizziness (Off and on for 1 year); Derm Problem (Dry skin); Urinary Problem (Lower abdominal pressure, no pain or burning with urination) 03/15/2024 Travel 03/15/2024 Telephone [facility] [address] [place] [address] Virginia Lara MD Appointment from Last 3 Months Immunizations Name Administration Dates Next Due COVID-19 vaccine ([employer] 30mcg/0.3mL) Mehul Murillo MDV 09/17/2021,08/04/2021 Influenza, Inactivated AIIV4 (Age 65+ [...] Sign Reading Time Taken Comments Blood Pressure 136/62 05/30/2024 1:34 PM CDT Pulse 77 05/30/2024 1:34 PM CDT Temperature 36.7 ??C (98.1 ??F) 04/06/2023 2:53 PM CD T Respiratory Rate 8 12/06/2018 10:38 AM CDT Oxygen Saturation 97% 05/30/2024 1:34 PM CDT Inhaled Oxygen Concentration - - Weight 76.7 kg (169 lb 3.2 oz) 05/30/2024 1:34 P M CDT Height 168.5 cm (5' 6.34) 05/10/2023 2:15 PM CD T Body Mass Index 27.03 05/10/2023 2:15 PM CDT Plan of Treatment Health Maintenance Due Date Last Done Comments Zoster (shingles) series for age 50+ (1 of 2) 1961 RSV vaccine for adults or (1 - 1-dose 75+ series) 2017 COVID-19 vaccine series (3 - Pfizer risk [...] Procedure Name Priority Date/Time Associated Diagnosis Comments SCAN-DIAGNOSTIC REPORT 04/27/2024 12:00 AM CDT SCAN-RADIOLOGY REPORT 03/31/2024 12:00 AM CDT CBC WITH AUTO DIFFERENTIAL Routine 03/15/2024 2:08 PM CDT Vertigo CBC WITH AUTO DIFFERENTIAL Routine 03/15/2024 2:08 PM CDT Vertigo COMP METABOLIC PANEL Routine 03/15/2024 2:08 PM CDT Vertigo VITAMIN B12 Routine 03/15/2024 2:08 PM CDT Dry skin dermatitis VITAMIN D 25 (DEFICIENCY) Routine 03/15/2024 2:08 PM CDT Dry skin dermatitis 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 TSH WITH REFLEX Routine 03/15/2024 2:08 PM CDT Thyroid nodule URINALYSIS MICROSCOPIC Routine 03/15/2024 1:48 PM CDT Urinary tract infection symptoms URINE CULTURE Routine 03/15/2024 1:48 PM CDT Urinary tract infection symptoms UA W/ SEDIMENT EXAM REFLEXED PER CRITERIA Routine 03/15/2024 1:48 PM CDT Urinary tract infection symptoms [place] DIANA POST-VOIDING RESIDUAL URINE&/BLADDER CAP Routine 03/15/2024 12:00 AM CDT Urinary tract infection symptoms XR DXA BONE DENSITY 2 SITES AXIAL Routine 04/19/2018 10:08 AM CDT Menopause from Last 3 Months or Most Recently Relevant to Health Maintenance Results * SCAN-DIAGNOSTIC REPORT (04/27/2024 12:00 AM CDT) Scanner OTHER * SCAN-RADIOLOGY REPORT (03/31/2024 12:00 AM CDT) Anatomical Region Laterality Modality Other Scanner OTHER * (ABNORMAL) CBC WITH AUTO DIFFERENTIAL (03/15/2024 2:08 PM CDT) WHITE BLOOD COUNT 7.9 4.5 - 11.0 thou/cu mm 03/15/2024 2:23 PM CDT [facility] RED BLOOD COUNT 4.27 4.00 - 5.20 mil/cu mm 03/15/2024 2:23 PM CDT [facility] HEMOGLOBIN 11.9(L) 12.0 - 16.0 g/dL 03/15/2024 2:23 PM CDT [facility] HEMATOCRIT 37.5 33.0 - 51.0 % 03/15/2024 2:23 PM CDT [facility] MCV 88 80 - 100 fL 03/15/2024 2:23 PM CDT [facility] MCH 27.9 26.0 - 34.0 pg 03/15/2024 2:23 PM CDT [facility] MCHC 31.7(L) 32.0 - 36.0 g/dL 03/15/2024 2:23 PM CDT [facility] RDW 15.0 11.5 - 15.5 % 03/15/2024 2:23 PM CDT [facility] PLATELET COUNT 352 140 - 440 thou/cu mm 03/15/2024 2:23 PM CDT [facility] MPV 9.7 6.5 - 11.0 fL 03/15/2024 2:23 PM CDT [facility] % NEUT 56.9 % 03/15/2024 2:23 PM CDT [facility] % LYMPH 24.3 % 03/15/2024 2:23 PM CDT [facility] % MONO 11.6 % 03/15/2024 2:23 PM CDT [facility] % EOS 6.4 % 03/15/2024 2:23 PM CDT [facility] % BASO 0.8 % 03/15/2024 2:23 PM CDT [facility] ABSOLUTE NEUTROPHILS 4.5 1.7 - 7.0 thou/cu mm 03/15/2024 2:23 PM CDT [facility] ABSOLUTE LYMPHOCYTES 1.9 0.9 - 2.9 thou/cu mm 03/15/2024 2:23 PM CDT [facility] ABSOLUTE MONOCYTES 0.9(H) <0.9 thou/cu mm 03/15/2024 2:23 PM CDT [facility] ABSOLUTE EOSINOPHILS 0.5(H) <0.5 thou/cu mm 03/15/2024 2:23 PM CDT [facility] ABSOLUTE BASOPHILS 0.1 <0.3 thou/cu mm 03/15/2024 2:23 PM CDT [facility] Blood BLOOD SPECIMEN / Unknown Venipuncture / Unknown 03/15/2024 2:08 PM CDT 03/15/2024 2:09 PM CDT Virginia Lara MD HEMATOLOGY [facility] [address] [place] [address], * TSH WITH REFLEX (03/15/2024 2:08 PM CDT) TSH 1.68 0.27 - 4.20 uIU/mL 03/16/2024 1:36 AM CDT [facility] Blood BLOOD SPECIMEN / Unknown Venipuncture / Unknown 03/15/2024 2:08 PM CDT 03/15/2024 2:09 PM CDT Narrative [facility] - 03/16/2024 1:36 AM CDT In Adults, TSH values between 5.00 and 10.00 uIU/ml do not necessarily indicate the presence of Hypothyroidism. Correlation with clinical findings such as presence of goiter and/or Thyroperoxidase (TPO) Antibody may be helpful. For more information please refer to MARCUS 2004; 291: 228-238. Virginia Lara MD CHEMISTRY Performing Organization Address [facility] Co de Phone Number [facility] [address] [place] [address], * VITAMIN D 25 (DEFICIENCY) (03/15/2024 2:08 PM CDT) VITAMIN D TOTAL 23.0 20.0 - 80.0 ng/mL 03/16/2024 1:36 AM CDT [facility] Blood BLOOD SPECIMEN / Unknown Venipuncture / Unknown 03/15/2024 2:08 PM CDT 03/15/2024 2:09 PM CDT Narrative [facility] - 03/16/2024 1:36 AM CDT ? Vitamin D Status Deficiency: ? <20 ng/mL Insufficiency: ?20-29 ng/mL Sufficiency: ?30-80 ng/mL Possible Toxicity: ??>80 ng/mL Based on [facility] recommendations Biotin supplements may cause clinically significant interference for this test assay. ??If interference is suspected, it is strongly recommended that biotin is discontinued for at least one week prior to retesting. Virginia Lara MD SEND OUTS Performing Organization Address [facility] Co de Phone Number [facility] [address] [place] [address], * VITAMIN B12 (03/15/2024 2:08 PM CDT) VITAMIN B12 706 232 - 1,245 pg/mL 03/16/2024 1:36 AM CDT [facility] Blood BLOOD SPECIMEN / Unknown Venipuncture / Unknown 03/15/2024 2:08 PM CDT 03/15/2024 2:09 PM CDT [facility] - 03/16/2024 1:36 AM CDT Biotin supplements may cause clinically significant interference for this test assay. ??If interference is suspected, it is strongly recommended that biotin is discontinued for at least one week prior to retesting. Virginia Lara MD CHEMISTRY [facility] [address] [place] [address], * (ABNORMAL) COMP METABOLIC PANEL (03/15/2024 2:08 PM CDT) SODIUM 144 136 - 145 mmol/L 03/16/2024 1:36 AM [facility] POTASSIUM 4.3 3.5 - 5.1 mmol/L 03/16/2024 1:36 AM [facility] CHLORIDE 107 98 - 107 mmol/L 03/16/2024 1:36 AM [facility] CO2,TOTAL 27 22 - 29 mmol/L 03/16/2024 1:36 AM [facility] ANION GAP 10 5 - 18 03/16/2024 1:36 AM [facility] GLUCOSE 98 70 - 99 mg/dL 03/16/2024 1:36 AM [facility] CALCIUM 9.3 8.8 - 10.2 mg/dL 03/16/2024 1:36 AM [facility] BUN 21 8 - 23 mg/dL 03/16/2024 1:36 AM [facility] CREATININE 0.96(H) 0.50 - 0.90 mg/dL 03/16/2024 1:36 AM [facility] BUN/CREAT RATIO 22(H) 10 - 20 1:36 AM [facility] eGFR 60(L) >90 mL/min/1.7 3m2 03/16/2024 1:36 AM CDT [facility] Comment:As of 2021, eG FR is calculated by the CKD-EPI creatinine equation without race adjustment. ??eGFR can be influenced by muscle mass, exercise, and diet. ??The reported eGFR is an estimation only and is only applicable if the renal function is stable. ALBUMIN 4.0 4.0 - 4.9 g/dL 03/16/2024 1:36 AM CDT [facility] PROTEIN,TOTAL 6.4 6.0 - 8.0 g/dL 03/16/2024 1:36 AM CDT [facility] BILIRUBIN,TOTAL 0.2 0.0 - 1.2 mg/dL 03/16/2024 1:36 AM CDT [facility] ALK PHOSPHATASE 119(H) 35 - 104 IU/L 03/16/2024 1:36 AM CDT [facility] ALT (SGPT) 15 10 - 35 IU/L 03/16/2024 1:36 AM CDT [facility] AST (SGOT) 22 10 - 35 IU/L 03/16/2024 1:36 AM CDT [facility] Blood BLOOD SPECIMEN / Unknown Venipuncture / Unknown 03/15/2024 2:08 PM CDT 03/15/2024 2:09 PM CDT Virginia Lara MD CHEMISTRY [facility] [address] [place] [address], * URINALYSIS MICROSCOPIC (03/15/2024 1:48 PM CDT) RBC 0-2 0-2, None Seen /HPF 03/15/2024 2:16 PM CDT [facility] WBC 3-5 0-2, 3-5, None Seen /HPF 03/15/2024 2:16 PM CDT [facility] BACTERIA Few None Seen, Rare, Few Bacteria/H PF 03/15/2024 2:16 PM CDT [facility] EPITHELIAL CELLS Few None Seen, Few Epi/HPF 03/15/2024 2:16 PM CDT [facility] Mucus Present 03/15/2024 2:16 PM CDT [facility] Urine URINE SPECIMEN / Unknown Non-Blood / Unknown 03/15/2024 1:48 PM CDT 03/15/2024 2:07 PM CDT Virginia Lara MD URINE [facility] [address] [place] [address], * URINE CULTURE (03/15/2024 1:48 PM CDT) CULTURE No growth (<1,000 CFU/mL) 03/17/2024 1:16 PM CDT [facility] Urine URINE SPECIMEN / Unknown Non-Blood / Unknown 03/15/2024 1:48 PM CDT 03/15/2024 2:07 PM CDT Virginia Lara MD MICROBIOLOGY [facility] [address] [place] [address], [place] * (ABNORMAL) UA W/ SEDIMENT EXAM REFLEXED PER CRITERIA (03/15/2024 1:48 PM CDT) COLOR Yellow Yellow Color 03/15/2024 2:11 PM CDT [facility] CLARITY Clear Clear Clarity 03/15/2024 2:11 PM CDT [facility] SPECIFIC GRAVITY,URINE >=1.030(A) 1.010, 1.015, 1.020, 1.025 03/15/2024 2:11 PM CDT [facility] PH,URINE 5.0(A) 6.0, 7.0, 8.0, 5.5, 6.5, 7.5, 8.5 03/15/2024 2:11 PM CDT [facility] UROBILINOGEN, QUALITATIVE Normal Normal EU/dl 03/15/2024 2:11 PM CDT [facility] PROTEIN, URINE 30(A) Negative mg/dL 03/15/2024 2:11 PM CDT [facility] GLUCOSE, URINE Negative Negative mg/dL 03/15/2024 2:11 PM CDT [facility] KETONES,URINE Trace(A) Negative mg/dL 03/15/2024 2:11 PM CDT [facility] BILIRUBIN,URI NE Negative Negative 03/15/2024 2:11 PM CDT [facility] OCCULT BLOOD,URINE Trace(A) Negative 03/15/2024 2:11 PM CDT [facility] NITRITE Negative Negative 03/15/2024 2:11 PM CDT [facility] LEUKOCYTE ESTERASE Negative Negative 03/15/2024 2:11 PM CDT [facility] Urine URINE SPECIMEN / Unknown Non-Blood / Unknown 03/15/2024 1:48 PM CDT 03/15/2024 2:07 PM CDT Virginia Lara MD URINE [facility] [address] [place] [address], * [place] DIANA POST-VOIDING RESIDUAL URINE&/BLADDER CAP (03/15/2024 12:00 AM CDT) Virginia Lara MD [facility] * (ABNORMAL) XR DXA BONE DENSITY 2 SITES AXIAL [41792.1] (04/19/2018 10:08 AM CDT) Anatomical Region Laterality Modality Spine, HIPS, HIPL, HIPR Other Narrative 05/01/2018 7:56 AM CDT Please see scanned document for results of this study. Virginia Lara MD DEXA from Last 3 Months or Most Recently Relevant to Health Maintenance Care Teams Equipment Processer Storage Relationship Specialty Start Date End Date Virginia Lara MD [address] [place] [address] PCP - General Family Practice 12/21/16 Rob Garcia MBBS [facility] [place] [address] Consulting Physician Rheumatology 03/12/24
== END 2024-06-01 20:19 | disposition home or self-care (01) ==
PROVIDERS: Emergency Provider Family Medicine; PCP Family Medicine
DX: S91.311A Laceration without foreign body, right foot, initial encounter (principal); W20.8XXA Other cause of strike by thrown, projected or falling object, initial encounter
CPT/HCPCS: 12001; 73630; 99283; 99284

== ENCOUNTER 2024-06-06 14:12 | Outpatient (CLI) | payer MEDICARE, BC, SELFPAY ==
--- OUTSIDE RECORDS SUMMARY | 2024-06-06 14:14 | XMS_ITS | Encounter Summary ---
Author Organization [facility] Address [address] [place] [address] Care Team Providers Care Clinical Fellow Name Role Phone Elsewhere, Pcp Primary Care Provider Unavailabl e Reason for Visit * Reason Comments Med Refill Encounter Details Date Type Department Care Team (Late st Contact Info) Description 02/27/2024 Refill Department of Dermatology in [place], [place] [address] [place] [phone] Vinita Salas M.D. [address] [place] [address] Med Refill Social History Tobacco Use Types [...] How often do you attend chur or baptist services? More than 4 times per year 07/06/2021 Do you belong to any clubs o r organizations such as spiritism groups, unions, fraternal or athletic groups, or [...] and heating? Not hard at all 01/25/2023 [facility] - [...] your living situation today? I have a [facility] place to live 01/25/2023 Education Answer Date Recorded What is the highest level of school you have completed or the highest degree you have received? 11th grade 07/06/2021 Comments No Sex and Gender Information Value Date Recorded Sex Assigned at Female 04/18/2021 12:58 AM CDT Legal Sex Female 12:30 PM [employer] Gender Identity Female 04/18/2021 12:58 AM CDT Sexual Orientation Straight 04/18/2021 12 :58 AM CDT documented as of this encounter Plan of Treatment Not on file documented as of this encounter Visit Diagnoses Diagnosis Pemphigoid Mucous Membrane (HCC) documented in this encounter Care Teams Clinical Fellow Relationship Specialty Start Date End Date Elsewhere, Pcp PCP - General Internal Medicine 01/27/23 documented as of this encounter
--- OUTSIDE RECORDS SUMMARY | 2024-06-06 14:14 | XMS_ITS | Continuity of Care Document ---
Author Organization [facility] Address [address] [facility] [id number] [place] [address] Phone Care Team Providers Care Priming Mixture Carrier Name Role Phone Unavailable Unavailable Unavailable Procedures Procedure Date Extraction, Erupted Tooth Or Exposed Janeth t (Elevati Extraction, Erupted Tooth Or Exposed Janeth t (Elevati Extraction, Erupted Tooth Or Exposed [facility], Erupted Tooth Or Exposed Janeth t (Elevati Extraction, Erupted Tooth Or Exposed Janeth t (Elevati Extraction, Erupted Tooth Or Exposed Janeth t (Elevati Extraction, Erupted Tooth Or Exposed Janeth t (Elevati Limited Oral Evaluation ??? Problem Focu sed [place] [facility] [place] Urinalysis, non-automated, w/scope Antibody, helicobacter pylori 8 Automated hemogram (CBC) Metabolic panel, comprehensive 08 Hepatic function panel Lipid profile Advance Directives Directive Yes / No Effective Date File Name No Information Encounters Encounter Description Practice Location Reason(s) For Visit Diagnoses Date Provider Providers Copied on Encounter [facility], [address] [place] [address] [id number] [id number], [place] tel:[phone] [facility] DENTAL EXAMINATION Nov-2 3-201 5 No Information [facility], [address] [place] [address] [id number] , [place], [place], [id number], [place] tel:[phone] [place] DENTAL EXAMINATION 5 No Information Office/outpat ient visit,[facility], [id number] , [place], [place], [id number], [place] tel:[phone] [place] No Information 200 8 No Information Family [...]
--- OUTSIDE RECORDS SUMMARY | 2024-06-06 14:14 | XMS_ITS | Clinical Summary ---
Author Organization [facility] [employer] [facility] [facility] Address [place], [place] [address] Care Team Providers Care Jigsaw Operator Name Role Phone Virginia Lara MD Primary Care Provider [phone] Rob Garcia Unavailable Allergies Active Allergy Reactions [...] TWO TIMES DAILY. 60 Tablet 4 Active sucralfate (CARAFATE) 1 gram tabletIndications [...] Encounters Date Type Department Care Team Description 06/01/2024 Orders Only [facility] Scanner 1 scan: (1-Ord) [facility], XR FOOT RT, 06/01/2024 05/30/2024 1:30 PM CDT Office Visit [facility] [address] [place] [address] Sergey Olea MD Consult (Referred by Dr. Lara, elevated alkaline phos) 05/30/2024 Travel 05/26/2024 Travel 05/07/2024 Refill [facility] [address] [place] [id number] Rob Garcia MBBS Refill Request (Hydroxychloroquine) 05/05/2024 Refill [facility] [address] [place] [address] Virginia Lara MD Refill Request (Sucralfate) 04/27/2024 Orders Only [facility] Scanner 1 scan: (1-Ord) [place], CHEST 2V, 04/27/2024 03/31/2024 Orders Only [facility] Scanner 1 scan: (1-Ord) [facility], CHEST 2V, 03/31/2024 03/19/2024 Telephone [facility] [address] [place] [address] Virginia Lara MD Liver Problem 03/15/2024 1:10 PM CDT Office Visit [facility] [address] [place] [address] Virginia Lara MD Dizziness (Off and on for 1 year); Derm Problem (Dry skin); Urinary Problem (Lower abdominal pressure, no pain or burning with urination) 03/15/2024 Travel 03/15/2024 Telephone [facility] [address] [place] [address] Virginia Lara MD Appointment from Last 3 Months Immunizations Name Administration Dates Next Due COVID-19 vaccine (Beanup 30mcg/0.3mL) P F MDV 09/17/2021,08/04/2021 Influenza, Inactivated AIIV4 (Age 65+ [...] Priority Date/Time Associated Diagnosis Comments SCAN-RADIOLOGY REPORT 06/01/2024 12:00 AM CDT SCAN-DIAGNOSTIC REPORT 04/27/2024 12:00 AM CDT SCAN-RADIOLOGY REPORT 03/31/2024 12:00 AM CDT CBC WITH AUTO DIFFERENTIAL Routine 03/15/2024 2:08 PM CDT Vertigo CBC WITH AUTO DIFFERENTIAL Routine 03/15/2024 2:08 PM CDT Vertigo COMP METABOLIC PANEL Routine 03/15/2024 2:08 PM CDT Vertigo VITAMIN B12 Routine 03/15/2024 2:08 PM CDT Dry skin dermatitis VITAMIN D 25 (DEFICIENCY) Routine 03/15/2024 2:08 PM CDT Dry skin dermatitis 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 TSH WITH REFLEX Routine 03/15/2024 2:08 PM CDT Thyroid nodule URINALYSIS MICROSCOPIC Routine 03/15/2024 1:48 PM CDT Urinary tract infection symptoms URINE CULTURE Routine 03/15/2024 1:48 PM CDT Urinary tract infection symptoms UA W/ SEDIMENT EXAM REFLEXED PER CRITERIA Routine 03/15/2024 1:48 PM CDT Urinary tract infection symptoms [place] D[place]NA POST-VOIDING RESIDUAL URINE&/BLADDER CAP Routine 03/15/2024 12:00 AM CDT Urinary tract infection symptoms XR DXA BONE DENSITY 2 SITES AXIAL Routine 04/19/2018 10:08 AM CDT Menopause from Last 3 Months or Most Recently Relevant to Health Maintenance Results * SCAN-RADIOLOGY REPORT (06/01/2024 12:00 AM CDT) Only the most recent of2 resultswithin the time period is included. Anatomical Region Laterality Modality Other Scanner OTHER * SCAN-DIAGNOSTIC REPORT (04/27/2024 12:00 AM CDT) Scanner OTHER * (ABNORMAL) CBC WITH AUTO DIFFERENTIAL (03/15/2024 2:08 PM CDT) WHITE BLOOD COUNT 7.9 4.5 - 11.0 thou/cu mm 03/15/2024 2:23 PM CDT [facility] RED BLOOD COUNT 4.27 4.00 - 5.20 mil/cu mm 03/15/2024 2:23 PM CDT [facility] HEMOGLOBIN 11.9(L) 12.0 - 16.0 g/dL 03/15/2024 2:23 PM CDT [facility] HEMATOCRIT 37.5 33.0 - 51.0 % 03/15/2024 2:23 PM CDT [facility] MCV 88 80 - 100 fL 03/15/2024 2:23 PM CDT [facility] MCH 27.9 26.0 - 34.0 pg 03/15/2024 2:23 PM CDT [facility] MCHC 31.7(L) 32.0 - 36.0 g/dL 03/15/2024 2:23 PM CDT [facility] RDW 15.0 11.5 - 15.5 % 03/15/2024 2:23 PM CDT [facility] PLATELET COUNT 352 140 - 440 thou/cu mm 03/15/2024 2:23 PM CDT [facility] MPV 9.7 6.5 - 11.0 fL 03/15/2024 2:23 PM CDT [facility] % NEUT 56.9 % 03/15/2024 2:23 PM CDT [facility] % LYMPH 24.3 % 03/15/2024 2:23 PM CDT [facility] % MONO 11.6 % 03/15/2024 2:23 PM CDT [facility] % EOS 6.4 % 03/15/2024 2:23 PM CDT [facility] % BASO 0.8 % 03/15/2024 2:23 PM CDT [facility] ABSOLUTE NEUTROPHILS 4.5 1.7 - 7.0 thou/cu mm 03/15/2024 2:23 PM CDT [facility] ABSOLUTE LYMPHOCYTES 1.9 0.9 - 2.9 thou/cu mm 03/15/2024 2:23 PM CDT [facility] ABSOLUTE MONOCYTES 0.9(H) <0.9 thou/cu mm 03/15/2024 2:23 PM CDT [facility] ABSOLUTE EOSINOPHILS 0.5(H) <0.5 thou/cu mm 03/15/2024 2:23 PM CDT [facility] ABSOLUTE BASOPHILS 0.1 <0.3 thou/cu mm 03/15/2024 2:23 PM CDT [facility] Blood BLOOD SPECIMEN / Unknown Venipuncture / Unknown 03/15/2024 2:08 PM CDT 03/15/2024 2:09 PM CDT Virginia Lara MD HEMATOLOGY [facility] [address] [place] [address], * TSH WITH REFLEX (03/15/2024 2:08 PM CDT) TSH 1.68 0.27 - 4.20 uIU/mL 03/16/2024 1:36 AM CDT [facility] Blood BLOOD SPECIMEN / Unknown Venipuncture / Unknown 03/15/2024 2:08 PM CDT 03/15/2024 2:09 PM CDT Narrative [facility] - 03/16/2024 1:36 AM CDT In Adults, TSH values between 5.00 and 10.00 uIU/ml do not necessarily indicate the presence of Hypothyroidism. Correlation with clinical findings such as presence of goiter and/or Thyroperoxidase (TPO) Antibody may be helpful. For more information please refer to MARCUS 2004; 291: 228-238. Virginia Lara MD CHEMISTRY Performing Organization Address [facility] Co de Phone Number [facility] [address] [place] [address] * VITAMIN D 25 (DEFICIENCY) (03/15/2024 2:08 PM CDT) VITAMIN D TOTAL 23.0 20.0 - 80.0 ng/mL 03/16/2024 1:36 AM CDT [facility] Blood BLOOD SPECIMEN / Unknown Venipuncture / Unknown 03/15/2024 2:08 PM CDT 03/15/2024 2:09 PM CDT Narrative [facility] - 03/16/2024 1:36 AM CDT ? Vitamin D Status Deficiency: ? <20 ng/mL Insufficiency: ?20-29 ng/mL Sufficiency: ?30-80 ng/mL Possible Toxicity: ??>80 ng/mL Based on [place] of [employer] recommendations Biotin supplements may cause clinically significant interference for this test assay. ??If interference is suspected, it is strongly recommended that biotin is discontinued for at least one week prior to retesting. Virginia Lara MD SEND OUTS Performing Organization Address [facility] Co de Phone Number [facility] [address] [place] [address], * VITAMIN B12 (03/15/2024 2:08 PM CDT) VITAMIN B12 706 232 - 1,245 pg/mL 03/16/2024 1:36 AM CDT [facility] Blood BLOOD SPECIMEN / Unknown Venipuncture / Unknown 03/15/2024 2:08 PM CDT 03/15/2024 2:09 PM CDT [facility] - 03/16/2024 1:36 AM CDT Biotin supplements may cause clinically significant interference for this test assay. ??If interference is suspected, it is strongly recommended that biotin is discontinued for at least one week prior to retesting. Virginia Lara MD CHEMISTRY [facility] [address] [place] [address], * (ABNORMAL) COMP METABOLIC PANEL (03/15/2024 2:08 PM CDT) SODIUM 144 136 - 145 mmol/L 03/16/2024 1:36 AM [facility] POTASSIUM 4.3 3.5 - 5.1 mmol/L 03/16/2024 1:36 AM [facility] CHLORIDE 107 98 - 107 mmol/L 03/16/2024 1:36 AM [facility] CO2,TOTAL 27 22 - 29 mmol/L 03/16/2024 1:36 AM [facility] ANION GAP 10 5 - 18 03/16/2024 1:36 AM [facility] GLUCOSE 98 70 - 99 mg/dL 03/16/2024 1:36 AM [facility] CALCIUM 9.3 8.8 - 10.2 mg/dL 03/16/2024 1:36 AM [facility] BUN 21 8 - 23 mg/dL 03/16/2024 1:36 AM T [facility] CREATININE 0.96(H) 0.50 - 0.90 mg/dL 03/16/2024 1:36 AM [facility] BUN/CREAT RATIO 22(H) 10 - 20 1:36 AM CDT [facility] eGFR 60(L) >90 mL/min/1.7 3m2 03/16/2024 1:36 AM CDT [facility] Comment:As of 2021, eG FR is calculated by the CKD-EPI creatinine equation without race adjustment. ??eGFR can be influenced by muscle mass, exercise, and diet. ??The reported eGFR is an estimation only and is only applicable if the renal function is stable. ALBUMIN 4.0 4.0 - 4.9 g/dL 03/16/2024 1:36 AM CDT [facility] PROTEIN,TOTAL 6.4 6.0 - 8.0 g/dL 03/16/2024 1:36 AM CDT [facility] BILIRUBIN,TOTAL 0.2 0.0 - 1.2 mg/dL 03/16/2024 1:36 AM CDT [facility] ALK PHOSPHATASE 119(H) 35 - 104 IU/L 03/16/2024 1:36 AM CDT [facility] ALT (SGPT) 15 10 - 35 IU/L 03/16/2024 1:36 AM CDT [facility] AST (SGOT) 22 10 - 35 IU/L 03/16/2024 1:36 AM CDT [facility] Blood BLOOD SPECIMEN / Unknown Venipuncture / Unknown 03/15/2024 2:08 PM CDT 03/15/2024 2:09 PM CDT Virginia Lara MD CHEMISTRY [facility] [address] [place] [address], * URINALYSIS MICROSCOPIC (03/15/2024 1:48 PM CDT) RBC 0-2 0-2, None Seen /HPF 03/15/2024 2:16 PM CDT [facility] WBC 3-5 0-2, 3-5, None Seen /HPF 03/15/2024 2:16 PM CDT [facility] BACTERIA Few None Seen, Rare, Few Bacteria/H PF 03/15/2024 2:16 PM CDT [facility] EPITHELIAL CELLS Few None Seen, Few Epi/HPF 03/15/2024 2:16 PM CDT [facility] Mucus Present 03/15/2024 2:16 PM CDT [facility] Urine URINE SPECIMEN / Unknown Non-Blood / Unknown 03/15/2024 1:48 PM CDT 03/15/2024 2:07 PM CDT Virginia Lara MD URINE [facility] [address] [place] [address], * URINE CULTURE (03/15/2024 1:48 PM CDT) CULTURE No growth (<1,000 CFU/mL) 03/17/2024 1:16 PM CDT [facility] Urine URINE SPECIMEN / Unknown Non-Blood / Unknown 03/15/2024 1:48 PM CDT 03/15/2024 2:07 PM CDT Virginia Lara MD MICROBIOLOGY [facility] [address] [address], [place] * (ABNORMAL) UA W/ SEDIMENT EXAM REFLEXED PER CRITERIA (03/15/2024 1:48 PM CDT) COLOR Yellow Yellow Color 03/15/2024 2:11 PM CDT [facility] CLARITY Clear Clear Clarity 03/15/2024 2:11 PM CDT [facility] SPECIFIC GRAVITY,URINE >=1.030(A) 1.010, 1.015, 1.020, 1.025 03/15/2024 2:11 PM CDT [facility] PH,URINE 5.0(A) 6.0, 7.0, 8.0, 5.5, 6.5, 7.5, 8.5 03/15/2024 2:11 PM CDT [facility] UROBILINOGEN, QUALITATIVE Normal Normal EU/dl 03/15/2024 2:11 PM CDT [facility] PROTEIN, URINE 30(A) Negative mg/dL 03/15/2024 2:11 PM CDT [facility] GLUCOSE, URINE Negative Negative mg/dL 03/15/2024 2:11 PM CDT [facility] KETONES,URINE Trace(A) Negative mg/dL 03/15/2024 2:11 PM CDT [facility] BILIRUBIN,URI NE Negative Negative 03/15/2024 2:11 PM CDT [facility] OCCULT BLOOD,URINE Trace(A) Negative 03/15/2024 2:11 PM CDT [facility] NITRITE Negative Negative 03/15/2024 2:11 PM CDT [facility] LEUKOCYTE ESTERASE Negative Negative 03/15/2024 2:11 PM CDT [facility] Urine URINE SPECIMEN / Unknown Non-Blood / Unknown 03/15/2024 1:48 PM CDT 03/15/2024 2:07 PM CDT Virginia Lara MD URINE Performing Organization Address [facility]/State/ZIP Co de Phone Number [facility] [address] [place] [address], * [place] D[place]NA POST-VOIDING RESIDUAL URINE&/BLADDER CAP (03/15/2024 12:00 AM CDT) Virginia Lara MD [facility] - [facility] * (ABNORMAL) XR DXA BONE DENSITY 2 SITES AXIAL [33450.1] (04/19/2018 10:08 AM CDT) Anatomical Region Laterality Modality Spine, HIPS, HIPL, HIPR Other Narrative 05/01/2018 7:56 AM CDT Please see scanned document for results of this study. Virginia Lara MD DEXA from Last 3 Months or Most Recently Relevant to Health Maintenance Care Teams Jigsaw Operator Relationship Specialty Start Date End Date Virginia Lara MD [address] [place] [address] PCP - General Family Practice 12/21/16 Rob Garcia MBBS [facility] [place] [address] [place] [id number] Consulting Physician Rheumatology 03/12/24
--- OUTSIDE RECORDS SUMMARY | 2024-06-06 14:14 | XMS_ITS | Clinical Summary ---
Author Organization [facility] Address [address] [address] Care Team Providers Care Creative Assistant Name Role Phone Unavailable Primary Care Provider Unavailabl e Source Comments You are receiving this document as you are listed as the primary care provider,follow-up provider, or the patient has been referred to you for consultation.This is in compliance with the Medicare and[facility] Hospital[facility] EHR Incentive Program,which states Providers who transition their patient to another setting of careor provider of care or refers their patient to another provider of care shouldprovide summary care record for each transition of care or referral. [employer] Allergies Active Allergy Reactions Criticality Noted Date [...]
--- OUTSIDE RECORDS SUMMARY | 2024-06-06 14:14 | XMS_ITS | Referral Summary ---
Author Organization [facility] Address [address] [place] [address] Care Team Providers Care Lode Miner Name Role Phone Elsewhere, Pcp Primary Care Provider Unavailabl e Source Comments Patient records contain information from all sites at [facility]. For routine questions regarding patient records, call [phone] during business hours, M-F 8:00 AM - 5:00 PM Central Time. Record requests for emergency care only can be directed to [phone] at any time.[facility] Allergies Active Allergy Reactions Criticality Noted Date [...] (01/19/2021): Added automatically from request for surgery [id number] Immunizations Name Administration Dates Next Due Influenza [...] week 07/06/2021 How often do you attend [facility] or christianity services? More than 4 times per year 07/06/2021 Do you belong to any clubs o r organizations such as hindu groups, unions, fraternal or athletic groups, or [...] and heating? Not hard at all 01/25/2023 [facility] [place] of Occupat ional Health - Occupational Stress [...] AM CDT Legal Sex Female 12:30 PM MATERIALS AND PROCESSES MANAGER Gender Identity Female 04/18/2021 12:58 AM CDT Sexual Orientation Straight 04/18/2021 12 :58 AM CDT Last Filed Vital Signs Vital Sign Reading Time Taken Comments Blood Pressure 126/67 09/22/2023 11:46 AM MATERIALS AND PROCESSES MANAGER Pulse 65 09/22/2023 11:46 AM MATERIALS AND PROCESSES MANAGER Temperature 36.6 ??C (97.9 ??F) 09/22/2023 11:[address] Respiratory Rate 17 09/22/2023 11:46 AM MATERIALS AND PROCESSES MANAGER Oxygen Saturation 93% 09/22/2023 11:46 AM MATERIALS AND PROCESSES MANAGER Inhaled Oxygen Concentration - - Weight 74.2 kg (163 lb 9.3 oz) 09/22/2023 10:14 AM MATERIALS AND PROCESSES MANAGER Height 169.6 cm (5' 6.77) 09/22/2023 10:[address] Body Mass Index 25.8 09/22/2023 10:14 AM MATERIALS AND PROCESSES MANAGER Plan of Treatment Not on file Insurance MEDICARE [facility] Advance Directives For more information, please contact: [phone] Documents on File Type Date Recorded Patient Attractions Associate Expl anation Advance Directives 09/15/2021 6:54 PM BODY/ ORGAN DONATION Care Teams Lode Miner Relationship Specialty Start Date End Date Elsewhere, Pcp PCP - General Internal Medicine 01/27/23
--- OUTSIDE RECORDS SUMMARY | 2024-06-06 14:14 | XMS_ITS | Clinical Summary ---
Author Organization [facility] Address [address] [place] [address] Care Team Providers Care Hardware Manager Name Role Phone Elsewhere, Pcp Primary Care Provider Unavailabl e Source Comments Patient records contain information from all sites at [facility]. For routine questions regarding patient records, call [phone] during business hours, M-F 8:00 AM - 5:00 PM Central Time. Record requests for emergency care only can be directed to [phone] at any time.[facility] Allergies Active Allergy Reactions Criticality Noted Date [...] (01/19/2021): Added automatically from request for surgery [id number] Immunizations Name Administration Dates Next Due Influenza TIV (IM) 05/23/2019,08/01/2018 Influenza, Quadrivalent, Adjuvanted, Preservativ e Free 06/13/2023 PCV20 06/13/2023 Tdap 03/06/2019 Family History Medical History Relation Name Comments Other cancer Daughter Elissa Stack liver ca ncer Migraines Mother Trudy Osteoporosis Mother Trudy Stroke Mother rTudy Relation Name Status Comments Daughter Elissa Stack [...] often do you attend chur ch or judaism services? More than 4 times per year 07/06/2021 Do you belong to any clubs o r organizations such as yarsanism groups, unions, fraternal or athletic groups, or [...] and heating? Not hard at all 01/25/2023 [facility] of Occupat ional Health - Occupational Stress [...] your living situation today? I have a [facility] place to live 01/25/2023 Education Answer Date Recorded What is the highest level of school you have completed or the highest degree you have received? 11th grade 07/06/2021 Comments No Sex and Gender Information Value Date Recorded Sex Assigned at Female 04/18/2021 12:58 AM CDT Legal Sex Female 12:30 PM TOE LINING CLOSER Gender Identity Female 04/18/2021 12:58 AM CDT Sexual Orientation Straight 04/18/2021 12 :58 AM CDT Last Filed Vital Signs Vital Sign Reading Time Taken Comments Blood Pressure 126/67 09/22/2023 11:46 AM TOE LINING CLOSER Pulse 65 09/22/2023 11:46 AM TOE LINING CLOSER Temperature 36.6 ??C (97.9 ??F) 09/22/2023 11:[address] Respiratory Rate 17 09/22/2023 11:46 AM TOE LINING CLOSER Oxygen Saturation 93% 09/22/2023 11:46 AM TOE LINING CLOSER Inhaled Oxygen Concentration - - Weight 74.2 kg (163 lb 9.3 oz) 09/22/2023 10:14 AM TOE LINING CLOSER Height 169.6 cm (5' 6.77) 09/22/2023 10:[address] Body Mass Index 25.8 09/22/2023 10:14 AM TOE LINING CLOSER Plan of Treatment Health Maintenance Due Date [...] Screen (Annual) Completed 09/22/2023 Insurance MEDICARE [facility] Advance Directives For more information, please contact: [phone] Documents on File Type Date Recorded Patient Gun Club Manager Expl anation Advance Directives 09/15/2021 6:54 PM BODY/ ORGAN DONATION Care Teams Hardware Manager Relationship Specialty Start Date End Date Elsewhere, Pcp PCP - General Internal Medicine 01/27/23
--- OUTSIDE RECORDS SUMMARY | 2024-06-06 14:14 | XMS_ITS ---
Author Organization [facility] Address [address] [place] [address] Care Team Providers Care Phlebotomist Name Role Phone Unavailable Unavailable Unavailable Surgery Details Not on file Complications Check Surgery Details section. Procedure Estimated Blood Loss Check Surgery Details section. Procedure Findings Check Surgery Details section. Procedure Specimens Taken Check Surgery Details section.
--- NOTE | 2024-06-06 14:30 | CRLHL7_ITS ---
For Patients: As a result of the Century Cures Act, medical imaging exams and procedure reports are released immediately into your electronic medical record. You may view this report before your referring provider. If you have questions, please contact your health care provider. INDICATION: Elevated alkaline phosphatase. COMPARISON: CT chest with intravenous contrast 09/20/2022. TECHNIQUE: Precontrast T1 and T2 weighted imaging; T2 haste imaging; diffusion-weighted imaging; in and out of phase imaging; postcontrast imaging including subtraction; 20 cc of Dotarem contrast was injected. FINDINGS: No focal hepatic or splenic pathology. No pancreatic pathology. Normal caliber pancreatic duct. No peripancreatic inflammatory changes. Status post cholecystectomy. Dilated intra as well as extrahepatic biliary duct system. The extrahepatic common bile duct measuring 11 mm in diameter. A 5.2 mm filling defect in the distal common duct indicating common bile duct stone. no adrenal pathology. Kidneys are unremarkable. IMPRESSION: 1. Status post cholecystectomy. 2. Choledocholithiasis. 3. Dilated intra as well as extrahepatic biliary duct system. Dictated by Thong Roberts MD @ 06/06/2024 3:59:41 PM (Electronically Signed)
== END 2024-06-06 14:13 | disposition home or self-care (01) ==
LOC: MRI 14:12
PROVIDERS: PCP Family Medicine; Visit Provider Internal Medicine Gastroenterology
DX: R74.8 Abnormal levels of other serum enzymes (principal); K80.50 Calculus of bile duct without cholangitis or cholecystitis without obstruction; R10.11 Right upper quadrant pain; Z80.0 Family history of malignant neoplasm of digestive organs
CPT/HCPCS: 74183; A9575

== ENCOUNTER 2024-09-16 12:15 | Emergency (ER) | payer MEDICARE, BC, SELFPAY ==
[2024-09-16] VITALS (7 sets, daily range): BP systolic 116–143; BP diastolic 59–80; PULSE 82–90; RESP 18; TEMP 36.8; O2SAT 91–97; BMI 25.1
--- OUTSIDE RECORDS SUMMARY | 2024-09-16 12:18 | XMS_ITS | Clinical Summary ---
Author Organization [facility] Address [place], [place] [address] Care Team Providers Care Tech Writer Name Role Phone Virginia Lara MD Primary Care Provider Rob Garcia Unavailable Allergies Active Allergy Reactions Criticality Noted Date Comments Codeine Nausea Only 09/09/2016 Can do injection, but not oral. Medications dexAMETHasone (DECADRON) 0.5 mg/5 mL solutionIndicati ons:Pemphigoid of gingival mucosa,Recurrent oral ulcers Take 0.5 mg/5 mL orally swish and spit out. 100 mL 2 Active doxycycline monohydrate (MONODOX) 100 mg capsuleIndicatio ns:Pemphigoid of gingival mucosa,Recurrent oral ulcers Take 1 Capsule (100 mg) by mouth 2 times daily. 180 Capsule 2 Active clotrimazole (MYCELEX UMM) 10 mg trocheIndication s:Pemphigoid of gingival mucosa Take 1 tab twice daily after each doxycycline dose to prevent oral thrush. 180 Tablet 2 Active albuterol (PROVENTIL) 0.083 % neb solutionIndicati ons:COPD with chronic bronchitis (HC) Inhale 3 mL (2.5 mg) via a nebulizer every 4 hours if needed for Shortness Of Breath or Wheezing. 180 mL 5 3 Active cholecalciferol (Vitamin D) 1,000 unit capsule Take 1 Capsule (1,000 units) by mouth once daily. 0 3 Active cyanocobalamin (Vitamin B-12) 1,000 mcg tablet Take 1 Tablet (1,000 mcg) by mouth once daily. 90 Tablet 3 3 Active beclomethasone dipropionate (QVAR REDIHALER) 40 mcg/actuation HFA inhalerIndicatio ns:Moderate persistent asthma with acute exacerbation Inhale 2 Puffs by mouth two times daily. Start at onset of cold virus. Doesn't need a spacer or shaking. 1 Each 3 Active Lidocaine Viscous 2 % liquidIndication s:Rash,Recurrent oral ulcers SWISH AND SPIT 5ML BY MOUTH THREE TIMES DAILY NEEDED 100 mL 4 Active triamcinolone (ARISTOCORT; KENALOG) 0.1 % cream Apply 1 Application topically to affected area(s) 2 times daily if needed. 4 Active betamethasone dipropionate 0.05% (DIPROLENE) 0.05 % ointment APPLY 1 APPLICATION TOPICALLY DAILY. APPLY TO VULVA. 4 Active sucralfate (CARAFATE) 1 gram tabletIndication s:History of duodenal ulcer TAKE 1 TABLET (1 G) BY MOUTH FOUR TIMES DAILY BEFORE MEALS AND AT BEDTIME. 360 Tablet 2 4 Active Ventolin HFA 90 mcg/actuation inhalerIndicatio ns:Moderate persistent asthma with acute exacerbation INHALE 1 TO 2 PUFFS BY MOUTH EVERY 4 HOURS NEEDED FOR SHORTNESS OF BREATH OR FOR WHEEZE 36 Each 11 4 Active albuterol-ipratr opium (DUONEB) (2.5-0.5 mg) in 3 mL NEBULIZATION solutionIndicati ons:Moderate persistent asthma with acute exacerbation Inhale 3 mL via a nebulizer 4 times daily. 90 mL 3 4 Active omeprazole (PRILOSEC) 40 mg Delayed-Release capsuleIndicatio ns:Gastritis, presence of bleeding unspecified, unspecified chronicity, unspecified gastritis type Take 1 Capsule (40 mg) by mouth once daily before a meal. 90 Capsule 1 4 Active predniSONE (DELTASONE) 20 mg tabletIndication s:COPD with chronic bronchitis (HC),COPD exacerbation (HC) Take 2 Tablets (40 mg) by mouth once daily with a meal. 10 Tablet Active Active Problems Problem Noted Date Diagnosed Date Prolonged QT interval 07/23/2024 Left anterior fascicular block 07/23/2024 Positive PRATEEK (antinuclear antibody) 07/23/2024 COPD exacerbation 10/17/2023 Moderate persistent asthma with [...] Encounters Date Type Department Care Team Description 09/15/2024 Refill [facility] [address] [place] [address] Virginia Lara MD Refill Request (Albuterol-ipratropi um) 08/01/2024 Orders Only [facility] [address] [place] [address] [address] Virginia Lara MD 1 scan: (1-Ord) NFLD-EKG-07/23/24 08/01/2024 [address]phone [facility] [address] [facility] [address] [place] [address] Cardiology, Anw Appointment 07/31/2024 Telephone [facility] [address] [place] [address] Rob Garcia MBBS Appointment (Pt will be calling back for appt to see Dr Garcia. Ask for Summer. Summer Gomez/MA.... 08/02/2024 ...... 11:51 AM/) 07/31/2024 Orders Only [facility] [address] [place] [id number] Rob Garcia MBBS <No scans attached> 07/23/2024 1:30 PM INSIDE SALES ADVISOR Ancillary Procedure [address] [address] 07/23/2024 12:45 PM INSIDE SALES ADVISOR Office Visit [address] [address] Virginia Lara MD Follow Up (cough) 07/23/2024 Travel 07/23/[address] [address] Virginia Lara MD Cough 07/22/[address] [address] Virginia Lara MD Refill Request (albuterol-ipratropi um (DUONEB) (2.5-0.5 mg) in 3 mL NEBULIZATION solution/omeprazole (PRILOSEC) 40 mg Delayed-Release capsule /) 07/21/[address] [address] Virginia Lara MD Refill Request (Albuterol-ipratropi um) 06/30/2024 Refill [facility] [address] [place] [address] Virginia Lara MD Refill Request (Omeprazole) 06/24/2024 Orders Only [facility] Scanner 1 scan: (1-Ord) [place] CHEST 2V, 06/24/2024 06/18/[address] [address] Virginia Lara MD Refill Request (Albuterol-ipratropi um) from Last 3 Months Immunizations Name Administration Dates Next Due COVID-19 vaccine ([employer] 30mcg/0.3mL) P F, MDV 09/17/2021,08/04/2021 Influenza, Inactivated [...] 0 05/10/2023 Social Connections Answer Date Recorded Do you often feel lonely or isolated from those around you? 0 07/23/2024 Financial Resource Strain Answer Date R ecorded Difficulty of Paying Living Expenses 3 07/23/2024 Difficulty of Paying Living Expenses Not on file 07/23/2024 Food Insecurity Answer Date Recorded Do you worry your food will run out before you are able to buy more? 1 07/23/2024 Transportation Needs Answer Date Record ed Does lack of transportation keep you from medica l appointments? 1 07/23/2024 Does lack of transportation keep you from work, meetings or getting things that you need? 1 07/23/2024 Housing Stability Answer Date Recorded What is your housing situation today? 1 07/23/2024 Utilities Answer Date Recorded Do you have trouble paying f or utilities (for example, heat, electricity, water, phone)? 1 07/23/2024 Comments No Sex and Gender Information Value Date Recorded Sex Assigned at Not on file Legal Sex Female 2:20 PM INSIDE SALES ADVISOR Gender Identity Not on file Sexual Orientation Not on file Obstetrics History Last Filed Vital Signs Vital Sign Reading Time Taken Comments Blood Pressure 148/75 07/23/2024 12:51 PM INSIDE SALES ADVISOR Pulse 78 07/23/2024 12:51 PM INSIDE SALES ADVISOR Temperature 36.8 C (98.3 F) 07/23/2024 12:51 PM INSIDE SALES ADVISOR Respiratory Rate 8 12/06/2018 10:38 AM CDT Oxygen Saturation 97% 07/23/2024 12:51 PM INSIDE SALES ADVISOR Inhaled Oxygen Concentration - - Weight 75.8 kg (167 lb) 07/23/2024 12:51 PM INSIDE SALES ADVISOR Height 168.5 cm (5' 6.34) 05/10/2023 2:15 PM CD T Body Mass Index 26.68 05/10/2023 2:15 PM CDT Plan of Treatment Health Maintenance Due Date Last Done Comments Zoster (shingles) series for age 50+ (1 of 2) 1992 RSV vaccine for adults or (1 - 1-dose 75+ series) 2017 COVID-19 vaccine series ( - season) 2024 09/17/2021, 08/04/2021 Influenza for age 65+ 04/14/2024 [...] Tdap Completed 03/06/2019 Pneumococcal series for age 50+ Completed 3 Procedures Procedure Name Priority Date/Time Associated Diagnosis Comments EKG 12 LEAD Routine 08/01/2024 10:48 AM INSIDE SALES ADVISOR Chest pain in adult OCHOA (dyspnea on exertion) CO READING EKG - NO CHARGE, COMP ONLY Routine 08/01/2024 10:47 AM INSIDE SALES ADVISOR Chest pain in adult OCHOA (dyspnea on exertion) CT CHEST PE STUDY STAT 07/23/2024 2:0 3 PM INSIDE SALES ADVISOR Cough, unspecified type Chest pain in adult OCHOA (dyspnea on exertion) CREATININE,ISTAT Routine 07/23/2024 1:19 PM INSIDE SALES ADVISOR Cough, unspecified type CBC WITH AUTO DIFFERENTIAL Routine 07/23/2024 1:18 PM INSIDE SALES ADVISOR Cough, unspecified type Night sweats COMP METABOLIC PANEL Routine 07/23/2024 1:18 PM INSIDE SALES ADVISOR Cough, unspecified type SCAN-RADIOLOGY REPORT 06/24/2024 12:00 AM INSIDE SALES ADVISOR XR DXA BONE DENSITY 2 SITES AXIAL Routine 04/19/2018 10:08 AM CDT Menopause from Last 3 Months or Most Recently Relevant to Health Maintenance Results * EKG 12 LEAD (08/01/2024 10:48 AM INSIDE SALES ADVISOR) us Virginia Lara MD EKG ORD Final Resul t * CO READING EKG - NO CHARGE, COMP ONLY (08/01/2024 10:47 AM INSIDE SALES ADVISOR) us Virginia Lara MD PB - PROVIDER READINGS Gaby l Result * CT CHEST PE STUDY (07/23/2024 2:03 PM INSIDE SALES ADVISOR) Anatomical Region Laterality Modality CHEST, THORAX, HEART Computed To mography 07/23/2024 2:24 PM INSIDE SALES ADVISOR Impressions 07/23/2024 2:24 PM INSIDE SALES ADVISOR No pulmonary embolism. Peribronchial thickening, likely infectious/inflammatory in etiology, including bronchitis. No focal consolidations. Please note that all CT scans at this facility use dose modulation, iterative reconstruction, and/or weight-based dosing when appropriate to reduce radiation dose to as low as reasonably achievable. Dictated by Grayson De Oliveira MD @ 07/23/2024 2:24:03 PM (Electronically Signed) Narrative 07/23/2024 2:24 PM INSIDE SALES ADVISOR For Patients: As a result of the Cures Act, medical imaging exams and procedure reports are released immediately into your electronic medical record. You may view this report before your referring provider. If you have questions, please contact your health care provider. INDICATION: Cough. TECHNIQUE: CT chest PE was acquired with 100 cc Omnipaque 350 IV contrast. COMPARISON: October 2023. FINDINGS: Heart and vasculature: Contrast opacification of the pulmonary arterial tree is adequate. No sign of pulmonary embolism. Cardiomegaly. Thoracic aorta and pulmonary artery are normal in caliber. Lungs and pleura: Peribronchial thickening. No suspicious nodules or infiltrates. Scattered atelectasis. No pleural effusions, pleural thickening, or pneumothorax. Lymph nodes/mediastinum: Tiny hiatal hernia. No mediastinal, hilar, or axillary adenopathy. Chest wall: No masses. Upper abdomen: No acute or significant findings. Bones: Unremarkable for age. Procedure Note Grayson De Oliveira MD - 07/23/2024 For Patients: As a result of the Cures Act, medical imagingexams and procedure reports are released immediately into your electronicmedical record. You may view this report before your referring provider.If you have questions, please contact your health care provider. INDICATION: Cough. TECHNIQUE: CT chest PE was acquired with 100 cc Omnipaque 350 IV contrast. COMPARISON: October 2023. FINDINGS: Heart and vasculature: Contrast opacification of the pulmonary arterialtree is adequate. No sign of pulmonary embolism. Cardiomegaly. Thoracicaorta and pulmonary artery are normal in caliber. Lungs and pleura: Peribronchial thickening. No suspicious nodules orinfiltrates. Scattered atelectasis. No pleural effusions, pleuralthickening, or pneumothorax. Lymph nodes/mediastinum: Tiny hiatal hernia. No mediastinal, hilar, oraxillary adenopathy. Chest wall: No masses. Upper abdomen: No acute or significant findings. Bones: Unremarkable for age. IMPRESSION: No pulmonary embolism. Peribronchial thickening, likely infectious/inflammatory in etiology,including bronchitis. No focal consolidations. Please note that all CT scans at this facility use dose modulation,iterative reconstruction, and/or weight-based dosing when appropriate toreduce radiation dose to as low as reasonably achievable. Dictated by Grayson De Oliveira MD @ 07/23/2024 2:24:03 PM (Electronically Signed) us Virginia Lara MD CT Final Resul t * POCT Creatinine (07/23/2024 1:19 PM INSIDE SALES ADVISOR) [facility] POCT,CREATININ E, ISTAT 0.9 0.6 - 1.3 mg/dL [facility] Blood BLOOD SPECIMEN / Unknown 07/23/2024 1:19 PM INSIDE SALES ADVISOR 07/23/2024 1:19 PM INSIDE SALES ADVISOR Virginia Lara MD CHEMISTRY Final Resul t [facility] [address] [place] [address], [facility] [address] [place] [address] * (ABNORMAL) CBC AND DIFFERENTIAL (07/23/2024 1:18 PM INSIDE SALES ADVISOR) [facility] WHITE BLOOD CELL COUNT 7.4 3.8 - 10.8 Thousand/u L [facility] RED BLOOD CELL COUNT 4.32 3.80 - 5.10 Million/uL [facility] HEMOGLOBIN 11.9 11.7 - 15.5 g/dL [facility] HEMATOCRIT 37.2 35.0 - 45.0 % [facility] MCV 86.1 80.0 - 100.0 fL [facility] MCH 27.5 27.0 - 33.0 pg [facility] MCHC 32.0 32.0 - 36.0 g/dL [facility] Comment: For adults, a slight decrease in the calculated MCHC value (in the range of 30 to 32 g/dL) is most likely not clinically significant; however, it should be interpreted with caution in correlation with other red cell parameters and the patient's clinical condition. RDW 13.1 11.0 - 15.0 % [facility] PLATELET COUNT 360 140 - 400 Thousand/u L [facility] MPV 10.8 7.5 - 12.5 fL [facility] ABSOLUTE NEUTROPHILS 3,012 1,500 - 7,800 cells/uL [facility] ABSOLUTE LYMPHOCYTES 1,850 850 - 3,900 cells/uL [facility] ABSOLUTE MONOCYTES 696 200 - 950 cells/uL [facility] ABSOLUTE EOSINOPHILS 1,724(H) 15 - 500 cells/uL [facility] ABSOLUTE BASOPHILS 118 0 - 200 cells/uL [facility] NEUTROPHILS 40.7 % [facility] LYMPHOCYTES 25.0 % [facility] MONOCYTES 9.4 % [facility] EOSINOPHILS 23.3 % [facility] BASOPHILS 1.6 % [facility] Blood BLOOD SPECIMEN / Unknown 07/23/2024 1:18 PM INSIDE SALES ADVISOR 07/23/2024 1:18 PM INSIDE SALES ADVISOR us Virginia Lara MD HEMATOLOGY Final Resul t [employer] [facility] [place] [address], [facility] [address] [place] [address] * (ABNORMAL) COMP METABOLIC PANEL (07/23/2024 1:18 PM INSIDE SALES ADVISOR) GLUCOSE 92 65 - 99 mg/dL [facility] Comment: Fasting reference interval UREA NITROGEN (BUN) 13 7 - 25 mg/dL [facility] CREATININE 0.91 0.60 - 0.95 mg/dL [facility] EGFR 63 > OR = 60 mL/min/1. 73m2 [facility] BUN/CREATININE RATIO SEE NOTE: 6 - 22 (calc) [facility] Comment: Not Reported: BUN and Creatinine are within reference range. SODIUM 142 135 - 146 mmol/L [facility] POTASSIUM 4.6 3.5 - 5.3 mmol/L [facility] CHLORIDE 108 98 - 110 mmol/L [facility] CARBON DIOXIDE 26 20 - 32 mmol/L [facility] CALCIUM 9.5 8.6 - 10.4 mg/dL [facility] PROTEIN, TOTAL 6.4 6.1 - 8.1 g/dL [facility] ALBUMIN 4.1 3.6 - 5.1 g/dL [facility] GLOBULIN 2.3 1.9 - 3.7 g/dL (calc) [facility] ALBUMIN/GLOBULIN RATIO 1.8 1.0 - 2.5 (calc) [facility] BILIRUBIN, TOTAL 0.3 0.2 - 1.2 mg/dL [facility] ALKALINE PHOSPHATASE 154(H) 37 - 153 U/L [facility] AST 26 10 - 35 U/L [facility] ALT 19 6 - 29 U/L [facility] Blood BLOOD SPECIMEN / Unknown 07/23/2024 1:18 PM INSIDE SALES ADVISOR 07/23/2024 1:18 PM INSIDE SALES ADVISOR Virginia Lara MD CHEMISTRY Final Resul t [employer] [address] [place] [address], [facility] [address] [place] [phone] * SCAN-RADIOLOGY REPORT (06/24/2024 12:00 AM INSIDE SALES ADVISOR) Anatomical Region Laterality Modality Other us Scanner OTHER Final Result * (ABNORMAL) XR DXA BONE DENSITY 2 SITES AXIAL [74251.1] (04/19/2018 10:08 AM CDT) Anatomical Region Laterality Modality Spine, HIPS, HIPL, HIPR Other Narrative 05/01/2018 7:56 AM CDT Please see scanned document for results of this study. Virginia Lara MD DEXA Final Resul t from Last 3 Months or Most Recently Relevant to Health Maintenance Insurance MEDICARE PB ONLY MEDICARE PART B HB ONLY MEDICARE PART A HB ONLY [facility] Care Teams Tech Writer Relationship Specialty Start Date End Date Virginia Lara MD [address] [place] [address] PCP - General Family Practice 12/21/16 Rob Garcia MBBS [facility] [address] Consulting Physician Rheumatology 03/12/24
--- OUTSIDE RECORDS SUMMARY | 2024-09-16 12:18 | XMS_ITS | Clinical Summary ---
Author Organization [employer] Address [address], [place] [address] Care Team Providers Care Go Cart Mechanic Name Role Phone Unavailable Primary Care Provider Unavailabl e Source Comments You are receiving this document as you are listed as the primary care provider,follow-up provider, or the patient has been referred to you for consultation.This is in compliance with the Medicare and[facility] EHR Incentive Program,which states Providers who transition their patient to another setting of careor provider of care or refers their patient to another provider of care shouldprovide summary care record for each transition of care or referral. [employer] Allergies Active Allergy Reactions Criticality Noted Date [...] the prescription pain medications (oxycodone, hydrocodone or tramadol.) This may also be safely mixed with [...] 72 03/29/2019 12:40 PM CDT Temperature 36.7 C (98 F) 03/29/2019 1:30 PM CDT Respiratory Rate 16 [...]
--- OUTSIDE RECORDS SUMMARY | 2024-09-16 12:18 | XMS_ITS | Clinical Summary ---
Author Organization [facility] Address [address] [place] [address] Care Team Providers Care Foster Care Social Worker Name Role Phone Elsewhere, Pcp Primary Care Provider Unavailabl e Source Comments Patient records contain information from all sites at [facility]. For routine questions regarding patient records, call [phone] during business hours, M-F 8:00 AM - 5:00 PM Central Time. Record requests for emergency care only can be directed to [phone] at any time.[facility] Allergies Active Allergy Reactions Criticality Noted Date [...] a day 60 capsule 11 4 Active clotrimazole (Mycelex) 10 mg trocheIndication s:Pemphigoid Mucous Membrane (HCC) DISSOLVE 1 UMM (10 MG TOTAL) IN THE MOUTH 2 (TWO) TIMES A DAY. 60 Umm 11 4 Active betamethasone dipropionate, augmented, (Diprolene) 0.05 % ointmentIndicati ons:Lichen Sclerosus APPLY 1 APPLICATION TOPICALLY NEEDED (PAIN/INFLAMMAT ION VULVA). APPLY TO VULVA. 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 Med Refill 07/04/2024 2:57 PM SAMPLE BOX MAKER Anesthesia Event Division of Gastroenterology in [address] [phone] Ekaterina Ovalle APRN, CRNA Charlebois, Jennifer D, APRN, CRNA, DNA 07/04/2024 11:45 AM SAMPLE BOX MAKER - 07/04/2024 11:59 PM S[employer] BOX [employer] Hospital Encounter Department of Radiology, [facility] in [address] [phone] Manuelito Jacobs M.D. Stone Common Duct Discharge Disposition: Home or Self Care 07/04/2024 11:23 AM SAMPLE BOX MAKER - 07/04/2024 5:17 PM SAMPLE BOX MAKER Hospital Encounter Division of Gastroenterology in [address] [phone] Manuelito Jacobs M.D. Lee, Elizabeth A, APRN, CRNA Stone Common Duct Discharge Disposition: Home or Self Care from Last 3 Months Immunizations Immunization Administration Dates Next Due Influenza TIV (IM) [...] time ago Alcohol Use Standard Drinks/Week Comments Not Currently [...] week 07/06/2021 How often do you attend [facility] or [facility] services? More than 4 times [...] and heating? Not hard at all 01/25/2023 [facility] of Occupat ional Health - Occupational Stress [...] living situation today? I have a [facility] place to live 01/25/2023 Education Answer Date Recorded What is the highest level of school you have completed or the highest degree you have received? 11th grade 07/06/2021 Comments No Sex and Gender Information Value Date Recorded Sex Assigned at Female 04/18/2021 12:58 AM CDT Legal Sex Female 12:30 PM S[employer]OX [employer] Gender Identity Female 04/18/2021 12:58 AM CDT Sexual Orientation Straight 04/18/2021 12 :58 AM CDT Last Filed Vital Signs Vital Sign Reading Time Taken Comments Blood Pressure 127/57 07/04/2024 4:40 PM SAMPLE BOX MAKER Pulse 84 07/04/2024 4:45 PM SAMPLE BOX MAKER Temperature 36.5 C (97.7 F) 07/04/2024 3:51 PM SAMPLE BOX MAKER Respiratory Rate 15 07/04/2024 4:45 PM SAMPLE BOX MAKER Oxygen Saturation 90% 07/04/2024 4:45 PM SAMPLE BOX MAKER Inhaled Oxygen Concentration - - Weight 74.2 kg (163 lb 9.3 oz) 09/22/2023 10:14 AM SAMPLE BOX MAKER Height 170.2 cm (5' 7) 07/04/2024 12:08 PM SAMPLE BOX MAKER Body Mass Index 25.8 09/22/2023 10:14 AM SAMPLE BOX MAKER Plan of Treatment Health Maintenance Due Date Last Done Comments Zoster Vaccines (1 of 2) 1961 RSV vaccine - (32-3 6 weeks) or 60+ years (1 - 1-dose 75+ series) 2017 COVID-19 Vaccine (3 - Pfizer risk series) 10/15/2021 09/17/2021, 08/04/2021 Influenza Vaccine (#1) 2024 , 05/23/2019, 08/01/2018 Depression Screening (Annual PHQ-2) 08/14/2024 Fall Risk Screen (Annual) 08/14/2024 DTaP,Tdap,and Td Vaccines (3 - Td or Tdap) 04/03/2034 04/03/2024, 03/06/2019 Pneumococcal vaccine (50+ years) Completed 06/13/2023 IPV Vaccines Aged Out No longer eligi ble based on patient's age to complete this topic Procedures Procedure Name Priority Date/Time Associated Diagnosis Comments FL FLUORO LESS THAN 1 HOUR RAD - Routine (most inpatients and all outpatients) 07/04/2024 3:41 PM SAMPLE BOX MAKER Stone Common Duct LDA ANE ENDOTRACHEAL AIRWAY Routine 07/04/2024 3:07 PM SAMPLE BOX MAKER ERCP Routine 07/04/2024 1:22 PM SAMPLE BOX MAKER Stone Common Duct ERCP Routine 07/04/2024 1:22 PM SAMPLE BOX MAKER Stone Common Duct from Last 3 Months Results * FL Fluoro Less Than 1 Hour (07/04/2024 3:41 PM SAMPLE BOX MAKER) Narrative ERCP LOS RST - 07/04/2024 3:41 PM SAMPLE BOX MAKER This exam does not require a radiologist review or interpretation. Please refer to the patient's medical record on this date for clinical details. Manuelito FELICIANO FLUOROSCOPY PROCEDURE S Final Result ERCP LOS RST * LDA ANE ENDOTRACHEAL AIRWAY (07/04/2024 3:07 PM SAMPLE BOX MAKER) Narrative Ekaterina Ovalle APRN, CRNA - 07/04/2024 3:07 PM SAMPLE BOX MAKER Ekaterina Ovalle APRN, CRNA 07/04/2024 3:13 PM Airway Date/Time: 07/04/2024 3:07 PM Performed by: Ekaterina Ovalle APRN, CRNA Authorized by: Ekaterina Ovalle APRN, CRNA Patient location during procedure: OR / Procedure Area PROCEDURE DETAILS: Mask difficulty assessment: easy mask Final airway type: video laryngoscope Laryngeal Manipulation: no Final best view of glottic structures - Cormack/Lehane Score: grade 1 ETT location: oral VL device: glide scope [place] scope blade size: 3 Tube size: 6.5 ETT distance at teeth/gum: 21 Oral tube type: standard ETT Cuffed: yes Leak Test Performed: no Number of attempt to successful placement: 1 Airway confirmation: bilateral breath sounds, positive ETCO2 and bilateral chest rise Other previous techniques attempted: none PRE PROCEDURE DETAILS: Urgency: elective Preop assessment of probable difficulty: no difficulty anticipated Preoxygenation: bag valve mask SEDATION / ANESTHESIA Anesthesia method: anesthesia POST PROCEDURE DETAILS: Procedure outcome: successful Notable Events: no complications Ekaterina Ovalle APRN, CRNA ANESTHESIA ORDERABLES Final Result * ERCP (07/04/2024 1:22 PM SAMPLE BOX MAKER) 07/04/2024 1:22 PM SAMPLE BOX MAKER Impressions [employer] - 07/04/2024 3:47 PM SAMPLE BOX MAKER Post-op Diagnoses: - The major papilla was located entirely within a diverticulum. - A filling defect consistent with a stone was seen on the cholangiogram. - The upper two thirds were dilated, acquired. - Choledocholithiasis was confirmed. Complete removal was accomplished by biliary sphincterotomy, balloon sphincteroplasty (dilation) and balloon extraction. - A biliary sphincterotomy was performed. - The biliary pancreatic junction was successfully dilated. Narrative [employer] - 07/04/2024 3:47 PM SAMPLE BOX MAKER João 6 GI GI Patient Name: Elizabeth Vazquez Date of : 1940 Age: 83 Procedure Date: 07/04/2024 Procedure: ERCP Providers: Griffin Fontenot MD Referring Provider: Manuelito Jacobs MD Pre-op Diagnoses: Common bile duct stone(s), Abdominal pain of suspected biliary origin, Abnormal abdominal CT, Bile duct stone on Computed Tomogram Scan, Abnormal MRCP, Abnormal abdominal MRI Recommendation: - Clear liquid diet for 1 day. - Observe patient's clinical course. Findings: A athletic scout film of the abdomen was obtained. Surgical clips, consistent with a previous cholecystectomy, were seen in the right upper quadrant of the abdomen. The duodenoscope was advanced to a normal major papilla in the descending duodenum. Examination of the pharynx, larynx and associated structures, and upper GI tract was normal. The major papilla was generous and located entirely within a narrow diverticulum. With intestinal motility the entire ampulla retracted and extended in and out of the diverticulum, yielding a good view of the papilla but a soft structure that readily retreats with catheter contact. A short angled hydrophilic (Navipro) guidewire was passed into the biliary tree. The short-nosed traction sphincterotome was passed over the guidewire and the bile duct was then deeply cannulated. Contrast was injected. I personally interpreted the bile duct images. Ductal flow of contrast was adequate. Image quality was adequate. The middle and upper thirds of the main bile duct were diffusely dilated as a consequence of stone disease. The largest diameter was 18 mm in the proximal half of the duct. There was evidence of a cholecystectomy. The middle third of the main bile duct contained a filling defect consisten wityh the stone noted on CT and MRCP imaging. A moderate length biliary sphincterotomy was made with a traction (standard) sphincterotome using ERBE electrocautery. There was no post-sphincterotomy bleeding. Balloon sphincteroplasty (Dilation) of the sphincterotomy site with an 8 mm balloon dilator yielded prompt effacement of the mid balloon waist. The biliary tree was then swept with a 15 mm balloon starting at the bifurcation. One black oval stone was removed. No stones remained. Procedural Details: The patient was seen, evaluated, [...] and oxygen saturations were monitored continuously. The Duodenoscope was introduced under direct vision through the mouth, and used to inject contrast into the bile duct. The ERCP was accomplished without difficulty. The patient tolerated the procedure well. Estimated Blood Loss: Estimated blood loss: none. Complications: No immediate complications. Sedation: General anatomy and physiology instructor Participation: I personally performed the entire procedure. Griffin Fontenot MD 07/04/2024 3:47:36 PM This report has been signed electronically. Number of Addenda: 0 Manuelito Jacobs M.D. GI PROCEDURE ORDERABLES F inal Result Performing Organization Address City/State/RUST Co de Phone Number [facility] from Last 3 Months Insurance MEDICARE [facility] Advance Directives For more information, please contact: [phone] Documents on File Type Date Recorded Patient Rn Transport Expl anation Advance Directives 09/15/2021 6:54 PM BODY/ [employer]GAN DONATION Care Teams Foster Care Social Worker Relationship Specialty Start Date End Date Elsewhere, Pcp PCP - General Internal Medicine 01/27/23
--- OUTSIDE RECORDS SUMMARY | 2024-09-16 12:18 | XMS_ITS | Encounter Summary ---
Author Organization [facility] Address [address] [place] [address] Care Team Providers Care Armoring Machine Operator Name Role Phone Elsewhere, Pcp Primary Care Provider Unavailabl e Reason for Visit * Reason Comments Med Refill Encounter Details Date Type Department Care Team (Late st Contact Info) Description 08/07/2024 Refill Department of Dermatology in [place], [place] [address] [place] [phone] Vinita Salas M.D. [address] [place] [address] Med Refill Social History Tobacco Use Types [...] How often do you attend chur or pentecostalism services? More than 4 times per year 07/06/2021 Do you belong to any clubs o r organizations such as amish groups, unions, fraternal or athletic groups, or [...] and heating? Not hard at all 01/25/2023 [facility]at ional Health [...] money to buy more. Never true 01/26/20 23 Within the past 12 months, t he [...] your living situation today? I have a [facility] place to live 01/25/2023 Education Answer Date Recorded What is the highest level of school you have completed or the highest degree you have received? 11th grade 07/06/2021 Comments No Sex and Gender Information Value Date Recorded Sex Assigned at Female 04/18/2021 12:58 AM CDT Legal Sex Female 12:30 PM M1A1 [employer] Gender Identity Female 04/18/2021 12:58 AM CDT Sexual Orientation Straight 04/18/2021 12 :58 AM CDT documented as of this encounter Plan of Treatment Not on file documented as of this encounter Visit Diagnoses Diagnosis Lichen Sclerosus documented in this encounter Care Teams Armoring Machine Operator Relationship Specialty Start Date End Date Elsewhere, Pcp PCP - General Internal Medicine 01/27/23 documented as of this encounter
--- NOTE | 2024-09-16 12:36 | CRLHL7_ITS ---
For Patients: As a result of the Century Cures Act, medical imaging exams and procedure reports are released immediately into your electronic medical record. You may view this report before your referring provider. If you have questions, please contact your health care provider. INDICATION: Cough ongoing, patient has asthma TECHNIQUE: Chest 2 views. COMPARISON: X-ray chest June 24, 2024 FINDINGS/ IMPRESSION: No focal consolidation, effusion or pneumothorax. Cardiac size is within normal limit without pulmonary edema. No acute osseous findings. Dictated by Bj Waite MD @ 09/16/2024 1:27:53 PM (Electronically Signed)
--- NOTE | 2024-09-16 12:38 | ED.GENADULT ---
HPI - General Adult General Chief complaint: Cough Stated complaint: chest discomfort/SOB Time Seen by Provider: 09/16/24 12:22 History of Present Illness HPI narrative: This 83-year-old female comes in reporting cough that is productive and began about a week ago. She states that she had COVID about a month ago but got over those symptoms. She states that sometimes she has felt short of breath related to coughing and seemed to be worse a couple days ago. She does report a history of asthma symptoms. She arrives here with normal vital signs. Related Data Home Medications ?Medication ?Instructions ?Recorded ?Confirmed omeprazole 40 mg capsule,delayed 40 mg PO DAILY 09/19/22 09/16/24 release cholecalciferol (vitamin D3) 25 25 mcg PO QDAY 07/19/23 08/18/24 mcg (1,000 unit) capsule clotrimazole 10 mg frankie 10 mg PO BID 07/19/23 09/16/24 albuterol sulfate 90 mcg/actuation 1 - 2 puff inhalation Q4H PRN 03/31/24 09/16/24 aerosol inhaler (Ventolin HFA) wheezing Previous Rx's ?Medication ?Instructions ?Recorded doxycycline hyclate 100 mg capsule 100 mg PO BID #14 caps 04/27/24 ipratropium 0.5 mg-albuterol 3 mg 3 ml inhalation Q4H PRN #90 mL 04/27/24 (2.5 mg base)/3 mL nebulization soln methylprednisolone 4 mg tablets in See Rx Instructions PO .COMPLEX 09/16/24 a dose pack (Medrol (Farrukh)) #21 ea Allergies Allergy/AdvReac Type Severity Reaction Status Date / Time ibuprofen AdvReac Intermediate abdominal Verified 08/18/24 10:09 discomfort codeine AdvReac Unknown Gastrointestinal Verified 08/18/24 10:09 Upset Review of Systems Status of ROS: Reports: 10 or more systems reviewed and unremarkable except as noted in History and below Narrative: Constitutional: No fevers, no weight gain or loss. Eyes: No discharge. No vision changes. HENT: No congestion, no sore throat, no ear pain. Cardiovascular: No chest pain, no palpitations. Respiratory: Cough with secondary shortness of breath. ugh. Gastrointestinal: No abdominal pain, no vomiting, no diarrhea. Genitourinary: No dysuria, no hematuria. Musculoskeletal: Normal range of motion. Skin: No rashes, no pruritis. Neurological: No dizziness, weakness, sensory change, speech change. Endo/Heme/Allergies: No bruising or bleeding. No polydipsia. Pysch: no suicidality, no anxiety, no insomnia. All other systems reviewed and are negative. 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) Knee fracture, left Vulvar pain ?R10.2 - Pelvic and perineal pain (ICD-10) History of duodenal ulcer ?Z87.19 - Personal history of other diseases of the digestive system (ICD-10) Headache ?R51.9 - Headache, unspecified (ICD-10) Elevated blood pressure reading ?R03.0 - Elevated blood-pressure reading, without diagnosis of hypertension (ICD-10) Back pain ?M54.9 - Dorsalgia, unspecified (ICD-10) Atopic dermatitis ?L20.9 - Atopic dermatitis, unspecified (ICD-10) Surgical History Status post laparoscopic cholecystectomy ?Z90.49 - Acquired absence of other specified parts of digestive tract (ICD-10) History of tonsillectomy and adenoidectomy ?Z90.89 - Acquired absence of other organs (ICD-10) History of surgery on left wrist (07/28/15) ?Z98.890 - Other specified postprocedural states (ICD-10) History of sinus surgery ?Z98.890 - Other specified postprocedural states (ICD-10) History of hysterectomy ?Z90.710 - Acquired absence of both cervix and uterus (ICD-10) History of hammer toe correction ?Z98.890 - Other specified postprocedural states (ICD-10) ?Z87.39 - Personal history of other diseases of the musculoskeletal system and connective tissue (ICD-10) History of elbow surgery (2019) ?Z98.890 - Other specified postprocedural states (ICD-10) History of carpal tunnel surgery of left wrist (2019) ?Z98.890 - Other specified postprocedural states (ICD-10) History of bilateral cataract extraction (2014) ?Z98.41 - Cataract extraction status, right eye (ICD-10) ?Z98.42 - Cataract extraction status, left eye (ICD-10) History of arthroscopy of knee (1989) ?Z98.890 - Other specified postprocedural states (ICD-10) History of appendectomy ?Z90.49 - Acquired absence of other specified parts of digestive tract (ICD-10) Social History Smoking Status: Former smoker Do you use any of these nicotine containing products: None Second hand tobacco smoke exposure: No How often do you have a drink containing alcohol: never AUDIT-C Alcohol total score: 0 Non-prescribed substance use: denies use service: No Exam Narrative: Exam Narrative: Constitutional: Well-developed, well-nourished, no acute distress. HEENT: Normocephalic, atraumatic. Neck: Normal range of motion. Nontender. Supple. Heart: Regular. No murmurs. Normal rate. Intact distal pulses. Lungs: Clear to auscultation. No chest discomfort. No wheezes, rhonchi, or rales. Abdomen: Normal bowel sounds. Nontender. No rebound tenderness. Genitalia: Deferred. Back: No midline tenderness. Normal range of motion. Extremities: Normal range of motion. No injury. No pedal edema. Skin: Intact. No rash. Warm. No erythema or pallor. Neurologic: No altered sensation. No weakness. Alert and oriented. Psychiatric: No suicidality. No anxiety or depression. No insomnia. Nursing notes and vitals signs are reviewed. Const: Vital Signs, click to edit/add: Vital Signs - 24 hr 09/16/24 12:21 Temperature 98.3 F Pulse Rate [Pulse Oximeter] 90 Respiratory Rate 18 Blood Pressure [Le ft Upper Arm] 143/80 H Pulse Oximetry 96 Oxygen Delivery Me thod Room Air Course Vital Signs Vital signs: Initial Vital Signs Respiratory Effort Normal 09/16/24 12:20 Respiratory Depth Normal 09/16/24 12:20 Respiratory Pattern Normal 09/16/24 12:20 Vital Signs Temperature 98.3 F 09/16/24 12:21 Pulse Rate 90 09/16/24 12:21 Respiratory Rate 18 09/16/24 12:21 Blood Pressure 143/80 H 09/16/24 12:21 Pulse Oximetry 96 09/16/24 12:21 Oxygen Delivery Method Room Air 09/16/24 12:21 Temperature 98.3 F 09/16/24 12:21 Pulse Rate 90 09/16/24 12:21 Respiratory Rate 18 09/16/24 12:21 Blood Pressure 143/80 H 09/16/24 12:21 Pulse Oximetry 96 09/16/24 12:21 Oxygen Delivery Method Room Air 09/16/24 12:21 Medications Administered Medications: Discontinued Medications Generic Name Dose Route Start Last Admin Trade Name Freq PRN Reason Stop Dose Admin Dexamethasone 10 mg 09/16/24 12:36 09/16/24 12:48 Dexamethasone 10 Mg/Ml Inj PO 09/16/24 12:37 10 mg ONCE ONE Administration Medical Decision Making MDM Narrative Medical decision making narrative: This patient comes in with cough and some associated shortness of breath report. Chest x-ray is obtained and returns without sign of any acute pulmonary disease. Nasal pharyngeal swab also is negative for viruses tested. She is maintaining sufficient oximetry and other vital signs. She is okay to return home. She does report asthma history and did receive an oral dose of dexamethasone 10 mg. I did also provide a Medrol Dosepak for symptomatic relief. Lab Data Labs: Lab Results 09/16/24 Range/Units 12:37 SARS-CoV-2 (PCR) Negative SARS-CoV-2 (Negative) Influenza Type A (PCR) Negative PCR FLU A (Negative) Influenza Type B (PCR) Negative PCR FLU B (Negative) RSV (PCR) Negative PCR RSV (Negative) Imaging Data Chest x-ray: Radiologist's impression: No focal consolidation, effusion or pneumothorax. Cardiac size is within normal limit without pulmonary edema. No acute osseous findings. Discharge Plan Discharge Clinical Impression: Acute upper respiratory infection Patient Disposition: Home, Self-Care Condition: Stable Additional Instructions: Take medication as prescribed. Use [id number] medicines also as needed and directed. Follow up with MD return if worsening. Prescriptions: New methylprednisolone [Medrol (Farrukh)] 4 mg tablets,dose pack See Rx Instructions .ROUTE .COMPLEX Qty: 21 0RF Rx Instructions: orally per package directions No Action clotrimazole 10 mg frankie 10 mg PO BID cholecalciferol (vitamin D3) 25 mcg (1,000 unit) capsule 25 mcg PO QDAY albuterol sulfate [Ventolin HFA] 90 mcg/actuation HFA aerosol inhaler 1 - 2 puff INHALATION Q4H PRN (Reason: wheezing) omeprazole 40 mg capsule,delayed release(DR/EC) 40 mg PO DAILY Patient Comments: TAKE ONE CAPSULE BY MOUTH DAILY 30 MINUTES BEFORE MORNING MEAL ipratropium-albuterol 0.5 mg-3 mg(2.5 mg base)/3 mL solution for nebulization 3 ml inhalation Q4H PRNQty: 90 0RF Rx Instructions: until breathing returns to target peak flow/parameters doxycycline hyclate 100 mg capsule 100 mg PO BID Qty: 14 0RF Follow Up/Referrals: Virginia Lara MD [Primary Care Provider] - Stand Alone Forms: [employer] Info Instructions
--- OUTSIDE RECORDS SUMMARY | 2024-09-16 12:45 | XMS_ITS | Clinical Summary ---
Author Organization [facility] Address [address], [place] [address] Care Team Providers Care Torch Solderer Name Role Phone Unavailable Primary Care Provider Unavailabl e Source Comments You are receiving this document as you are listed as the primary care provider,follow-up provider, or the patient has been referred to you for consultation.This is in compliance with the Medicare and[facility] Cent[facility]aid EHR Incentive Program,which states Providers who transition their patient to another setting of careor provider of care or refers their patient to another provider of care shouldprovide summary care record for each transition of care or referral. [employer] Allergies Active Allergy Reactions Criticality Noted Date [...]
--- OUTSIDE RECORDS SUMMARY | 2024-09-16 12:45 | XMS_ITS | Encounter Summary ---
Author Organization [facility] Address [address] [place] [address] Care Team Providers Care Supervisor Housecleaner Name Role Phone Elsewhere, Pcp Primary Care Provider Unavailabl e Reason for Visit * Reason Comments Med Refill Encounter Details Date Type Department Care Team (Late st Contact Info) Description 08/07/2024 Refill Department of Dermatology in [place], [place] [address] [place] [phone] Vinita Salas M.D. [address] [place] [address] Med Refill Social History Tobacco Use Types [...] any clubs o r organizations such as pentecostalism groups, unions, fraternal or athletic groups, or [...] and heating? Not hard at all 01/25/2023 [facility] of Occupat ional Health - Occupational [...] living situation today? I have a [facility] place to live 01/25/2023 Education Answer Date Recorded What is the highest level of school you have completed or the highest degree you have received? 11th grade 07/06/2021 Comments No Sex and Gender Information Value Date Recorded Sex Assigned at Female 04/18/2021 12:58 AM CDT Legal Sex Female 12:30 PM APPRAISER IRRIGATION TAX Gender Identity Female 04/18/2021 12:58 AM CDT Sexual Orientation Straight 04/18/2021 12 :58 AM CDT documented as of this encounter Plan of Treatment Not on file documented as of this encounter Visit Diagnoses Diagnosis Lichen Sclerosus documented in this encounter Care Teams Supervisor Housecleaner Relationship Specialty Start Date End Date Elsewhere, Pcp PCP - General Internal Medicine 01/27/23 documented as of this encounter
--- OUTSIDE RECORDS SUMMARY | 2024-09-16 12:46 | XMS_ITS | Continuity of Care Document ---
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 sta enoch ASA causes her ulcers to flare up [facility] codeine Assertion nausea Propensity to adverse reactions to drug Active [facility] Encounters Location Location Details Encounter Type Encounter Number Reason For Visit Attending Provider ADM Date DC Date Status Source [facility] [id number] 2 week follow up Kirill-Kumar Call Cancel Facial Plastic Surgery [facility] [id number] DAILY HEADACHES Edson Bollu Cancel [facility] [id number] L HAND PAIN/SWELL ING [facility] [id number] 2 month fu Edson Bollu Cancel [facility] [id number] 4 WK FU LT SCAPHOID FRACTURE [facility] Procedures Procedure Code Date Perfomer Comments Source Carpal tunnel surgery [facility] Partial hysterectomy [facility] Appendectomy [facility] Knee surgery [facility] Tonsillectomy [facility] Ad[facility] Sinus surgery 03/26/15 [facility] Toe surgery [facility]
--- OUTSIDE RECORDS SUMMARY | 2024-09-16 12:46 | XMS_ITS | Clinical Summary ---
Author Organization [facility] Address [place], [place] [address] Care Team Providers Care Raw Stock Machine Loader Name Role Phone Virginia Lara MD Primary [...] Type Department Care Team Description 09/15/2024 Refill [facility] [address] [place] [address] Virginia Lara MD Refill Request (Albuterol-ipratropi um) 08/01/2024 Orders Only [facility] [address] [place] [address] Virginia Lara MD 1 scan: (1-Ord) NFLD-EKG-07/23/24 08/01/2024 Telephone [facility] [address] [facility] [address] [place] [address] Cardiology, Anw Appointment 07/31/2024 Telephone [facility] [address] [place] [address] Rob Garcia MBBS Appointment (Pt will be calling back for appt to see Dr Garcia. Ask for Summer. Summer Gomez/MA.... 08/02/2024 ...... 11:51 AM/) 07/31/2024 Orders Only [facility] [address] [place] [phone] Rob Garcia MBBS <No scans attached> 07/23/2024 1:30 PM CARRIER OPERATOR Ancillary Procedure [address] [address] 07/23/2024 12:45 PM CARRIER OPERATOR Office Visit [address] [address] Virginia Lara MD Follow Up (cough) 07/23/2024 Travel 07/23/[address] [address] Virginia Lara MD Cough 07/22/[address] [address] Virginia Lara MD Refill Request (albuterol-ipratropi um (DUONEB) (2.5-0.5 mg) in 3 mL NEBULIZATION solution/omeprazole (PRILOSEC) 40 mg Delayed-Release capsule /) 07/21/[address] [address] Virginia Lara MD Refill Request (Albuterol-ipratropi um) 06/30/2024 Refill [facility] [address] [place] [address] Virginia Lara MD Refill Request (Omeprazole) 06/24/2024 Orders Only [facility] Scanner 1 scan: (1-Ord) [place] CHEST 2V, 06/24/2024 06/18/[address] [address] Virginia Lara MD Refill Request (Albuterol-ipratropi um) from Last 3 Months Immunizations Name Administration Dates Next Due COVID-19 vaccine ([employer] 30mcg/0.3mL) P F, MDV 09/17/2021,08/04/2021 Influenza, Inactivated [...] on file Legal Sex Female 2:20 PM CARRIER OPERATOR Gender Identity Not on file Sexual Orientation Not on file Obstetrics History Last Filed Vital Signs Vital Sign Reading Time Taken Comments Blood Pressure 148/75 07/23/2024 12:51 PM CARRIER OPERATOR Pulse 78 07/23/2024 12:51 PM CARRIER OPERATOR Temperature 36.8 C (98.3 F) 07/23/2024 12:51 PM CARRIER OPERATOR Respiratory Rate 8 12/06/2018 10:38 AM CDT Oxygen Saturation 97% 07/23/2024 12:51 PM CARRIER OPERATOR Inhaled Oxygen Concentration - - Weight 75.8 kg (167 lb) 07/23/2024 12:51 PM CARRIER OPERATOR Height 168.5 cm (5' 6.34) 05/10/2023 2:15 [...] EKG 12 LEAD Routine 08/01/2024 10:48 AM CARRIER OPERATOR Chest pain in adult OCHOA (dyspnea on exertion) AL READING EKG - NO CHARGE, COMP ONLY Routine 08/01/2024 10:47 AM CARRIER OPERATOR Chest pain in adult OCHOA (dyspnea on exertion) CT CHEST PE STUDY STAT 07/23/2024 2:0 3 PM CARRIER OPERATOR Cough, unspecified type Chest pain in adult OCHOA (dyspnea on exertion) CREATININE,ISTAT Routine 07/23/2024 1:19 PM CARRIER OPERATOR Cough, unspecified type CBC WITH AUTO DIFFERENTIAL Routine 07/23/2024 1:18 PM CARRIER OPERATOR Cough, unspecified type Night sweats COMP METABOLIC PANEL Routine 07/23/2024 1:18 PM CARRIER OPERATOR Cough, unspecified type SCAN-RADIOLOGY REPORT 06/24/2024 12:00 AM CARRIER OPERATOR XR DXA BONE DENSITY 2 SITES AXIAL Routine 04/19/2018 10:08 AM CDT Menopause from Last 3 Months or Most Recently Relevant to Health Maintenance Results * EKG 12 LEAD (08/01/2024 10:48 AM CARRIER OPERATOR) us Virginia Lara MD EKG ORD Final Resul t * AL READING EKG - NO CHARGE, COMP ONLY (08/01/2024 10:47 AM CARRIER OPERATOR) us Virginia Lara MD PB - PROVIDER READINGS Gaby l Result * CT CHEST PE STUDY (07/23/2024 2:03 PM CARRIER OPERATOR) Anatomical Region Laterality Modality CHEST, THORAX, HEART Computed To mography 07/23/2024 2:24 PM CARRIER OPERATOR Impressions 07/23/2024 2:24 PM CARRIER OPERATOR No pulmonary embolism. Peribronchial thickening, likely infectious/inflammatory in etiology, including bronchitis. No focal consolidations. Please note that all CT scans at this facility use dose modulation, iterative reconstruction, and/or weight-based dosing when appropriate to reduce radiation dose to as low as reasonably achievable. Dictated by Grayson De Oliveira MD @ 07/23/2024 2:24:03 PM (Electronically Signed) Narrative 07/23/2024 2:24 PM CARRIER OPERATOR For Patients: As a result of the [...] t * POCT Creatinine (07/23/2024 1:19 PM CARRIER OPERATOR) [facility] POCT,CREATININ E, ISTAT 0.9 0.6 - 1.3 mg/dL [facility] Blood BLOOD SPECIMEN / Unknown 07/23/2024 1:19 PM CARRIER OPERATOR 07/23/2024 1:19 PM CARRIER OPERATOR Virginia Lara MD CHEMISTRY Final Resul t [facility] [address] [place] [address], [facility] [address] [place] [address] * (ABNORMAL) CBC AND DIFFERENTIAL (07/23/2024 1:18 PM CARRIER OPERATOR) [facility] WHITE BLOOD CELL COUNT 7.4 3.8 - [...] Lorenzo LYMPHOCYTES 25.0 % [facility] MONOCYTES 9.4 % [facility] EOSINOPHILS 23.3 % [facility] BASOPHILS 1.6 % [facility] Blood BLOOD SPECIMEN / Unknown 07/23/2024 1:18 PM CARRIER OPERATOR 07/23/2024 1:18 PM CARRIER OPERATOR us Virginia Lara MD HEMATOLOGY Final Resul t [facility] [address] [place] [address], [facility] [address] [place] [address] * (ABNORMAL) COMP METABOLIC PANEL (07/23/2024 1:18 PM CARRIER OPERATOR) GLUCOSE 92 65 - 99 mg/dL [facility] [...] BLOOD SPECIMEN / Unknown 07/23/2024 1:18 PM CARRIER OPERATOR 07/23/2024 1:18 PM CARRIER OPERATOR Virginia Lara MD CHEMISTRY Final Resul t [facility] [address] [place] [address], [facility] [address] [place] [phone] * SCAN-RADIOLOGY REPORT (06/24/2024 12:00 AM CARRIER OPERATOR) Anatomical Region Laterality Modality Other us Scanner OTHER Final Result * (ABNORMAL) XR DXA BONE DENSITY 2 SITES AXIAL [11395.1] (04/19/2018 10:08 AM CDT) Anatomical Region Laterality Modality Spine, HIPS, HIPL, HIPR Other Narrative 05/01/2018 7:56 AM CDT Please see scanned document for results of this study. Virginia Lara MD DEXA Final Resul t from Last 3 Months or Most Recently Relevant to Health Maintenance Insurance MEDICARE PB ONLY MEDICARE PART B HB ONLY MEDICARE PART A HB ONLY [facility] Care Teams Raw Stock Machine Loader Relationship Specialty Start Date End Date Virginia Lara MD [address] [place] [address] PCP - General Family Practice 12/21/16 Rob Garcia MBBS [facility] [address] Consulting Physician Rheumatology 03/12/24
--- OUTSIDE RECORDS SUMMARY | 2024-09-16 12:46 | XMS_ITS | Clinical Summary ---
Author Organization [facility] Address [address] [place] [address] Care Team Providers Care Concrete Paving Supervisor Name Role Phone Elsewhere, Pcp Primary Care Provider Unavailabl e Source Comments Patient records contain information from all sites at [facility]. For routine questions regarding patient records, call [phone] during business hours, M-F 8:00 AM - 5:00 PM Central Time. Record requests for emergency care only can be directed to [phone] at any time.[facility] Allergies Active Allergy Reactions Criticality Noted Date [...] (01/19/2021): Added automatically from request for surgery [id number] Encounters Date Type Department Care Team Description 08/07/2024 Refill Department of Dermatology in [place], [place] [address] [place] [address] Vinita Salas M.D. Med Refill 07/04/2024 2:57 PM PILATES INSTRUCTOR Anesthesia Event Division of Gastroenterology in [address] [phone] Ekaterina Ovalle APRN, CRNA Charlebois, Jennifer D, APRN, CRNA, DNA 07/04/2024 11:45 AM PILATES INSTRUCTOR - 07/04/2024 11:59 PM PILATES INSTRUCTOR Hospital Encounter Department of Radiology, [facility] in [address] [address] Manuelito Jacobs M.D. Stone Common Duct Discharge Disposition: Home or Self Care 07/04/2024 11:23 AM PILATES INSTRUCTOR - 07/04/2024 5:17 PM PILATES INSTRUCTOR Hospital Encounter Division of Gastroenterology in [address] [address] Manuelito Jacobs M.D. Lee, Elizabeth A, APRN, [...] week 07/06/2021 How often do you attend [facility] or bahai services? More than 4 times per year 07/06/2021 Do you belong to any clubs o r organizations such as advent groups, unions, fraternal or athletic groups, or [...] and heating? Not hard at all 01/25/2023 [facility] of Occupat ional Health - Occupational Stress [...] your living situation today? I have a [facility] place to live 01/25/2023 Education Answer Date Recorded What is the highest level of school you have completed or the highest degree you have received? 11th grade 07/06/2021 Comments No Sex and Gender Information Value Date Recorded Sex Assigned at Female 04/18/2021 12:58 AM CDT Legal Sex Female 12:30 PM PILATES INSTRUCTOR Gender Identity Female 04/18/2021 12:58 AM CDT Sexual Orientation Straight 04/18/2021 12 :58 AM CDT Last Filed Vital Signs Vital Sign Reading Time Taken Comments Blood Pressure 127/57 07/04/2024 4:40 PM PILATES INSTRUCTOR Pulse 84 07/04/2024 4:45 PM PILATES INSTRUCTOR Temperature 36.5 C (97.7 F) 07/04/2024 3:51 PM PILATES INSTRUCTOR Respiratory Rate 15 07/04/2024 4:45 PM PILATES INSTRUCTOR Oxygen Saturation 90% 07/04/2024 4:45 PM PILATES INSTRUCTOR Inhaled Oxygen Concentration - - Weight 74.2 kg (163 lb 9.3 oz) 09/22/2023 10:14 AM PILATES INSTRUCTOR Height 170.2 cm (5' 7) 07/04/2024 12:08 PM PILATES INSTRUCTOR Body Mass Index 25.8 09/22/2023 10:14 AM PILATES INSTRUCTOR Plan of Treatment Health Maintenance Due Date [...] inpatients and all outpatients) 07/04/2024 3:41 PM PILATES INSTRUCTOR Stone Common Duct LDA ANE ENDOTRACHEAL AIRWAY Routine 07/04/2024 3:07 PM PILATES INSTRUCTOR ERCP Routine 07/04/2024 1:22 PM PILATES INSTRUCTOR Stone Common Duct ERCP Routine 07/04/2024 1:22 PM PILATES INSTRUCTOR Stone Common Duct from Last 3 Months Results * FL Fluoro Less Than 1 Hour (07/04/2024 3:41 PM PILATES INSTRUCTOR) Narrative ERCP LOS RST - 07/04/2024 3:41 PM PILATES INSTRUCTOR This exam does not require a radiologist review or interpretation. Please refer to the patient's medical record on this date for clinical details. Manuelito FELICIANO FLUOROSCOPY PROCEDURE S Final Result ERCP LOS RST * LDA ANE ENDOTRACHEAL AIRWAY (07/04/2024 3:07 PM PILATES INSTRUCTOR) Narrative Ekaterina Oavlle APRN, CRNA - 07/04/2024 3:07 PM PILATES INSTRUCTOR Ekaterina Ovalle APRN, CRNA 07/04/2024 3:13 PM [...] ETT location: oral VL device: glide scope [place] scope blade size: 3 Tube size: 6.5 [...] Final Result * ERCP (07/04/2024 1:22 PM PILATES INSTRUCTOR) 07/04/2024 1:22 PM PILATES INSTRUCTOR Impressions [employer] - 07/04/2024 3:47 PM PILATES INSTRUCTOR Post-op Diagnoses: - The major papilla was [...] Narrative [employer] - 07/04/2024 3:47 PM PILATES INSTRUCTOR João 6 GI GI Patient Name: Elizabeth [...] - Observe patient's clinical course. Findings: A contract associate film of the abdomen was obtained. Surgical [...] none. Complications: No immediate complications. Sedation: General lens cementer Participation: I personally performed the entire procedure. Griffin Fontenot MD 07/04/2024 3:47:36 PM This report has been signed electronically. Number of Addenda: 0 Manuelito Jacobs M.D. GI PROCEDURE ORDERABLES F inal Result Performing Organization Address City/State/[facility] Co de Phone Number [facility] from Last 3 Months Insurance MEDICARE [facility] Advance Directives For more information, please contact: [phone] Documents on File Type Date Recorded Patient Dead Mail Checker Expl anation Advance Directives 09/15/2021 6:54 PM BODY/ ORGAN DONATION Care Teams Concrete Paving Supervisor Relationship Specialty Start Date End Date Elsewhere, Pcp PCP - General Internal Medicine 01/27/23
[2024-09-16] MEDS: dexAMETHasone 10 MG/ML inj PO (12:48)
[2024-09-16 13:27] LABS: PCR FLU A Negative PCR FLU A (Negative); PCR FLU B Negative PCR FLU B (Negative); PCR RSV Negative PCR RSV (Negative); SARS PCR* Negative SARS-CoV-2 (Negative)
== END 2024-09-16 14:04 | disposition home or self-care (01) ==
PROVIDERS: Emergency Provider Emergency Medicine Emergency Medical Services; PCP Family Medicine
DX: J06.9 Acute upper respiratory infection, unspecified (principal)
CPT/HCPCS: 71046; 87631; 99283; 99284; J1100

== ENCOUNTER 2024-10-25 14:27 | Outpatient (CLI) | payer MEDICARE, BC, SELFPAY ==
--- NOTE | 2024-10-25 14:45 | CRLHL7_ITS ---
For Patients: As a result of the Cures Act, medical imaging exams and procedure reports are released immediately into your electronic medical record. You may view this report before your referring provider. If you have questions, please contact your health care provider. INDICATION: thyroid nodule COMPARISON: 11/21/2023 TECHNIQUE: Bagley scale and color Doppler images were acquired of the thyroid gland. FINDINGS: Solid nodule right thyroid lobe measures 2.0 x 1.4 x 1.5 cm, TR 4, previously measuring 1.8 x 1.3 x 1.4 cm. Solid and cystic nodule right thyroid lobe measures 7 x 6 x 6 millimeters, previously measuring 7 millimeters, TR 3. Additional solid and cystic nodule upper pole right thyroid lobe measures 6 x 3 x 5 millimeters, TR 3, previously measuring 5 millimeters. Osseous solid nodule left thyroid lobe measures 5 x 4 x 5 millimeters, previously measuring 6 millimeters, TR 4. The right lobe measures 4.1 x 1.8 x 1.6 cm and the left lobe measures 3.5 x 1.5 x 1.3 cm in size. The color Doppler images demonstrate normal vascularity. There is no evidence of cervical lymphadenopathy or parathyroid mass. IMPRESSION: Previously biopsied TR 4 nodule right thyroid lobe inferior pole is similar to the prior study. Dictated by Brien Bojorquez MD @ 10/25/2024 3:09:56 PM (Electronically Signed)
== END 2024-10-25 14:28 | disposition home or self-care (01) ==
LOC: US 14:27
PROVIDERS: PCP Family Medicine; Visit Provider Family Medicine
DX: E04.1 Nontoxic single thyroid nodule (principal)
CPT/HCPCS: 76536

== ENCOUNTER 2025-01-03 10:24 | Outpatient (CLI) | payer MEDICARE, BC, SELFPAY ==
--- NOTE | 2025-01-03 11:59 | P.ANES_ITS ---
Anesthesia Charges Start Date/Time Anesthesia Start Date: 01/03/25 Anesthesia Start Time: 11:41 Stop Date/Time Anesthesia Stop Date: 01/03/25 Anesthesia Stop Time: 11:56 Summary Extremes of Age - Over 70 or under 1: AUTOMATIC CASTING MACHINE OPERATOR Coding CPT Codes CPT Codes: ANES UPR GI NDSC PX NOS - 00891 ([id number]) P3 - PATIENT W/SEVERE SYS DISEASE, QK - GOLF BALL MARKER 2-4 CNCRNT ANES PROC, QX - AUTOMATIC CASTING MACHINE OPERATOR SVC W/ MD MED DIRECTION Additional Codes: Summary - Extremes of Age - Over 70 or under 1: AUTOMATIC CASTING MACHINE OPERATOR ([id number])
--- NOTE | 2025-01-03 11:59 | W.ANESCHARGE ---
Anesthesia Charges Start Date/Time Anesthesia Start Date: 01/03/25 Anesthesia Start Time: 11:41 Stop Date/Time Anesthesia Stop Date: 01/03/25 Anesthesia Stop Time: 11:56 Summary Extremes of Age - Over 70 or under 1: SALES AND LEASING CONSULTANT Coding CPT Codes CPT Codes: ANES UPR GI NDSC PX NOS - 66920 ([id number]) P3 - PATIENT W/SEVERE SYS DISEASE, QK - POOL COORDINATOR 2-4 CNCRNT ANES PROC, QX - SALES AND LEASING CONSULTANT SVC W/ MD MED DIRECTION Additional Codes: Summary - Extremes of Age - Over 70 or under 1: SALES AND LEASING CONSULTANT ([id number])
--- NOTE | 2025-01-03 12:32 | W.ANESCHARGE ---
Anesthesia Charges Start Date/Time Anesthesia Start Date: 01/03/25 Anesthesia Start Time: 11:41 Stop Date/Time Anesthesia Stop Date: 01/03/25 Anesthesia Stop Time: 11:56 Summary Extremes of Age - Over 70 or under 1: MDA Coding CPT Codes CPT Codes: ANES UPR GI NDSC PX NOS - 16191 ([id number]) QK - GENERAL NEUROLOGIST 2-4 CNCRNT ANES PROC, QX - CODING EDUCATOR SVC W/ MD MED DIRECTION, P3 - PATIENT W/SEVERE SYS DISEASE Additional Codes: Summary - Extremes of Age - Over 70 or under 1: MDA ([id number])
== END 2025-01-03 10:25 | disposition home or self-care (01) ==
LOC: OP CLINIC 10:25
PROVIDERS: PCP Family Medicine; Visit Provider Internal Medicine Gastroenterology
DX: R10.13 Epigastric pain (principal); K44.9 Diaphragmatic hernia without obstruction or gangrene; K29.70 Gastritis, unspecified, without bleeding
CPT/HCPCS: 00731; 43239; 88305; 99100; J2704; J3490

== ENCOUNTER 2025-01-27 06:17 | Day surgery (SDC) | payer MEDICARE, BC, SELFPAY ==
[2025-01-27 06:42] VITALS: BMI 28.5
[2025-01-27 06:45] VITALS: BP 140/82; PULSE 72; RESP 20; TEMP 36.2; O2SAT 95
[2025-01-27] MEDS: LACTATED RINGERS 1000 ML 1,000 ML 100 ML IV (06:57)
[2025-01-27] MEDS: SODIUM CHLORIDE 0.9 % (FLUSH) 10 ML SYRINGE IVF (06:57)
--- NOTE | 2025-01-27 07:19 | W.PM.H&PU ---
History & Physical Update History & Physical Update H&P Reviewed and patient assessed: No changes noted
--- NOTE | 2025-01-27 07:19 | PM.GSPRC ---
Operative Note Date of procedure: 01/27/25 Pre-op diagnosis: 1. Multiple soft tissue masses in bilateral forearms, left upper arm, abdominal wall, and right thigh. Post-op diagnosis: Same Type of Procedure: 1. Excision of multiple soft tissue masses from the right forearm, left posterior upper arm, left forearm, mid abdominal wall, and right lateral thigh. Indications: 84-year-old female was seen in clinic for evaluation of multiple soft tissue masses. 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 She noticed multiple new masses all over her body. The masses are painful when pressure is applied to them or when patient lies on the side with the mass is. She notices that they have increased in size. On clinical exam patient had multiple soft tissue masses that were mobile located in the mid abdomen just superior to the umbilicus, left upper posterior arm, left forearm, and right lateral thigh. The masses ranged from 0.8 to 3.5 cm. In same-day surgery patient also mentioned a mass in the right forearm. Given patient's clinical symptoms, excision of all of the masses was recommended for diagnostic and therapeutic purposes. The procedure was discussed in detail. The risks associated procedure including infection, bleeding, and mass recurrence were all discussed with the patient, and she agreed to proceed. Procedure Description: After discussing the risks and benefits of the procedure, the patient signed informed consent.? The operative site was marked and the patient was brought to the operating room and placed on the operating table in supine position.? Care was taken to pad the patient's pressure points.?? The patient was then sedated by anesthesia.?? The operative site was then prepped and draped in the usual sterile fashion.? A time-out was then performed. All procedures were done in the similar fashion. Local anesthetic was injected over the palpable mass that was previously marked. Skin incision was made with a scalpel. The masses were superficial and were delivered either bluntly or by mobilizing the mass of soft tissue fat with cautery. Hemostasis achieved with cautery. All incisions were closed with interrupted 3-0 Vicryl sutures to reapproximate the dermis and the skin was closed with running 4-0 Monocryl stitch. Wall masses except for the left forearm were sent to pathology in the same jar because all of them had an appearance of benign lipomas. Left forearm masses were sent separately because 1 of the masses appeared ecchymotic and hyperemic. The measurements of the masses and incisions are as follows: Right forearm mass #1 x 0.5 cm and the incision was 1.5 cm. Right forearm mass #2 Removed through the same incision was measuring 1.5 x 1 cm. Abdominal wall mass #1 2 x 2 cm in the incision to remove it was 2.6 cm. Abdominal wall mass #2 was removed through the same incision and was measuring 1.1 cm. Abdominal mass #3 Was measuring 3 x 1 cm and was a combination of small lipomas. Removed through the same incision. Left forearm mass #1 Measured 1.5 x 1 cm and removed through 1.5 cm incision. Left forearm mass #2 1 x 0.5 cm and left forearm mass #3 2 x 1.2 cm, the mass 2. 3. Removed through 2.8 cm incision. Left posterior upper arm had a cluster of masses that were removed through the same incision. Left posterior upper arm mass #1. 2 x 1 cm, mass #2 2.5 x 2 cm, mass #3 1.5 x 1 cm, mass #4 1 x 1 cm, mass #5 1 x 1.3 cm, mass #6 1 x 1.3 cm. All removed through the same incision measuring 4 cm. Right thigh mass was measuring 4 x 5.5 cm and was removed through a 3 cm incision. All incisions were covered with Steri-Strips. The right and left forearms were wrapped in an Malachi wrap. Gauze and tape were placed over the abdominal wall incision and right thigh incisions. ? The patient was then woken and transported to the recovery area in stable condition. ? The patient tolerated the procedure well. Findings: Multiple lipomas were removed from the above-described locations. Only left forearm lipoma appeared hyperemic and ecchymotic and was sent to pathology separately. Anesthesia: MAC and local Surgeon: Snow Le MD Estimated blood loss (mL): 5 Additional Specimen Information: Multiple lipomas as described above in 2 jars. Only left forearm masses were sent in a separate jar. All other masses were sent in 1 jar because they had an appearance of benign lipomas. Condition: stable Disposition: same day
[2025-01-27] MEDS: CEFAZOLIN 1 GM inj IVP (07:45)
[2025-01-27] MEDS: LIDOCAINE 1%-EPI 1:100,000 20 ML INFILTRATI (08:00)
[2025-01-27] MEDS: BUPIVACAINE 0.25% 30 ML INJECTION (08:00)
--- NOTE | 2025-01-27 08:50 | P.ANES_ITS ---
Anesthesia Charges Start Date/Time Anesthesia Start Date: 01/27/25 Anesthesia Start Time: 07:30 Stop Date/Time Anesthesia Stop Date: 01/27/25 Anesthesia Stop Time: 08:49 Summary Extremes of Age - Over 70 or under 1: CHECKER LOADER Coding CPT Codes CPT Codes: ANESTH SKIN EXT/PER/ATRUNK - 91835 ([id number]) P2 - PATIENT W/MILD SYST DISEASE, QK - BUSINESS CONTINUITY PLANNING DIRECTOR 2-4 CNCRNT ANES PROC, QX - CHECKER LOADER SVC W/ MD MED DIRECTION Additional Codes: Summary - Extremes of Age - Over 70 or under 1: CHECKER LOADER ([id number])
--- NOTE | 2025-01-27 08:50 | W.ANESCHARGE ---
Anesthesia Charges Start Date/Time Anesthesia Start Date: 01/27/25 Anesthesia Start Time: 07:30 Stop Date/Time Anesthesia Stop Date: 01/27/25 Anesthesia Stop Time: 08:49 Summary Extremes of Age - Over 70 or under 1: HALFWAY HOUSE COUNSELOR Coding CPT Codes CPT Codes: ANESTH SKIN EXT/PER/ATRUNK - 96872 ([id number]) P2 - PATIENT W/MILD SYST DISEASE, QK - FLOOR PLAN ADJUSTER 2-4 CNCRNT ANES PROC, QX - HALFWAY HOUSE COUNSELOR SVC W/ MD MED DIRECTION Additional Codes: Summary - Extremes of Age - Over 70 or under 1: HALFWAY HOUSE COUNSELOR ([id number])
[2025-01-27 08:53] VITALS: BP 129/58; PULSE 65; RESP 20; TEMP 36.6; O2SAT 95
--- NOTE | 2025-01-27 08:56 | SUR.OPER ---
Total of 15 masses removed, specimen length and width/ incision length given to Dr. Le.
[2025-01-27 09:10] VITALS: BP 120/60; PULSE 65; RESP 20; O2SAT 97
[2025-01-27] MEDS: HYDROCODONE-ACETAMIN 5-325 MG 1 TAB PO (09:12)
--- NOTE | 2025-01-27 09:17 | P.ANES_ITS ---
Anesthesia Charges Start Date/Time Anesthesia Start Date: 01/27/25 Anesthesia Start Time: 07:30 Stop Date/Time Anesthesia Stop Date: 01/27/25 Anesthesia Stop Time: 08:49 Summary Extremes of Age - Over 70 or under 1: MDA Coding CPT Codes CPT Codes: ANESTH SKIN EXT/PER/ATRUNK - 18277 ([id number]) P2 - PATIENT W/MILD SYST DISEASE, QK - STATISTICAL REPORTING ANALYST 2-4 CNCRNT ANES PROC, QX - ELECTRICAL TECHNICIAN SVC W/ MD MED DIRECTION Additional Codes: Summary - Extremes of Age - Over 70 or under 1: MDA ([id number])
--- NOTE | 2025-01-27 09:17 | W.ANESCHARGE ---
Anesthesia Charges Start Date/Time Anesthesia Start Date: 01/27/25 Anesthesia Start Time: 07:30 Stop Date/Time Anesthesia Stop Date: 01/27/25 Anesthesia Stop Time: 08:49 Summary Extremes of Age - Over 70 or under 1: MDA Coding CPT Codes CPT Codes: ANESTH SKIN EXT/PER/ATRUNK - 92359 ([id number]) P2 - PATIENT W/MILD SYST DISEASE, QK - SECURITY SYSTEMS TECHNICIAN 2-4 CNCRNT ANES PROC, QX - HOME DEMONSTRATION AGENT SVC W/ MD MED DIRECTION Additional Codes: Summary - Extremes of Age - Over 70 or under 1: MDA ([id number])
[2025-01-27 09:25] VITALS: BP 138/80; PULSE 66; RESP 20; TEMP 36.8; O2SAT 95
[2025-01-27 09:40] VITALS: BP 145/75; PULSE 69; RESP 20; O2SAT 97
== END 2025-01-27 09:55 | disposition home or self-care (01) ==
PROVIDERS: PCP Family Medicine; Visit Provider Surgery
PROC: (CPT 25071; principal; 2025-01-27 07:30)
DX: D17.22 Benign lipomatous neoplasm of skin and subcutaneous tissue of left arm (principal); D17.21 Benign lipomatous neoplasm of skin and subcutaneous tissue of right arm; D17.1 Benign lipomatous neoplasm of skin and subcutaneous tissue of trunk; D17.23 Benign lipomatous neoplasm of skin and subcutaneous tissue of right leg
CPT/HCPCS: 25071 ×2; 22903 ×2; 27337; 25075 ×2; 24071; 00400; 88304; 99100; A9270; J0665; J0690; J1100; J2704; J3010; J3490; J7120

== ENCOUNTER 2025-05-08 21:04 | Emergency (ER) | payer BC, SELFPAY ==
--- OUTSIDE RECORDS SUMMARY | 2014-12-04 05:30 | XMS_ITS | Continuity of Care Document ---
Author Organization Wilmarelli Rees [facility] Address [address] [place] [address] [id number] [place] [address] Phone Care Team Providers Care Feeder Operator Automatic Name Role Phone Unavailable Unavailable Unavailable Procedures Procedure Date Extraction, Erupted Tooth Or Exposed Janeth t (Elevati Extraction, Erupted Tooth Or Exposed Janeth t ([facility] Extraction, Erupted Tooth Or Exposed Janeth t ([facility] Extraction, Erupted Tooth Or Exposed Janeth t ([facility] Extraction, Erupted Tooth Or Exposed Janeth t ([facility] Extraction, Erupted Tooth Or Exposed Janeth t ([facility] Advance Directives Directive Yes / No Effective Date File Name No Information Encounters Encounter Description Practice Location Reason(s) For Visit Diagnoses Date Provider [facility], [address] [place], [place] [id number] [place] [address], [id number], tel:[phone] [place] D[facility] EXAMINATION 2014 No Information [facility], [address] [place], [place] [id number], [id number], [place] tel:[phone] [place] D[facility]AM[facility]ATION 2014 No Information [facility], [address] [place], [place] [id number] [place] [address], [id number], tel:[phone] [place] No Information 2007 No Information Family History Family Member Type Diagnosis Age At Onset No Information Payers Payer name Insurance type Covered republican ID Matthias glynn(s) D Z Slide Discount Schedule A CI Social History Type Description Quantity Date Captured Comments Sex Female Smoking Status No Information Chief Complaint And Reason For Visit No Information History Of Present Illness Encounter Date Complaint History Of Prese nt Illness No Information Instructions Date Instruction Additional Infor mation No Information Assessments Type Assessment Date No Information
--- OUTSIDE RECORDS SUMMARY | 2014-12-04 05:30 | XMS_ITS | Continuity of Care Document ---
Author Organization Wilmarelli Rees [facility] Address [address] [place] [address] [id number] [place] [address] Phone Care Team Providers Care Information Assoc Name Role Phone Unavailable Unavailable Unavailable Procedures Procedure Date Extraction, Erupted Tooth Or Exposed Janeth t ([facility] Extraction, Erupted Tooth Or Exposed Janeth t ([facility] Extraction, Erupted Tooth Or Exposed Janeth t ([facility] Extraction, Erupted Tooth Or Exposed Janeth t ([facility] Extraction, Erupted Tooth Or Exposed Janeth t ([facility] Extraction, Erupted Tooth Or Exposed Janeth t ([facility] Advance Directives Directive Yes / No Effective Date File Name No Information Encounters Encounter Description Practice Location Reason(s) For Visit Diagnoses Date Provider [facility], [address] [place], [place] [id number] [place] [address], [id number], tel:[phone] [place] DENTAL EXAMINATION 2014 No Information [facility], [address] [place], [place] [id number], [id number], [place] tel:[phone] [place] DENTAL EXAMINATION 2014 No Information [facility], [address] [place], [place] [id number] [place] [address], [id number], tel:[phone] [place] No Information 2007 No Information Family History Family Member Type Diagnosis Age At Onset No Information Payers Payer name Insurance type Covered democrat ID Matthias glynn(s) D Z Slide Discount [...]
--- OUTSIDE RECORDS SUMMARY | 2024-06-25 23:30 | XMS_ITS | Continuity of Care Document ---
Author Organization [facility] Address [address] [address] [place] [address] Phone Care Team Providers Care Tax Agent Name Role Phone No Information Unavailable Unavailable Advance Directives Directive Yes / No Effective Date File Name No Information Encounters Encounter Description Practice Location Reason(s) For Visit Diagnoses Date Provider Providers Copied on Encounter [facility], [address] [address], [place], [place], [id number], [place] tel:[phone] No Information No Information Family History Family [...]
--- OUTSIDE RECORDS SUMMARY | 2024-06-25 23:30 | XMS_ITS | Continuity of Care Document ---
Author Organization [facility] Address [address] [address] [place] [address] Phone Care Team Providers Care Wrapping Clerk Name Role Phone No Information Unavailable Unavailable Advance Directives Directive Yes / No Effective Date File Name No Information Encounters Encounter Description Practice Location Reason(s) For Visit Diagnoses Date Provider Providers Copied on Encounter [facility], [address] [address], [place], [place], [id number], [place] tel:[phone] No Information No Information Family History Family [...]
--- OUTSIDE RECORDS SUMMARY | 2025-05-08 21:07 | XMS_ITS | Clinical Summary ---
Author Organization [facility] Address [address] [place] [address] Care Team Providers Care Engineer Technician Name Role Phone Elsewhere, Pcp Primary Care Provider Unavailabl e Source Comments Patient records contain information from all sites at [facility]. For routine questions regarding patient records, call [phone] during business hours, M-F 8:00 AM - 5:00 PM Central Time. Record requests for emergency care only can be directed to [phone] at any time.[facility] Allergies Active Allergy Reactions Criticality Noted Date [...] lower leg. 454 g 3 4 Active betamethasone dipropionate, augmented, (Diprolene) 0.05 % ointmentIndicati ons:Lichen Sclerosus APPLY 1 APPLICATION TOPICALLY NEEDED (PAIN/INFLAMMAT ION VULVA). APPLY TO VULVA. 45 g 1 5 Active doxycycline monohydrate (Monodox) 100 mg capsuleIndicatio ns:Pemphigoid Mucous Membrane (HCC) TAKE 1 CAPSULE BY MOUTH TWICE A DAY 60 capsule 5 5 Active clotrimazole (Mycelex) 10 mg trocheIndication s:Pemphigoid Mucous Membrane (HCC) DISSOLVE 1 UMM (10 MG TOTAL) IN THE MOUTH 2 (TWO) TIMES A DAY. 60 Umm 11 5 Active Hospital, Clinic, or Other Facility Administered [...] (01/19/2021): Added automatically from request for surgery [id number] Encounters Date Type Department Care Team Description 03/16/2025 Refill Department of Dermatology in [place], [place] [address] [place] [address] Vinita Salas M.D. Med Refill from Last 3 Months Immunizations Immunization Administration [...] by your partner or ex-partner? No 01/25/2023 Hunger Vital Sign Answer Date Recorded [...] things needed for daily living? No 01/25/2023 Housing Stability Answer Date Recorded What [...] AM CDT Legal Sex Female 12:[address] COMMISSIONER Gender Identity Female 04/18/2021 12:58 AM CDT Sexual Orientation Straight 04/18/2021 12 :58 AM CDT Last Filed Vital Signs Vital Sign Reading Time Taken Comments Blood Pressure 127/57 07/04/2024 4:[address] COMMISSIONER Pulse 84 07/04/2024 4:[address] COMMISSIONER Temperature 36.5 C (97.7 F) 07/04/2024 3:[address] COMMISSIONER Respiratory Rate 15 07/04/2024 4:[address] COMMISSIONER Oxygen Saturation 90% 07/04/2024 4:[address] COMMISSIONER Inhaled Oxygen Concentration - - Weight 74.2 kg (163 lb 9.3 oz) 09/22/2023 10:[address] COMMISSIONER Height 170.2 cm (5' 7) 07/04/2024 12:[address] COMMISSIONER Body Mass Index 25.8 09/22/2023 10:[address] COMMISSIONER Plan of Treatment Health Maintenance Due Date Last Done Comments COVID-19 Vaccine (3 - Pfizer risk series) 10/15/2021 09/17/2021, 08/04/2021 Depression Screening (Annual PHQ-2) 08/14/2024 Fall Risk Screen (Annual) 08/14/2024 Influenza Vaccine (#1) 2025 , 06/13/2023, 05/23/2019, Additional history exists DTaP,Tdap,and Td Vaccines (3 - Td or Tdap) 04/03/2034 04/03/2024, 03/06/2019 Hepatitis B Screening Discontinued 12/17/2020 Pneumococcal vaccine (50+ years) Completed 06/13/2023 RSV vaccine - (32-36 weeks) or 60+ years Completed 03/01/2024 Zoster Vaccines Completed 08/27/2024, 05/30/2024 IPV Vaccines Aged Out No longer eligi ble based on patient's age to complete this topic Insurance MEDICARE [facility] Advance Directives For more information, please contact: [phone] Documents on File Type Date Recorded Patient Head Of Advertising Expl anation Advance Directives 09/15/2021 6:54 PM BODY/ ORGAN DONATION Care Teams Engineer Technician Relationship Specialty Start Date End Date Elsewhere, Pcp PCP - General Internal Medicine 01/27/23
--- OUTSIDE RECORDS SUMMARY | 2025-05-08 21:07 | XMS_ITS | Clinical Summary ---
Author Organization [facility] Address [address] [place] [address] Care Team Providers Care Sprinkler Irrigation Equipment Mechanic Name Role Phone Virginia Lara MD Primary Care Provider Rob Garcia MBBS Unavailable Allergies Active Allergy Reactions Criticality Noted Date Comments Codeine Nausea Only 09/09/2016 Can do injection, but not oral. Medications doxycycline monohydrate (MONODOX) 100 mg capsuleIndicatio ns:Pemphigoid of gingival mucosa (HC),Recurrent oral ulcers Take 1 Capsule (100 mg) by mouth 2 times daily. 180 Capsule 2 Active clotrimazole (MYCELEX UMM) 10 mg trocheIndication s:Pemphigoid of gingival mucosa (HC) Take 1 tab twice daily after each doxycycline dose to prevent oral thrush. 180 Tablet 2 Active betamethasone dipropionate 0.05% (DIPROLENE) 0.05 % ointment APPLY 1 APPLICATION TOPICALLY DAILY. APPLY TO VULVA. 4 Active Ventolin HFA 90 mcg/actuation inhalerIndicatio ns:Moderate persistent asthma with acute exacerbation (HC) INHALE 1 TO 2 PUFFS BY MOUTH EVERY 4 HOURS NEEDED FOR SHORTNESS OF BREATH OR FOR WHEEZE 36 Each 11 4 Active fluticasone propion-salmeter oL (Advair Diskus) 250-50 mcg/Dose diskus inhalerIndicatio ns:Moderate persistent asthma with exacerbation (HC) Inhale 1 Puff by mouth two times daily. 60 Each 11 5 Active sucralfate 1 gram tabletIndication s:History of duodenal ulcer Take 1 Tablet (1 g) by mouth four times daily before meals and at bedtime. 360 Tablet 2 5 Active Additional Information Patient taking differently:1 g Oral FOUR TIMES DAILY BEFORE MEALS & BEDTIME,Takes PRN, Reported on 04/21/2025 omeprazole 40 mg Delayed-Release capsuleIndicatio ns:Gastritis, presence of bleeding unspecified, unspecified chronicity, unspecified gastritis type Take 1 Capsule (40 mg) by mouth once daily before a meal. 90 Capsule 1 5 Active Lidocaine Viscous 2 % liquidIndication s:Rash,Recurrent oral ulcers SWISH AND SPIT 5ML BY MOUTH THREE TIMES DAILY NEEDED 100 mL 5 Active albuterol-ipratr opium (2.5-0.5 mg) in 3 mL NEBULIZATION solutionIndicati ons:Moderate persistent asthma with acute exacerbation (HC) Inhale 3 mL via a nebulizer 4 times daily. 90 mL 3 5 Active tiZANidine 2 mg tabletIndication s:Facet arthritis of cervical region Take 1-2 Tablets (2-4 mg) by mouth every 6 hours if needed for Muscle Spasm. 36 Tablet 2 5 Active lidocaine (Lidoderm) 5 % topical patchIndications :Cervical spondylosis,Cerv ical radiculitis,Cerv ical facet joint syndrome,Cervica l myofascial pain syndrome Apply to intact skin to cover most painful area for max 12hr per 24hr period. 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 [place] [address] Pierre Hall DO Consult (Neck/Thoracic Pain) 04/20/2025 Travel 03/14/2025 Telephone [facility] [address] [facility] [address] [place] [address] Pierre Hall DO Screening (Spine Center Screening ) 03/14/2025 Telephone [facility] [address] [facility] [address] Pankaj Giordano MD Results 03/11/2025 2:45 PM CDT Ancillary Procedure [facility] [address] [place] [address] 03/11/2025 Travel 02/10/2025 1:30 PM CDT Office Visit [facility] [address] [facility] [address] Snow Le MD Post-op (Excisional multiple soft tissue masses from right forearm, abdominal wall, left upper posterior arm, left forearm and right thigh 01/27/25) 02/10/2025 Travel 02/06/2025 Travel 02/05/2025 Travel from Last 3 Months Immunizations Immunization Administration Dates Next Due COVID-19 vaccine ([employer] 30mcg/0.3mL) SHELDON Benítez 09/17/2021,08/04/2021 Influenza, High-dose Inactivated 05/30/2024 Influenza, Inactivated AIIV4 (Age 65+ Years) Preserv Free 06/13/2023 Influenza, Inactivated IIV3 (Age 65+ Years) Preserv Free 05/23/2019,08/01/2018 Pneumococcal Conj 20-valent (Prevnar 20) 023 RSV, Recombinant ADJ Reconst ituted (Arexvy 120MCG/0.5mL) 03/01/2024 Tdap 04/03/2024,03/06/2019 Zoster (Shingrix-RZV, recombinant) 08/27/2024, Family History Medical History Relation Name Comments [...] Answer Date Recorded PHQ-2 TOTAL SCORE 0 12/26/2024 Social Connections Answer Date Recorded Do you often feel lonely or isolated from those around you? 0 07/23/2024 Alcohol Use Answer Date Recorded How often do you have a drink containing alcohol ? 1 04/21/2025 How many drinks containing a lcohol do you have on a typical day when you are drinking? 0 04/21/2025 How often do you have five or more drinks on one occasion? 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 Gender Identity Not on file Sexual Orientation Not on file Obstetrics History Last Filed Vital Signs Vital Sign Reading Time Taken Comments Blood Pressure 158/67 04/21/2025 9:04 AM CDT Pulse 77 04/21/2025 9:04 AM CDT Temperature 36.7 C (98.1 F) 01/22/2025 10:04 AM CDT Respiratory Rate 8 12/06/2018 10:38 AM CDT Oxygen Saturation 98% 02/10/2025 1:31 PM CDT Inhaled Oxygen Concentration - - Weight 71.2 kg (157 lb) 04/21/2025 9:04 AM CDT Height 166 cm (5' 5.35) 04/21/2025 9:04 AM CDT Body Mass Index 25.84 04/21/2025 9:04 AM CDT Plan of Treatment Health Maintenance Due Date Last Done Comments COVID-19 vaccine series ( season) 2025 09/17/2021, 08/04/2021 Influenza Vaccine (#1) 2025 , 06/13/2023, 05/23/2019, Additional history exists Depression screening for age 12+ 12/26/2025 12/26/2024, 09/20/2023, 05/22/2023, Additional history exists Medicare Wellness for age 65+ 12/27/2025 12/26/2024, 05/10/2023, 04/17/2018 BMI (ht and wt on same day) for age 18+ 04/21/2026 04/21/2025, 01/23/2025, 12/26/2024, Additional history exists Tetanus booster 04/03/2034 04/03/2024, 03/06/2019 Pneumococcal series for age 50+ Completed 06/13/2023 RSV vaccine for adults or Completed 03/01/2024 Zoster (shingles) series for age 50+ Completed 08/27/2024, 05/30/2024 DEXA/DXA scan for age 65+ Completed 01/23/2025, 01/2018 Hepatitis B series for 19+ Aged Out N o longer eligible based on patient's age to complete this topic Procedures Procedure Name Priority Date/Time Associated Diagnosis Comments MR SPINE CERVICAL WO Routine 03/11/2025 3:14 PM CDT Facet arthritis of cervical region DDD (degenerative disc disease), cervical XR DXA BONE DENSITY 2 SITES AXIAL Routine 01/23/2025 1:54 PM CDT Osteopenia, unspecified location Menopause from Last 3 Months or Most Recently Relevant to Health Maintenance Results * MR SPINE CERVICAL WO (03/11/2025 3:14 PM CDT) Anatomical Region Laterality Modality Spine, CERVICAL SPINE Magnetic R esonance 03/12/2025 1:48 PM CDT Impressions 03/12/2025 1:48 PM CDT 1. Normal alignment. No fractures 2. Normal cord signal. 3. At C3-4, mild narrowing of the left neural foramen 4. At C5-6, moderate to severe narrowing of the bilateral neural foramina. Potential impingement of the C6 nerve roots. 5. At C6-7, mild narrowing of the bilateral neural foramina Dictated by Niles Ovalle MD @ 03/12/2025 1:48:15 PM (Electronically Signed) Narrative 03/12/2025 1:48 PM CDT For Patients: As a result of the Cures Act, medical imaging exams and procedure reports are released immediately into your electronic medical record. You may view this report before your referring provider. If you have questions, please contact your health care provider. INDICATION: Neck pain. COMPARISON: 12/26/2024. TECHNIQUE: Sagittal T1, T2, and STIR sequences. Axial T2/gradient sequences. FINDINGS: Normal vertebral body facet alignment. No fractures. No vertebral body loss of height. No spine listhesis. No evidence injury. No suspicious osseous lesions. Normal cord signal. No intradural mass or lesion. C1-2: No spinal canal narrowing. C2-3: No spinal canal or neural foraminal narrowing. C3-4: Disk degeneration and broad-based disc osteophyte complex. No narrowing of spinal canal. Mild narrowing of the left neural foramen. No narrowing of the right neural foramen. C4-5: Disc generation and posterior disc bulge or disc osteophyte complex. No spinal canal neural foraminal narrowing. C5-6: Disc degeneration and broad-based disc osteophyte complex. Mild narrowing of the spinal canal. Moderate severe narrowing of the bilateral foramina. Potential impingement of the C6 nerve roots. C6-7: Disc generation broad-based disc osteophyte complex. No narrowing of spinal canal. Mild narrowing of bilateral foramina. C7-T1: No spinal canal or neural foraminal narrowing. No spinal canal neural foraminal narrowing is visualized upper thoracic spine. Procedure Note Niles Ovalle MD, PhD - 03/12/2025 For Patients: As a result of the [employer] Act, medical imagingexams and procedure reports are released immediately into your electronicmedical record. You may view this report before your referring provider.If you have questions, please contact your health care provider. INDICATION: Neck pain. COMPARISON: 12/26/2024. TECHNIQUE: Sagittal T1, T2, and STIR sequences. Axial T2/gradient sequences. FINDINGS: Normal vertebral body facet alignment. No fractures. No vertebral bodyloss of height. No spine listhesis. No evidence injury. No suspiciousosseous lesions. Normal cord signal. No intradural mass or lesion. C1-2: No spinal canal narrowing. C2-3: No spinal canal or neural foraminal narrowing. C3-4: Disk degeneration and broad-based disc osteophyte complex. Nonarrowing of spinal canal. Mild narrowing of the left neural foramen. Nonarrowing of the right neural foramen. C4-5: Disc generation and posterior disc bulge or disc osteophyte complex.No spinal canal neural foraminal narrowing. C5-6: Disc degeneration and broad-based disc osteophyte complex. Mildnarrowing of the spinal canal. Moderate severe narrowing of the bilateralforamina. Potential impingement of the C6 nerve roots. C6-7: Disc generation broad-based disc osteophyte complex. No narrowing ofspinal canal. Mild narrowing of bilateral foramina. C7-T1: No spinal canal or neural foraminal narrowing. No spinal canal neural foraminal narrowing is visualized upper thoracicspine. IMPRESSION: 1. Normal alignment. No fractures 2. Normal cord signal. 3. At C3-4, mild narrowing of the left neural foramen 4. At C5-6, moderate to severe narrowing of the bilateral neural foramina.Potential impingement of the C6 nerve roots. 5. At C6-7, mild narrowing of the bilateral neural foramina Dictated by Niles Ovalle MD @ 03/12/2025 1:48:15 PM (Electronically Signed) us Pankaj Giordano MD MR Final Resu lt * (ABNORMAL) XR DXA BONE DENSITY 2 SITES AXIAL (01/23/2025 1:54 PM CDT) Anatomical Region Laterality Modality Spine, HIPS, HIPL, HIPR Other Impressions 01/28/2025 1:23 PM CDT Osteoporosis. RECOMMENDATIONS: The National Osteoporosis Foundation recommends pharmacologic treatment for patients with T-scores of -2.5 or less, patients with prior history of fragility fractures, or patients with 10-year probability of greater than 3% at hips or greater than 20% of suffering major osteoporotic fractures. Recommend continued optimization of calcium and vitamin D intake through dietary means and/or supplementation and regular exercise. Consider pharmacologic therapy for osteoporosis. Follow-up bone density reading in 2 years if therapy initiated to assess therapeutic efficacy. Sydni Douglas PA-C [facility] 01/28/2025 Narrative 01/28/2025 1:23 PM CDT For Patients: Results are automatically released to your [facility] ([facility]Box) account once available, in compliance with federal regulations. This means that you may see your results before your provider has had a chance to review them. Please allow 2-3 business days for your provider to comment on the results. XR DXA Bone Mineral Density (BMD) EXAM LOCATION: [address] [address] PATIENT NAME: Elizabeth Vazquez DATE OF : 1940 EXAM DATE: 01/23/2025 REQUESTING PROVIDER: Virginia Lara MD GENDER AT : female HEIGHT: 5' 6 (12/26/2024) WEIGHT: 162 lb 14.4 oz (01/22/2025) MENOPAUSAL STATUS: Postmenopausal RACE/ETHNICITY: White RISK FACTORS: Family History of Osteoporosis, Smoking (prior), and White Race CURRENT MEDICATION FOR BONE LOSS: NONE INDICATION: Follow-up of existing osteopenia COMPARISON DATE(S): 2018 DXA scans are compared to prior studies for a patient only when the two (or more) studies were performed on the same scanner. It is not possible to compare data generated on one scanner to data from another because there are not standards in DXA equipment. This applies even if the two scanners are made by the same sand mixer operator. PROCEDURE: Dual-energy x-ray absorptiometry performed with routine technique. Reporting is completed in the form of a T-score. The T-score represents the standard deviation from peak bone mass based on young healthy adult. A Z-score is used for diagnosis in premenopausal women, and for men under the age of 50. FINDINGS: RESULT LUMBAR SPINE L1 - L4 BMD: 1.115 g/cm2 T-Score: - 0.6 Z-Score: + 0.9 Change from prior in 2018: Decrease 6.5%. RESULTS FEMUR Left femoral neck BMD: 0.658 g/cm2 T-Score: - 2.7 Z-Score: - 0.7 Change from prior in 2018: Decrease 17.4%. Right femoral neck BMD: 0.656 g/cm2 T-Score: - 2.7 Z-Score: - 0.7 Change from prior in 2018: Decrease 19.1%. Left hip BMD: 0.634 g/cm2 T-Score: - 3.0 Z-Score: - 1.1 Change from prior in 2018: Decrease 14.9%. Right hip BMD: 0.595 g/cm2 T-Score: - 3.3 Z-Score: - 1.4 Change from prior in 2018: Decrease 24.4%. WHO criteria: Normal: T-score at or above -1 SD Osteopenia: T-score between -1.1 and -2.4 SD Osteoporosis: T-score at or below -2.5 SD Virginia Lara MD DEXA Final Resul t from Last 3 Months or Most Recently Relevant to Health Maintenance Insurance MEDICARE PART A HB ONLY [facility] Member Subscriber Plan / Payer (Ef fective 2025-Present) Name:Elizabeth Vazquez Relation to Subscriber:Self Name:Elizabeth Vazquez Payer ID:[id number] (NAIC) Group ID:[id number] Type:Not on file Address: MAILSTOP: [id number] [place] [address] Care Teams Sprinkler Irrigation Equipment Mechanic Relationship Specialty Start Date End Date Virginia Lara MD [address] [place] [address] PCP - General Family Practice 12/21/16 Rob Garcia MBBS [address] [place] [address] Consulting Physician Rheumatology 03/12/24
--- OUTSIDE RECORDS SUMMARY | 2025-05-08 21:07 | XMS_ITS | Patient Health Record ---
Author Organization [facility] Billing Info Address [address] [place] [address] Support Name Relationship Address Phone Akbar Parker Emergency Contact Unknown Elizabeth Vazquez Guarantor Unknown [phone] Allergies Allergen (clinical drug ingredient) Drug/Non Drug Allergy documented on EMR Reaction Allergy Type Onset Date Status aspirin Aspirin ulcer Drug Allergy Active codeine Codeine ulcer Drug Allergy Active prednisone Prednisone anxious Drug Allergy Activ e Reason For Referral No Information Medications Medication SIG (Take, Route, Frequency, Duration) Notes Start Date End Date Status Albuterol Sulfate (2.5 MG/3ML) 0.083% 3 mL as needed Inhalation every 4 hrs for 30 day(s) Active Doxycycline Hyclate 100 MG 1 capsule Orally Twice a day Active Clotrimazole 10 MG 1 frankie while on immunosuppressive medicine Mouth/Throat Twice a day Active Fluticasone Propionate 50 MCG/ACT 1 spray in each nostril Nasally Once a day for 30 day(s) Active Celebrex 200 MG 1 capsule Orally Onc e a day Not-Taking Sucralfate 1 GM 1 tablet on an empty stomach Orally Twice a day Active Medrol (Farrukh) 4 MG as directed Orally A s directed for 6 day(s) 06/23/2022 Active Nexium 40 MG 1 capsule Orally Onc e a day Not-Taking Clobetasol Propionate 0.05 % 1 application Externally Twice a day for 10 day(s) Active Lidocaine Viscous HCl 2 % swish and spit 5ml Mouth/Throat TID Active Dexamethasone 0.5 MG/5ML swish and spit 5ml Orally every 12 hrs Active Clobetasol Propionate 0.05 % 1 application Externally Twice a day for 10 day(s) Active Hydroxychloroquine Sulfate 200 MG as directed Orally BID Act arnold Omeprazole 40 mg TAKE ONE CAPSULE BY MOUTH DAILY 30 MINUTES BEFORE MORNING MEAL for 30 Active Social History Tobacco Use: Social History Observation Description Date Details (start date - stop date) Current some da y smoker NA - NA Tobacco Status: Question Answer Notes Patient is a current some day smoker Received cessation counseling on: 03/26/2014 Problems No Known Problems Plan Of Treatment Pending Test Test Name Order Date XRAY- CHEST PA AND LATERAL (41059)([facility]- CHE[facility]) 06/23/2022 Insurance Providers Payer Name Payer Address Payer Phone Subscriber Number Group Number Insured Name Patient Relationship to Insured Coverage Start Date Coverage End Date [place]ARE [place] PART A [address] [facility] [place], [place] [id number] Elizabeth Vazquez Self - patient is the insured 2 [place] [address] [place] [address] [id number] Elizabeth Vazquez Self - patient is the insured 0 0 Medical (General) History Medical History History ICD Code Ulcers arhtritis bleeding disorders chicken pox measles migraine headaches pneumonia whooping cough rheumatic fever Surgical History Surgery Date(Month/Year) hammer toe repair carpal tunnel release t&a hysterectomy 1972 left wrist fx 2013
--- OUTSIDE RECORDS SUMMARY | 2025-05-08 21:07 | XMS_ITS | Clinical Summary ---
Author Organization [facility] Address [address] [address] Care Team Providers Care Aerodynamics Professor Name Role Phone Unavailable Primary Care Provider Unavailabl e Source Comments You are receiving this document as you are listed as the primary care provider,follow-up provider, or the patient has been referred to you for consultation.This is in compliance with the Medicare andMedicaid EHR Incentive Program,which states Providers who transition their patient to another setting of careor provider of care or refers their patient to another provider of care shouldprovide summary care record for each transition of care or referral. CRV Allergies Active Allergy Reactions Criticality Noted Date Comments Prednisone Hypertension High 03/29/2019 Medications omeprazole (PRILOSEC) 40 MG capsule Take 40 mg by mouth daily. 2 9 Active fluticasone (FLONASE) 50 MCG/ACT nasal solution INSTILL 1 SPRAY IN THE NOSTRIL(S) 2 TIMES DAILY. 6 9 Active pantoprazole (PROTONIX) 40 MG tablet TAKE 1 TABLET BY MOUTH ONCE DAILY. TAKE 30-60 MINUTES BEFORE A MEAL/FOOD ONCE A DAY. 11 9 Active B Complex Vitamins (B COMPLEX-B12 TR OR) Active acetaminophen (TYLENOL) 500 MG tablet Take 1 Tablet by mouth every 4 hours as needed for Pain (Mild Pain). Maximum acetaminophen dose is 4000 mg in 24 hours 100 Tablet 11 9 Active ibuprofen (MOTRIN) 200 MG tablet Take 2 Tablets by mouth every 6 hours as needed for Pain (Mild Pain). This may be safely mixed with the prescription pain medications (oxycodone, hydrocodone or tramadol.) This may also be safely mixed with acetaminophen. 100 Tablet 9 Active oxyCODONE (ROXICODONE) 5 MG immediate release tablet Take 1-2 Tablets by mouth every 4 hours as needed for Pain (Severe Pain). 20 Tablet 9 Active Active Problems No known active problems [...] of Binge Drinking Not on file 03/14 Comments Unknown Sex and Gender Information Value Date Recorded Sex Assigned at Not on file Legal Sex Female 11:32 AM CDT Gender Identity Not on file Sexual Orientation [...] Last Done Comments Adult Preventive Visit 1960 Pneumococcal Vaccine 50+ Yrs (1 of 1 - PCV) 1992 Zoster/Shingles Vaccine (1 o f 2) 1992 Dexa 11/07/2007 RSV Vaccine (1 - 1-dose 75+ series) 2017 COVID-19 Vaccine ( - 2023-2 5 season) 2025 Influenza Vaccine (#1) 2025 9, 08/01/2018 DTaP/Tdap/Td Vaccine (2 - Tdap) 03/06/2029 03/06/2019 HepA Vaccine Aged Out No longer eligi ble based on patient's age to complete this topic HepB Vaccine Aged Out No longer eligi ble based on patient's age to complete this topic Hib Vaccine Aged Out No longer eligi ble based on patient's age to complete this topic IPV (Polio) Vaccine Aged Out No longe r eligible based on patient's age to complete this topic MCV4 Vaccine Aged Out No longer eligi ble based on patient's age to complete this topic Meningococcal B Vaccine Aged Out No l onger eligible based on patient's age to complete this topic
[2025-05-08 21:14] VITALS: BP 153/79; PULSE 92; RESP 20; TEMP 36.3; O2SAT 95; BMI 25.2
--- NOTE | 2025-05-08 22:43 | ED.GENADULT ---
HPI - General Adult General Chief complaint: Shortness of Breath/Dyspnea Stated complaint: asthma attack few hours ago Time Seen by Provider: 05/08/25 22:33 Source: patient Mode of arrival: ambulatory Limitations: no limitations History of Present Illness HPI narrative: 84-year-old female presenting today after she had an episode at home where she was having a hard time breathing. She states that she has been having a lot of sinus congestion with thick nasal discharge for about 2 weeks. Today she felt that discharge going the back of her throat and she started coughing and gagging. The episode lasted about 5 minutes and she could not catch her breath. She states that she then did albuterol Nebulizer and her symptoms resolved. she denies chest pain, dizziness, recent fevers, nausea or vomiting, no headache, no diaphoresis. Related Data Home Medications ?Medication ?Instructions ?Recorded ?Confirmed omeprazole 40 mg capsule,delayed 40 mg PO DAILY 09/19/22 05/08/25 release cholecalciferol (vitamin D3) 25 25 mcg PO QDAY 07/19/23 05/08/25 mcg (1,000 unit) capsule albuterol sulfate 90 mcg/actuation 1 - 2 puff inhalation Q4H PRN 03/31/24 05/08/25 aerosol inhaler (Ventolin HFA) wheezing albuterol sulfate 90 mcg/actuation 2 inh inhalation Q4H PRN 01/24/25 05/08/25 aerosol inhaler (Ventolin HFA) sucralfate 1 gram tablet 1 g PO QID PRN 01/24/25 05/08/25 Previous Rx's ?Medication ?Instructions ?Recorded doxycycline hyclate 100 mg capsule 100 mg PO BID #14 caps 04/27/24 ipratropium 0.5 mg-albuterol 3 mg 3 ml inhalation Q4H PRN #90 mL 04/27/24 (2.5 mg base)/3 mL nebulization soln amoxicillin 875 mg-potassium 1 tab PO BID 7 days #14 tabs 05/08/25 clavulanate 125 mg tablet Allergies Allergy/AdvReac Type Severity Reaction Status Date / Time codeine AdvReac Unknown Gastrointestinal Verified 05/08/25 21:13 Upset Review of Systems Status of ROS: Reports: 10 or more systems reviewed and unremarkable except as noted in History and below 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) Knee fracture, left Vulvar pain ?R10.2 - Pelvic and perineal pain (ICD-10) History of duodenal ulcer ?Z87.19 - Personal history of other diseases of the digestive system (ICD-10) Headache ?R51.9 - Headache, unspecified (ICD-10) Elevated blood pressure reading ?R03.0 - Elevated blood-pressure reading, without diagnosis of hypertension (ICD-10) Back pain ?M54.9 - Dorsalgia, unspecified (ICD-10) Atopic dermatitis ?L20.9 - Atopic dermatitis, unspecified (ICD-10) Surgical History Status post laparoscopic cholecystectomy ?Z90.49 - Acquired absence of other specified parts of digestive tract (ICD-10) History of tonsillectomy and adenoidectomy ?Z90.89 - Acquired absence of other organs (ICD-10) History of surgery on left wrist (07/28/15) ?Z98.890 - Other specified postprocedural states (ICD-10) History of sinus surgery ?Z98.890 - Other specified postprocedural states (ICD-10) History of hysterectomy ?Z90.710 - Acquired absence of both cervix and uterus (ICD-10) History of hammer toe correction ?Z98.890 - Other specified postprocedural states (ICD-10) ?Z87.39 - Personal history of other diseases of the musculoskeletal system and connective tissue (ICD-10) History of elbow surgery (2018) ?Z98.890 - Other specified postprocedural states (ICD-10) History of carpal tunnel surgery of left wrist (2018) ?Z98.890 - Other specified postprocedural states (ICD-10) History of bilateral cataract extraction (2014) ?Z98.41 - Cataract extraction status, right eye (ICD-10) ?Z98.42 - Cataract extraction status, left eye (ICD-10) History of arthroscopy of knee (1989) ?Z98.890 - Other specified postprocedural states (ICD-10) History of appendectomy ?Z90.49 - Acquired absence of other specified parts of digestive tract (ICD-10) Social History Smoking Status: Former smoker Do you use any of these nicotine containing products: None Second hand tobacco smoke exposure: No How often do you have a drink containing alcohol: never How often do you have six or more drinks on one occasion: Never AUDIT-C Alcohol total score: 0 Non-prescribed substance use: denies use Caffeine: Yes service: No Exam Narrative: Exam Narrative: Well-nourished well-developed Elderly patient in no acute distress. Alert and oriented. Answers questions appropriately. Mood and affect are appropriate. Thoughts are goal oriented and rational. No tangential or magical thinking noted. Patient speaks in full sentences without needing to catch her breath. HEENT: Normocephalic atraumatic. Pupils are equally round reactive to light. Extraocular muscles are intact. Conjunctivae are moist without any icterus noted. Moist mucous membranes. Posterior pharynx is normal. No swelling visible. Cardiovascular: Heart is regular rate and rhythm S1 and S2 are present without any murmurs. Lungs: Clear to auscultation bilaterally no wheezes rhonchi or rales are appreciated. Patient takes deep breaths without any discomfort. Extremities: Bilateral lower extremities are without edema. Normal DP and PT pulses. Skin: Well perfused. Const: Vital Signs, click to edit/add: Vital Signs - 24 hr 05/08/25 21:14 05/08/25 23:17 Temperature 97.3 F L Pulse Rate [Pulse Oximeter] 92 77 Respiratory Rate 20 20 Blood Pressure [Ri ght Upper Arm] 153/79 H 162/79 H Pulse Oximetry 95 Oxygen Delivery Me thod Room Air Course Vital Signs Vital signs: Initial Vital Signs Temperature 97.3 F L 05/08/25 21:14 Temperature Source Temporal Artery Scan 05/08/25 21:14 Pulse Rate 92 05/08/25 21:14 Respiratory Rate 20 05/08/25 21:14 Blood Pressure 153/79 H 05/08/25 21:14 Blood Pressure Mean 103 05/08/25 21:14 Pulse Oximetry 95 05/08/25 21:14 Oxygen Delivery Method Room Air 05/08/25 21:14 Vital Signs Temperature 97.3 F L 05/08/25 21:14 Pulse Rate 92 05/08/25 21:14 Respiratory Rate 20 05/08/25 21:14 Blood Pressure 153/79 H 05/08/25 21:14 Pulse Oximetry 95 05/08/25 21:14 Oxygen Delivery Method Room Air 05/08/25 21:14 Temperature 97.3 F L 05/08/25 21:14 Pulse Rate 77 05/08/25 23:17 Respiratory Rate 20 05/08/25 23:17 Blood Pressure 162/79 H 05/08/25 23:17 Pulse Oximetry 95 05/08/25 21:14 Oxygen Delivery Method Room Air 05/08/25 21:14 Medical Decision Making MDM Narrative Medical decision making narrative: 84-year-old female status post an episode with gagging and coughing that lasted 5 minutes. Given her lack of other symptoms a normal physical examination I I think this is likely from mucus running down the back of her throat. Two weeks worth of sinus pressure with thick discharge. At this point we will treat her with an antibiotic for sinusitis. Patient denies any allergies or recent antibiotic use. Discharge Plan Discharge Clinical Impression: Sinusitis Patient Disposition: Home, Self-Care Condition: Stable Additional Instructions: Take all antibiotics as prescribed. Can take your 1st dose in the morning. Follow-up with your doctor as needed. Prescriptions: New amoxicillin-pot clavulanate 875-125 mg tablet 1 tab PO BID 7 Days Qty: 14 0RF No Action cholecalciferol (vitamin D3) 25 mcg (1,000 unit) capsule 25 mcg PO QDAY albuterol sulfate [Ventolin HFA] 90 mcg/actuation HFA aerosol inhaler 1 - 2 puff INHALATION Q4H PRN (Reason: wheezing) sucralfate 1 gram tablet 1 g PO QID PRN albuterol sulfate [Ventolin HFA] 90 mcg/actuation HFA aerosol inhaler 2 inh inhalation Q4H PRN omeprazole 40 mg capsule,delayed release(DR/EC) 40 mg PO DAILY Patient Comments: TAKE ONE CAPSULE BY MOUTH DAILY 30 MINUTES BEFORE MORNING MEAL ipratropium-albuterol 0.5 mg-3 mg(2.5 mg base)/3 mL solution for nebulization 3 ml inhalation Q4H PRNQty: 90 0RF Rx Instructions: until breathing returns to target peak flow/parameters doxycycline hyclate 100 mg capsule 100 mg PO BID Qty: 14 0RF Follow Up/Referrals: Virginia Lara MD [Primary Care Provider, Family Practice] Stand Alone Forms: [facility] Info Instructions
[2025-05-08 23:17] VITALS: BP 162/79; PULSE 77; RESP 20
== END 2025-05-08 23:18 | disposition home or self-care (01) ==
PROVIDERS: Emergency Provider Family Medicine; PCP Family Medicine
DX: J45.909 Unspecified asthma, uncomplicated (principal); J01.90 Acute sinusitis, unspecified; L12.0 Bullous pemphigoid
CPT/HCPCS: 99283

== ENCOUNTER 2025-05-11 13:27 | Emergency (ER) | payer BC, SELFPAY ==
--- OUTSIDE RECORDS SUMMARY | 2024-06-25 23:30 | XMS_ITS | Continuity of Care Document ---
Author Organization [facility] Address [address] [address] [place] [address] Phone Care Team Providers Care Health Care Coach Name Role Phone No Information Unavailable Unavailable Advance Directives Directive Yes / No Effective Date File Name No Information Encounters Encounter Description Practice Location Reason(s) For Visit Diagnoses Date Provider Providers Copied on Encounter [facility], [address] [address], [place], [place], [id number], [place] tel:[phone] No Information No Information Family History Family [...]
--- OUTSIDE RECORDS SUMMARY | 2024-06-25 23:30 | XMS_ITS | Continuity of Care Document ---
Author Organization [facility] Address [address] [address] [place] [address] Phone Care Team Providers Care Interpreter Name Role Phone No Information Unavailable Unavailable Advance Directives Directive Yes / No Effective Date File Name No Information Encounters Encounter Description Practice Location Reason(s) For Visit Diagnoses Date Provider Providers Copied on Encounter [facility], [address] [address], [place], [place], [id number], [place] tel:[phone] No Information No Information Family History Family [...]
--- OUTSIDE RECORDS SUMMARY | 2025-05-11 13:29 | XMS_ITS | Clinical Summary ---
Author Organization [facility] Address [address] [place] [address] Care Team Providers Care Industrial Engineering Name Role Phone Virginia Lara MD Primary [...] Description 04/21/2025 8:45 AM CDT Office Visit [facility] [place] [address] [address] [facility] [address] [place] [address] Pierre Hall DO Consult (Neck/Thoracic Pain) 04/20/2025 Travel 03/14/2025 Telephone [facility] [address] [facility] [address] [address] [place] [address] Pierre Hall DO Screening (Spine Center Screening ) 03/14/2025 Telephone [facility] [address] [place] [address] Pankaj Giordano MD Results 03/11/2025 2:45 PM CDT Ancillary Procedure [facility] [address] [facility] [place] [address] 03/11/2025 Travel 02/10/2025 1:30 PM CDT Office Visit [facility] [address] [place] [address] Snow Le MD Post-op (Excisional multiple soft tissue masses from right forearm, abdominal wall, left upper posterior arm, left forearm and right thigh 01/27/25) 02/10/2025 Travel from Last 3 Months Immunizations Immunization Administration Dates Next Due COVID-19 vaccine (Quaero 30mcg/0.3mL) SHELDON Benítez 09/17/2021,08/04/2021 Influenza, High-dose Inactivated [...] on file Legal Sex Female 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 Sydni Douglas PA-C [facility] 01/28/2025 Narrative 01/28/2025 1:23 PM CDT For Patients: Results are automatically released to your [employer]) account once available, in compliance with federal regulations. This means that you may see your results before your provider has had a chance to review them. Please allow 2-3 business days for your provider to comment on the results. XR DXA Bone Mineral Density (BMD) EXAM LOCATION: [address] [address] PATIENT NAME: Elizabeth Vazquez DATE OF : [...] two scanners are made by the same transition lead. PROCEDURE: Dual-energy x-ray absorptiometry performed with routine [...] Maintenance Insurance MEDICARE PART A HB ONLY [facility] Member Subscriber Plan / Payer (Ef fective 2025-Present) Name:Elizabeth Vazquez Relation to Subscriber:Self Name:Elizabeth Vazquez Payer ID:[id number] (NAIC) Group ID:[id number] Type:Not on file Address: MAILSTOP: [id number] [address] [place] [address] Care Teams Industrial Engineering Relationship Specialty Start Date End Date Virginia Lara MD [address] [place] [address] PCP - General Family Practice 12/21/16 Rob Garcia MBBS [address] [place] [address] Consulting Physician Rheumatology 03/12/24
--- OUTSIDE RECORDS SUMMARY | 2025-05-11 13:29 | XMS_ITS | Clinical Summary ---
Author Organization [facility] Address [address], [place] [address] Care Team Providers Care Data Programmer Name Role Phone Unavailable Primary Care Provider [...] for each transition of care or referral. [facility] Allergies Active Allergy Reactions Criticality Noted Date [...]
--- OUTSIDE RECORDS SUMMARY | 2025-05-11 13:29 | XMS_ITS | Clinical Summary ---
Author Organization [facility] Address [address] [place] [address] Care Team Providers Care Bean Snapper Name Role Phone Elsewhere, Pcp Primary Care Provider Unavailabl e Source Comments Patient records contain information from all sites at [facility]. For routine questions regarding patient records, call [phone] during business hours, M-F 8:00 AM - 5:00 PM Central Time. Record requests for emergency care only can be directed to [phone] at any time.[facility] Allergies Active Allergy Reactions Criticality Noted [...] (01/19/2021): Added automatically from request for surgery [id number] Encounters Date Type Department Care Team Description 03/16/2025 Refill Department of Dermatology in [place], [place] [address] [place] [address] Vinita Salas M.D. Med Refill from Last [...] AM CDT Legal Sex Female 12:30 PM TEACHING PASTOR Gender Identity Female 04/18/2021 12:58 AM CDT Sexual Orientation Straight 04/18/2021 12 :58 AM CDT Last Filed Vital Signs Vital Sign Reading Time Taken Comments Blood Pressure 127/57 07/04/2024 4:40 PM TEACHING PASTOR Pulse 84 07/04/2024 4:45 PM TEACHING PASTOR Temperature 36.5 C (97.7 F) 07/04/2024 3:51 PM TEACHING PASTOR Respiratory Rate 15 07/04/2024 4:45 PM TEACHING PASTOR Oxygen Saturation 90% 07/04/2024 4:45 PM TEACHING PASTOR Inhaled Oxygen Concentration - - Weight 74.2 kg (163 lb 9.3 oz) 09/22/2023 10:14 AM TEACHING PASTOR Height 170.2 cm (5' 7) 07/04/2024 12:08 PM TEACHING PASTOR Body Mass Index 25.8 09/22/2023 10:14 AM TEACHING PASTOR Plan of Treatment Health Maintenance Due Date [...] age to complete this topic Insurance [place] [address] Advance Directives For more information, please contact: [phone] Documents on File Type Date Recorded Patient Law Office Receptionist Expl anation Advance Directives 09/15/2021 6:54 PM BODY/ ORGAN DONATION Care Teams Bean Snapper Relationship Specialty Start Date End Date Elsewhere, Pcp PCP - General Internal Medicine 01/27/23
--- OUTSIDE RECORDS SUMMARY | 2025-05-11 13:29 | XMS_ITS | Patient Health Record ---
Author Organization [facility] Info Address [address] [place] [address] Support Name Relationship Address Phone Akbar Parker Emergency Contact Unknown [phone] Elizabeth Vazquez Guarantor Unknown [phone] Allergies Allergen (clinical drug ingredient) Drug/Non Drug [...] Order Date XRAY- CHEST PA AND LATERAL ([id number])([facility]- CHE[facility]) 06/23/2022 Insurance Providers Payer Name Payer Address Payer Phone Subscriber Number Group Number Insured Name Patient Relationship to Insured Coverage Start Date Coverage End Date [employer] [place] PART A [address] [facility] [place], [place] [id number] Elizabeth Vazquez Self - patient is the insured 2 [employer] [place] [address] [place] [address] [id number] Elizabeth Vazquez Self - patient is the insured 0 0 Medical (General) History Medical History History ICD Code Ulcers arhtritis bleeding disorders chicken pox measles migraine headaches pneumonia whooping cough rheumatic fever Surgical History Surgery Date(Month/Year) left wrist fx 2013 hysterectomy 1972 t&a carpal tunnel release hammer toe repair
[2025-05-11 13:39] VITALS: PULSE 76; RESP 18; TEMP 36.7; O2SAT 97
--- NOTE | 2025-05-11 14:24 | ED.GENADULT ---
HPI - General Adult General Date Seen: 05/11/25 Chief complaint: Cough Stated complaint: Bad cough, asthma Time Seen by Provider: 05/11/25 13:51 Source: patient Mode of arrival: ambulatory Limitations: no limitations History of Present Illness HPI narrative: Patient is a very nice lady who presents here with ongoing issues with cough. She was seen here recently in the ED 3 days ago and started on Augmentin. 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 She has been on steroids before in the past with no problems, she denies any fevers chills or sweats, just feels like she has thick sputum. She brought me bunch of medications she is trying, including dextromethorphan, guanefesin, oxymetazoline, along with her normal albuterol MDI, and powdered salmetrol. Related Data Home Medications ?Medication ?Instructions ?Recorded ?Confirmed omeprazole 40 mg capsule,delayed 40 mg PO DAILY 09/19/22 05/08/25 release cholecalciferol (vitamin D3) 25 25 mcg PO QDAY 07/19/23 05/08/25 mcg (1,000 unit) capsule albuterol sulfate 90 mcg/actuation 1 - 2 puff inhalation Q4H PRN 03/31/24 05/08/25 aerosol inhaler (Ventolin HFA) wheezing albuterol sulfate 90 mcg/actuation 2 inh inhalation Q4H PRN 01/24/25 05/08/25 aerosol inhaler (Ventolin HFA) sucralfate 1 gram tablet 1 g PO QID PRN 01/24/25 05/08/25 fluticasone 250 mcg-salmeterol 50 1 ea inhalation BID 05/11/25 05/11/25 mcg/dose blistr powdr for inhalation Previous Rx's ?Medication ?Instructions ?Recorded doxycycline hyclate 100 mg capsule 100 mg PO BID #14 caps 04/27/24 ipratropium 0.5 mg-albuterol 3 mg 3 ml inhalation Q4H PRN #90 mL 04/27/24 (2.5 mg base)/3 mL nebulization soln amoxicillin 875 mg-potassium 1 tab PO BID 7 days #14 tabs 05/08/25 clavulanate 125 mg tablet Allergies Allergy/AdvReac Type Severity Reaction Status Date / Time codeine AdvReac Intermediate Gastrointestinal Verified 05/11/25 13:42 Upset Review of Systems Status of ROS: Reports: 10 or more systems reviewed and unremarkable except as noted in History and below 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, left shoulder (ICD-10) Knee fracture, left Vulvar pain ?R10.2 - Pelvic and perineal pain (ICD-10) History of duodenal ulcer ?Z87.19 - Personal history of other diseases of the digestive system (ICD-10) Headache ?R51.9 - Headache, unspecified (ICD-10) Elevated blood pressure reading ?R03.0 - Elevated blood-pressure reading, without diagnosis of hypertension (ICD-10) Back pain ?M54.9 - Dorsalgia, unspecified (ICD-10) Atopic dermatitis ?L20.9 - Atopic dermatitis, unspecified (ICD-10) Surgical History Status post laparoscopic cholecystectomy ?Z90.49 - Acquired absence of other specified parts of digestive tract (ICD-10) History of tonsillectomy and adenoidectomy ?Z90.89 - Acquired absence of other organs (ICD-10) History of surgery on left wrist (07/28/15) ?Z98.890 - Other specified postprocedural states (ICD-10) History of sinus surgery ?Z98.890 - Other specified postprocedural states (ICD-10) History of hysterectomy ?Z90.710 - Acquired absence of both cervix and uterus (ICD-10) History of hammer toe correction ?Z98.890 - Other specified postprocedural states (ICD-10) ?Z87.39 - Personal history of other diseases of the musculoskeletal system and connective tissue (ICD-10) History of elbow surgery (2018) ?Z98.890 - Other specified postprocedural states (ICD-10) History of carpal tunnel surgery of left wrist (2019) ?Z98.890 - Other specified postprocedural states (ICD-10) History of bilateral cataract extraction (2014) ?Z98.41 - Cataract extraction status, right eye (ICD-10) ?Z98.42 - Cataract extraction status, left eye (ICD-10) History of arthroscopy of knee (1989) ?Z98.890 - Other specified postprocedural states (ICD-10) History of appendectomy ?Z90.49 - Acquired absence of other specified parts of digestive tract (ICD-10) Social History Smoking Status: Former smoker Do you use any of these nicotine containing products: None Second hand tobacco smoke exposure: No How often do you have a drink containing alcohol: never How often do you have six or more drinks on one occasion: Never AUDIT-C Alcohol total score: 0 Non-prescribed substance use: denies use Caffeine: Yes service: No Exam Narrative: Exam Narrative: On examination she is in no apparent distress, speaking to me in full sentences in room 4. Her pupils equal round react to light her TMs are normal oropharynx is normal neck is supple, she complains to me she can not believe that the right side of her nose. No evidence of any bleeding. Her dried blood formation chest is good air entry with only occasional expiratory wheezes mostly in the right lower lung shepherd. Little bit hyper inflation, with thoracic kyphosis heart sounds no clicks murmurs or gallops, her abdomen is soft there is no guarding no organomegaly bowel sounds are normal, no pitting edema of her lower extremities she moves all extremities independently and well. Const: Vital Signs, click to edit/add: Vital Signs - 24 hr 05/11/25 13:39 05/11/25 14:29 Temperature 98.1 F Pulse Rate [Pulse Oximeter] 76 80 Respiratory Rate 18 18 Blood Pressure [Ri ght Upper Arm] 115/71 Pulse Oximetry 97 Oxygen Delivery Me thod Room Air Documenting provider has reviewed patient's vital signs: yes Course Vital Signs Vital signs: Initial Vital Signs Temperature 98.1 F 05/11/25 13:39 Temperature Source Temporal Artery Scan 05/11/25 13:39 Pulse Rate 76 05/11/25 13:39 Respiratory Rate 18 05/11/25 13:39 Blood Pressure Position Sitting 05/11/25 13:39 Pulse Oximetry 97 05/11/25 13:39 Oxygen Delivery Method Room Air 05/11/25 13:39 Vital Signs Temperature 98.1 F 05/11/25 13:39 Pulse Rate 76 05/11/25 13:39 Respiratory Rate 18 05/11/25 13:39 Pulse Oximetry 97 05/11/25 13:39 Oxygen Delivery Method Room Air 05/11/25 13:39 Temperature 98.1 F 05/11/25 13:39 Pulse Rate 80 05/11/25 14:29 Respiratory Rate 18 05/11/25 14:29 Blood Pressure 115/71 05/11/25 14:29 Pulse Oximetry 97 05/11/25 13:39 Oxygen Delivery Method Room Air 05/11/25 13:39 Medical Decision Making MDM Narrative Medical decision making narrative: Differential diagnosis include a viral upper respiratory illness, histoplasmosis, tuberculosis, pneumonia, COPD exacerbation, emphysema, strep throat illness, bronchitis, asthma, reactive airway disease, chronic cough, medication side effects, allergic rhinitis with postnasal drip, foreign body aspiration, aspiration pneumonia, bronchiolitis, and gastroesophageal reflux disease as well as multiple other considerations. I do not think she has pneumonia, I do believe her cough is a combination of postnasal drip, along with her asthma. I think both can be helped with the little bit of prednisone, she has tolerated this well in the past I will put her on a tapering course through instymeds over a 12 day. I think using Flonase also 1 squirt per nostril as this is an really absorb also be helpful, stopping the guanenfesin. Consider following up with ENT. Discharge Plan Discharge Clinical Impression: Cough, Bullous pemphigoid, Asthma, Sinusitis Patient Disposition: Home, Self-Care Condition: Stable Instructions: Asthma (ED), Asthma (DC), Sinusitis (ED), Rhinosinusitis (DC), Wheezing (ED) Additional Instructions: Home rest continue antibiotics as directed, stop that cough syrup as it will cause to cough more, take the prednisone as directed, buy some Flonase and use 1 squirt per nostril every day, consider follow-up with . Return as needed. Activity Level: Light activity Discharge Diet: Regular Prescriptions: No Action cholecalciferol (vitamin D3) 25 mcg (1,000 unit) capsule 25 mcg PO QDAY albuterol sulfate [Ventolin HFA] 90 mcg/actuation HFA aerosol inhaler 1 - 2 puff INHALATION Q4H PRN (Reason: wheezing) sucralfate 1 gram tablet 1 g PO QID PRN albuterol sulfate [Ventolin HFA] 90 mcg/actuation HFA aerosol inhaler 2 inh inhalation Q4H PRN omeprazole 40 mg capsule,delayed release(DR/EC) 40 mg PO DAILY Patient Comments: TAKE ONE CAPSULE BY MOUTH DAILY 30 MINUTES BEFORE MORNING MEAL ipratropium-albuterol 0.5 mg-3 mg(2.5 mg base)/3 mL solution for nebulization 3 ml inhalation Q4H PRNQty: 90 0RF Rx Instructions: until breathing returns to target peak flow/parameters doxycycline hyclate 100 mg capsule 100 mg PO BID Qty: 14 0RF amoxicillin-pot clavulanate 875-125 mg tablet 1 tab PO BID 7 Days Qty: 14 0RF fluticasone propion-salmeterol 250-50 mcg/dose blister with device 1 ea INHALATION BID Follow Up/Referrals: Raad Ochoa MD [Staff Physician, Ear, Nose, Throat] Virginia Lara MD [Primary Care Provider, Family Practice] Stand Alone Forms: [facility] Info Instructions
[2025-05-11 14:29] VITALS: BP 115/71; PULSE 80; RESP 18
== END 2025-05-11 14:39 | disposition home or self-care (01) ==
LOC: ED 14:22
PROVIDERS: Emergency Provider Family Medicine; PCP Family Medicine
DX: J45.909 Unspecified asthma, uncomplicated (principal); J32.9 Chronic sinusitis, unspecified; Z87.891 Personal history of nicotine dependence; L12.0 Bullous pemphigoid
CPT/HCPCS: 99283; 99284

== ENCOUNTER 2025-07-03 00:09 | Emergency (ER) | payer BC, SELFPAY ==
--- OUTSIDE RECORDS SUMMARY | 2024-06-25 22:30 | XMS_ITS | Continuity of Care Document ---
Author Organization [facility] Address [address] [address] [place] [address] Phone Care Team Providers Care Oven Tender Bagels Name Role Phone No Information Unavailable Unavailable Advance Directives Directive Yes / No Effective Date File Name No Information Encounters Encounter Description Practice Location Reason(s) For Visit Diagnoses Date Provider Providers Copied on Encounter [facility], [address] [address], [place], [place], [id number], [place] tel:[phone] No Information No Information Family History Family Member Type Diagnosis Age At Onset No Information Payers Payer name Insurance type Covered constitution party ID Authoriza tion(s) No Information Social History Type Description Quantity Date Captured [...]
--- OUTSIDE RECORDS SUMMARY | 2024-06-25 22:30 | XMS_ITS | Continuity of Care Document ---
Author Organization [facility] Address [address] [address] [place] [address] Phone Care Team Providers Care Mounter Clarinets Name Role Phone No Information Unavailable Unavailable Advance Directives Directive Yes / No Effective Date File Name No Information Encounters Encounter Description Practice Location Reason(s) For Visit Diagnoses Date Provider Providers Copied on Encounter [facility], [address] [address], [place], [place], [id number], [place] tel:[phone] No Information No Information Family History Family Member Type Diagnosis Age At Onset No Information Payers Payer name Insurance type Covered libertarian ID Authoriza tion(s) No Information Social History [...]
--- OUTSIDE RECORDS SUMMARY | 2024-06-25 22:30 | XMS_ITS | Continuity of Care Document ---
Author Organization [facility] Address [address] [address] [place] [address] Phone Care Team Providers Care Automatic Clipper And Stripper Name Role Phone No Information Unavailable Unavailable Advance Directives Directive Yes / No Effective Date File Name No Information Encounters Encounter Description Practice Location Reason(s) For Visit Diagnoses Date Provider Providers Copied on Encounter [facility], [address] [address], [place], [place], [id number], [place] tel:[phone] No Information No Information Family History Family Member Type Diagnosis Age At Onset No Information Payers Payer name Insurance type Covered green party ID Authoriza tion(s) No Information Social [...]
--- OUTSIDE RECORDS SUMMARY | 2024-06-25 22:30 | XMS_ITS | Continuity of Care Document ---
Author Organization [facility] Address [address] [address] [place] [address] Phone Care Team Providers Care Landscape Foreman Name Role Phone No Information Unavailable Unavailable Advance Directives Directive Yes / No Effective Date File Name No Information Encounters Encounter Description Practice Location Reason(s) For Visit Diagnoses Date Provider Providers Copied on Encounter [facility], [address] [address], [place], [place], [id number], [place] tel:[phone] No Information No Information Family History Family Member Type Diagnosis Age At Onset No Information Payers Payer name Insurance type Covered republican ID Authoriza tion(s) No Information Social History [...]
--- OUTSIDE RECORDS SUMMARY | 2024-06-25 22:30 | XMS_ITS | Continuity of Care Document ---
Author Organization [facility] Address [address] [address] [place] [address] Phone Care Team Providers Care Manager Country Name Role Phone No Information Unavailable Unavailable Advance Directives Directive Yes / No Effective Date File Name No Information Encounters Encounter Description Practice Location Reason(s) For Visit Diagnoses Date Provider Providers Copied on Encounter [facility], [address] [address], [place], [place], [id number], [place] tel:[phone] No Information No Information Family History Family [...]
--- OUTSIDE RECORDS SUMMARY | 2024-06-25 22:30 | XMS_ITS | Continuity of Care Document ---
Author Organization [facility] Address [address] [address] [place] [address] Phone Care Team Providers Care Environmental Remediation Specialist Name Role Phone No Information Unavailable Unavailable Advance Directives Directive Yes / No Effective Date File Name No Information Encounters Encounter Description Practice Location Reason(s) For Visit Diagnoses Date Provider Providers Copied on Encounter [facility], [address] [address], [place], [place], [id number], [place] tel:[phone] No Information No Information Family History Family [...]
--- OUTSIDE RECORDS SUMMARY | 2024-06-25 22:30 | XMS_ITS | Continuity of Care Document ---
Author Organization [facility] Address [address] [address] [place] [address] Phone Care Team Providers Care Sewing Machine Adjuster Name Role Phone No Information Unavailable Unavailable Advance Directives Directive Yes / No Effective Date File Name No Information Encounters Encounter Description Practice Location Reason(s) For Visit Diagnoses Date Provider Providers Copied on Encounter [facility], [address] [address], [place], [place], [id number], [place] tel:[phone] No Information No Information Family History Family [...]
--- OUTSIDE RECORDS SUMMARY | 2025-07-03 00:12 | XMS_ITS | Clinical Summary ---
Author Organization [facility] Address [address] [place] [address] Care Team Providers Care Lcac Operator Name Role Phone Elsewhere, Pcp Primary Care Provider Unavailabl e Source Comments Patient records contain information from all sites at [facility]. For routine questions regarding patient records, call [phone] during business hours, M-F 8:00 AM - 5:00 PM Central Time. Record requests for emergency care only can be directed to [phone] at any time.[facility] Allergies Active Allergy Reactions Criticality Noted Date [...] (01/19/2021): Added automatically from request for surgery [id number] Encounters Date Type Department Care Team Description 07/02/2025 Refill Department of Dermatology in [place], [place] [address] [place] [address] Vinita Salas M.D. Med Refill 05/28/2025 Refill Department of Dermatology in [place], [place] [address] [place] [address] Vinita Salas M.D. Med Refill from Last 3 Months Immunizations Immunization Administration Dates Next Due Influenza TIV (IM) 05/23/2019,08/01/2018 Influenza, Quadrivalent, Adjuvanted, Preservativ e Free 06/13/2023 PCV20 06/13/2023 Tdap 03/06/2019 Family History Medical History Relation Name Comments Cancer Daughter Elissa Stack liver ca ncer Migraines [...] the money to buy more. Never true 06/14/20 23 Within the past 12 months, t [...] your living situation today? I have a [facility] place to live 01/25/2023 Education Answer Date Recorded What is the highest level of school you have completed or the highest degree you have received? 11th grade 07/06/2021 Comments No Sex and Gender Information Value Date Recorded Sex Assigned at Female 04/18/2021 12:58 AM CDT Legal Sex Female 12:30 PM CLEANING PROFESSIONAL Gender Identity Female 04/18/2021 12:58 AM CDT Sexual Orientation Straight 04/18/2021 12 :58 AM CDT Last Filed Vital Signs Vital Sign Reading Time Taken Comments Blood Pressure 127/57 07/04/2024 4:40 PM CLEANING PROFESSIONAL Pulse 84 07/04/2024 4:45 PM CLEANING PROFESSIONAL Temperature 36.5 C (97.7 F) 07/04/2024 3:51 PM CLEANING PROFESSIONAL Respiratory Rate 15 07/04/2024 4:45 PM CLEANING PROFESSIONAL Oxygen Saturation 90% 07/04/2024 4:45 PM CLEANING PROFESSIONAL Inhaled Oxygen Concentration - - Weight 74.2 kg (163 lb 9.3 oz) 09/22/2023 10:14 AM CLEANING PROFESSIONAL Height 170.2 cm (5' 7) 07/04/2024 12:08 PM CLEANING PROFESSIONAL Body Mass Index 25.8 09/22/2023 10:14 AM CLEANING PROFESSIONAL Plan of Treatment Health Maintenance Due Date [...] 06/13/2023 RSV vaccine - (32-36 weeks) or 50+ years Completed 03/01/2024 Zoster Vaccines Completed 08/27/2024, 05/30/2024 IPV Vaccines Aged Out No longer eligi ble based on patient's age to complete this topic Insurance MEDICARE [facility] Advance Directives For more information, please contact: [phone] Documents on File Type Date Recorded Patient Enamel Machine Operator Expl anation Advance Directives 09/15/2021 6:54 PM BODY/ ORGAN DONATION Care Teams Lcac Operator Relationship Specialty Start Date End Date Elsewhere, Pcp PCP - General Internal Medicine 01/27/23
--- OUTSIDE RECORDS SUMMARY | 2025-07-03 00:12 | XMS_ITS | Clinical Summary ---
Author Organization [facility] Address [address], [place] [address] Care Team Providers Care Repair Servicer Name Role Phone Unavailable Primary Care Provider [...] for each transition of care or referral. [employer] Allergies Active Allergy Reactions Criticality Noted [...] 75+ series) 2017 COVID-19 Vaccine ( - 2024-2 6 season) 2025 Influenza Vaccine (#1) 2025 9, [...]
--- OUTSIDE RECORDS SUMMARY | 2025-07-03 00:12 | XMS_ITS | Encounter Summary ---
Author Organization [facility] Address [address] [place] [address] Care Team Providers Care Laborer Yard Name Role Phone Elsewhere, Pcp Primary Care Provider Unavailabl e Reason for Visit * Reason Comments Med Refill Encounter Details Date Type Department Care Team (Late st Contact Info) Description 05/28/2025 Refill Department of Dermatology in [place], [place] [address] [place] [phone] Vinita Salas M.D. [address] [place] [address] Med Refill Social History Tobacco Use Types [...] AM CDT Legal Sex Female 12:30 PM DIGITAL EXPERIENCE MANAGER Gender Identity Female 04/18/2021 12:58 AM CDT Sexual Orientation Straight 04/18/2021 12 :58 AM CDT documented as of this encounter Plan of Treatment Not on file documented as of this encounter Visit Diagnoses Diagnosis Pemphigoid Mucous Membrane (HCC) documented in this encounter Care Teams Laborer Yard Relationship Specialty Start Date End Date Elsewhere, Pcp PCP - General Internal Medicine 01/27/23 documented as of this encounter
--- OUTSIDE RECORDS SUMMARY | 2025-07-03 00:12 | XMS_ITS | Encounter Summary ---
Author Organization [facility] Address [address] [place] [address] Care Team Providers Care Senior Security Architect Name Role Phone Elsewhere, Pcp Primary Care Provider Unavailabl e Reason for Visit * Reason Onset Date Comments Med Refill 07/02/2025 Encounter Details Date Type Department Care Team (Late st Contact Info) Description 07/02/2025 Refill Department of Dermatology in [place], [place] [address] [place] [phone] Vinita Salas M.D. [address] [place] [phone] Med Refill Social History Tobacco Use Types [...] your living situation today? I have a [facility] place to live 01/25/2023 Education Answer Date Recorded What is the highest level of school you have completed or the highest degree you have received? 11th grade 07/06/2021 Comments No Sex and Gender Information Value Date Recorded Sex Assigned at Female 04/18/2021 12:58 AM CDT Legal Sex Female 12:30 PM TESTER VIBRATOR EQUIPMENT Gender Identity Female 04/18/2021 12:58 AM CDT Sexual Orientation Straight 04/18/2021 12 :58 AM CDT documented as of this encounter Plan of Treatment Not on file documented as of this encounter Visit Diagnoses Diagnosis Pemphigoid Mucous Membrane (HCC) documented in this encounter Care Teams Senior Security Architect Relationship Specialty Start Date End Date Elsewhere, Pcp PCP - General Internal Medicine 01/27/23 documented as of this encounter
--- OUTSIDE RECORDS SUMMARY | 2025-07-03 00:12 | XMS_ITS | Patient Health Record ---
Author Organization [facility] Billing Info Address [address] [place] [address] Support Name Relationship Address Phone Akbar Parker Emergency Contact Unknown Elizabeth Vazquez Guarantor Unknown [phone] Allergies Allergen (clinical drug ingredient) Drug/Non Drug [...] Order Date XRAY- CHEST PA AND LATERAL (31557)([facility]) 06/23/2022 Insurance Providers Payer Name Payer Address Payer Phone Subscriber Number Group Number Insured Name Patient Relationship to Insured Coverage Start Date Coverage End Date [place]ARE [place] A [address] [facility] [place] [id number] Elizabeth Vazquez Self - patient is the insured 2 [employer] [place] [address] [place] [address] [phone] [id number] Elizabeth Vazquez Self - patient is the insured 0 0 Medical (General) History Medical History History ICD Code Ulcers arhtritis bleeding disorders chicken pox measles migraine headaches pneumonia whooping cough rheumatic fever Surgical History Surgery Date(Month/Year) hammer toe repair carpal tunnel release t&a hysterectomy 1972 left wrist fx 2013
--- OUTSIDE RECORDS SUMMARY | 2025-07-03 00:13 | XMS_ITS | Clinical Summary ---
Author Organization [facility] Address [address] [place] [id number] Care Team Providers Care Psychologist Developmental Name Role Phone Virginia Lara MD Primary Care Provider Rob Garcia MBBS Unavailable Allergies Active Allergy Reactions Criticality Noted Date Comments Codeine Nausea Only 09/09/2016 Can do injection, but not oral. Medications doxycycline monohydrate (MONODOX) 100 mg capsuleIndicatio ns:Pemphigoid of gingival mucosa (HC),Recurrent oral ulcers Take 1 Capsule (100 mg) by mouth 2 times daily. 180 Capsule 11/09/19 22 Active clotrimazole (MYCELEX UMM) 10 mg trocheIndication s:Pemphigoid of gingival mucosa (HC) Take 1 tab twice daily after each doxycycline dose to prevent oral thrush. 180 Tablet 11/09/19 22 Active betamethasone dipropionate 0.05% (DIPROLENE) 0.05 % ointment APPLY 1 APPLICATION TOPICALLY DAILY. APPLY TO VULVA. 09/25/19 24 Active Ventolin HFA 90 mcg/actuation inhalerIndicatio ns:Moderate persistent asthma with acute exacerbation (HC) INHALE 1 TO 2 PUFFS BY MOUTH EVERY 4 HOURS NEEDED FOR SHORTNESS OF BREATH OR FOR WHEEZE 36 Each 11 06/12/20 24 Active fluticasone propion-salmeter oL (Advair Diskus) 250-50 mcg/Dose diskus inhalerIndicatio ns:Moderate persistent asthma with exacerbation (HC) Inhale 1 Puff by mouth two times daily. 60 Each 11 10/22/19 25 Active sucralfate 1 gram tabletIndication s:History of duodenal ulcer Take 1 Tablet (1 g) by mouth four times daily before meals and at bedtime. 360 Tablet 2 12/27/19 25 Active Additional Information Patient taking differently:1 g Oral FOUR TIMES DAILY BEFORE MEALS & BEDTIME,Takes PRN, Reported on 04/21/2025 omeprazole 40 mg Delayed-Release capsuleIndicatio ns:Gastritis, presence of bleeding unspecified, unspecified chronicity, unspecified gastritis type Take 1 Capsule (40 mg) by mouth once daily before a meal. 90 Capsule 1 12/27/19 25 Active albuterol-ipratr opium (2.5-0.5 mg) in 3 mL NEBULIZATION solutionIndicati ons:Moderate persistent asthma with acute exacerbation (HC) Inhale 3 mL via a nebulizer 4 times daily. 90 mL 3 12/27/19 25 Active tiZANidine 2 mg tabletIndication s:Facet arthritis of cervical region Take 1-2 Tablets (2-4 mg) by mouth every 6 hours if needed for Muscle Spasm. 36 Tablet 2 01/23/20 25 Active lidocaine (viscous) 2 % liquidIndication s:Rash,Recurrent oral ulcers SWISH AND SPIT 5ML BY MOUTH THREE TIMES DAILY NEEDED 100 mL 07/02/20 25 Active lidocaine (Lidoderm) 5 % topical patchIndications :Cervical spondylosis,Cerv ical radiculitis,Cerv ical facet joint syndrome,Cervica l myofascial pain syndrome Apply to intact skin to cover most painful area for max 12hr per 24hr period. 30 Patch 3 04/21/20 025 Discontin ued(*Med complete/ Regimen complete/ Level of care change) lidocaine (viscous) 2 % liquidIndication s:Rash,Recurrent oral ulcers SWISH AND SPIT 5ML BY MOUTH THREE TIMES DAILY NEEDED 100 mL 05/22/20 25 025 Discontin ued(Reord er (E-cancel not sent)) Active Problems Problem Noted Date Diagnosed Date [...] Date Type Department Care Team Description 07/02/2025 1:35 PM GROUND SURVEILLANCE SYSTEMS OPERATOR Office Visit [facility] [address] [place] [address] Virginia Lara MD Pre-Op Exam (07/23/2025, Left foot, Dr Raymundo, [facility]) 07/02/2025 Telephone [facility] [address] [place] [phone] Cardiology, Anw Appointment 07/01/2025 Travel 06/12/2025 Orders Only [facility] Scanner 1 scan: (1-Ord) [facility] 05/21/2025 Refill [facility] [address] [place] [address] Virginia Lara MD Refill Request (Lidocaine (Viscous)) 05/17/2025 Telephone [facility] [address] [place] [phone] Pierre Hall DO Prior Authorization (lidocaine (Lidoderm) 5 % topical patch Denied) 04/21/2025 8:45 AM CDT Office Visit [facility] [address] [facility] [address] [place] [phone] Pierre Hall DO Consult (Neck/Thoracic Pain) 04/20/2025 Travel from Last 3 Months Immunizations Immunization Administration Dates Next Due COVID-19 vaccine ([employer] 30mcg/0.3mL) PF, MDV 09/17/2021,08/04/2021 Influenza, High-dose Inactivated 05/30/2024 Influenza, Inactivated AIIV4 (Age 65+ Years) Preserv Free 06/13/2023 Influenza, Inactivated IIV3 (Age 65+ Years) Preserv Free 07/02/2025,05/23/2019,08/01/2018 Pneumococcal Conj 20-valent (Prevnar 20) 023 RSV, [...] on file Legal Sex Female 2:20 PM GROUND SURVEILLANCE SYSTEMS OPERATOR Gender Identity Not on file Sexual Orientation Not on file Obstetrics History Last Filed Vital Signs Vital Sign Reading Time Taken Comments Blood Pressure 132/78 07/02/2025 2:26 PM GROUND SURVEILLANCE SYSTEMS OPERATOR Pulse 72 07/02/2025 1:47 PM GROUND SURVEILLANCE SYSTEMS OPERATOR Temperature 36.7 C (98.1 F) 01/22/2025 10:04 AM CDT Respiratory Rate 8 12/06/2018 10:38 AM CDT Oxygen Saturation 95% 07/02/2025 1:47 PM GROUND SURVEILLANCE SYSTEMS OPERATOR Inhaled Oxygen Concentration - - Weight 71.4 kg (157 lb 6.4 oz) 07/02/2025 1:47 P M GROUND SURVEILLANCE SYSTEMS OPERATOR Height 166.5 cm (5' 5.55) 07/02/2025 1:47 PM CS T Body Mass Index 25.75 07/02/2025 1:47 PM GROUND SURVEILLANCE SYSTEMS OPERATOR Plan of Treatment Health Maintenance Due Date Last Done Comments Depression screening for age 12+ 12/26/2025 12/26/2024, 09/20/2023, 05/22/2023, Additional history exists Medicare Wellness for age 65+ 12/27/2025 12/26/2024, 05/10/2023, 04/17/2018 BMI (ht and wt on same day) for age 18+ 07/02/2026 07/02/2025, 04/21/2025, 01/23/2025, Additional history exists Tetanus booster 04/03/2034 04/03/2024, 03/06/2019 Pneumococcal series for age 50+ Completed 06/13/2023 RSV vaccine for adults or Completed 03/01/2024 Zoster (shingles) series for age 50+ Completed 08/27/2024, 05/30/2024 DEXA/DXA scan for age 65+ Completed 01/23/2025, 01/2018 Influenza Vaccine Completed 07/02/2025, , 06/13/2023, Additional history exists Hepatitis B series for 19+ Aged Out N o longer eligible based on patient's age to complete this topic Procedures Procedure Name Priority Date/Time Associated Diagnosis Comments SCAN-EYE EXAM 06/12/2025 12:00 AM CDT XR DXA BONE DENSITY 2 SITES AXIAL Routine 01/23/2025 1:54 PM CDT Osteopenia, unspecified location Menopause from Last 3 Months or Most Recently Relevant to Health Maintenance Results * SCAN-EYE EXAM (06/12/2025 12:00 AM CDT) us Scanner OTHER Final Result * (ABNORMAL) [...] to assess therapeutic efficacy. Sydni Douglas PA-C [facility] 01/28/2025 Narrative 01/28/2025 1:23 PM CDT For Patients: Results are automatically released to your [employer] ([email or web address]) account once available, in compliance with federal regulations. This means that you may see your results before your provider has had a chance to review them. Please allow 2-3 business days for your provider to comment on the results. XR DXA Bone Mineral Density (BMD) EXAM LOCATION: [address] [address] PATIENT NAME: Elizabeth Vazquez DATE OF : [...] two scanners are made by the same supervisor pipe joints. PROCEDURE: Dual-energy x-ray absorptiometry performed with routine [...] Maintenance Insurance MEDICARE PART A HB ONLY [facility] Member Subscriber Plan / Payer (Ef fective 2025-Present) Name:Chris Vazqueztor Sears Relation to Subscriber:Self Name:Chris Vazqueztor Sears Payer ID:[id number] (NAIC) Group ID:[id number] Type:Not on file Address: MAILSTOP: [id number] [place] [address] Care Teams Psychologist Developmental Relationship Specialty Start Date End Date Virginia Lara MD [address] [place] [address] PCP - General Family Practice 12/21/16 Rob Garcia MBBS [facility] [place] [address] Consulting Physician Rheumatology 03/12/24
[2025-07-03 00:50] VITALS: BP 157/57; PULSE 75; RESP 20; TEMP 36.9; O2SAT 97; BMI 25.8
--- NOTE | 2025-07-03 02:00 | CRLHL7_ITS ---
For Patients: As a result of the Century Cures Act, medical imaging exams and procedure reports are released immediately into your electronic medical record. You may view this report before your referring provider. If you have questions, please contact your health care provider. INDICATION: Pain. TECHNIQUE: Lumbar spine 3 views. COMPARISON: 06/20/2019. FINDINGS: Bones: Decreased bone mineralization. Trace retrolisthesis L2 on L3 and trace anterolisthesis L4 on L5, unchanged. Chronic mild T12 anterior wedge deformity, unchanged. Remaining vertebral body heights are maintained. Joints: Progression of multilevel disc degeneration with severe disc space narrowing at L2-L3 and L3-L4. Moderate lower lumbar facet arthropathy. Soft tissues: Cholecystectomy clips. Dictated by Trell Garcia MD @ 07/03/2025 2:42:21 AM (Electronically Signed)
[2025-07-03] MEDS: OxyCODONE/APAP 5-325 TABLET 1 TAB PO (02:20)
[2025-07-03 02:56] VITALS: BP 136/61; PULSE 71; RESP 16; O2SAT 97
--- NOTE | 2025-07-03 03:14 | ED.LOWEXIN ---
HPI - Extremity Injury (Lower) General Date Seen: 07/03/25 Chief Complaint: Extremity Pain/Injury, Lower Stated Complaint: pulled muscle L leg Time Seen by Provider: 07/03/25 00:52 Source: patient Mode of arrival: ambulatory Limitations: no limitations History of Present Illness HPI Narrative: Patient is an 84-year-old female who was doing some yd work five days ago when she slipped on a garbage bag in the yd. She did not fall to the ground but had sudden pain in her left lower back and buttock. Over the next couple of days her symptoms did improve with use of Tylenol and rest. Earlier today she tempted to lift her sister up off the floor after she fell down and had another jolts of pain in her left low back and buttock. Pain radiates down the posterior aspect of the left leg. No bowel or bladder dysfunction. The pain was too severe tonight for her to sleep so her niece brought her to the ER for evaluation. 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 She has never had injections or surgery. She does have upcoming foot surgery planned. Related Data Home Medications ?Medication ?Instructions ?Recorded ?Confirmed omeprazole 40 mg capsule,delayed 40 mg PO DAILY 09/19/22 07/03/25 release sucralfate 1 gram tablet 1 g PO QID PRN 01/24/25 07/03/25 clotrimazole 10 mg frankie 10 mg PO BID 06/23/25 07/03/25 lidocaine HCl 2 % mucosal solution 5 ml PO 3XD PRN 07/03/25 07/03/25 Previous Rx's ?Medication ?Instructions ?Recorded doxycycline hyclate 100 mg capsule 100 mg PO BID #14 caps 04/27/24 oxycodone 5 mg capsule 5 mg PO TID PRN pain #15 caps 07/03/25 Review of Systems Narrative: She has bilateral foot pain with plans for surgery on each foot starting with the left one in July. She is having hammertoe repair and some type of bone shaving off the top of her foot by Dr. Raymundo. She does underwent her preop physical yesterday. Review of systems is outlined above otherwise noted to be negative. 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, left shoulder (ICD-10) Knee fracture, left Vulvar pain ?R10.2 - Pelvic and perineal pain (ICD-10) History of duodenal ulcer ?Z87.19 - Personal history of other diseases of the digestive system (ICD-10) Headache ?R51.9 - Headache, unspecified (ICD-10) Elevated blood pressure reading ?R03.0 - Elevated blood-pressure reading, without diagnosis of hypertension (ICD-10) Back pain ?M54.9 - Dorsalgia, unspecified (ICD-10) Atopic dermatitis ?L20.9 - Atopic dermatitis, unspecified (ICD-10) Surgical History Status post laparoscopic cholecystectomy ?Z90.49 - Acquired absence of other specified parts of digestive tract (ICD-10) History of tonsillectomy and adenoidectomy ?Z90.89 - Acquired absence of other organs (ICD-10) History of surgery on left wrist (07/28/15) ?Z98.890 - Other specified postprocedural states (ICD-10) History of sinus surgery ?Z98.890 - Other specified postprocedural states (ICD-10) History of hysterectomy ?Z90.710 - Acquired absence of both cervix and uterus (ICD-10) History of hammer toe correction ?Z98.890 - Other specified postprocedural states (ICD-10) ?Z87.39 - Personal history of other diseases of the musculoskeletal system and connective tissue (ICD-10) History of elbow surgery (2018) ?Z98.890 - Other specified postprocedural states (ICD-10) History of carpal tunnel surgery of left wrist (2018) ?Z98.890 - Other specified postprocedural states (ICD-10) History of bilateral cataract extraction (2014) ?Z98.41 - Cataract extraction status, right eye (ICD-10) ?Z98.42 - Cataract extraction status, left eye (ICD-10) History of arthroscopy of knee (1989) ?Z98.890 - Other specified postprocedural states (ICD-10) History of appendectomy ?Z90.49 - Acquired absence of other specified parts of digestive tract (ICD-10) Social History Smoking Status: Former smoker Do you use any of these nicotine containing products: None Second hand tobacco smoke exposure: No How often do you have a drink containing alcohol: monthly or less How many standard drinks containing alcohol do you have on a typical day: 1 or 2 How often do you have six or more drinks on one occasion: Never AUDIT-C Alcohol total score: 1 Non-prescribed substance use: denies use Caffeine: Yes service: No Exam Narrative: Exam Narrative: Objective: Vitals noted. She has myofascial tightness and tenderness in the low back. No bony tenderness. Straight leg raising is positive on the left. Normal strength. She has chronic numbness across the dorsum of the left malagon. Const: Vital Signs, click to edit/add: Vital Signs - 24 hr 07/03/25 00:50 07/03/25 02:56 Temperature 98.5 F Pulse Rate [Right Pulse Oximeter] 75 71 Respiratory Rate 20 16 Blood Pressure [Ri ght Upper Arm] 157/57 H 136/61 Pulse Oximetry 97 97 Oxygen Delivery Me thod Room Air Room Air Course Course ED Course: Patient seen and examined. X-rays of her lumbar spine show DJD at multiple levels. She is given Toradol 30 mg IM and Percocet one tablet orally. She had good improvement in her pain and was picked up by her niece. Vital Signs Vital signs: Initial Vital Signs Temperature 98.5 F 07/03/25 00:50 Temperature Source Temporal Artery Scan 07/03/25 00:50 Pulse Rate 75 07/03/25 00:50 Pulse Rhythm Regular 07/03/25 00:50 Respiratory Rate 20 07/03/25 00:50 Blood Pressure 157/57 H 07/03/25 00:50 Blood Pressure Mean 90 07/03/25 00:50 Blood Pressure Position Sitting 07/03/25 00:50 Pulse Oximetry 97 07/03/25 00:50 Oxygen Delivery Method Room Air 07/03/25 00:50 Vital Signs Temperature 98.5 F 07/03/25 00:50 Pulse Rate 75 07/03/25 00:50 Respiratory Rate 20 07/03/25 00:50 Blood Pressure 157/57 H 07/03/25 00:50 Pulse Oximetry 97 07/03/25 00:50 Oxygen Delivery Method Room Air 07/03/25 00:50 Temperature 98.5 F 07/03/25 00:50 Pulse Rate 71 07/03/25 02:56 Respiratory Rate 16 07/03/25 02:56 Blood Pressure 136/61 07/03/25 02:56 Pulse Oximetry 97 07/03/25 02:56 Oxygen Delivery Method Room Air 07/03/25 02:56 Medications Administered Medications: Discontinued Medications Generic Name Dose Route Start Last Admin Trade Name Freq PRN Reason Stop Dose Admin Ketorolac Tromethamine 30 mg 07/03/25 02:00 07/03/25 02:22 Ketorolac 30 Mg/Ml Inj IM 07/03/25 02:01 30 mg ONCE ONE Administration Oxycodone/Acetaminophen 1 tab 07/03/25 02:00 07/03/25 02:20 Oxycodone/Apap 5-325 Tablet PO 07/03/25 02:01 1 tab ONCE ONE Administration Discharge Plan Discharge Clinical Impression: Lumbar radiculopathy Patient Disposition: Home, Self-Care Condition: Improved Additional Instructions: Rest, heat in the am, ice after activity. Tylenol 1000 mg every 6 hours, Ibuprofen 600 mg every 6 hours, Oxycodone when pain is severe. Follow up with Dr Lara if no better over the next 3-5 days. Prescriptions: New oxycodone 5 mg capsule 5 mg PO TID PRN (Reason: pain) Qty: 15 0RF No Action clotrimazole 10 mg frankie 10 mg PO BID sucralfate 1 gram tablet 1 g PO QID PRN omeprazole 40 mg capsule,delayed release(DR/EC) 40 mg PO DAILY Patient Comments: TAKE ONE CAPSULE BY MOUTH DAILY 30 MINUTES BEFORE MORNING MEAL doxycycline hyclate 100 mg capsule 100 mg PO BID Qty: 14 0RF lidocaine HCl 2 % solution 5 ml PO 3XD PRN Follow Up/Referrals: Virginia Lara MD [Primary Care Provider, Family Practice] Stand Alone [facility] Instructions
== END 2025-07-03 02:57 | disposition home or self-care (01) ==
PROVIDERS: Emergency Provider Family Medicine; PCP Family Medicine
DX: M54.16 Radiculopathy, lumbar region (principal); X50.1XXA Overexertion from prolonged static or awkward postures, initial encounter
CPT/HCPCS: 72100; 96372; 99282; 99283; A9270; J1885

== ENCOUNTER 2025-07-23 11:35 | Day surgery (SDC) | payer BC, SELFPAY ==
--- NOTE | 2025-07-23 11:38 | W.PODPROC_ITS ---
Date of Procedure: 07/23/25 Time Seen by Provider: 13:59 Surgeon: Ger Raymundo DPM Co-Surgeon: Dr. Malathi Ferro DPM Pre-op Diagnosis: 1. Hammertoe 2nd digit, left 2. Hammertoe 3rd digit, left 3. Hammertoe 4th digit, left 4. Hammertoe 5th digit, left 5. 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 Hammertoe repair PIPJ arthrodesis 2nd digit, left 2. Hammertoe repair PIPJ arthrodesis 3rd digit, left 3. Hammertoe repair PIPJ arthrodesis 4th digit, left 4. Hammertoe repair PIPJ arthropalsty 5th digit, left 5. Partial excision 1st metatarsal, left 6. Partial excision medial cuneiform, left 7. flexor tenotomy 2nd digit, left 8. flexor tenotomy 3rd digit, left 9. flexor tenotomy 5th digit, left 10. Extensor tenotomy 4th toe, left Indications: painful hammertoe and hyperostosis formation to left foot recalcitrant to conservative cares Procedure Description: The patient was identified prior to being brought back into the operating room using their name and date of as patient identifiers. The intended surgical care plan was then reviewed in detail with the patient as well as rationale for surgery, most common risks, complications, and expected recovery course. The patient was given opportunity to ask questions, which were to the best of my ability. Patient ultimately voiced no questions or concerns and agreed to pr oceed forward with the surgery as planned. The patient was brought from the preoperative holding area to the operating room, and placed on the operating room table in the prone position. At this time a timeout was performed by myself and operating room staff to identify the proper patient, site and operation to be performed. A well padded pneumatic ankle tourniquet was applied to the patient's operative lower extremity. An ankle andl field block were performed to the operative foot using 0.25% Marcaine plain. The extremity was then scrubbed, prepped and draped in the normal sterile fashion. Attention was then directed to the dorsal aspect of the operative midfoot. A palpable prominence was over the dorsal medial/1st cuneiform and 1st metatarsal where an incision was made overlying the structures medial to the EHL tendon. Dissection was carried deep, taking care to identify and retract all vital neural and vascular structures and EHL tendon. Hyperostosis was noted to the dorsal aspect of the 1st/medial cuneiform as well as the base of the 1st metatarsal. A combination of a sagittal saw, osteotome and hand rasp were used to remove the hyperostosis to both 1st metatarsal base and medial cuneiform. This was noted to provide smooth margins and resection of the prominence. Adequate resection was then verified using intra-operative fluoroscopy. Deep capsular structures were closed with 2-0 Vicryl. Subcutaneous tissues were re- approximated using 3-0 vicryl. The skin was reapproximated with 4-0 nylon. Attention was then directed to the dorsal aspect of the 2nd digit of the left foot. A longitudinal linear incision was made over the dorsal aspect of the proximal interphalangeal joint. The incision was deepened through subcutaneous tissue, taking care to retract and protect all vital neurovascular structures. The level of the extensor tendon and capsule was identified at the proximal interphalangeal joint. A dorsal transverse tenotomy and capsulotomy was made and lateral and medial collateral ligaments were transected. An extensor flap was created sharply on the dorsal aspect of the proximal phalanx, as well as on the proximal aspect of the middle phalanx. A sagittal saw was utilized to resect the head of the proximal phalanx and the base of the middle phalanx. An 0.045 K- wire was then driven through the middle and distal phalanx of the distal aspect of the toe, and then retrograded into the base of the proximal phalanx. Next, the long flexor tendon was isolated from the incision and transected to correct remaining soft tissue contracture. Good rectus alignment of the digit was noted. The redundant tendinous tissue was excised at the dorsal aspect of the proximal interphalangeal joint. The extensor tendon was re-approximated with a 3-0 Vicryl in a horizontal mattress type suture technique. The subcutaneous tissues were reapproximated with 3-0 vicryl. The skin was re-approximated with a 4-0 nylon in a simple interrupted type suture technique. Attention was then directed to the dorsal aspect of the 3rd digit of the left foot. A longitudinal linear incision was made over the dorsal aspect of the proximal interphalangeal joint. The incision was deepened through subcutaneous tissue, taking care to retract and protect all vital neurovascular structures. The level of the extensor tendon and capsule was identified at the proximal interphalangeal joint. A dorsal transverse tenotomy and capsulotomy was made and lateral and medial collateral ligaments were transected. An extensor flap was created sharply on the dorsal aspect of the proximal phalanx, as well as on the proximal aspect of the middle phalanx. A sagittal saw was utilized to resect the head of the proximal phalanx and the base of the middle phalanx. Attention was directed to the plantar aspect of the toe where a percutaneous incision was made at the junction between the plantar forefoot fat padding and the plantar digital skin at the level of the proximal plantar crease using a 16 gauge needle. This incision was carried to bone and with the toe held in extension at the distal and proximal inter-phalangeal joints the flexor digitorum longus tendon was transected allowing a visible release of the toe contracture. An 0.045 K-wire was then driven through the middle and distal phalanx of the distal aspect of the toe, and then retrograded into the base of the proximal phalanx. Good rectus alignment of the digit was noted. The redundant tendinous tissue was excised at the dorsal aspect of the proximal interphalangeal joint. The extensor tendon was re-approximated with a 3-0 Vicryl in a horizontal mattress type suture technique. The subcutaneous tissues were reapproximated with 3-0 vicryl. The skin was re-approximated with a 4-0 nylon in a simple interrupted type suture technique. Attention was then directed to the dorsal aspect of the 4th digit of the left foot. A longitudinal linear incision was made over the dorsal aspect of the proximal interphalangeal joint. The incision was deepened through subcutaneous tissue, taking care to retract and protect all vital neurovascular structures. The level of the extensor tendon and capsule was identified at the proximal interphalangeal joint. A dorsal transverse tenotomy and capsulotomy was made and lateral and medial collateral ligaments were transected. An extensor flap was created sharply on the dorsal aspect of the proximal phalanx, as well as on the proximal aspect of the middle phalanx. Scar tissue was noted to traverse the space between the middle and proximal phalanx consistent with prior hammertoe procedure, which was sharply excised. A power da was utilized to roughen up head of the proximal phalanx and the base of the middle phalanx to bleeding cancellous bone. The toe was noted to have slight dorsal contracture secondary to previous hammertoe surgery and shortening of the digit. Attention was drawn to the level of the 4th MPJ where a percutaneous incision was made using a 16 gauge needle. This incision was carried to the extensor tendon and with the toe held in flexion at the distal and proximal inter-phalangeal joints the extensor digitorum longus tendon was transected allowing a visible release of the toe contracture. Good rectus alignment of the digit was noted. An 0.045 K-wire was then driven through the middle and distal phalanx of the distal aspect of the toe, and then retrograded into the base of the proximal phalanx. The redundant tendinous tissue was excised at the dorsal aspect of the proximal interphalangeal joint. The extensor tendon was re-approximated with a 3-0 Vicryl in a horizontal mattress type suture technique. The subcutaneous tissues were reapproximated with 3-0 vicryl. The skin was re-approximated with a 4-0 nylon in a simple interrupted type suture technique. Attention was then directed to the dorsal aspect of the 5th digit, left foot. Converging semi-eliptical incisions were made over the dorsal aspect of the proximal interphalangeal joint of the 5th digit. The small elipse of skin was freed from the underlying subcutaneous tissue and passed to the back table. The incision was deepened through subcutaneous tissue, taking care to retract and protect all vital neural and vascular structures. The level of the extensor tendon and capsule was identified at the proximal interphalangeal joint. A dorsal transverse tenotomy and capsulotomy was made and lateral and medial collateral ligaments were transected. An extensor flap was created sharply on the dorsal aspect of the proximal phalanx. A sagittal saw was utilized to resect the head of the proximal phalanx at the surgical neck. The head was passed to the back table. Attention was directed to the plantar aspect of the toe where a percutaneous incision was made at the junction between the plantar forefoot fat padding and the plantar digital skin at the level of the proximal plantar crease using a 16 gauge needle. This incision was carried to bone and with the toe held in extension at the distal and proximal inter-phalangeal joints the flexor digitorum longus tendon was transected allowing a visible release of the toe contracture. An 0.045 K-wire was then driven through the middle and distal phalanx of the distal aspect of the toe, and then retrograded into the base of the proximal phalanx. The redundant tendinous tissue was excised at the dorsal aspect of the proximal interphalangeal joint. The extensor tendon was re- approximated with a 2-0 Vicryl in a horizontal mattress type suture technique. The subcutaneous tissues were reapproximated with 3-0 vicryl. The skin was re- approximated with a 4-0 nylon in a simple interrupted type suture technique. Once the skin was re-approximated full correction of the mild pre-operative rotation of the 5th digit was appreciated and a good rectus position of the digit was noted. The surgical sites was thoroughly irrigated with normal saline prior to closure. A dry sterile dressing consisting of xeroform nonadhering dressing, gauze, markie, cast padding and ÓSCAR bandage was applied from forefoot to the ankle. All sponge and instrument counts were correct at the completion of the surgery as well as prior to closure of deep tissue and skin. The patient was transferred from the operating room to the post-anesthesia care unit with vital signs stable and vascular status intact to the operative lower extremity. Anesthesia: MAC Hemostasis: ankle (78 minutes at 250mmHg) Estimated blood loss (mL): 5 Provider Operated C-arm: 5 images taken, total fluoro time 00:00:07, total dose: 0.047 mGy Implants: 0.045 kwire x4 Specimens: none sent Disposition: PACU
[2025-07-23 12:41] VITALS: BMI 25.7
[2025-07-23 12:44] VITALS: BP 164/90; PULSE 73; RESP 16; TEMP 37.3; O2SAT 97
[2025-07-23] MEDS: LACTATED RINGERS 1000 ML 1,000 ML 100 ML IV (12:47)
[2025-07-23] MEDS: SODIUM CHLORIDE 0.9 % (FLUSH) 10 ML SYRINGE IVF (12:47)
[2025-07-23] MEDS: BUPIVACAINE 0.25% 30 ML INJECTION (14:27)
--- NOTE | 2025-07-23 15:03 | P.ANES_ITS ---
Anesthesia Charges Start Date/Time Anesthesia Start Date: 07/23/25 Anesthesia Start Time: 14:14 Stop Date/Time Anesthesia Stop Date: 07/23/25 Anesthesia Stop Time: 16:05 Summary Extremes of Age - Over 70 or under 1: MDA Coding CPT Codes CPT Codes: ANESTH LOWER LEG BONE SURG - 92694 ([id number]) P2 - PATIENT W/MILD SYST DISEASE, QK - CHEMICAL TREATMENT OPERATOR 2-4 CNCRNT ANES PROC, QX - MINERAL ORE PROCESSING LABOURER SVC W/ MD MED DIRECTION Additional Codes: Summary - Extremes of Age - Over 70 or under 1: MDA ([id number])
--- NOTE | 2025-07-23 15:03 | W.ANESCHARGE ---
Anesthesia Charges Start Date/Time Anesthesia Start Date: 07/23/25 Anesthesia Start Time: 14:14 Stop Date/Time Anesthesia Stop Date: 07/23/25 Anesthesia Stop Time: 16:05 Summary Extremes of Age - Over 70 or under 1: MDA Coding CPT Codes CPT Codes: ANESTH LOWER LEG BONE SURG - 60103 ([id number]) P2 - PATIENT W/MILD SYST DISEASE, QK - SIZING MACHINE AND DRIER OPERATOR 2-4 CNCRNT ANES PROC, QX - GARMENT SORTER SVC W/ MD MED DIRECTION Additional Codes: Summary - Extremes of Age - Over 70 or under 1: MDA ([id number])
[2025-07-23 16:01] VITALS: BP 114/53; PULSE 67; RESP 14; TEMP 36.7; O2SAT 94
--- NOTE | 2025-07-23 16:13 | P.ANES_ITS ---
Anesthesia Charges Start Date/Time Anesthesia Start Date: 07/23/25 Anesthesia Start Time: 14:14 Stop Date/Time Anesthesia Stop Date: 07/23/25 Anesthesia Stop Time: 16:05 Summary Extremes of Age - Over 70 or under 1: HEEL SANDER RUBBER Coding CPT Codes CPT Codes: ANESTH LOWER LEG BONE SURG - 98184 ([id number]) P2 - PATIENT W/MILD SYST DISEASE, QK - SYSTEMS COORDINATOR 2-4 CNCRNT ANES PROC, QX - HEEL SANDER RUBBER SVC W/ MD MED DIRECTION Additional Codes: Summary - Extremes of Age - Over 70 or under 1: HEEL SANDER RUBBER ([id number])
--- NOTE | 2025-07-23 16:13 | W.ANESCHARGE ---
Anesthesia Charges Start Date/Time Anesthesia Start Date: 07/23/25 Anesthesia Start Time: 14:14 Stop Date/Time Anesthesia Stop Date: 07/23/25 Anesthesia Stop Time: 16:05 Summary Extremes of Age - Over 70 or under 1: TELECOMMUNICATOR SUPERVISOR Coding CPT Codes CPT Codes: ANESTH LOWER LEG BONE SURG - 80630 ([id number]) P2 - PATIENT W/MILD SYST DISEASE, QK - INFANTRY UNIT LEADER 2-4 CNCRNT ANES PROC, QX - TELECOMMUNICATOR SUPERVISOR SVC W/ MD MED DIRECTION Additional Codes: Summary - Extremes of Age - Over 70 or under 1: TELECOMMUNICATOR SUPERVISOR ([id number])
[2025-07-23 16:16] VITALS: BP 132/55; PULSE 71; RESP 14; O2SAT 92
[2025-07-23 16:31] VITALS: BP 127/75; PULSE 70; RESP 14; O2SAT 93
[2025-07-23 16:46] VITALS: BP 130/55; PULSE 67; RESP 14; O2SAT 93
[2025-07-23 17:00] VITALS: BP 133/57; PULSE 60; RESP 14; O2SAT 94
== END 2025-07-23 17:20 | disposition home or self-care (01) ==
LOC: OR 11:38
PROVIDERS: PCP Family Medicine; Visit Provider Podiatrist
PROC: (CPT 28285; principal; 2025-07-23 13:15)
DX: M20.42 Other hammer toe(s) (acquired), left foot (principal); M85.872 Other specified disorders of bone density and structure, left ankle and foot
CPT/HCPCS: 28285 ×4; 28122; 01480; 73620; 76000; 99100; J0665; J0690; J1100; J2371; J2405; J2704; J3010; J3490; J7120

== ENCOUNTER 2025-07-29 23:50 | Emergency (ER) | payer BC, SELFPAY ==
[2025-07-29 23:52] VITALS: BP 169/77; PULSE 80; RESP 16; TEMP 36.6; O2SAT 98; BMI 24.7
--- OUTSIDE RECORDS SUMMARY | 2025-07-29 23:53 | XMS_ITS | Clinical Summary ---
Author Organization [facility] Address [address], [place] [address] Care Team Providers Care Customer Acquisition Specialist Name Role Phone Unavailable Primary Care [...] for each transition of care or referral. [facility] Allergies Active AllergyReactionsCriticalityNoted DateCommentsPrednisoneHypertensionHigh 03/29/2019 Medications MedicationSigDispense QuantityRefillsLast FilledStart DateEnd DateStatus omeprazole (PRILOSEC) 40 MG capsule Take 40 mg by mouth daily.Active fluticasone (FLONASE) 50 MCG/ACT nasal solution INSTILL 1 SPRAY IN THE NOSTRIL(S) 2 TIMES DAILY.Active pantoprazole (PROTONIX) 40 MG tablet TAKE 1 TABLET BY MOUTH ONCE DAILY. TAKE 30-60 MINUTES BEFORE A MEAL/FOOD ONCE A DAY.Active B Complex Vitamins (B COMPLEX-B12 TR OR) Active acetaminophen (TYLENOL) 500 MG tablet Take 1 Tablet by mouth every 4 hours as needed for Pain (Mild Pain). Maximum acetaminophen dose is 4000 mg in 24 hours 100 Tablet Active ibuprofen (MOTRIN) 200 MG tablet Take 2 Tablets by mouth every 6 hours as needed for Pain (Mild Pain). This may be safely mixed withthe prescription pain medications (oxycodone, hydrocodone or tramadol.)?? This may also be safely mixed with acetaminophen. 100 Tablet 03/29/2019Active oxyCODONE (ROXICODONE) 5 MG immediate release tablet Take 1-2 Tablets by mouth every 4 hours as needed for Pain (Severe Pain). 20 Tablet 03/29/2019Active Active Problems No known active problems Social History Tobacco UseTypesPacks/DayYears UsedDateSmoking Tobacco: UnknownSmokeless Tobacco: NeverAlcohol UseStandard Drinks/WeekCommentsNever0 (1 standard drink = 0.6 oz pure alcohol)AUDIT-CAnswerDate RecordedFrequency of Alcohol Consumption Never03/26/2019Average Number of DrinksNot on file03/26/2019Frequency of Binge DrinkingNot on file03/26/2019CommentsUnknownSex and Gender Information ValueDate RecordedSex Assigned at BirthNot on fileLegal FswCfniuq95/21/2019 11:32 AM CDTGender IdentityNot on fileSexual OrientationNot on file Last Filed Vital Signs Vital SignReadingTime TakenCommentsBlood Qpuvjfxi965/8103/29/2019 12:40 PM CDT Kwtfo3314/16/2019 12:40 PM HFZOmfipiwnsmv02.7 ??C (98 ??F)03/29/2019 1:30 PM CDT Respiratory Oedu789103/29/2019 12:40 PM CDTOxygen Vdectszndd55%03/29/2019 12:40 PM CDTInhaled Oxygen Concentration--Wmbeec93.1 kg (192 lb)03/29/2019 7:29 AM CDT Xeamfw798.2 cm (5' 7)03/29/2019 7:29 AM CDTBody Mass Index30.0703/29/2019 7:29 AM CDT Plan of Treatment Health MaintenanceDue DateLast DoneCommentsAdult Preventive Visit1960 Pneumococcal Vaccine 50+ Yrs (1 of 1 - PCV)1992Zoster/Shingles Vaccine (1 of 2)1992Dexa11/07/2007RSV Vaccine (1 - 1-dose 75+ series)2017COVID- 19 Vaccine (1 - 2024- season)2025Influenza Vaccine (#1)2025 05/23/2019, 08/01/2018DTaP/Tdap/Td Vaccine (2 - Tdap)HepA VaccineAged OutNo longer eligible based on patient's age to complete this topic HepB VaccineAged OutNo longer eligible based on patient's age to complete this topicHib VaccineAged OutNo longer eligible based on patient's age to complete this topicIPV (Polio) VaccineAged OutNo longer eligible based on patient's age to complete this topicMCV4 VaccineAged OutNo longer eligible based on patient's age to complete this topicMeningococcal B VaccineAged OutNo longer eligible based on patient's age to complete this topic
--- OUTSIDE RECORDS SUMMARY | 2025-07-29 23:53 | XMS_ITS | Encounter Summary ---
Author Organization [facility] Address [address] [place] [address] Care Team Providers Care Pediatric Dental Assistant Name Role Phone Elsewhere, Pcp Primary Care Provider Unavailabl e Reason for Visit * ReasonOnset DateCommentsMed Atyfjy2607/02/2025 Encounter Details DateTypeDepartmentCare Team (Latest Contact Info)Gxolfuebeum45/19/2025Refill Department of Dermatology in [place], [place] [address] [place] [address] Vinita Salas M.D. [address] [place] [address] Med Refill Social History Tobacco UseTypesPacks/DayYears UsedDateSmoking Tobacco: FormerCigarettes0.320 Quit: 1989Passive Smoke Exposure: PastSmokeless Tobacco: Never Comments:started when I was around 19yrs old, Quit in 1996 Passive Exposure Comments:A long time agoAlcohol UseStandard Drinks/WeekComments Not Currently0 (1 standard drink = 0.6 oz pure alcohol)Very rarelyHumiliation, Afraid, Rape, and Kick questionnaireAnswerDate RecordedWithin the last year, have you been afraid of your partner or ex-partner?No01/25/2023Within the last year, have you been humiliated or emotionally abused in other ways by your partner or ex-partner?No01/25/2023Within the last year, have you been kicked, hit, slapped, or otherwise physically hurt by your partner or ex-partner?No 01/25/2023Within the last year, have you been raped or forced to have any kind of sexual activity by your partner or ex-partner?No01/25/2023Hunger Vital Sign AnswerDate RecordedWithin the past 12 months, you worried that your food would run out before you got the money to buymore.Never true01/25/2023Within the past 12 months, the food you bought just didn't last and you didn't have money to get more.Never true01/25/2023RAPARE - TransportationAnswerDate RecordedIn the past 12 months, has lack of transportation kept you from medical appointments or from getting medications?No01/25/2023In the past 12 months, has lack of transportation kept you from meetings, work, or from getting things needed for daily living?No01/25/2023Housing StabilityAnswerDate RecordedWhat is your living situation today?I have a steady place to live01/25/2023EducationAnswerDate RecordedWhat is the highest level of school you have completed or the highest degree you have received?11th grade1CommentsNoSex and Gender InformationValueDate RecordedSex Assigned at SsaqzKjmufd13/05/2021 12:58 AM CDT Legal DgnEvxhno85/03/2021 12:30 PM CSTGender MkrvobjoEbkmun58/05/2021 12:58 AM CDTSexual MdzkiprydyeLwiexvog45/05/2021 12:58 AM CDTdocumented as of this encounter Miscellaneous Notes * Telephone Encounter - Mona Schulz R.N. - 07/03/2025 2:32 PM INCINERATOR PLANT LABORER Refill request denial for dexamethasone solution. Exclusion criteria: patient has not been seen in the Department of Dermatology within the past 18 months No appointment is scheduled at this time. This prescription has been denied per protocol [id number] or [id number]. NERATOR PLANT LABORER documented in this encounter Plan of Treatment Not on file documented as of this encounter Visit Diagnoses Diagnosis Pemphigoid Mucous Membrane (HCC) documented in this encounter Care Teams Team MemberRelationshipSpecialtyStart DateEnd Date Elsewhere, Pcp PCP - GeneralInternal Medicine01/27/23documented as of this encounter
--- OUTSIDE RECORDS SUMMARY | 2025-07-29 23:53 | XMS_ITS | Clinical Summary ---
Author Organization [employer] [facility] Address [address] [place] [address] Care Team Providers Care Derrick Barge Operator Name Role Phone Virginia Lara MD Primary Care Provider [phone] Rob Garcia MBBS Unavailable Allergies Active AllergyReactionsCriticalityNoted DateCommentsCodeineNausea Only09/09/2016 Can do injection, but not oral. Medications MedicationSigDispense QuantityRefillsLast FilledStart DateEnd DateStatus betamethasone dipropionate 0.05% (DIPROLENE) 0.05 % ointment APPLY 1 APPLICATION TOPICALLY DAILY. APPLY TO VULVA.4Active Ventolin HFA 90 mcg/actuation inhaler Indications:Moderate persistent asthma with acute exacerbation (HC)INHALE 1 TO 2 PUFFS BY MOUTH EVERY 4 HOURS NEEDED FOR SHORTNESS OF BREATH OR FOR WHEEZE 36 Each 4Active fluticasone propion-salmeteroL (Advair Diskus) 250-50 mcg/Dose diskus inhaler Indications:Moderate persistent asthma with exacerbation (HC)Inhale 1 Puff by mouth two times daily. 60 Each 5Active sucralfate 1 gram tablet Indications:History of duodenal ulcerTake 1 Tablet (1 g) by mouth four times daily before meals and at bedtime. 360 Tablet 5Active Additional Information Patient taking differently:1 g Oral FOUR TIMES DAILY BEFORE MEALS & BEDTIME, Takes PRN, Reported on 07/08/2025 omeprazole 40 mg Delayed-Release capsule Indications:Gastritis, presence of bleeding unspecified, unspecified chronicity, unspecified gastritis typeTake 1 Capsule (40 mg) by mouth once daily before a meal. 90 Capsule 5Active albuterol-ipratropium (2.5-0.5 mg) in 3 mL NEBULIZATION solution Indications:Moderate persistent asthma with acute exacerbation (HC)Inhale 3 mL via a nebulizer 4 times daily. 90 mL 5Active tiZANidine 2 mg tablet Indications:Facet arthritis of cervical regionTake 1-2 Tablets (2-4 mg) by mouth every 6 hours if needed for Muscle Spasm. 36 Tablet 5Active lidocaine (viscous) 2 % liquid Indications:Rash,Recurrent oral ulcersSWISH AND SPIT 5ML BY MOUTH THREE TIMES DAILY NEEDED 100 mL 5Active dexAMETHasone 0.5 mg/5 mL (0.1 mg/mL) elixir Indications:Pemphigoid of gingival mucosa (HC),Recurrent oral ulcersTake 5 mL (0.5 mg total) by mouth every 12 (twelve) hours. Swish for 5 minutes and then spit out. Do not eat/drink for 30 minutes after. 237 mL 5Active clotrimazole (MYCELEX FRANKIE) 10 mg frankie Indications:Pemphigoid of gingival mucosa (HC)DISSOLVE 1 FRANKIE (10 MG TOTAL) IN THE MOUTH 2 (TWO) TIMES A DAY after each doxycycline dose to prevent oral thrush. 180 Tablet 5Active doxycycline monohydrate 100 mg capsule Indications:Pemphigoid of gingival mucosa (HC),Recurrent oral ulcersTake 1 Capsule (100 mg) by mouth two times daily. 180 Capsule 5Active doxycycline monohydrate (MONODOX) 100 mg capsule Indications:Pemphigoid of gingival mucosa (HC),Recurrent oral ulcersTake 1 Capsule (100 mg) by mouth 2 times daily. 180 Capsule Discontinued(Reorder (E-cancel not sent)) clotrimazole (MYCELEX FRANKIE) 10 mg frankie Indications:Pemphigoid of gingival mucosa (HC)Take 1 tab twice daily after each doxycycline dose to prevent oral thrush. 180 Tablet Discontinued(Reorder (E-cancel not sent)) lidocaine (Lidoderm) 5 % topical patch Indications:Cervical spondylosis,Cervical radiculitis,Cervical facet joint syndrome,Cervical myofascial pain syndromeApply to intact skin to cover most painful area for max 12hr per 24hr period. 30 Patch 5109/01/2024Discontinued(*Med complete/Regimen complete/Level of care change) lidocaine (viscous) 2 % liquid Indications:Rash,Recurrent oral ulcersSWISH AND SPIT 5ML BY MOUTH THREE TIMES DAILY NEEDED 100 mL Discontinued(Reorder (E-cancel not sent)) Active Problems ProblemNoted DateDiagnosed DateProlonged QT zqazrcnw12/10/2024Left anterior fascicular block07/23/2024ositive PRATEEK (antinuclear antibody)07/23/2024Moderate persistent asthma with acute okoesldnrqjv58/17/2023Lichen sclerosus of female ccbwguhdd59/07/2021Recurrent oral hplggb441Acute gastric ulcer without hemorrhage or ysbprsdrjhe26/30/2020 Overview (06/12/2020): EGD 05/2020 acute superficial gastric ulcer, 3 cm hiatal hernia with reflux Lknxjdd8701/21/20191145Nwketkabs43/09/2018 Overview (10/20/2017): EGD 10/2017 gastritis History of duodenal ulcer09/20/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 Resolved Problems ProblemNoted DateDiagnosed DateResolved DateCOPD nujghlhomqcx02/05/2024 5COPD with chronic Encounters DateTypeDepartmentCare FumgMbtntrmzrdq76/10/2025Orders Only [facility] Scanner 1 scan: (1-Ord) [facility] REPAIR , /10/2024 Orders Only [facility] [address] [place] [address] Makenzie Graham 1 scan: (1-Ord) NFLD-EKG-07/02/2511 11:00 AM CSTOffice Visit [facility] [address] [place] [address] Amberly Currie MD Follow Up (dyspnea on exertion/Needs to be cleared for surgery )07/08/2025Travel 07/02/2025 1:35 PM CSTOffice Visit [facility] [address] [place] [address] Virginia Lara MD Pre-Op Exam (07/23/2025, Left foot, Dr Raymundo, [facility])07/02/2025 Telephone [facility] [address] [place] [address] Cardiology, Anw Pggmncikgmj09/18/5989Bpcarp64/30/2025Orders Only [facility] Scanner 1 scan: (1-Ord) [facility] EYE ACYKIW6305/21/2025Refill [facility] [address] [place] [address] Virginia Lara MD Refill Request (Lidocaine (Viscous))05/17/2025Telephone [facility] [place] [address] [place] [address] Pierre Hall DO Prior Authorization (lidocaine (Lidoderm) 5 % topical patch Denied)from Last 3 Months Immunizations ImmunizationAdministration DatesNext DueCOVID-19 vaccine ([facility] 30mcg/0.3mL) MD HADLEYV09/17/2021,08/04/2021Influenza, High-dose Inactivated 05/30/2024Influenza, Inactivated AIIV4 (Age 65+ Years) Preserv Free06/13/2023 Influenza, Inactivated IIV3 (Age 65+ Years) Preserv Free07/02/2025,05/23/2019, 08/01/2018Pneumococcal Conj 20-valent (Prevnar 20)06/13/2023RSV, Recombinant ADJ Reconstituted (Arexvy 120MCG/0.5mL)03/01/2024Tdap04/03/2024,03/06/2019Zoster (Shingrix-RZV, recombinant)08/27/2024,05/30/2024 Family History Medical HistoryRelationNameCommentsPneumoniaSonRelationNameStatusCommentsFather DeceasedMotherDeceasedSonDeceased (Age 59) Social History Tobacco UseTypesPacks/DayYears UsedDateSmoking Tobacco: FormerCigarettes0.520 08/14/1968 - 08/14/1988Passive Smoke Exposure: CurrentSmokeless Tobacco: Never Tobacco Cessation:Counseling Given: Yes Alcohol UseStandard Drinks/WeekCommentsNot Currently0 (1 standard drink = 0.6 oz pure alcohol)occassionallyPHQ-2AnswerDate RecordedPHQ-2 TOTAL CWVNZ644 Social ConnectionsAnswerDate RecordedDo you often feel lonely or isolated from those around you?lcohol UseAnswerDate RecordedHow often do you have a drink containing alcohol?How many drinks containing alcohol do you have on a typical day when you are drinking?How often do you have five or more drinks on one occasion?Financial Resource StrainAnswer Date RecordedDifficulty of Paying Living Klprbllt298/10/2024ifficulty of Paying Living ExpensesNot on file07/23/2024Food InsecurityAnswerDate RecordedDo you worry your food will run out before you are able to buy more? Transportation NeedsAnswerDate RecordedDoes lack of transportation keep you from medical appointments?oes lack of transportation keep you from work, meetings or getting things that you need?Housing StabilityAnswerDate RecordedWhat is your housing situation today?UtilitiesAnswerDate RecordedDo you have trouble paying for utilities (for example, heat, electricity, water, phone)?regnantCommentsNoSex and Gender InformationValueDate RecordedSex Assigned at BirthNot on fileLegal SexFemale 09/07/2016 2:20 PM CSTGender IdentityNot on fileSexual OrientationNot on file Last Filed Vital Signs Vital SignReadingTime TakenCommentsBlood Gwcjijxz351/7307/08/2025 10:54 AM BULK RECEIVER Xpuep941107/08/2025 10:54 AM QTNOrsbvsqmuzh55.7 ??C (98.1 ??F)01/22/2025 10:04 AM CDTRespiratory Tuyh65912/06/2018 10:38 AM CDTOxygen Tnwechcvjm29%07/08/2025 10:54 AM CSTInhaled Oxygen Concentration--Gwluwr88.3 kg (155 lb)07/08/2025 10:54 AM QEMTeqrkf660.5 cm (5' 5.55)07/02/2025 1:47 PM CSTBody Mass Index25.36109/01/2024 1:47 PM BULK RECEIVER Plan of Treatment Health MaintenanceDue DateLast DoneCommentsCOVID-19 vaccine series ( season), 08/04/2021epression screening for age 12+ 605/, 09/20/2023, 05/22/2023, Additional history existsMedicare Wellness for age 65+/, 05/10/2023, 04/17/2018BMI (ht and wt on same day) for age 18+, 04/21/2025, 01/23/2025, Additional history existsTetanus verjkpb18/, 03/06/2019Pneumococcal series for age 50+Pxfkipobr69/31/2023RSV vaccine for adults or pregnancyCompleted 03/01/2024Zoster (shingles) series for age 50+Lvluowqeo09/14/2025, 05/30/2024 DEXA/DXA scan for age 65+Wqaezvdag44/12/2025, 04/19/2018Influenza Vaccine Vvhnuzxgo20/19/2025, 05/30/2024, 06/13/2023, Additional history existsHepatitis B series for 19+Aged OutNo longer eligible based on patient's age to complete this topic Procedures Procedure NamePriorityDate/TimeAssociated DiagnosisCommentsSCAN- OPERATIVE/PROCEDURE EDCNHX5207/23/2025 12:00 AM BULK RECEIVER MT READING EKG - NO CHARGE, COMP FBLQIyckhar55/03/2025 Left anterior fascicular block Prolonged QT interval EKG 12 XTNXWizhuos20/03/2025 Left anterior fascicular block Prolonged QT interval CBC WITH AUTO ENSFHEBGSKMXQiqbtjs61/19/2025 2:50 PM BULK RECEIVER Preoperative cardiovascular examination CBC WITH AUTO OCRSWXTRMHERIivldso18/19/2025 2:50 PM BULK RECEIVER Preoperative cardiovascular examination COMP METABOLIC YLIBBNgupcsp14/19/2025 2:50 PM BULK RECEIVER Preoperative cardiovascular examination SCAN-EYE EXAM06/12/2025 12:00 AM CDT XR DXA BONE DENSITY 2 SITES CXUXENtcosud20/12/2025 1:54 PM CDT Osteopenia, unspecified location Menopause from Last 3 Months or Most Recently Relevant to Health Maintenance Results * SCAN-OPERATIVE/PROCEDURE REPORT (07/23/2025 12:00 AM BULK RECEIVER) Narrative Authorizing ProviderResult TypeResult StatusScannerOTHERFinal Result * EKG 12 LEAD (07/16/2025) Narrative Authorizing ProviderResult TypeResult StatusVirginia Lara MDEKG ORDFinal Result * MT READING EKG - NO CHARGE, COMP ONLY (07/16/2025) Narrative Authorizing ProviderResult TypeResult StatusVirginia Lara MDPB - PROVIDER READINGSFinal Result * (ABNORMAL) CBC WITH AUTO DIFFERENTIAL (07/02/2025 2:50 PM BULK RECEIVER)ComponentValue Ref RangeTest MethodAnalysis TimePerformed AtPathologist SignatureWHITE BLOOD CELL COUNT6.33.8 - 10.8 Thousand/uL07/03/2025 3:46 AM CSTQUEST DIAGNOSTICSRED BLOOD CELL COUNT4.483.80 - 5.10 Million/uL07/03/2025 3:46 AM CSTQUEST PJDNKVQTUVTYBDJVOVSHC12.311.7 - 15.5 g/dL07/03/2025 3:46 AM CSTQUEST OIUOCVXIQYNRYFVGOJSIZ59.235.0 - 45.0 %07/03/2025 3:46 AM [facility]ST[facility] MCV87.580.0 - 100.0 fL07/03/2025 3:46 AM CSTQUEST DAPCBWIIBRYBRN08.527.0 - 33.0 pg07/03/2025 3:46 AM CSTQUEST SWXIQAOXAFUFHRJ82.4(L)32.0 - 36.0 g/dL 07/03/2025 3:46 AM CSTQUEST DIAGNOSTICSComment: For adults, a slight decrease in the calculated MCHC value (in the range of 30 to 32 g/dL) is most likely not clinically significant; however, it should be interpreted with caution in correlation with other red cell parameters and the patient's clinical condition. RDW13.111.0 - 15.0 %07/03/2025 3:46 AM CSTQUEST DIAGNOSTICSPLATELET QOYYE377760 - 400 Thousand/uL07/03/2025 3:46 AM CSTQUEST UWFYXJRRLCQBJT61.57.5 - 12.5 fL 07/03/2025 3:46 AM CSTQUEST DSLHFRPUKOKPTLTMKEBBHK83.1%07/03/2025 3:46 AM BULK RECEIVER [facility] QHMPMGLVEQTTWJAFGTIPGC07.1%07/03/2025 3:46 AM [facility] MONOCYTES9.8%07/03/2025 3:46 AM CSTQUEST DIAGNOSTICSEOSINOPHILS3.9%07/03/2025 3:46 AM CSTQUEST DIAGNOSTICSBASOPHILS1.1%07/03/2025 3:46 AM [facility] ABSOLUTE WDQHHYECHAO83405620 - 7800 cells/uL07/03/2025 3:46 AM CSTQUEST DIAGNOSTICSABSOLUTE XRNKEWUNVGB9946920 - 3900 cells/uL07/03/2025 3:46 AM BULK RECEIVER [facility]ICSAB[facility] IDSSFSIBL679358 - 950 cells/uL07/03/2025 3:46 AM BULK RECEIVER [facility] DKBRIFHEKCS60929 - 500 cells/uL07/03/2025 3:46 AM BULK RECEIVER [facility] OSMTLLUVL521 - 200 cells/uL07/03/2025 3:46 AM CSTQUEST DIAGNOSTICSSpecimen (Source)Anatomical Location / LateralityCollection Method / VolumeCollection TimeReceived TimeBloodBLOOD SPECIMEN / UnknownQuest Collect / Xaulbhm5707/02/2025 2:50 PM CST07/02/2025 2:50 PM BULK RECEIVER Narrative Authorizing ProviderResult TypeResult StatusVirginia Lara MDHEMATOLOGYFinal ResultPerforming OrganizationAddressCity/State/ZIP CodePhone Number [facility] [place] [id number] [place] [address], * COMP METABOLIC PANEL (07/02/2025 2:50 PM BULK RECEIVER)ComponentValueRef RangeTest MethodAnalysis TimePerformed AtPathologist JjmlknatkHXKNVQ382443 - 146 mmol/L 07/03/2025 6:18 AM CSTQUEST DIAGNOSTICSPOTASSIUM4.13.5 - 5.3 mmol/L109/02/2024 6:18 AM CSTQUEST OKKSRFHAYMUHTZEKVLH02732 - 110 mmol/L109/02/2024 6:18 AM BULK RECEIVER [facility] BSPTZMQ6709 - 32 mmol/L109/02/2024 6:18 AM CSTQUEST JBBLXDXNFEDYKMTNQI4858 - 99 mg/dL07/03/2025 6:18 AM [facility] Comment: ? Fasting reference interval CALCIUM9.08.6 - 10.4 mg/dL07/03/2025 6:18 AM CSTQUEST DIAGNOSTICSCREATININE0.80 0.60 - 0.95 mg/dL07/03/2025 6:18 AM CSTQUEST DIAGNOSTICSBUN/CREATININE RATIOSEE NOTE: (calc)07/03/2025 6:18 AM CSTQUEST DIAGNOSTICSComment: ?? Not Reported: BUN and Creatinine are within ?? reference range. ? EGFR74> OR = 60 mL/min/1.91b50407/03/2025 6:18 AM CSTQUEST DIAGNOSTICSALBUMIN3.8 3.6 - 5.1 g/dL07/03/2025 6:18 AM CSTQUEST DIAGNOSTICSPROTEIN, TOTAL6.66.1 - 8.1 g/dL07/03/2025 6:18 AM CSTQUEST DIAGNOSTICSBILIRUBIN, TOTAL0.40.2 - 1.2 mg/dL 07/03/2025 6:18 AM CSTQUEST DIAGNOSTICSALKALINE WRWWZCFSRWK08930 - 153 U/L 07/03/2025 6:18 AM CSTQUEST QWUWEAJEHXYPCX642 - 29 U/L109/02/2024 6:18 AM BULK RECEIVER [facility] EUIYHMYNMKYWZF8754 - 35 U/L109/02/2024 6:18 AM CSTQUEST DIAGNOSTICSUREA NITROGEN (BUN)167 - 25 mg/dL07/03/2025 6:18 AM CSTQUEST DIAGNOSTICSGLOBULIN2.8 1.9 - 3.7 g/dL (calc)07/03/2025 6:18 AM CSTQUEST DIAGNOSTICSALBUMIN/GLOBULIN RATIO1.41.0 - 2.5 (calc)07/03/2025 6:18 AM CSTQUEST DIAGNOSTICSSpecimen (Source) Anatomical Location / LateralityCollection Method / VolumeCollection Time Received TimeBloodBLOOD SPECIMEN / UnknownQuest Collect / Jittaqt6907/02/2025 2:50 PM CST07/02/2025 2:50 PM BULK RECEIVER Narrative Authorizing ProviderResult TypeResult StatusMelissa Nicho Lara MDCHEMISTRYFinal ResultPerforming OrganizationAddressCity/State/ZIP CodePhone Number [facility] [address] [place] [address], * SCAN-EYE EXAM (06/12/2025 12:00 AM CDT) Narrative Authorizing ProviderResult TypeResult StatusScannerOTHERFinal Result * (ABNORMAL) XR DXA BONE DENSITY 2 SITES AXIAL (01/23/2025 1:54 PM CDT) Anatomical RegionLateralityModalitySpine, HIPS, HIPL, HIPROtherSpecimen (Source)Anatomical Location / LateralityCollection Method / VolumeCollection TimeReceived Time Impressions 01/28/2025 1:23 PM CDT Osteoporosis. RECOMMENDATIONS: [...] efficacy. Sydni Douglas PA-C [facility] 01/28/2025 ?? Narrative 01/28/2025 1:23 PM CDT For Patients: Results are automatically released to your [facility] account once available, in compliance with federal regulations. This means that you may see your results before your provider has had a chance to review them. Please allow 2-3 business days for your provider to comment on the results. XR DXA Bone Mineral Density (BMD) EXAM LOCATION: [facility] [address] [facility] [address] PATIENT NAME: Elizabeth Vazquez DATE OF : 1940 EXAM DATE: 01/23/2025 REQUESTING PROVIDER: Virginia Lara MD GENDER AT : female HEIGHT: 5' 6 (12/26/2024) WEIGHT: ??162 lb 14.4 oz (01/22/2025) MENOPAUSAL STATUS: Postmenopausal [...] two scanners are made by the same eeg technician. PROCEDURE: Dual-energy x-ray absorptiometry performed with routine [...] + 0.9 Change from prior in 2018: ??Decrease 6.5%. RESULTS FEMUR Left femoral neck BMD: 0.658 g/cm2 T-Score: - 2.7 Z-Score: - 0.7 Change from prior in 2018: ??Decrease 17.4%. Right femoral neck BMD: 0.656 g/cm2 T-Score: - 2.7 Z-Score: - 0.7 Change from prior in 2018: ??Decrease 19.1%. Left hip BMD: 0.634 g/cm2 T-Score: - 3.0 Z-Score: - 1.1 Change from prior in 2018: ??Decrease 14.9%. Right hip BMD: 0.595 g/cm2 T-Score: - 3.3 Z-Score: - 1.4 Change from prior in 2018: ??Decrease 24.4%. WHO criteria: Normal: T-score at or above -1 SD Osteopenia: T-score between -1.1 and -2.4 SD Osteoporosis: T-score at or below -2.5 SD Authorizing ProviderResult TypeResult StatusVirginia Lara MDDEXAFinal Result from Last 3 Months or Most Recently Relevant to Health Maintenance Insurance MemberSubscriberPlan / Payer (Effective 2025-Present)Name:Elizabeth Vazquez Relation to Subscriber:SelfName:Elizabeth Vazquez Payer ID:[id number] (NAIC) Group ID:[id number] Type:Not on file Address: MAILSTOP: [id number] [place] [address] Care Teams Team MemberRelationshipSpecialtyStart DateEnd Virginia Lara MD [address] [place] [address] PCP - GeneralFamily Practice12/21/16 Rob Garcia MBBS [address] [place] [address] [place] [address] Consulting PhysicianRheumatology03/12/24
--- OUTSIDE RECORDS SUMMARY | 2025-07-29 23:53 | XMS_ITS | Clinical Summary ---
Author Organization [facility] Address [address] [place] [address] Care Team Providers Care Director Of Assessment Name Role Phone Elsewhere, Pcp Primary Care Provider Unavailabl e Source Comments Patient records contain information from all sites at [facility]. For routine questions regarding patient records, call [phone] during business hours, M-F 8:00 AM - 5:00 PM Central Time. Record requests for emergency care only can be directed to [phone] at any time[address] Allergies Active AllergyReactionsCriticalityNoted DateCommentsCodeineNausea Only09/09/2016 Can do injection, but not oral. Does not seem to have a problem now. IbuprofenGI intolerance,Other (see comments)High12/23/2020 Ulcer problems so does not take. PrednisoneHypertension,Other (see comments)High07/18/2018 High blood pressure Medications * This document contains information received from the source organization and may not represent a complete record from that organization. MedicationSigDispense QuantityRefillsLast FilledStart DateEnd DateStatus acetaminophen (TYLENOL) 500 mg tablet Take 500 mg by mouth as needed for pain.03/29/2019Active lidocaine viscous (XYLOCAINE) 2 % mucosal solution Take 5 mL by mouth as needed.05/26/2020Active sucralfate (CARAFATE) 1 gram tablet Take 1 g by mouth 3 (three) times a day as needed.05/26/2020Active hydrOXYchloroQUINE (PLAQUENIL) 200 mg tablet Take 200 mg by mouth daily.07/06/2021ctive omeprazole (PriLOSEC) [address] capsule Take 40 mg by mouth every morning before breakfast.05/05/2021ctive dexAMETHasone (DECADRON) 0.5 mg/5 mL solution Indications:Pemphigoid Mucous Membrane (HCC)Take 5 mL (0.5 mg total) by mouth every 12 (twelve) hours. Swish for 5 minutes and then spit out. Do not eat/drink for 30 minutes after. 500 mL 3Active Additional Information Patient taking differently:0.5 mg oralAs needed, Swish for 5 minutes and then spit out. Do not eat/drink for 30 minutes after., Reported on 09/15/2023 Ventolin HFA 90 mcg/actuation inhaler Inhale 1 puff as needed for shortness of breath or wheezing.Active triamcinolone (KENALOG) 0.1 % cream Indications:Stasis Dermatitis Lower Extremity LeftApply 1 Application topically 2 (two) times a day as needed (Rash). Apply to left lower leg. 454 g 3034Active betamethasone dipropionate, augmented, (Diprolene) 0.05 % ointment Indications:Lichen SclerosusAPPLY 1 APPLICATION TOPICALLY NEEDED (PAIN/INFLAMMATION VULVA). APPLY TO VULVA. 45 g 1035Active doxycycline monohydrate (Monodox) 100 mg capsule Indications:Pemphigoid Mucous Membrane (HCC)TAKE 1 CAPSULE BY MOUTH TWICE A DAY 60 capsule 5Active clotrimazole (Mycelex) 10 mg frankie Indications:Pemphigoid Mucous Membrane (HCC)DISSOLVE 1 FRANKIE (10 MG TOTAL) IN THE MOUTH 2 (TWO) TIMES A DAY. 60 Frankie 11085ActiveHospital, Clinic, or Other Facility Administered Medication Ordered DoseRouteFrequencyStart DateEnd DateStatus BUPivacaine 0.25 % (2.5 mg/mL) injection 20 mL (MARCAINE) Indications:Mass Abdominal Right Upper Vjcxirfa72 gBblnEyms75/12/2023ctive Active Problems ProblemNoted DateDiagnosed DatePemphigoid Mucous Aamrcfbk06/21/2024sthma Mild Tnoxrsttum54/21/2024Mass Abdominal Right Upper Pkegmwct80/25/2023Lesion Oral 01/19/2021 Overview (01/19/2021): Added automatically from request for surgery [id number] Encounters DateTypeDepartmentCare LinuMuwpkdldfxb69/19/2025Refill Department of Dermatology in [place], [place] [address] [place] [address] Vinita Salas M.D. Med Nhtlxl0005/28/2025Refill Department of Dermatology in [place], [place] [address] [place] [address] Vinita Salas M.D. Med Refillfrom Last 3 Months Immunizations ImmunizationAdministration DatesNext DueInfluenza TIV (IM)05/23/2019,08/01/2018 Influenza, Quadrivalent, Adjuvanted, Preservative Free06/13/20235894OUY2998/31/2023 Tdap03/06/2019 Family History Medical HistoryRelationNameCommentsCancerDaughterJennifer Bredehoeftliver cancer MigrainesMotherBernitaOsteoporosisMotherBernitaStrokeMotherBernitaRelationName StatusCommentsDaughterJennifer BredehoeftMotherBernita Social History Tobacco UseTypesPacks/DayYears UsedDateSmoking Tobacco: FormerCigarettes0.320 Quit: 1989Passive Smoke Exposure: PastSmokeless Tobacco: Never Tobacco Cessation:Counseling Given: Yes Comments:started [...] or the highest degree you have received?11th grade07/06/2021CommentsNoSex and Gender InformationValueDate RecordedSex Assigned at JiqrhIygavi78/05/2021 12:58 AM CDT Legal GcuBpcwjy86/03/2021 12:30 PM CSTGender VhkofqirRaaorb41/05/2021 12:58 AM CDTSexual BtoukgwxpguDvgozgdq53/05/2021 12:58 AM CDT Last Filed Vital Signs Vital SignReadingTime TakenCommentsBlood Rvimjsek561/5707/04/2024 4:40 PM 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 Fhzza854007/04/2024 4:45 PM XTSCpojvnbtcsg37.5 ??C (97.7 ??F)07/04/2024 3:51 PM CSTRespiratory Tfco063009/03/2023 4:45 PM CSTOxygen Ieilsacewf26%07/04/2024 4:45 PM CSTInhaled Oxygen Concentration--Zvksyu88.2 kg (163 lb 9.3 oz)09/22/2023 10:14 AM SIZGiayvw971.2 cm (5' 7)07/04/2024 12:08 PM CSTBody Mass Index25.8 09/22/2023 10:14 AM 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 Plan of Treatment Health MaintenanceDue DateLast DoneCommentsCOVID-19 Vaccine (3 - Pfizer risk series)/11/2021, 1Depression Screening (Annual PHQ-2) 08/14/2024Fall Risk Screen (Annual)08/14/2024DTaP,Tdap,and Td Vaccines (3 - Td or Tdap)/, 03/06/2019Hepatitis B ScreeningDiscontinued 1Pneumococcal vaccine (50+ years)Jhrgqnidi19/31/2023RSV vaccine - (32-36 weeks) or 50+ zeukkBdltxeemk45/19/2024Zoster VaccinesCompleted 08/27/2024, 05/30/2024Influenza VzaotkxWdsjsiuft02/19/2025, 05/30/2024, 06/13/2023, Additional history existsIPV VaccinesAged OutNo longer eligible based on patient's age to complete this topic Insurance Advance Directives For more information, please contact: [phone] TypeDate RecordedPatient RepresentativeExplanationAdvance Directive09/15/2021 6:54 PMBODY/ORGAN DONATION Care Teams Team MemberRelationshipSpecialtyStart DateEnd Date Elsewhere, Pcp PCP - GeneralInternal Medicine01/27/23
--- OUTSIDE RECORDS SUMMARY | 2025-07-29 23:53 | XMS_ITS | Patient Health Record ---
Author Organization [facility] Billing Info Address [address] [place] [address] Phone [phone] Support Name Relationship Address Phone Akbar Parker Emergency Contact Unknown [phone] Elizabeth Vazquez Self - patient is the insured [address] [place] [address] [phone] Allergies Allergen (clinical drug ingredient) Drug/Non Drug Allergy documented on EMR Reaction Allergy Type Onset Date Status aspirin Aspirin ulcer Drug Allergy ActivecodeineCodeineulcerDrug AllergyActiveprednisonePrednisoneanxiousDrug AllergyActive Reason For Referral No Information Medications Medication SIG (Take, Route, Frequency, Duration) Notes Start Date End Date Diagnosis (ICD Code) Status Albuterol Sulfate (2.5 MG/3M L) 0.083% Nebulization Solution 3 mL as needed Inhalation every 4 hrs; Duration: 30 day(s) ActiveDoxycycline Hyclate 100 MG Capsule1 capsule Orally Twice a dayActive Clotrimazole 10 MG Troche1 frankie while on immunosuppressive medicine Mouth/Throat Twice a dayActiveFluticasone Propionate 50 MCG/ACT Suspension1 spray in each nostril Nasally Once a day; Duration: 30 day(s)ActiveCelebrex 200 MG Capsule1 capsule Orally Once a dayNot-TakingSucralfate 1 GM Tablet1 tablet on an empty stomach Orally Twice a dayActiveMedrol (Farrukh) 4 MG Tabletas directed Orally As directed; Duration: 6 day(s)2Cough in adult patient (ICD_10 - R05.9)ActiveNexium 40 MG Capsule Delayed Release1 capsule Orally Once a day Not-TakingClobetasol Propionate 0.05 % Ointment1 application Externally Twice a day; Duration: 10 day(s)ActiveLidocaine Viscous HCl 2 % Solutionswish and spit 5ml Mouth/Throat TIDActiveDexamethasone 0.5 MG/5ML Solutionswish and spit 5ml Orally every 12 hrsActiveClobetasol Propionate 0.05 % Cream1 application Externally Twice a day; Duration: 10 day(s)ActiveHydroxychloroquine Sulfate 200 MG Tabletas directed Orally BIDActiveOmeprazole 40 mg Capsule Delayed Release TAKE ONE CAPSULE BY MOUTH DAILY 30 MINUTES BEFORE MORNING MEAL; Duration: 30 Active Social History Tobacco Use: Social History Observation Description Date Details (start date - stop date) Current some da y smoker NA - NA Sex Observation Social History Observation Description Sex Observation Female Social History Social HistorySocial InfoQuestionAnswerNotesTobacco Status:Patient jaylen current some day smoker? Received cessation counseling on:03/26/2014lcohol Use:Patient uses alcohol? Drinks per occasion:2? Drinks per week:4Additional DetailsCategory Social InfoOptionsDetailsSocial HistoryOccupation/Work:not employedMarital Status:WidowLives with:alone Problems No Known Problems Plan Of Treatment Pending Test Test Name Order Date XRAY- CHEST PA AND LATERAL (79531)([facility] 06/23/2022 Insurance Providers Payer Name Payer Address Payer Phone Subscriber Number Group Number Insured Name Patient Relationship to Insured Coverage Start Date Coverage End Date [place] MED[place]ARE [place] PART A [address] [facility] [place] [id number] Katlin Vazquez - patient is the [id number] 2022[place] [address] [place], [place] [phone], TameraSelf - patient is the [id number] Medical (General) History Medical History History ICD Code Ulcers arhtritisbleeding disorderschicken poxmeaslesmigraine headachespneumoniawhooping coughrheumatic feverSurgical History Surgery Date(Month/Year) hammer toe repair carpal tunnel releaset&[id number] wrist [id number]
--- NOTE | 2025-07-29 23:57 | ED_ITS ---
HPI - General Adult General Time Seen by Provider: 23:57 Date Seen: 07/29/25 Chief complaint: Post Op Complication Stated complaint: L foot incisions inflamed Time Seen by Provider: 07/29/25 23:56 Source: patient Mode of arrival: ambulatory Limitations: no limitations History of Present Illness HPI narrative: 84-year-old female who is postop day 6 status post hammertoe repair who comes in today with concern for pain on the top of the foot. She notes that she had some pain yesterday when she saw her provider in follow-up at says that has progressed, she is concerned about infection. She denies fevers or chills. Related Data Home Medications ?Medication ?Instructions ?Recorded ?Confirmed omeprazole 40 mg capsule,delayed 40 mg PO DAILY 07/28/25 release sucralfate 1 gram tablet 1 g PO QID PRN 01/24/2507/14 clotrimazole 10 mg frankie 10 mg PO BID 06/23/25 lidocaine HCl 2 % mucosal solution 5 ml PO 3XD PRN 07/28/25 betamethasone, augmented 0.05 % 1 applic topical 07/2207/28/25 topical ointment fluticasone 250 mcg-salmeterol 50 1 ea inhalation BID 07/22/25 07/28/25 mcg/dose blistr powdr for inhalation Previous Rx's ?Medication ?Instructions ?Recorded doxycycline hyclate 100 mg capsule 100 mg PO BID #14 c aps 04/27/24 hydrocodone 5 mg-acetaminophen 325 1 tab PO Q6H PRN se daryl pain #20 07/23/25 mg tablet tabs Allergies Allergy/AdvReac Type Severity Reaction Status Date / Time codeine Allergy Mild Nausea Verified 07/28/25 15:58 [facility] Medical History Stomach ulcer ?K25.9 - Gastric ulcer, unspecified as acute or chronic, without hemorrhage or perforation (ICD-10) 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, left shoulder (ICD-10) Knee fracture, left Vulvar pain ?R10.2 - Pelvic and perineal pain (ICD-10) History of duodenal ulcer ?Z87.19 - Personal history of other diseases of the digestive system (ICD-10) Headache ?R51.9 - Headache, unspecified (ICD-10) Elevated blood pressure reading ?R03.0 - Elevated blood-pressure reading, without diagnosis of hypertension (ICD-10) Back pain ?M54.9 - Dorsalgia, unspecified (ICD-10) Atopic dermatitis ?L20.9 - Atopic dermatitis, unspecified (ICD-10) Surgical History Status post laparoscopic cholecystectomy ?Z90.49 - Acquired absence of other specified parts of digestive tract (ICD- 10) History of tonsillectomy and adenoidectomy ?Z90.89 - Acquired absence of other organs (ICD-10) History of surgery on left wrist (07/28/15) ?Z98.890 - Other specified postprocedural states (ICD-10) History of sinus surgery ?Z98.890 - Other specified postprocedural states (ICD-10) History of hysterectomy ?Z90.710 - Acquired absence of both cervix and uterus (ICD-10) History of hammer toe correction ?Z98.890 - Other specified postprocedural states (ICD-10) ?Z87.39 - Personal history of other diseases of the musculoskeletal system and connective tissue (ICD-10) History of elbow surgery (2019) ?Z98.890 - Other specified postprocedural states (ICD-10) History of carpal tunnel surgery of left wrist (2018) ?Z98.890 - Other specified postprocedural states (ICD-10) History of bilateral cataract extraction (2014) ?Z98.41 - Cataract extraction status, right eye (ICD-10) ?Z98.42 - Cataract extraction status, left eye (ICD-10) History of arthroscopy of knee (1989) ?Z98.890 - Other specified postprocedural states (ICD-10) History of appendectomy ?Z90.49 - Acquired absence of other specified parts of digestive tract (ICD- 10) Social History Smoking Status: Former smoker Do you use any of these nicotine containing products: None Second hand tobacco smoke exposure: No How often do you have a drink containing alcohol: monthly or less How many standard drinks containing alcohol do you have on a typical day: 1 or 2 How often do you have six or more drinks on one occasion: Never AUDIT-C Alcohol total score: 1 Non-prescribed substance use: denies use Caffeine: Yes service: No Exam Narrative: Exam Narrative: General: well nourished , NAD Head: Atraumatic and normocephalic ENT: External ears and external nose are normal Eyes: Conjunctiva clear, pupils are equal reactive, external ocular motions are intact Neck: Full spontaneous range of motion of the neck Lungs: No respiratory distress Musculoskeletal: No tenderness or deformity Neurologic: No gross focal neurologic deficits Skin: No rashes. Some bruising of the toes left foot with surgical pins intact. Incision over the 1st metatarsal with some mild surrounding erythema but no dehiscence or purulent drainage, no swelling. Psych: Mood and affect are appropriate Const: Vital Signs, click to edit/add: Vital Signs - 24 hr 07/29/25 23:52 Temperature 97.9 F Pulse Rate [Left P ulse Oximeter] 80 Respiratory Rate 16 Blood Pressure [Ri ght Upper Arm] 169/77 H Pulse Oximetry 98 Oxygen Delivery Me thod Room Air Course Course ED Course: Additional records reviewed: Postop visit from July 28, operative visit from July 23 when patient had hammertoe repair the 2nd does Additional history from: none Care impacted by: GERD Testing considered but not performed: See ED course Disposition: Discharge Patient is postop day 6 status post hammertoe repair, left, comes in with concern for pain around the incision on the top of the foot. On exam here, vital is stable, afebrile and patient does not complain of any fevers at home. Dressings removed, the toes are bruised but look quite good. The incision on the dorsum of the foot is mildly erythematous with no peeling drainage, no dehiscence. Suspect this may be rubbing on her ortho boot, however given her concern for infection will be started on antibiotics, will double cover with Augmentin and doxycycline. Vital Signs Vital signs: Initial Vital Signs Temperature 97.9 F 07/29/25 23:52 Temperature Source Temporal Artery Scan 07/29/25 23:52 Pulse Rate 80 07/29/25 23:52 Pulse Rhythm Regular 07/29/25 23:52 Respiratory Rate 16 07/29/25 23:52 Blood Pressure 169/77 H 07/29/25 23:52 Blood Pressure Mean 107 H 07/29/25 23:52 Blood Pressure Position Sitting 07/29/25 23:52 Pulse Oximetry 98 07/29/25 23:52 Oxygen Delivery Method Room Air 07/29/25 23:52 Vital Signs Temperature 97.9 F 07/29/25 23:52 Pulse Rate 80 07/29/25 23:52 Respiratory Rate 16 07/29/25 23:52 Blood Pressure 169/77 H 07/29/25 23:52 Pulse Oximetry 98 07/29/25 23:52 Oxygen Delivery Method Room Air 07/29/25 23:52 Temperature 97.9 F 07/29/25 23:52 Pulse Rate 80 07/29/25 23:52 Respiratory Rate 16 07/29/25 23:52 Blood Pressure 169/77 H 07/29/25 23:52 Pulse Oximetry 98 07/29/25 23:52 Oxygen Delivery Method Room Air 07/29/25 23:52 Discharge Plan Discharge Clinical Impression: Encounter for post surgical wound check Patient Disposition: Home, Self-Care Condition: Stable Additional Instructions: Your incision looks quite good today. However, there is some redness and given your pain and concern for infection, antibiotics started. Continue wound care as instructed by your surgeon and follow-up with your surgeon as scheduled. Activity Level: Activity as Tolerated Discharge Diet: Regular Prescriptions: No Action clotrimazole 10 mg frankie 10 mg PO BID sucralfate 1 gram tablet 1 g PO QID PRN omeprazole 40 mg capsule,delayed release(DR/EC) 40 mg PO DAILY Patient Comments: TAKE ONE CAPSULE BY MOUTH DAILY 30 MINUTES BEFORE MORNING MEAL doxycycline hyclate 100 mg capsule 100 mg PO BID Qty: 14 0RF fluticasone propion-salmeterol 250-50 mcg/dose blister with device 1 ea INHALATION BID betamethasone, augmented 0.05 % ointment 1 applic topical hydrocodone-acetaminophen 5-325 mg tablet 1 tab PO Q6H PRN (Reason: severe pain) Qty: 20 0RF lidocaine HCl 2 % solution 5 ml PO 3XD PRN Follow Up/Referrals: Virginia Lara MD [Primary Care Provider, Family Practice] Stand Alone Forms: MyHealth Info Instructions
--- NOTE | 2025-07-30 00:14 | ED.NURSE ---
pt foot wrapped with Vaseline gauze, 2 inch wrap and 6 inch cling. CMS intact before and after wrapping.
--- OUTSIDE RECORDS SUMMARY | 2025-07-30 00:24 | XMS_ITS | Encounter Summary ---
Author Organization [facility] Address [address] [place] [address] Care Team Providers Care Crm Technical Lead Name Role Phone Elsewhere, Pcp Primary Care Provider Unavailabl e Reason for Visit * ReasonOnset DateCommentsMed Algvgr5207/02/2025 Encounter Details DateTypeDepartmentCare Team (Latest Contact Info)Vadomvqlyml63/19/2025Refill Department of Dermatology in [place], [place] [address] [place] [address] Vinita Salas M.D. [address] [place] [address] Med Refill Social History Tobacco UseTypesPacks/DayYears UsedDateSmoking [...] grade1CommentsNoSex and Gender InformationValueDate RecordedSex Assigned at XpcvfGxqofh12/05/2021 12:58 AM CDT Legal DzpBgidcm68/03/2021 12:30 PM CSTGender SwwjasqyOpasns97/05/2021 12:58 AM CDTSexual MwgwyyzaqwlWizyoiww67/05/2021 12:58 AM CDTdocumented as of this encounter Miscellaneous Notes * Telephone Encounter - Mona Schulz R.N. - 07/03/2025 2:32 PM [employer] Refill request denial for dexamethasone solution. Exclusion criteria: patient has not been seen in the Department of Dermatology within the past 18 months No appointment is scheduled at this time. This prescription has been denied per protocol [id number] or [id number]. [employer] documented in this encounter Plan of Treatment Not on file documented as of this encounter Visit Diagnoses Diagnosis Pemphigoid Mucous Membrane (HCC) documented in this encounter Care Teams Team MemberRelationshipSpecialtyStart DateEnd Date Elsewhere, Pcp PCP - GeneralInternal Medicine01/27/23documented as of this encounter
--- OUTSIDE RECORDS SUMMARY | 2025-07-30 00:25 | XMS_ITS | Patient Health Record ---
Author Organization [facility] Billing Info Address [address] [place] [address] Phone [phone] Support Name Relationship Address Phone Akbar Parker Emergency Contact Unknown Elizabeth Vazquez Self - patient is the insured [address] [place] [address] [phone] Allergies Allergen (clinical drug ingredient) Drug/Non Drug [...] Order Date XRAY- CHEST PA AND LATERAL ([id number])([facility]) 06/23/2022 Insurance Providers Payer Name Payer Address Payer Phone Subscriber Number Group Number Insured Name Patient Relationship to Insured Coverage Start Date Coverage End Date [place] PART A [address] [facility] [place] [id number] Katlin Vazquez - patient is the [id number] 2022[place] [address] [place], [place] [phone], TameraSelf - patient is the Medical (General) History Medical History History ICD Code Ulcers arhtritisbleeding disorderschicken poxmeaslesmigraine headachespneumoniawhooping coughrheumatic feverSurgical History Surgery Date(Month/Year) hammer toe repair carpal tunnel releaset&[id number] wrist [id number]
--- OUTSIDE RECORDS SUMMARY | 2025-07-30 00:25 | XMS_ITS | Clinical Summary ---
Author Organization [employer] [facility] [employer] [facility] Address [address] [place] [address] Care Team Providers Care Outbound Sales Professional Name Role Phone Virginia Lara MD Primary Care Provider [phone] Rob Garcia MBBS Unavailable Allergies Active AllergyReactionsCriticalityNoted [...] sent)) Active Problems ProblemNoted DateDiagnosed DateProlonged QT zjbmftpy73/10/2024Left anterior fascicular block07/23/2024ositive PRATEEK (antinuclear antibody)07/23/2024Moderate persistent asthma with acute bcdpkgysejvd66/17/2023Lichen sclerosus of female baurstpwa08/07/2021Recurrent oral sqdqkt321Acute gastric ulcer without hemorrhage or vmpfnsepdna24/30/2020 Overview (06/12/2020): EGD 05/2020 acute superficial gastric ulcer, 3 cm hiatal hernia with reflux Odkngjr0201/21/20191989Bqutgsbkp48/09/2018 Overview (10/20/2017): EGD 10/2017 gastritis History of duodenal ulcer09/20/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 Resolved Problems ProblemNoted DateDiagnosed DateResolved DateCOPD dkjfffojdshc22/05/2024 5COPD with chronic ngqzvehwyl99 Encounters DateTypeDepartmentCare WjglNzmhchleplu51/10/2025Orders Only [facility] Scanner 1 scan: (1-Ord) [facility] REPAIR , /10/2024 Orders Only [facility] [address] [place] [address] Makenzie Graham 1 scan: (1-Ord) NFLD-EKG-07/02/2511 11:00 AM CSTOffice Visit [facility] [address] [place] [address] Amberly Currie MD Follow Up (dyspnea on exertion/Needs to be cleared for surgery )07/08/2025Travel 07/02/2025 1:35 PM CSTOffice Visit [facility] [address] [place] [address] Virginia Lara MD Pre-Op Exam (07/23/2025, Left foot, Dr Raymundo, [facility])07/02/2025 Telephone [facility] [address] [place] [address] Cardiology, Anw Vetkoldvahk03/18/9847Qgdclw82/30/2025Orders Only [facility] Scanner 1 scan: (1-Ord) [facility] EYE NLQVZR3305/21/2025Refill [facility] [address] [place] [address] Virginia Lara MD Refill Request (Lidocaine (Viscous))05/17/2025Telephone [facility] [place] [address] [place] [address] Pierre Hall DO Prior Authorization (lidocaine (Lidoderm) 5 % topical patch Denied)from Last 3 Months Immunizations ImmunizationAdministration DatesNext DueCOVID-19 vaccine (Capablue 30mcg/0.3mL) MD HADLEYV09/17/2021,08/04/2021Influenza, High-dose Inactivated 05/30/2024Influenza, Inactivated [...] = 0.6 oz pure alcohol)occassionallyPHQ-2AnswerDate RecordedPHQ-2 TOTAL GPNKM123 Social ConnectionsAnswerDate RecordedDo you often feel lonely or isolated from those around you?lcohol UseAnswerDate RecordedHow often do you have a drink containing alcohol?How many drinks containing alcohol do you have on a typical day when you are drinking?How often do you have five or more drinks on one occasion?Financial Resource StrainAnswer Date RecordedDifficulty of Paying Living Hdtdnouj655/10/2024ifficulty of Paying Living ExpensesNot on file07/23/2024Food InsecurityAnswerDate [...] Last Filed Vital Signs Vital SignReadingTime TakenCommentsBlood Gnqutpez460/7307/08/2025 10:54 AM PLANER FEEDER Sstlk061907/08/2025 10:54 AM WNXKbtfqiqfdvu84.7 ??C (98.1 ??F)01/22/2025 10:04 AM CDTRespiratory Nsfb36412/06/2018 10:38 AM CDTOxygen Rdgiedbfhd19%07/08/2025 10:54 AM CSTInhaled Oxygen Concentration--Zauvwh04.3 kg (155 lb)07/08/2025 10:54 AM ILPTwudfs437.5 cm (5' 5.55)07/02/2025 1:47 PM CSTBody Mass Index25.36109/01/2024 1:47 PM PLANER FEEDER Plan of Treatment Health MaintenanceDue DateLast DoneCommentsCOVID-19 vaccine series ( season), 08/04/2021epression screening for age 12+ 605/, 09/20/2023, 05/22/2023, Additional history existsMedicare Wellness for age 65+/, 05/10/2023, 04/17/2018BMI (ht and wt on same day) for age 18+, 04/21/2025, 01/23/2025, Additional history existsTetanus wuotiyl54/, 03/06/2019Pneumococcal series for age 50+Dmptzkcry64/31/2023RSV vaccine for adults or pregnancyCompleted 03/01/2024Zoster (shingles) series for age 50+Ljjuosqdg61/14/2025, 05/30/2024 DEXA/DXA scan for age 65+Azcgtddik80/12/2025, 04/19/2018Influenza Vaccine Syumcglam51/19/2025, 05/30/2024, 06/13/2023, Additional history existsHepatitis B series for 19+Aged OutNo longer eligible based on patient's age to complete this topic Procedures Procedure NamePriorityDate/TimeAssociated DiagnosisCommentsSCAN- OPERATIVE/PROCEDURE YNSQDE7507/23/2025 12:00 AM PLANER FEEDER [place] READING EKG - NO CHARGE, COMP UPLFKxwxajo22/03/2025 Left anterior fascicular block Prolonged QT interval EKG 12 YWUMLrlskmc79/03/2025 Left anterior fascicular block Prolonged QT interval CBC WITH AUTO AWIKSHUICEFHEfnvexw30/19/2025 2:50 PM PLANER FEEDER Preoperative cardiovascular examination CBC WITH AUTO LCJBNDJYHAWENxztlni89/19/2025 2:50 PM PLANER FEEDER Preoperative cardiovascular examination COMP METABOLIC BRPKEYakuptx90/19/2025 2:50 PM PLANER FEEDER Preoperative cardiovascular examination SCAN-EYE EXAM06/12/2025 12:00 AM CDT XR DXA BONE DENSITY 2 SITES EVHJYTiskvuq24/12/2025 1:54 PM CDT Osteopenia, unspecified location Menopause from Last 3 Months or Most Recently Relevant to Health Maintenance Results * SCAN-OPERATIVE/PROCEDURE REPORT (07/23/2025 12:00 AM PLANER FEEDER) Narrative Authorizing ProviderResult TypeResult StatusScannerOTHERFinal Result * EKG 12 LEAD (07/16/2025) Narrative Authorizing ProviderResult TypeResult StatusVirginia Lara MDEKG ORDFinal Result * [place] READING EKG - NO CHARGE, COMP ONLY (07/16/2025) Narrative Authorizing ProviderResult TypeResult StatusVirginia Lara MDPB - PROVIDER READINGSFinal Result * (ABNORMAL) CBC WITH AUTO DIFFERENTIAL (07/02/2025 2:50 PM PLANER FEEDER)ComponentValue Ref RangeTest MethodAnalysis TimePerformed AtPathologist SignatureWHITE BLOOD CELL COUNT6.33.8 - 10.8 Thousand/uL07/03/2025 3:46 AM CSTQUEST DIAGNOSTICSRED BLOOD CELL COUNT4.483.80 - 5.10 Million/uL07/03/2025 3:46 AM CSTQUEST GEXRPICXOXXYOXQLEQOFH48.311.7 - 15.5 g/dL07/03/2025 3:46 AM CSTQUEST JSHKZANOYUQCBODPWZJSJ20.235.0 - 45.0 %07/03/2025 3:46 AM [facility] MCV87.580.0 - 100.0 fL07/03/2025 3:46 AM CSTQUEST WEAZUTVLQEPZNB91.527.0 - 33.0 pg07/03/2025 3:46 AM CSTQUEST DEIHFTLLXLVFLXL17.4(L)32.0 - 36.0 g/dL 07/03/2025 3:46 AM CSTQUEST DIAGNOSTICSComment: For adults, a slight decrease in the calculated MCHC value (in the range of 30 to 32 g/dL) is most likely not clinically significant; however, it should be interpreted with caution in correlation with other red cell parameters and the patient's clinical condition. RDW13.111.0 - 15.0 %07/03/2025 3:46 AM CSTQUEST DIAGNOSTICSPLATELET QLVRT551181 - 400 Thousand/uL07/03/2025 3:46 AM CSTQUEST ZNMKJPJHYMKWIJ04.57.5 - 12.5 fL 07/03/2025 3:46 AM CSTQUEST MHYQTDGCATBBJXGBZIEJLH55.1%07/03/2025 3:46 AM PLANER FEEDER [facility] MKXBPVMCFUJUQQGASGMMRU68.1%07/03/2025 3:46 AM [facility] MONOCYTES9.8%07/03/2025 3:46 AM CSTQUEST DIAGNOSTICSEOSINOPHILS3.9%07/03/2025 3:46 AM CSTQUEST DIAGNOSTICSBASOPHILS1.1%07/03/2025 3:46 AM [facility] ABSOLUTE DTXMEYKUUJD41225914 - 7800 cells/uL07/03/2025 3:46 AM CSTQUEST DIAGNOSTICSABSOLUTE BXBHWOVXFYG6563443 - 3900 cells/uL07/03/2025 3:46 AM PLANER FEEDER [facility] VPBNLUFGI037538 - 950 cells/uL07/03/2025 3:46 AM PLANER FEEDER [facility] YBROXQLSMIC88436 - 500 cells/uL07/03/2025 3:46 AM PLANER FEEDER [facility] GSEDWDPGK828 - 200 cells/uL07/03/2025 3:46 AM CSTQUEST DIAGNOSTICSSpecimen (Source)Anatomical Location / LateralityCollection Method / VolumeCollection TimeReceived TimeBloodBLOOD SPECIMEN / UnknownQuest Collect / Cprvyke6307/02/2025 2:50 PM CST07/02/2025 2:50 PM PLANER FEEDER Narrative Authorizing ProviderResult TypeResult StatusVirginia Lara MDHEMATOLOGYFinal ResultPerforming OrganizationAddressCity/State/ZIP CodePhone Number [facility] [place] [id number] [place] [address], * COMP METABOLIC PANEL (07/02/2025 2:50 PM PLANER FEEDER)ComponentValueRef RangeTest MethodAnalysis TimePerformed AtPathologist EokhwdrdmRWJEYQ294273 - 146 mmol/L 07/03/2025 6:18 AM CSTQUEST DIAGNOSTICSPOTASSIUM4.13.5 - 5.3 mmol/L109/02/2024 6:18 AM CSTQUEST RAHULDSMKPWVMGINUXY56581 - 110 mmol/L109/02/2024 6:18 AM PLANER FEEDER [facility] FNXWVZB7651 - 32 mmol/L109/02/2024 6:18 AM CSTQUEST ZKLTHCCPFTQNNDYRXU8747 - 99 mg/dL07/03/2025 6:18 AM [facility] Comment: ? Fasting reference interval CALCIUM9.08.6 - 10.4 mg/dL07/03/2025 6:18 AM CSTQUEST DIAGNOSTICSCREATININE0.80 0.60 - 0.95 mg/dL07/03/2025 6:18 AM CSTQUEST DIAGNOSTICSBUN/CREATININE RATIOSEE NOTE: (calc)07/03/2025 6:18 AM CSTQUEST DIAGNOSTICSComment: ?? Not Reported: BUN and Creatinine are within ?? reference range. ? EGFR74> OR = 60 mL/min/1.11u40707/03/2025 6:18 AM CSTQUEST DIAGNOSTICSALBUMIN3.8 3.6 - 5.1 g/dL07/03/2025 6:18 AM CSTQUEST DIAGNOSTICSPROTEIN, TOTAL6.66.1 - 8.1 g/dL07/03/2025 6:18 AM CSTQUEST DIAGNOSTICSBILIRUBIN, TOTAL0.40.2 - 1.2 mg/dL 07/03/2025 6:18 AM CSTQUEST DIAGNOSTICSALKALINE WIKZKPNANNK30792 - 153 U/L 07/03/2025 6:18 AM CSTQUEST MWRXUFDIRAQSVD763 - 29 U/L109/02/2024 6:18 AM PLANER FEEDER [facility] BDTBFRMYOOHMZU2786 - 35 U/L109/02/2024 6:18 AM CSTQUEST DIAGNOSTICSUREA NITROGEN (BUN)167 - 25 mg/dL07/03/2025 6:18 AM CSTQUEST DIAGNOSTICSGLOBULIN2.8 1.9 - 3.7 g/dL (calc)07/03/2025 6:18 AM CSTQUEST DIAGNOSTICSALBUMIN/GLOBULIN RATIO1.41.0 - 2.5 (calc)07/03/2025 6:18 AM CSTQUEST DIAGNOSTICSSpecimen (Source) Anatomical Location / LateralityCollection Method / VolumeCollection Time Received TimeBloodBLOOD SPECIMEN / UnknownQuest Collect / Xafjqlc5907/02/2025 2:50 PM CST07/02/2025 2:50 PM PLANER FEEDER Narrative Authorizing ProviderResult TypeResult StatusMelissa Nicho Lara MDCHEMISTRYFinal ResultPerforming OrganizationAddressCity/State/ZIP CodePhone Number [facility] [place] [facility] [address] [place] [address], * SCAN-EYE EXAM (06/12/2025 12:00 AM CDT) [...] to assess therapeutic efficacy. Sydni Douglas PA-C [facility] 01/28/2025 ?? Narrative 01/28/2025 1:23 PM CDT For Patients: Results are automatically released to your [facility] ([facility]) account once available, in compliance with federal regulations. This means that you may see your results before your provider has had a chance to review them. Please allow 2-3 business days for your provider to comment on the results. XR DXA Bone Mineral Density (BMD) EXAM LOCATION: [facility] [address] [facility] [address] PATIENT NAME: Elizabeth Vazquez DATE OF : [...] scanners are made by the same transition mgr rn. PROCEDURE: Dual-energy x-ray absorptiometry performed with routine [...] Payer (Effective 2025-Present)Name:Elizabeth Vazquez Relation to Subscriber:SelfName:Elizabeth Vzaquez Payer ID:[id number] (NAIC) Group ID:[id number] Type:Not on file Address: MAILSTOP: [id number] [place] [address] Care Teams Team MemberRelationshipSpecialtyStart DateEnd Virginia Lara MD [address] [place] [address] PCP - GeneralFamily Practice12/21/16 Rob Garcia MBBS [address] [place] [address] [place] [address] Consulting PhysicianRheumatology03/12/24
--- OUTSIDE RECORDS SUMMARY | 2025-07-30 00:25 | XMS_ITS | Clinical Summary ---
Author Organization [facility] Address [address] [place] [address] Care Team Providers Care Clod Puller Name Role Phone Elsewhere, Pcp Primary Care Provider Unavailabl e Source Comments Patient records contain information from all sites at [facility]. For routine questions regarding patient records, call [phone] during business hours, M-F 8:00 AM - 5:00 PM Central Time. Record requests for emergency care only can be directed to [phone] at any time.[facility] Allergies Active AllergyReactionsCriticalityNoted DateCommentsCodeineNausea Only09/09/2016 Can do [...] 20 mL (MARCAINE) Indications:Mass Abdominal Right Upper Zynfknfd23 oWetzBglm07/12/2023ctive Active Problems ProblemNoted DateDiagnosed DatePemphigoid Mucous Tvwhacyf97/21/2024sthma Mild Myplimhdas28/21/2024Mass Abdominal Right Upper Aqppzell69/25/2023Lesion Oral 01/19/2021 Overview (01/19/2021): Added automatically from request for surgery [id number] Encounters DateTypeDepartmentCare UswzXrjdsxfpeeh58/19/2025Refill Department of Dermatology in [place], [place] [address] [place] [address] Vinita Salas M.D. Med Zrnsos7505/28/2025Refill Department of Dermatology in [place], [place] [address] [place] [address] Vinita Salas M.D. Med Refillfrom Last 3 Months Immunizations ImmunizationAdministration DatesNext DueInfluenza TIV (IM)05/23/2019,08/01/2018 Influenza, Quadrivalent, Adjuvanted, Preservative Free06/13/20239636QPB6585/31/2023 Tdap03/06/2019 Family History Medical HistoryRelationNameCommentsCancerDaughterJennifer Bredehoeftliver cancer [...] grade07/06/2021CommentsNoSex and Gender InformationValueDate RecordedSex Assigned at VhmggUbbxge80/05/2021 12:58 AM CDT Legal JheUjzrmo20/03/2021 12:30 PM CSTGender DvkjvlsjQsjwkh07/05/2021 12:58 AM CDTSexual EgmhwrjfjhdSnnfprsg74/05/2021 12:58 AM CDT Last Filed Vital Signs Vital SignReadingTime TakenCommentsBlood Cuyyltxo153/5707/04/2024 4:40 PM ENTEROSTOMAL THERAPY NURSE Pqddo141907/04/2024 4:45 PM JUKVzxyrnisszw81.5 ??C (97.7 ??F)07/04/2024 3:51 PM CSTRespiratory Irug275509/03/2023 4:45 PM CSTOxygen Hflbtkvpgd93%07/04/2024 4:45 PM CSTInhaled Oxygen Concentration--Oswbfy71.2 kg (163 lb 9.3 oz)09/22/2023 10:14 AM TYZHqlrhp994.2 cm (5' 7)07/04/2024 12:08 PM CSTBody Mass Index25.8 09/22/2023 10:14 AM ENTEROSTOMAL THERAPY NURSE Plan of Treatment Health MaintenanceDue DateLast DoneCommentsCOVID-19 Vaccine (3 - Pfizer risk series)/11/2021, 1Depression Screening (Annual PHQ-2) 08/14/2024Fall Risk Screen (Annual)08/14/2024DTaP,Tdap,and Td Vaccines (3 - Td or Tdap)/, 03/06/2019Hepatitis B ScreeningDiscontinued 1Pneumococcal vaccine (50+ years)Xmpldanac09/31/2023RSV vaccine - (32-36 weeks) or 50+ jnceoYbojtlxvt40/19/2024Zoster VaccinesCompleted 08/27/2024, 05/30/2024Influenza IcjsjimCtrqpqmei92/19/2025, 05/30/2024, 06/13/2023, Additional history existsIPV VaccinesAged OutNo longer eligible based on patient's age to complete [place] [address] Advance Directives For more information, please contact: [phone] TypeDate RecordedPatient RepresentativeExplanationAdvance Directive09/15/2021 6:54 PMBODY/ORGAN DONATION Care Teams Team MemberRelationshipSpecialtyStart DateEnd Date Elsewhere, Pcp PCP - GeneralInternal Medicine01/27/23
--- OUTSIDE RECORDS SUMMARY | 2025-07-30 00:25 | XMS_ITS | Clinical Summary ---
Author Organization [facility] Address [address] [address] Care Team Providers Care Mold Maker Plastic Molds Name Role Phone Unavailable Primary Care Provider [...] for each transition of care or referral. Domgeo.ruPresbyterian HospitalFixetude Allergies Active AllergyReactionsCriticalityNoted DateCommentsPrednisoneHypertensionHigh 03/29/2019 Medications MedicationSigDispense [...] ValueDate RecordedSex Assigned at BirthNot on fileLegal YwhPoeoyd44/21/2019 11:32 AM CDTGender IdentityNot on fileSexual OrientationNot on file Last Filed Vital Signs Vital SignReadingTime TakenCommentsBlood Liffwfiz434/8103/29/2019 12:40 PM CDT Mhxrc6261/16/2019 12:40 PM EDQGntfsqnpcfw97.7 ??C (98 ??F)03/29/2019 1:30 PM CDT Respiratory Zskh917803/29/2019 12:40 PM CDTOxygen Cnjrhvvjjm33%03/29/2019 12:40 PM CDTInhaled Oxygen Concentration--Vxdhai76.1 kg (192 lb)03/29/2019 7:29 AM CDT Xfcomc573.2 cm (5' 7)03/29/2019 7:29 AM CDTBody Mass [...]
== END 2025-07-30 00:24 | disposition home or self-care (01) ==
LOC: ED 07-30 00:22
PROVIDERS: Emergency Provider Family Medicine; PCP Family Medicine
DX: Z48.817 Encounter for surgical aftercare following surgery on the skin and subcutaneous tissue (principal); G89.18 Other acute postprocedural pain; M79.675 Pain in left toe(s)
CPT/HCPCS: 99283